=== PATIENT | male | born 1945 | race Caucasian/White ===

== ENCOUNTER → 2018-05-05 07:38 | Outpatient (CLI) | payer MEDICARE, OTHER, SELFPAY ==
[2018-05-05 09:09] LABS: Add Manual Diff / Slide Review NO; Basophils Percent Auto 1.1 % (0-2); Eosinophils Percent Auto 6.6 % (2-4); Hematocrit 45.8 % (41-53); Hemoglobin 15.4 g/dL (13.5-17.5); Mean Corpuscular HGB Conc 33.7 % (30-36); Mean Corpuscular Hemoglobin 32.9 PG (26-34); Mean Corpuscular Volume 97.6 fL (80-100); Monocytes Percent Auto 9.4 % (3-14); Neutrophils Absolute Auto 3500 /uL (3000-5900); Neutrophils Percent Auto 58.9 % (50-75); Platelet Count 157 X10^3/uL (150-400); Red Blood Cell Count 4.69 X10^6/uL (4.5-5.9); Red Cell Distribution Width 13.8 % (11.6-14.8); White Blood Cell Count 5.9 X10^3/uL (4.5-11.0)
[2018-05-05 09:45] LABS: Alanine Aminotransferase 23 IU/L (21-72); Albumin Globulin Ratio 1.6 (1.0-2.8); Alkaline Phosphatase 67 U/L (38-126); Aspartate Aminotransferase 23 IU/L (17-59); BUN Creatinine Ratio 25.6 (6-22); Bilirubin Total 0.4 mg/dL (0.2-1.3); Blood Urea Nitrogen 23 mg/dL (9-20); Calcium 9.2 mg/dL (8.4-10.2); Carbon Dioxide 32 mmol/L (22-32); Chloride 104 mmol/L (98-107); Cholesterol 135 mg/dL (140-199); Estimated Glomerular Filt Rate > 60.0 mL/min (>60); Globulin 2.5 g/dL (1.7-4.1); Glucose 89 mg/dL (80-110); HDL Cholesterol 50 mg/dL (40-60); HEMOLYSIS < 15 (0-50); LDL Cholesterol Calculated 68 mg/dL (<100); Potassium 4.1 mmol/L (3.4-5.1); Sodium 146 mmol/L (137-145); Total Protein 6.5 g/dL (6.3-8.2); Triglycerides 84 mg/dL (35-150)
[2018-05-05 10:51] LABS: TSH w/ Reflex to FT4 1.02 uIU/mL (0.47-4.68)
== END ==
PROVIDERS: Visit Provider Internal Medicine
DX: E03.9 Hypothyroidism, unspecified (principal); I10 Essential (primary) hypertension; I25.10 Atherosclerotic heart disease of native coronary artery without angina pectoris; E78.2 Mixed hyperlipidemia
CPT/HCPCS: 36415; 80053; 80061; 84443; 85025

== ENCOUNTER → 2018-09-15 08:46 | Outpatient (CLI) | payer MEDICARE, OTHER, SELFPAY ==
[2018-09-15 10:16] LABS: Alanine Aminotransferase 28 IU/L (21-72); Albumin 3.8 g/dL (3.5-5.0); Albumin Globulin Ratio 1.5 (1.0-2.8); Alkaline Phosphatase 71 U/L (38-126); Aspartate Aminotransferase 23 IU/L (17-59); Bilirubin Total 0.4 mg/dL (0.2-1.3); Blood Urea Nitrogen 18 mg/dL (9-20); Calcium 8.8 mg/dL (8.4-10.2); Carbon Dioxide 28 mmol/L (22-32); Chloride 106 mmol/L (98-107); Cholesterol 109 mg/dL (140-199); Estimated Glomerular Filt Rate > 60.0 mL/min (>60); Globulin 2.5 g/dL (1.7-4.1); Glucose 94 mg/dL (80-110); HDL Cholesterol 43 mg/dL (40-60); HEMOLYSIS < 15 (0-50); LDL Cholesterol Calculated 45 mg/dL (<100); Sodium 144 mmol/L (137-145); Total Protein 6.3 g/dL (6.3-8.2); Triglycerides 107 mg/dL (35-150)
== END ==
PROVIDERS: PCP Student in an Organized Health Care Education/Training Program; Visit Provider Internal Medicine Cardiovascular Disease
DX: E78.5 Hyperlipidemia, unspecified (principal)
CPT/HCPCS: 36415; 80053; 80061

== ENCOUNTER → 2018-10-06 08:16 | Outpatient (CLI) | payer MEDICARE, OTHER, SELFPAY ==
--- NOTE | 2018-10-06 09:00 | DI.NM.S_ITS ---
PATIENT NAME: DARBY ZHANG : 1945 EXAM DATE: 10/06/2018 9:03 ORD. : MACIEJ GEORGE M.D. CC: MODALITY: NM PATIENT TYPE: Out CONTRAST MEDIA: STATION ID: [id number] FLUORO TIME: PROCEDURE: NM ISABELLA PERF SPECT REST & STR Rest and exercise myocardial perfusion SPECT with gated imaging and ejection fraction RADIOPHARMACEUTICAL: 25.5 mCi Tc-99m sestamibi IV at rest and 27.2 mCi Tc- 99m sestamibi IV at peak exercise. A [id number]-fcregejg was performed. INDICATIONS: Atherosclerotic heart disease of [place] coronary artery TECHNIQUE: Radiopharmaceutical was injected at peak stress test, and also at rest. SPECT images were obtained. SPECT myocardial perfusion images were displayed in short axis, horizontal long axis, and vertical long axis views. Gated images were reviewed using Zipscene software. COMPARISON: None. CARDIAC STRESS: A standard Ruddy treadmill exercise tolerance test was performed by the patient under the supervision of an attending staff. The patient exercised for 7 minutes and 47 seconds; functional aerobic impairment (CHRISTINE) is -12 %. Hemodynamic data: There is normal blood pressure and heart rate response to exercise stress. Patient achieved 93% of maximum predicted heart rate at peak exercise. Symptoms: Patient denied chest pain during exercise. EKG: Negative for ischemia. no ectopy. FINDINGS: Raw data: There is good myocardial labeling by radiotracer. No significant motion artifacts. Lwro-jc-aioww ratio is 0.38 (normal is less than 0.38 for sestamibi tracer, and less than 0.50 for thallium tracer). Left ventricle function: Gated images demonstrate normal left ventricle wall thickening. No segmental wall motion abnormality. No transient ischemic dilation ; TID is Continued Report - Page 2 of 2 PATIENT NAME: DARBY ZHANG : 1945 EXAM DATE: 10/06/2018 9:03 ORD. : MACIEJ GEORGE M.D. CC: MODALITY: NM PATIENT TYPE: Out CONTRAST MEDIA: STATION ID: [id number] FLUORO TIME: 0.74 (normal less than 1.3). The left ventricle resting end-diastolic volume is 79 mL. Left ventricle stress ejection fraction is 70%; normal values are above 45%. Myocardial perfusion: There is a moderate-sized perfusion defect from the mid to basal inferior and inferoseptal wall both at supine stress and rest which improves with prone imaging with only a very a small area at the basal posterior segment which persists on prone imaging. This is consistent with artifact .There is a small apical septal defect on supine stress and rest imaging which resolved with prone imaging, also consistent with artifact. Otherwise normal distribution of activity in the left and right ventricular myocardium. No fixed or reversible perfusion defects. IMPRESSION: -Normal perfusion study. -Normal ejection fraction and wall motion. -Great exercise capacity. -Compared to the report of prior nuclear stress study on 03/15/2013, the described anterior wall ischemia is no longer present. Dictated by: Go Gamino on 10/07/2018 at 19:26 Approved by: Go Gamino on 10/07/2018 at 19:38
--- NOTE | 2018-10-06 09:26 | PM.TREADMILL ---
Cardiac Stress Test Report Referral & Results Date Patient Seen: 10/06/18 Requesting provider: Sapphire Swann Indication: Known coronary disease Rest ECG: Unremarkable Procedure Note: Today following both written and verbal informed consent the patient was exercised according to a standard Ruddy protocol patient went for a total of 7 min 47 sec achieving a maximum heart rate of 136 maximum systolic blood pressure of 168. This is approximately 10.1 METS. Exercise was terminated at this point because of targets for med and patient was unable to proceed any further. Patient was also given Cardiolite through a previously started Hep-Lock IV by the nuclear medicine specialist approximately 1 minute prior to the cessation of exercise. With exercise there were some nonspecific ST-T segment flattening in the far lateral leads V4 through V6 that rapidly resolved immediately upon cessation of exercise. Functional aerobic impairment rated-12% on the active scale No dysrhythmia Normal heart rate and blood pressure response Impression: Nonspecific ST changes unlikely to be ischemic given the rapidity with which they resolved Better than average exercise capacity Perfusion imaging will be reported separately Please note: Actual ECG tracings can be found in the PACS system.
== END ==
PROVIDERS: Family Provider Family Medicine; PCP Student in an Organized Health Care Education/Training Program; Visit Provider Internal Medicine Cardiovascular Disease
DX: I25.10 Atherosclerotic heart disease of native coronary artery without angina pectoris (principal)
CPT/HCPCS: 78452; 93016; 93017; 93018; A9502

== ENCOUNTER → 2018-10-07 10:51 | Outpatient (CLI) | payer MEDICARE, OTHER, SELFPAY ==
--- NOTE | 2018-10-07 | DI.ECHO.S_ITS ---
[facility]---------+ [facility] +---------+ : : [id number] : [place] : : : : [id number] : : : : Phone: [phone]+ Echocardiogram Report + + :Name: DARBY ZHANG Study Date: 10/07/2018 Height: 69 in : :[facility] Weight: 180 lb: : Gender: Male BSA: 2.0 m2 : :: 1945 Age: 73 yrs : :Reason For Study: MURMUR : : Performed By: Anita Rodriguez : :Referring: MACIEJ GEORGE : + + Interpretation Summary The left ventricle is normal in size, wall thickness, and systolic function without any focal wall motion abnormalities with the ejection fraction visually estimated to be 60-65%. Diastolic parameters suggest a relaxation abnormality of the left ventricle, consistent with probable normal filling pressures. There has been no significant change since the previous study. The right ventricle is at the upper limits of normal in size and right ventricular systolic function is at the lower limits of normal. The right ventricle appears slightly larger compared to the previous study. The right ventricular systolic pressure is estimated to be at least 23 mmHg based on an estimated right atrial pressure of 3 mm Hg. The left atrial size is normal and the right atrium is moderately dilated. The right atrium has mildly increased in size since the prior echo exam. There is mild tricuspid regurgitation that is slightly more prominent compared to the previous study. There is no other significant valvular heart disease. The ascending aorta is mildly enlarged but is unchanged compared to the previous study. The patient was in sinus bradycardia with heart rates between 50-55 bpm during the exam. Procedure: A two-dimensional transthoracic echocardiogram with color flow and Doppler was performed. The study quality was technically adequate. Comparison is made with the echocardiogram of 03/15/2013. The patient was in sinus bradycardia with heart rates between 50-55 bpm during the exam. Left Ventricle: The left ventricle is normal in size, wall thickness, and systolic function without any focal wall motion abnormalities. The ejection fraction is estimated to be 60-65%. Diastolic parameters suggest a relaxation abnormality of the left ventricle, consistent with probable normal filling pressures. There has been no significant change since the previous study. Right Ventricle: The right ventricle is at the upper limits of normal in size. Right ventricular systolic function is at the lower limits of normal. This is slightly larger compared to the previous study. Atria: The left atrial size is normal. The right atrium is moderately dilated. The right atrium has mildly increased in size since the prior echo exam. There is no Doppler evidence for an interatrial shunt. Mitral Valve: There is mild mitral annular calcification. The mitral valve is normal in structure and function. There is trace mitral regurgitation. This is unchanged compared to the previous study. Aortic Valve: The aortic valve is trileaflet. There is mild aortic valve sclerosis. The aortic valve opens well. There is no aortic valve stenosis. There is trace aortic regurgitation. This is unchanged compared to the previous study. Tricuspid Valve: The tricuspid valve is normal in structure and function. There is mild tricuspid regurgitation. This is slightly more prominent compared to the previous study. The right ventricular systolic pressure is estimated to be at least 23 mmHg based on an estimated right atrial pressure of 3 mm Hg. Pulmonic Valve: The pulmonic valve is normal in structure and function. There is trace pulmonic regurgitation. There is no other significant valvular heart disease. Great Vessels: The aortic root is normal size. The ascending aorta is mildly enlarged. This is unchanged compared to the previous study. The aortic arch is normal in size. The pulmonary artery is normal size. The IVC is of normal diameter and collapses greater than 50% with a sniff. This suggests a low right atrial pressure of 3 mm Hg. Pericardium/ Pleura There is no pericardial effusion. There is no pleural effusion. MMode/2D Measurements & Calculations LVIDd: 4.6 cm LVOT diam: 2.5 cm LVIDs: 2.8 cm Ao root diam: 3.6 cm FS: 39.6 % asc Aorta Diam: 3.5 cm IVSd: 0.92 cm Ao Arch Diam (distal): 2.6 cm LVPWd: 0.95 cm LV higuera. diameter/BSA (cm/m^2): 2.3 LV sys. diameter/BSA (cm/m^2): 1.4 LA A2 area: 20.3 cm2 RA long axis: 5.5 cm LA A4 area: 16.8 cm2 RA area: 23.6 cm2 LA length (vol): 5.8 cm RA vol: 86.1 ml LA vol: 49.7 ml RA : 43.6 ml/m2 LA vol index: 25.2 ml/m2 IVC diam: 1.8 cm RVD1 (basal): 4.2 cm TAPSE: 1.7 cm Doppler Measurements & Calculations Ao V2 max: 105.9 cm/sec LVOT Max Levar: 88.6 cm/sec Ao V2 mean: 65.4 cm/sec LV V1 max P.1 mmHg Ao max P.5 mmHg LV V1 VTI: 17.7 cm Ao mean P.0 mmHg CHRISTINE(I,D): 4.3 cm2 Ao V2 VTI: 19.6 cm CHRISTINE(V,D): 4.0 cm2 sev ratio: 0.90 CHRISTINE indexed to BSA (cm^2/m^2): 2.2 MV E max levar: 39.9 cm/sec TR max levar: 223.5 cm/sec MV A max levar: 55.3 cm/sec TR max P.1 mmHg MV E/A: 0.72 Med Peak E' Levar: 3.9 cm/sec E/E' med: 10.2 Lat Peak E' Levar: 6.5 cm/sec E/E' lat: 6.1 E/e' average: 8.2 MV P1/2t: 64.0 msec MV P1/2t max levar: 40.8 cm/sec SV(LVOT): 83.6 ml MVA(P1/2t): 3.4 cm2 Reading Physician:PM
== END ==
PROVIDERS: Family Provider Family Medicine; PCP Student in an Organized Health Care Education/Training Program; Visit Provider Internal Medicine Cardiovascular Disease
DX: I07.1 Rheumatic tricuspid insufficiency (principal); R01.1 Cardiac murmur, unspecified
CPT/HCPCS: 93306

== ENCOUNTER → 2019-02-02 10:54 | Outpatient (CLI) | payer MEDICARE, OTHER, SELFPAY ==
[2019-02-02 13:35] LABS: Free T3, Triiodothyronine Free 4.89 pg/mL (2.77-5.27); Free T4, Direct Thyroxine 1.04 ng/dL (0.78-2.19)
[2019-02-02 13:48] LABS: Thyroid Stimulating Hormone 0.31 uIU/mL (0.47-4.68)
[2019-02-02 14:06] LABS: Vitamin B12 258 pg/mL (239-931)
[2019-02-04 14:21] LABS: Testosterone Free 30.6 pg/mL (30.0-135.0); Testosterone Total 508 ng/dL (250-1100)
== END ==
PROVIDERS: PCP Student in an Organized Health Care Education/Training Program; Visit Provider Student in an Organized Health Care Education/Training Program
DX: R53.83 Other fatigue (principal); E03.9 Hypothyroidism, unspecified
CPT/HCPCS: 36415; 82607; 84402; 84403; 84439; 84443; 84481

== ENCOUNTER 2019-02-09 07:52 | Day surgery (SDC) | payer MEDICARE, OTHER, SELFPAY ==
[2019-02-09 08:12] VITALS: BP 116/79; PULSE 57; RESP 15; TEMP 36.3; O2SAT 99
[2019-02-09 08:21] VITALS: BMI 24.4
[2019-02-09] MEDS: PROPARACAINE 0.5% OPHTH SOL 2 DROPS EYE-OP (08:45)
[2019-02-09] MEDS: CATARACT EYE COMPOUND (10 DROPS/SYRINGE) 3 DROPS EYE-OP (08:50)
--- NOTE | 2019-02-09 09:47 | PM.PREOP ---
Pre-operative Note Interval Note History & Physical reviewed/Exam performed by Physician: No Changes to H&P: No
--- NOTE | 2019-02-09 09:47 | PM.OP.1 ---
Operative Date/Time/Diagnoses Pre-op diagnosis: Nuclear Cataract Left eye Post-op diagnosis: same Procedure & Clinicians Surgeon: Basilio Sinha Anesthesia Type: MAC +/- and Sedation Operative Notes Procedure in detail: Patient brought to the operating suite. Tetracaine drops placed in the left eye. Patient was prepped and draped in sterile manner. Wire lid speculum was placed in the eye. Betadine drops were placed on the eye. This was irrigated. Lidocaine jelly was placed on the eye. A paracentesis port was created with a side-port blade. 0.1 mL 1% preservative free lidocaine was injected into the anterior chamber. The anterior chamber was deepened with viscoelastic. 2.6 mm keratome was used to create a temporal clear corneal incision. Cystotome and Utrata forceps were used to create continuous tear capsulorrhexis. Balanced salt solution was used to hydro dissect the nucleus. The phacoemulsification handpiece was inserted and the nucleus was removed using the stop and chop technique. The irrigation aspiration handpiece was inserted and the remaining cortex was removed. Anterior chamber was deepened with viscoelastic. An Larkin ZCB00 intraocular lens with a power of 19.5 was injected into the capsular bag. Irrigation aspiration handpiece was inserted and the remaining viscoelastic was removed. Incision was hydrated with balanced salt solution and was leaking. Two 10-0 nylon sutures were used to secure the incision. It was tested again and found to be leak free with pressure with Weck-Nikki sponges. 0.1 mL Vigamox injected anterior chamber. 0.3 mL Kenalog 10 mg was injected subconjunctivally. Lid speculum was removed. The patient left the operating room in excellent condition. Complications: none Condition: stable Disposition: same day surgery
[2019-02-09] MEDS: MOXIFLOXACIN OPHTH DROPS 3 ML BOTTLE 2 DROPS INJ (10:11)
[2019-02-09] MEDS: PHENYLEPHRINE/LIDOCAINE VIAL (OR) 0.2 ML EYE-OP (10:11)
[2019-02-09] MEDS: CHONDROIDTIN/SOD HYALURONATE 1.05 ML SYRINGE INTRAOCULA (10:12)
[2019-02-09] MEDS: LIDOCAINE JELLY 2% 5 ML 1 APPLIC TOP (10:12)
[2019-02-09] MEDS: BALANCED SALT IRRIG SOLN NO.2 500 ML, EPINEPHrine 1 MG IRR (10:12)
[2019-02-09] MEDS: TRIAMCINOLONE 50 MG/5 ML VIAL INJ (10:12)
[2019-02-09] MEDS: TETRACAINE 0.5% OPHTH DROPS 4 ML 2 DROPS EYE-OP (10:12)
[2019-02-09 10:41] VITALS: BP 115/82; PULSE 53; RESP 15; TEMP 36.5; O2SAT 97
--- NOTE | 2019-02-09 11:06 | SUR.PHASEII ---
Discussed pt may take tylenol as needed and call Dr. Sinha if has pain in the surgical eye.
== END 2019-02-09 10:54 | disposition home or self-care (01) ==
PROVIDERS: PCP Student in an Organized Health Care Education/Training Program; Visit Provider Ophthalmology
PROC: (CPT 66984; principal; 2019-02-09 10:00)
DX: H25.12 Age-related nuclear cataract, left eye (principal)
CPT/HCPCS: 66984; J0171; J2250; J3010; J3301

== ENCOUNTER 2019-02-19 14:14 | Day surgery (SDC) | payer MEDICARE, OTHER, SELFPAY ==
[2019-02-19 14:31] VITALS: BMI 25.8
[2019-02-19 14:39] VITALS: BP 124/78; PULSE 61; RESP 15; TEMP 37.1; O2SAT 95
--- NOTE | 2019-02-19 15:22 | PM.PREOP ---
Pre-operative Note Interval Note History & Physical reviewed/Exam performed by Physician: No Changes to H&P: No
--- NOTE | 2019-02-19 15:22 | PM.OP.1 ---
Operative Date/Time/Diagnoses Pre-op diagnosis: Leaking cataract incision Procedure & Clinicians Procedure: Suture cataract incision Same procedure as scheduled: Yes Surgeon: Basilio Sinha Anesthesia Type: MAC +/- Operative Notes Procedure in detail: Patient brought to the operating suite. Tetracaine drops placed in the left eye. Patient was prepped and draped in sterile manner. Wire lid speculum was placed in the eye. Betadine drops were placed on the eye. This was irrigated. Two 10-0 nylon sutures were used to close the cataract incision. Incision was hydrated with balanced salt solution and found to be leak free with pressure with Weck-Nikki sponges. 0.1 mL Vigamox injected anterior chamber. Lid speculum was removed. The patient left the operating room in excellent condition.
[2019-02-19] MEDS: MOXIFLOXACIN OPHTH DROPS 3 ML BOTTLE 2 DROPS INJ (15:49)
[2019-02-19] MEDS: TETRACAINE 0.5% OPHTH DROPS 4 ML 2 DROPS EYE-OP (15:49)
[2019-02-19] MEDS: BALANCED SALT IRRIG SOLN NO.2 15 ML IRR (15:51)
[2019-02-19 15:57] VITALS: BP 113/80; PULSE 61; RESP 13; TEMP 36.6; O2SAT 97
[2019-02-19 16:24] VITALS: BP 131/80; PULSE 56; RESP 16; TEMP 36.3; O2SAT 97
== END 2019-02-19 16:25 | disposition home or self-care (01) ==
PROVIDERS: PCP Student in an Organized Health Care Education/Training Program; Visit Provider Ophthalmology
PROC: (CPT 66250; principal; 2019-02-19 15:00)
DX: H59.092 Other disorders of the left eye following cataract surgery (principal); I10 Essential (primary) hypertension; E78.5 Hyperlipidemia, unspecified; E03.9 Hypothyroidism, unspecified; Z98.42 Cataract extraction status, left eye; Z95.1 Presence of aortocoronary bypass graft
CPT/HCPCS: 66250; J2250; J3010

== ENCOUNTER 2019-06-03 15:01 | Emergency (ER) | payer MEDICARE, OTHER, SELFPAY ==
--- NOTE | 2019-06-03 15:08 | ED.GENADULT ---
HPI - General Adult General Chief complaint: Syncope Stated complaint: Near Syncope Time Seen by Provider: 06/03/19 15:03 Source: patient Mode of arrival: EMS Limitations: no limitations History of Present Illness HPI narrative: 73-year-old male brought in by EMS for concerns of a near syncopal event. Patient does have a significant cardiac history. Within the past 5 years has had a coronary artery bypass graft. He states that he was sitting in his hot tub because of back pain. He states the back pain is not new. States when he got out of the hot tub he was very lightheaded. No dizziness. He did not pass out. No chest pain. No shortness of breath. Some concern about ST depressions on the EKG provided by EMS. Related Data Home Medications Medication Instructions Recorded Confirmed latanoprost [Xalatan] 1 drp OPHTHALMIC (EYE) BEDTIME #0 04/29/13 06/03/19 aspirin 81 mg PO DAILY #0 04/29/17 06/03/19 chlorthalidone 12.5 mg PO Q OTHER DAY 06/03/19 06/03/19 dorzolamide-timolol 1 drp OPHTHALMIC (EYE) DIRECTED 06/03/19 06/03/19 lisinopril 20 mg PO DAILY 06/03/19 06/03/19 metoprolol succinate 12.5 mg PO DAILY 06/03/19 06/03/19 Previous Rx's Medication Instructions Recorded carbamazepine 200 mg 200 mg PO Q12H #180 cap 01/21/19 capsule,extended release [id number] atorvastatin 40 mg tablet 40 mg PO BEDTIME #90 tab 05/25/19 levothyroxine 125 mcg tablet 125 mcg PO DAILY #90 tab 05/31/19 Allergies Allergy/AdvReac Type Severity Reaction Status Date / Time No Known Drug Allergies Allergy Verified 05/12/19 11:31 Review of Systems Constitutional Constitutional: Denies fever(s), Denies headache(s) and Denies weakness ENT Ears, Nose, Mouth, and Throat: Denies vertigo, Reports dizziness, Denies headache(s) and Reports disequilibrium Cardiovascular Cardiovascular: Denies chest pain, Denies syncope and Denies dyspnea Respiratory Respiratory: Denies dyspnea Gastrointestinal Gastrointestinal: Denies abdominal pain, Reports nausea and Denies vomiting Genitourinary Genitourinary: Denies dysuria Musculoskeletal Musculoskeletal: Denies atrophy, Denies arthralgias and Denies tingling Integumentary/Breasts Skin/Breast: Denies lesions and Denies rash Neurologic Neurologic: Denies confusion, Denies vertigo, Reports dizziness, Denies syncope, Denies headache(s), Denies tingling, Reports disequilibrium and Denies weakness Psychiatric Psychiatric: Denies confusion Hematologic/Lymphatic Hematologic/Lymphatic: Denies easy bleeding and Denies easy bruising [facility] Medical History Aneurysm of right renal artery (Resolved 2008) CAD (coronary artery disease) (Chronic 2012) Excessive daytime sleepiness (Chronic) Fatigue (Chronic) Hyperlipidemia (Chronic) Hypertension (Chronic) Hypothyroidism (Chronic 2014) Lumbar spinal stenosis (Chronic) Obstructive sleep apnea (Chronic) PVD (peripheral vascular disease) (Chronic) Subacute thyroiditis (Chronic) Trigeminal neuralgia (Chronic 2010) Surgical History History of arthroplasty of right knee (Resolved 2014) History of nephrectomy (Resolved) Status post coronary artery bypass graft (Resolved 2012) Family History Son Multiple sclerosis Mother No problems noted. Social History household members: spouse Smoking Status: Never smoker Social History household members: spouse Smoking Status: Never smoker Exam Initial Vital Signs Initial Vital Signs: Vital Signs Temperature 97.6 F 06/03/19 15:09 Pulse Rate 56 L 06/03/19 15:09 Respiratory Rate 12 06/03/19 15:09 Blood Pressure 114/79 06/03/19 15:09 Pulse Oximetry 99 06/03/19 15:09 Const General: cooperative, comfortable and well developed Orientation: alert, awake and oriented x3 HENMT Head: normal to inspection and normocephalic Resp Effort & Inspection: normal respiratory effort Auscultation: clear to auscultation bilaterally Cardio Rate: regular rate Rhythm: regular rhythm Pulses: radial pulses present GI Inspection: non-distended Palpation: soft, No firm and No tender Skin Lesions: no lesions Rashes: no rashes Neuro General: alert, awake and oriented x3 Cognition: normal cognition Speech: speech normal Motor: muscle tone normal throughout Extrem General: normal to inspection and capillary refill normal Psych Appearance: grossly normal and well kempt Course Orders Ordered: ED Orders 06/03/19 14:45 Basic Metabolic Panel Stat Complete Blood Count AUTO DIFF Stat Ethanol (ETOH) Stat Partial Thromboplastin Time Stat Prothrombin Time INR Stat Troponin I Stat 06/03/19 15:09 EKG-12 Lead Stat Discontinued Medications Sodium Chloride (Normal Saline 0.9%) 1,000 mls @ 1,000 mls/hr IV BOLUS ONE Stop: 06/03/19 16:02 Last Admin: 06/03/19 15:37 Dose: 1,000 mls/hr Documented by: JUSTYNA Vital Signs Vital signs: Vital Signs - 8 hr 06/03/19 15:09 06/03/19 15:46 Temperature 97.6 F Pulse Rate 56 L 49 L Respiratory Rate 12 10 L Blood Pressure 114/79 Blood Pressure [Right Arm] 112/73 Pulse Oximetry 99 97 Medical Decision Making Lab Data Lab results reviewed: Yes I reviewed the patient's lab results. Result diagrams: 06/03/19 14:45 06/03/19 14:45 Labs: Lab Results 06/03/19 06/03/19 06/03/19 Range/Units 14:45 14:45 14:45 WBC 6.6 (4.5-11.0) X10^3/uL RBC 4.94 (4.5-5.9) X10^6/uL Hgb 16.2 (13.5-17.5) g/dL Hct 47.6 (41-53) % MCV 96.3 (80-100) fL MCH 32.8 (26-34) PG MCHC 34.0 (30-36) % RDW 13.8 (11.6-14.8) % Plt Count 185 (150-400) X10^3/uL Neut % (Auto) 49.0 L (50-75) % Lymph % (Auto) 35.3 (25-40) % [place] % (Auto) 9.0 (3-14) % Eos % (Auto) 5.7 H (2-4) % Baso % (Auto) 1.0 (0-2) % Neut # (Auto) 3200 (3773-6337) /uL Lymph # (Auto) 2300 (3413-9665) /uL [place] # (Auto) 600 (0-900) /uL Eos # (Auto) 400 (0-450) /uL Baso # (Auto) 100 (0-100) /uL PT 10.8 (10.1-12.7) SECONDS INR 0.9 (0.9-1.3) APTT 26 L (26.4-36.2) SECONDS Sodium 140 (137-145) mmol/L Potassium 3.6 (3.4-5.1) mmol/L Chloride 101 (98-107) mmol/L Carbon Dioxide 25 (22-32) mmol/L BUN 23 H (9-20) mg/dL Creatinine 0.90 (0.66-1.25) mg/dL Estimated GFR > 60.0 (>60) mL/min BUN/Creatinine Ratio 25.6 H (6-22) Glucose 107 (80-110) mg/dL Calcium 9.6 (8.4-10.2) mg/dL Troponin I < 0.012 (0.01-0.034) ng/mL Ethyl Alcohol < 10 ( - 10) mg/dL Point of Care Testing Glucose POC 115 Point of care testing: Point of Care Testing Glucose POC 115 ECG Data Attestation: I personally reviewed and interpreted this ECG as follows: Prior ECG tracings: not available for review Interpretation: Sinus bradycardia Ventricular rate of 54 Normal axis Normal QRS Normal QTC No ST T wave changes MDM Narrative Medical decision making narrative: Labs are reassuring, EKG is reassuring, patient was able to ambulate around the emergency department without problems. I have a strong suspicion that his symptoms were related to vasodilation secondary to being in the hot hot tub and then standing up and getting lightheaded. He states he is back to normal. Has no further symptoms. We will hold on further workup for now. Patient was given return precautions and follow-up instructions. He expressed understanding and agreement plan. Discharge Plan Departure Patient Disposition: Home Clinical Impression: Pre-syncope Instructions: DI for Dizziness-Nonvertigo Activity Restrictions/Additional Instructions: I do suspect that your symptoms are related to being in the hot tub. Continue all of your medications as directed. Contact your primary provider for follow-up. Return to the emergency department for any new or worsening symptoms Prescriptions: No Action latanoprost [Xalatan] 0.005 % drops 1 drp ophthalmic (eye) BEDTIME Qty: 0 RF: 0 aspirin 81 MG tablet,delayed release (DR/EC) 81 mg PO DAILY Qty: 0 RF: 0 carbamazepine 200 mg capsule, ER multiphase 12 hr 200 mg PO Q12H Qty: 180 RF: 1 atorvastatin 40 mg tablet 40 mg PO BEDTIME Qty: 90 RF: 3 levothyroxine [Synthroid] 125 mcg tablet 125 mcg PO DAILY Qty: 90 RF: 3 lisinopril 10 mg tablet 20 mg PO DAILY RF: 0 dorzolamide-timolol 22.3-6.8 mg/mL drops 1 drp ophthalmic (eye) DIRECTED RF: 0 metoprolol succinate 25 mg tablet extended release 24 hr 12.5 mg PO DAILY RF: 0 chlorthalidone 25 mg tablet 12.5 mg PO Q OTHER DAY RF: 0 Referrals: Lele Diaz MD [Primary Care Provider] -
[2019-06-03 15:09] VITALS: BP 114/79; PULSE 56; RESP 12; TEMP 36.4; O2SAT 99; BMI 25.8
[2019-06-03 15:15] LABS: Add Manual Diff / Slide Review NO; Basophils Absolute Auto 100 /uL (0-100); Eosinophils Absolute Auto 400 /uL (0-450); Eosinophils Percent Auto 5.7 % (2-4); Hematocrit 47.6 % (41-53); Hemoglobin 16.2 g/dL (13.5-17.5); Lymphocytes Absolute Auto 2300 /uL (1100-4500); Lymphocytes Percent Auto 35.3 % (25-40); Mean Corpuscular Hemoglobin 32.8 PG (26-34); Mean Corpuscular Volume 96.3 fL (80-100); Monocytes Absolute Auto 600 /uL (0-900); Neutrophils Absolute Auto 3200 /uL (1500-7000); Platelet Count 185 X10^3/uL (150-400); Red Blood Cell Count 4.94 X10^6/uL (4.5-5.9); Red Cell Distribution Width 13.8 % (11.6-14.8); White Blood Cell Count 6.6 X10^3/uL (4.5-11.0)
--- NOTE | 2019-06-03 15:16 | PC.NURSE ---
Patient was in hot tub 104+degree for his lower back pain. Patient felt nauseated, and light headed. When getting out felt near syncopal. Did not pass out. Denies chest pain or SOB. Reports some fatigue and nausea.
[2019-06-03 15:21] LABS: INR 0.9 (0.9-1.3); Prothrombin Time 10.8 SECONDS (10.1-12.7)
[2019-06-03 15:24] LABS: PTT Partial Thromboplastin Tim 26 SECONDS (26.4-36.2)
[2019-06-03 15:28] LABS: BUN Creatinine Ratio 25.6 (6-22); Blood Urea Nitrogen 23 mg/dL (9-20); Calcium 9.6 mg/dL (8.4-10.2); Carbon Dioxide 25 mmol/L (22-32); Chloride 101 mmol/L (98-107); Estimated Glomerular Filt Rate > 60.0 mL/min (>60); Ethanol (ETOH) < 10 mg/dL; Glucose 107 mg/dL (80-110); HEMOLYSIS < 15 (0-50); Potassium 3.6 mmol/L (3.4-5.1); Sodium 140 mmol/L (137-145)
[2019-06-03] MEDS: SODIUM CHLORIDE 0.9% 1,000 ML 1000 ML IV (15:37)
[2019-06-03 15:38] LABS: Troponin I < 0.012 ng/mL (0.01-0.034)
[2019-06-03 15:46] VITALS: BP 112/73; PULSE 49; RESP 10; O2SAT 97
[2019-06-03 16:51] VITALS: BP 112/69; PULSE 55; O2SAT 100
== END 2019-06-03 16:52 | disposition home or self-care (01) ==
PROVIDERS: Emergency Provider Emergency Medicine; PCP Student in an Organized Health Care Education/Training Program
DX: R55 Syncope and collapse (principal); R00.1 Bradycardia, unspecified
CPT/HCPCS: 36415; 80048; 80320; 84484; 85025; 85610; 85730; 93005; 93010; 99283; 99284

== ENCOUNTER → 2019-06-12 08:05 | Outpatient (CLI) | payer MEDICARE, OTHER, SELFPAY | PROVIDERS: PCP Student in an Organized Health Care Education/Training Program; Visit Provider Physician Assistant | DX: R30.0 Dysuria (principal) | CPT/HCPCS: 87086 ==

== ENCOUNTER → 2019-07-13 10:34 | Outpatient (CLI) | payer MEDICARE, OTHER, SELFPAY ==
[2019-07-13 12:41] LABS: Alanine Aminotransferase 18 IU/L (<50); Albumin 4.2 g/dL (3.5-5.0); Albumin Globulin Ratio 1.8 (1.0-2.8); Alkaline Phosphatase 74 U/L (38-126); Aspartate Aminotransferase 24 IU/L (17-59); Bilirubin Total 0.5 mg/dL (0.2-1.3); Bilirubin Unconjugated 0.3 mg/dL (0.0-1.1); Globulin 2.4 g/dL (1.7-4.1); HEMOLYSIS < 15 (0-50); Total Protein 6.6 g/dL (6.3-8.2)
[2019-07-19 12:45] LABS: Carbamazepine Tegretol Level 9.9 mg/L (4.0-12.0)
== END ==
PROVIDERS: PCP Student in an Organized Health Care Education/Training Program; Visit Provider Student in an Organized Health Care Education/Training Program
DX: Z79.899 Other long term (current) drug therapy (principal)
CPT/HCPCS: 36415; 80076; 80156

== ENCOUNTER → 2019-10-08 14:31 | Outpatient (CLI) | payer MEDICARE, OTHER, SELFPAY | PROVIDERS: PCP Student in an Organized Health Care Education/Training Program; Visit Provider Student in an Organized Health Care Education/Training Program | DX: Z13.820 Encounter for screening for osteoporosis (principal); M85.852 Other specified disorders of bone density and structure, left thigh | CPT/HCPCS: 77080 ==

== ENCOUNTER → 2019-10-20 12:01 | Outpatient (CLI) | payer MEDICARE, OTHER, SELFPAY ==
[2019-10-20 13:28] LABS: BUN Creatinine Ratio 27.5 (6-22); Blood Urea Nitrogen 33 mg/dL (9-20); Calcium 9.7 mg/dL (8.4-10.2); Carbon Dioxide 30 mmol/L (22-32); Chloride 102 mmol/L (98-107); Glucose 93 mg/dL (80-110); HEMOLYSIS < 15 (0-50); Magnesium 2.1 mg/dL (1.6-2.3); Potassium 5.1 mmol/L (3.4-5.1); Sodium 141 mmol/L (137-145)
[2019-10-20 16:39] LABS: Thyroid Stimulating Hormone < 0.02 uIU/mL (0.47-4.68)
== END ==
PROVIDERS: PCP Student in an Organized Health Care Education/Training Program; Referring Provider Internal Medicine Cardiovascular Disease; Visit Provider Internal Medicine Cardiovascular Disease
DX: I49.1 Atrial premature depolarization (principal); E78.5 Hyperlipidemia, unspecified
CPT/HCPCS: 36415; 80048; 83735; 84443

== ENCOUNTER → 2019-11-24 09:10 | Outpatient (CLI) | payer MEDICARE, OTHER, SELFPAY ==
--- NOTE | 2019-11-24 09:11 | DI.US.S_ITS ---
PROCEDURE: US THYROID INDICATIONS: HYPOTHYROIDISM TECHNIQUE: Real-time scanning was performed of the thyroid gland, with image documentation. COMPARISON: None. FINDINGS: Right: Thyroid lobe measures 5.8 x 2.2 x 2.0 cm, and is diffusely heterogeneous in echotexture. Left: Thyroid lobe measures 5.6 x 1.8 x 1.2 cm, and is diffusely heterogeneous in echotexture. Isthmus: 5.3 mm thick. IMPRESSION: Diffusely heterogeneous thyroid. No focal nodules. Dictated by: Yaya Tidwell [facility] Interpreted: Axel Dominique MD on 11/24/2019 at 9:57 Approved by: Axel Dominique M.D. on 11/24/2019 at 13:46
== END ==
PROVIDERS: PCP Student in an Organized Health Care Education/Training Program; Referring Provider Student in an Organized Health Care Education/Training Program; Visit Provider Student in an Organized Health Care Education/Training Program
DX: E03.9 Hypothyroidism, unspecified (principal)
CPT/HCPCS: 76536

== ENCOUNTER → 2019-11-25 13:07 | Outpatient (CLI) | payer MEDICARE, OTHER, SELFPAY ==
[2019-11-25 14:51] LABS: TSH w/ Reflex to FT4 < 0.02 uIU/mL (0.47-4.68)
[2019-11-26 14:11] LABS: Anti Thyroglobulin Antibody 3.2 IU/mL (0.0-0.9); Thyroid Peroxidase Antibodies 15 IU/mL (0-34)
== END ==
PROVIDERS: PCP Student in an Organized Health Care Education/Training Program; Referring Provider Student in an Organized Health Care Education/Training Program; Visit Provider Student in an Organized Health Care Education/Training Program
DX: E03.9 Hypothyroidism, unspecified (principal)
CPT/HCPCS: 36415; 84439; 84443; 86376; 86800

== ENCOUNTER → 2020-01-17 11:43 | Outpatient (CLI) | payer MEDICARE, OTHER, SELFPAY ==
[2020-01-17 13:05] LABS: Free T3, Triiodothyronine Free 3.33 pg/mL (2.77-5.27); Free T4, Direct Thyroxine 0.71 ng/dL (0.78-2.19)
[2020-01-17 13:19] LABS: Thyroid Stimulating Hormone 0.87 uIU/mL (0.47-4.68)
== END ==
PROVIDERS: PCP Student in an Organized Health Care Education/Training Program; Referring Provider Student in an Organized Health Care Education/Training Program; Visit Provider Student in an Organized Health Care Education/Training Program
DX: E03.9 Hypothyroidism, unspecified (principal)
CPT/HCPCS: 36415; 84439; 84443; 84481

== ENCOUNTER → 2020-04-05 12:09 | Outpatient (CLI) | payer MEDICARE, OTHER, SELFPAY ==
--- NOTE | 2020-04-05 12:11 | DI.MRI.S_ITS ---
PROCEDURE: MR LUMBAR SPINE WO CON INDICATIONS: Low back pain TECHNIQUE: Noncontrast sagittal T1 spin echo and T2 fast echo, sagittal STIR, axial T1 and T2 fast spin echo through the lumbar spine. In cases with scoliosis, additional coronal T2 fast spin echo may be performed. COMPARISON: [facility], MR, L-SPINE WITHOUT CONTRAST, 05/21/2010, 13:07. [facility], CT, ABDOMEN WITH CONTRAST, 08/07/2017, 9:38. FINDINGS: Image quality: Diagnostic, with note made of motion artifact. Alignment and Curvature: Mild levoconvex scoliotic curvature is noted. There is minimal retrolisthesis seen at L1-L2 and L2-3. Bone Marrow: Marrow is of normal overall signal. No acute vertebral body compression fractures. Spinal Cord: Conus medullaris terminates at the L1 level. Visualized cord demonstrates normal signal and size. Paraspinous Soft Tissues: No paravertebral masses. T12-L1: Mild loss of disc height is seen. Loss of disc signal is seen. Mild to moderate disc bulge is seen, which is eccentric to the left. There is a left foraminal disc protrusion, as on series 6, image 9 and on series 4, image 15. Mild facet joint hypertrophy is seen. There is moderate left-sided and mild to moderate right-sided neural foraminal narrowing seen. Mild central canal narrowing is seen. These imaging findings have progressed compared to the prior study. L1-L2: The disc height is well-preserved. Loss of disc signal is seen at this level. There is a focal annular fissure seen posteriorly. Moderate disc bulge is seen, with a mild central disc protrusion. There is moderate bilateral neural foraminal narrowing seen, right worse than left. Moderate central canal narrowing is seen. These imaging findings have progressed compared to the prior study. L2-L3: Moderate loss of disc height is seen. Loss of disc signal is seen. Moderate disc bulge is seen, which is eccentric to the right. Mild to moderate facet hypertrophy is seen. Associated hypertrophy of the ligamentum flavum can be seen. There is moderate right-sided and [id number] left-sided neural foraminal narrowing seen. Moderate to severe central canal narrowing is seen at this level. These degenerative changes are worse than in 2010. L3-L4: The disc height is well-preserved. Loss of disc signal is seen at this level. There is a Schmorl's node seen at the superior endplate of L4, without acute features. Moderate disc bulge is seen, which is eccentric to the right. There is at least moderate facet hypertrophy seen. Associated hypertrophy of the ligamentum flavum can be seen. There is at least moderate bilateral neural foraminal narrowing seen, right worse than left. Moderate to severe central canal narrowing is seen, as on series 6, image 23. These degenerative changes are clearly worse than in 2010. L4-L5: Moderate to severe loss of disc height and disc signal can be seen. Reactive marrow endplate changes are seen, which are hyperintense on T1-weighted and T2-weighted imaging and most consistent with fatty metaplasia (Modic type II changes). At least moderate disc bulge is seen, which is eccentric to the left. There is a central disc protrusion present. Moderate facet joint hypertrophy is seen. There is at least moderate right-sided and moderate to severe left-sided neural foraminal narrowing seen. There is a degree of compression seen upon the exiting nerve roots. Moderate to severe central canal narrowing is seen. These imaging findings have progressed compared to the prior study. L5-S1: Moderate to severe loss of disc height and disc signal can be seen. Reactive marrow endplate changes are seen, which are hyperintense on T1-weighted and T2-weighted imaging and most consistent with fatty metaplasia (Modic type II changes). At least moderate disc bulge is seen, which is eccentric to the left. Moderate facet joint hypertrophy is seen. There is moderate right-sided and at least moderate left-sided neural foraminal narrowing seen. There is a degree of compression seen upon the exiting left L5 nerve root. Mild to moderate central canal narrowing is seen at this level. Mild progression compared to 2010. IMPRESSION: Multiple levels of lumbar spine degenerative change are seen, which have progressed compared to 2010. Dictated by: Khanh Covington M.D. on 04/05/2020 at 16:10 Approved by: Khanh Covington M.D. on 04/05/2020 at 16:18
== END ==
PROVIDERS: PCP Student in an Organized Health Care Education/Training Program; Referring Provider Orthopaedic Surgery; Visit Provider Orthopaedic Surgery
DX: M54.5 Low back pain (principal); M47.816 Spondylosis without myelopathy or radiculopathy, lumbar region; M47.817 Spondylosis without myelopathy or radiculopathy, lumbosacral region
CPT/HCPCS: 72148

== ENCOUNTER → 2020-09-20 08:40 | Outpatient (CLI) | payer MEDICARE, OTHER, SELFPAY ==
[2020-09-20 09:52] LABS: Add Manual Diff / Slide Review NO; Basophils Absolute Auto 100 /uL (0-100); Basophils Percent Auto 0.9 % (0-2); Eosinophils Absolute Auto 300 /uL (0-450); Eosinophils Percent Auto 4.3 % (2-4); Hematocrit 43.7 % (41-53); Hemoglobin 14.7 g/dL (13.5-17.5); Lymphocytes Absolute Auto 1500 /uL (1100-4500); Lymphocytes Percent Auto 23.2 % (25-40); Mean Corpuscular HGB Conc 33.6 % (30-36); Mean Corpuscular Hemoglobin 33.3 PG (26-34); Monocytes Absolute Auto 500 /uL (0-900); Monocytes Percent Auto 8.3 % (3-14); Neutrophils Absolute Auto 4000 /uL (1500-7000); Neutrophils Percent Auto 63.3 % (50-75); Platelet Count 173 X10^3/uL (150-400); Red Blood Cell Count 4.41 X10^6/uL (4.5-5.9); Red Cell Distribution Width 13.4 % (11.6-14.8); White Blood Cell Count 6.4 X10^3/uL (4.5-11.0)
[2020-09-20 10:12] LABS: Alanine Aminotransferase 25 IU/L (<50); Albumin 4.1 g/dL (3.5-5.0); Albumin Globulin Ratio 1.6 (1.0-2.8); Alkaline Phosphatase 51 U/L (38-126); Aspartate Aminotransferase 30 IU/L (17-59); BUN Creatinine Ratio 31.3 (6-22); Bilirubin Total 0.4 mg/dL (0.2-1.3); Blood Urea Nitrogen 30 mg/dL (9-20); Carbon Dioxide 31 mmol/L (22-32); Chloride 104 mmol/L (98-107); Estimated Glomerular Filt Rate > 60.0 mL/min (>60); Globulin 2.5 g/dL (1.7-4.1); Glucose 96 mg/dL (80-110); HEMOLYSIS < 15 (0-50); Potassium 3.8 mmol/L (3.4-5.1); Sodium 139 mmol/L (137-145); Total Protein 6.6 g/dL (6.3-8.2)
[2020-09-20 10:18] LABS: Vitamin D 25 Hydroxy (D3) 35.9 ng/mL (30.0-100.0)
[2020-09-20 10:42] LABS: TSH w/ Reflex to FT4 1.38 uIU/mL (0.47-4.68)
== END ==
PROVIDERS: PCP Student in an Organized Health Care Education/Training Program; Referring Provider Student in an Organized Health Care Education/Training Program; Visit Provider Student in an Organized Health Care Education/Training Program
DX: E03.9 Hypothyroidism, unspecified (principal); I10 Essential (primary) hypertension; Z79.899 Other long term (current) drug therapy; G50.0 Trigeminal neuralgia
CPT/HCPCS: 36415; 80053; 82306; 84443; 85025

== ENCOUNTER → 2020-11-28 07:48 | Outpatient (CLI) | payer MEDICARE, OTHER, SELFPAY ==
[2020-11-28 09:42] LABS: Alanine Aminotransferase 29 IU/L (<50); Albumin 3.9 g/dL (3.5-5.0); Albumin Globulin Ratio 1.6 (1.0-2.8); Alkaline Phosphatase 56 U/L (38-126); Aspartate Aminotransferase 30 IU/L (17-59); BUN Creatinine Ratio 34.9 (6-22); Bilirubin Total 0.5 mg/dL (0.2-1.3); Blood Urea Nitrogen 29 mg/dL (9-20); Calcium 9.5 mg/dL (8.4-10.2); Carbon Dioxide 28 mmol/L (22-32); Chloride 104 mmol/L (98-107); Cholesterol 144 mg/dL (140-199); Estimated Glomerular Filt Rate > 60.0 mL/min (>60); Globulin 2.5 g/dL (1.7-4.1); Glucose 101 mg/dL (80-110); HDL Cholesterol 42 mg/dL (40-60); HEMOLYSIS < 15 (0-50); LDL Cholesterol Calculated 72 mg/dL (<100); Potassium 4.1 mmol/L (3.4-5.1); Sodium 139 mmol/L (137-145); Total Protein 6.4 g/dL (6.3-8.2); Triglycerides 150 mg/dL (35-150)
== END ==
PROVIDERS: PCP Student in an Organized Health Care Education/Training Program; Referring Provider Internal Medicine Cardiovascular Disease; Visit Provider Internal Medicine Cardiovascular Disease
DX: E78.5 Hyperlipidemia, unspecified (principal)
CPT/HCPCS: 36415; 80053; 80061

== ENCOUNTER → 2021-03-14 10:43 | Outpatient (CLI) | payer MEDICARE, OTHER, SELFPAY | PROVIDERS: PCP Student in an Organized Health Care Education/Training Program; Visit Provider Physician Assistant | DX: J02.9 Acute pharyngitis, unspecified (principal) | CPT/HCPCS: 87070 ==

== ENCOUNTER → 2021-11-27 11:19 | Outpatient (CLI) | payer MEDICARE, OTHER, SELFPAY ==
[2021-11-27 12:31] LABS: Add Manual Diff / Slide Review NO; Basophils Absolute Auto 100 /uL (0-100); Basophils Percent Auto 1.2 % (0-2); Eosinophils Absolute Auto 300 /uL (0-450); Hemoglobin 14.6 g/dL (13.5-17.5); Lymphocytes Absolute Auto 1500 /uL (1100-4500); Lymphocytes Percent Auto 28.4 % (25-40); Mean Corpuscular Hemoglobin 33.1 PG (26-34); Mean Corpuscular Volume 97.4 fL (80-100); Monocytes Absolute Auto 400 /uL (0-900); Monocytes Percent Auto 7.4 % (3-14); Neutrophils Absolute Auto 3100 /uL (1500-7000); Platelet Count 151 X10^3/uL (150-400); Red Blood Cell Count 4.42 X10^6/uL (4.5-5.9); Red Cell Distribution Width 13.7 % (11.6-14.8); White Blood Cell Count 5.3 X10^3/uL (4.5-11.0)
[2021-11-27 13:15] LABS: Alanine Aminotransferase 20 IU/L (<50); Albumin 3.9 g/dL (3.5-5.0); Albumin Globulin Ratio 1.5 (1.0-2.8); Alkaline Phosphatase 71 U/L (38-126); Aspartate Aminotransferase 26 IU/L (17-59); BUN Creatinine Ratio 21.9 (6-22); Bilirubin Total 0.5 mg/dL (0.2-1.3); Blood Urea Nitrogen 21 mg/dL (9-20); Calcium 9.3 mg/dL (8.4-10.2); Carbon Dioxide 27 mmol/L (22-32); Chloride 106 mmol/L (98-107); Estimated Glomerular Filt Rate > 60.0 mL/min (>60); Globulin 2.6 g/dL (1.7-4.1); Glucose 86 mg/dL (80-110); HEMOLYSIS < 15 (0-50); Potassium 4.5 mmol/L (3.4-5.1); Sodium 139 mmol/L (137-145); Total Protein 6.5 g/dL (6.3-8.2)
[2021-11-27 13:25] LABS: Vitamin D 25 Hydroxy (D3) 33.5 ng/mL (30.0-100.0)
[2021-11-27 14:48] LABS: TSH w/ Reflex to FT4 0.81 uIU/mL (0.47-4.68)
== END ==
PROVIDERS: PCP Student in an Organized Health Care Education/Training Program; Referring Provider Psychiatry & Neurology Neurology; Visit Provider Psychiatry & Neurology Neurology
DX: Z51.81 Encounter for therapeutic drug level monitoring (principal); E55.9 Vitamin D deficiency, unspecified; Z79.899 Other long term (current) drug therapy
CPT/HCPCS: 36415; 80053; 82306; 84443; 85025

== ENCOUNTER → 2022-02-15 07:57 | Outpatient (CLI) | payer MEDICARE, OTHER, SELFPAY ==
[2022-02-15 10:33] LABS: Alanine Aminotransferase 21 IU/L (<50); Albumin 3.9 g/dL (3.5-5.0); Albumin Globulin Ratio 1.5 (1.0-2.8); Alkaline Phosphatase 65 U/L (38-126); Aspartate Aminotransferase 26 IU/L (17-59); BUN Creatinine Ratio 23.5 (6-22); Bilirubin Total 0.5 mg/dL (0.2-1.3); Blood Urea Nitrogen 23 mg/dL (9-20); Calcium 9.1 mg/dL (8.4-10.2); Carbon Dioxide 29 mmol/L (22-32); Chloride 105 mmol/L (98-107); Cholesterol 140 mg/dL (140-199); Estimated Glomerular Filt Rate > 60 mL/min (>60); Globulin 2.6 g/dL (1.7-4.1); Glucose 100 mg/dL (80-110); HDL Cholesterol 42 mg/dL (40-60); HEMOLYSIS < 15 (0-50); LDL Cholesterol Calculated 75 mg/dL (<100); Potassium 3.8 mmol/L (3.4-5.1); Sodium 139 mmol/L (137-145); Total Protein 6.5 g/dL (6.3-8.2); Triglycerides 116 mg/dL (35-150)
== END ==
PROVIDERS: PCP Student in an Organized Health Care Education/Training Program; Referring Provider Internal Medicine Cardiovascular Disease; Visit Provider Internal Medicine Cardiovascular Disease
DX: E78.5 Hyperlipidemia, unspecified (principal)
CPT/HCPCS: 36415; 80053; 80061

== ENCOUNTER → 2022-04-23 16:38 | Outpatient (CLI) | payer MEDICARE, OTHER, SELFPAY ==
[2022-04-23 17:22] LABS: COVID19 -Nasal RAPID Negative (Negative)
[2022-04-23 17:58] LABS: Influenza A - CEPHEID Flu A NEGATIVE (NEGATIVE); Influenza B - CEPHEID Flu B NEGATIVE (NEGATIVE)
== END ==
PROVIDERS: Family Provider Student in an Organized Health Care Education/Training Program; PCP Student in an Organized Health Care Education/Training Program; Visit Provider Physician Assistant
DX: Z20.822 Contact with and (suspected) exposure to COVID-19 (principal); R50.9 Fever, unspecified
CPT/HCPCS: 87502; 87635

== ENCOUNTER 2022-04-24 14:21 | Emergency (ER) | payer MEDICARE, OTHER, SELFPAY ==
[2022-04-24 14:23] VITALS: BP 131/66; PULSE 71; RESP 16; TEMP 36.3; O2SAT 96; BMI 25.1
[2022-04-24 14:24] VITALS: PULSE 71; O2SAT 96
--- NOTE | 2022-04-24 14:29 | DI.RAD.S_ITS ---
PROCEDURE: XR CHEST 1V INDICATIONS: suspected sepsis TECHNIQUE: One view of the chest was acquired. COMPARISON: [facility], , CHEST 2 VIEW, 02/11/2013, 21:07. FINDINGS: Surgical changes and devices: Median sternotomy wires and surgical clips are seen. Lungs and pleura: Lungs are clear. No pleural effusions or pneumothorax. Mediastinum: Mediastinal contours appear normal. Heart size is normal. Bones and chest wall: No suspicious bony lesions. Overlying soft tissues appear unremarkable. IMPRESSION: No acute cardiopulmonary pathology. Dictated by: Axel Dominique M.D. on 04/24/2022 at 15:23 Approved by: Axel Dominique M.D. on 04/24/2022 at 15:23
[2022-04-24 14:43] LABS: Add Manual Diff / Slide Review NO; Basophils Absolute Auto 100 /uL (0-100); Basophils Percent Auto 0.5 % (0-2); Eosinophils Absolute Auto 0 /uL (0-450); Eosinophils Percent Auto 0.1 % (2-4); Hematocrit 43.1 % (41-53); Hemoglobin 14.8 g/dL (13.5-17.5); Lymphocytes Absolute Auto 800 /uL (1100-4500); Lymphocytes Percent Auto 6.9 % (25-40); Mean Corpuscular HGB Conc 34.3 % (30-36); Mean Corpuscular Hemoglobin 33.1 PG (26-34); Mean Corpuscular Volume 96.5 fL (80-100); Monocytes Absolute Auto 1300 /uL (0-900); Monocytes Percent Auto 10.5 % (3-14); Neutrophils Absolute Auto 9800 /uL (1500-7000); Platelet Count 153 X10^3/uL (150-400); Red Blood Cell Count 4.46 X10^6/uL (4.5-5.9); White Blood Cell Count 11.9 X10^3/uL (4.5-11.0)
[2022-04-24] MEDS: SODIUM CHLORIDE 0.9% 1,000 ML 1000 ML IV (14:46)
[2022-04-24 14:49] LABS: Lactate (Lactic Acid) 1.1 mmol/L (0.7-2.1)
[2022-04-24 14:51] LABS: Alanine Aminotransferase 18 IU/L (<50); Albumin 4.1 g/dL (3.5-5.0); Albumin Globulin Ratio 1.2 (1.0-2.8); Alkaline Phosphatase 66 U/L (38-126); Aspartate Aminotransferase 27 IU/L (17-59); BUN Creatinine Ratio 22.2 (6-22); Bilirubin Total 0.6 mg/dL (0.2-1.3); Blood Urea Nitrogen 22 mg/dL (9-20); Calcium 8.8 mg/dL (8.4-10.2); Carbon Dioxide 24 mmol/L (22-32); Chloride 102 mmol/L (98-107); Estimated Glomerular Filt Rate > 60 mL/min (>60); Globulin 3.3 g/dL (1.7-4.1); Glucose 127 mg/dL (80-110); HEMOLYSIS 39 (0-50); Lipase 30 U/L (23-300); Potassium 4.3 mmol/L (3.4-5.1); Sodium 135 mmol/L (137-145); Total Protein 7.4 g/dL (6.3-8.2)
[2022-04-24 15:03] LABS: COVID19 -Nasal RAPID POSITIVE (Negative)
[2022-04-24 15:07] LABS: Procalcitonin 0.19 ng/mL (<0.5)
--- NOTE | 2022-04-24 15:37 | ED_ITS ---
HPI - Fever General Chief Complaint: Fever Stated Complaint: Feverx2 days, weakness Time Seen by Provider: 04/24/22 14:34 Source: EMS Mode of arrival: EMS History of Present Illness HPI Narrative: Patient is a 76-year-old male history of hyperlipidemia hypertension hypothyroid presenting with severe fatigue weakness and rigors. He says symptoms started out 2 days ago. He was extremely confused today. Denies any sore throat cough or shortness of breath. He has no chest pain. His overall very weak. Related Data Home Medications Medication Instructions Recorded Confirmed latanoprost 0.005 % eye drops 1 drp ophthalmic (eye) BEDTIME ##0 04/29/13 03/05/22 (Xalatan) aspirin 81 mg tablet,delayed 81 mg PO DAILY ##0 04/29/17 03/05/22 release dorzolamide 22.3 mg-timolol 6.8 1 drp ophthalmic (eye) DIRECTED 06/03/19 03/05/22 mg/mL eye drops lisinopril 10 mg tablet 20 mg PO DAILY 06/03/19 03/05/22 metoprolol succinate 25 mg 12.5 mg PO DAILY 06/03/19 03/05/22 tablet,extended release 24 hr carbamazepine 100 mg 100 mg PO BID 11/23/19 03/05/22 capsule,extended release [id number] Previous Rx's Medication Instructions Recorded levothyroxine 112 mcg tablet 112 mcg PO DAILY #90 tabs 10/01/21 chlorthalidone 25 mg tablet 12.5 mg PO Q OTHER DAY #7 tabs 03/01/22 atorvastatin 40 mg tablet 80 mg PO BEDTIME #180 tabs 03/05/22 nirmatrelvir 300 mg (150 mg x See Rx Instructions PO .COMPLEX 04/24/22 2)-ritonavir 100 mg tablet (EUA) #30 tabs (Paxlovid 300 mg () Allergies Allergy/AdvReac Type Severity Reaction Status Date / Time No Known Drug Allergies Allergy Verified 04/24/22 14:26 Review of Systems Review of Systems Narrative: GENERAL see HPI HEENT: Denies throat pain RESPIRATORY: Denies dyspnea, cough, wheezing CARDIOVASCULAR: Denies chest pain, palpitations GASTROINTESTINAL: Denies nausea, vomiting MUSCULOSKELETAL: Denies extremity pain, injury SKIN: No rash, no laceration, no pruritus NEUROLOGIC: Denies weakness, dizziness, headache, numbness 8 point review of systems is negative except for those stated above and HPI Patient History Medical History Acquired hypothyroidism (08/21/16) 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 Social History household members: spouse Smoking Status: Never smoker Smoking Status: Never smoker Substance Use Type: does not use Exam Initial Vital Signs Initial Vital Signs: Vital Signs Temperature 97.3 F L 04/24/22 14:23 Pulse Rate 71 04/24/22 14:23 Respiratory Rate 16 04/24/22 14:23 Blood Pressure 131/66 04/24/22 14:23 Pulse Oximetry 96 04/24/22 14:23 Oxygen Delivery Method 04/24/22 14:23 GENERAL: Alert 76-year-old male appears to not feel well but no acute distress HEENT: Head atraumatic,EOMI, pupils reactive, face symmetric, moist mucous membranes CARDIOVASCULAR: Regular rate and rhythm without murmurs, rubs or gallops. RESPIRATORY: Breath sounds equal bilaterally, no wheezes rales or rhonchi. ABDOMEN: Soft, nontender. Normoactive bowel sounds all 4 quadrants. No guarding or rebound. EXTREMITIES: Normal range of motion, no clubbing or edema. Neurovascularly intact NEUROLOGICAL: Alert and oriented x4. SKIN: Warm, dry, no laceration, no petechiae, no rashes or lesions. Course Orders Ordered: Discontinued Medications Sodium Chloride (Normal Saline 0.9%) 1,000 mls @ 1,000 mls/hr IV BOLUS ONE Stop: 04/24/22 15:28 Last Infusion: 04/24/22 15:52 Dose: 0 mls/hr Documented By: Admin: 04/24/22 14:46 Dose: 1,000 mls/hr Documented By: WILLARD Vital Signs Vital signs: Vital Signs - 8 hr 04/24/22 14:23 Temperature 97.3 F L Pulse Rate 71 Respiratory Rate 16 Blood Pressure 131/66 Pulse Oximetry 96 Oxygen Delivery Method Room Air MDM - Fever Lab Data Result diagrams: 04/24/22 14:22 04/24/22 14:22 Labs: Lab Results 04/24/22 04/24/22 04/24/22 Range/Units 14:22 14:22 14:22 WBC 11.9 H (4.5-11.0) X10^3/uL RBC 4.46 L (4.5-5.9) X10^6/uL Hgb 14.8 (13.5-17.5) g/dL Hct 43.1 (41-53) % MCV 96.5 (80-100) fL MCH 33.1 (26-34) PG MCHC 34.3 (30-36) % RDW 14.0 (11.6-14.8) % Plt Count 153 (150-400) X10^3/uL Neut % (Auto) 82.0 H (50-75) % Lymph % (Auto) 6.9 L (25-40) % [place] % (Auto) 10.5 (3-14) % Eos % (Auto) 0.1 L (2-4) % Baso % (Auto) 0.5 (0-2) % Neut # (Auto) 9800 H (2898-0687) /uL Lymph # (Auto) 800 L (8953-9919) /uL [place] # (Auto) 1300 H (0-900) /uL Eos # (Auto) 0 (0-450) /uL Baso # (Auto) 100 (0-100) /uL Sodium 135 L (137-145) mmol/L Potassium 4.3 (3.4-5.1) mmol/L Chloride 102 (98-107) mmol/L Carbon Dioxide 24 (22-32) mmol/L BUN 22 H (9-20) mg/dL Creatinine 0.99 (0.66-1.25) mg/dL Estimated GFR > 60 (>60) mL/min BUN/Creatinine Ratio 22.2 H (6-22) Glucose 127 H (80-110) mg/dL Lactate (0.7-2.1) mmol/L Calcium 8.8 (8.4-10.2) mg/dL Total Bilirubin 0.6 (0.2-1.3) mg/dL AST 27 (17-59) IU/L ALT 18 (<50) IU/L Alkaline Phosphatase 66 (38-126) U/L Total Protein 7.4 (6.3-8.2) g/dL Albumin 4.1 (3.5-5.0) g/dL Globulin 3.3 (1.7-4.1) g/dL Albumin/Globulin Ratio 1.2 (1.0-2.8) Lipase 30 (23-300) U/L Procalcitonin 0.19 (<0.5) ng/mL SARS-CoV-2 (PCR) Positive H (Negative) 04/24/22 Range/Units 14:22 WBC (4.5-11.0) X10^3/uL RBC (4.5-5.9) X10^6/uL Hgb (13.5-17.5) g/dL Hct (41-53) % MCV (80-100) fL MCH (26-34) PG MCHC (30-36) % RDW (11.6-14.8) % Plt Count (150-400) X10^3/uL Neut % (Auto) (50-75) % Lymph % (Auto) (25-40) % [place] % (Auto) (3-14) % Eos % (Auto) (2-4) % Baso % (Auto) (0-2) % Neut # (Auto) (3890-4834) /uL Lymph # (Auto) (0979-9145) /uL [place] # (Auto) (0-900) /uL Eos # (Auto) (0-450) /uL Baso # (Auto) (0-100) /uL Sodium (137-145) mmol/L Potassium (3.4-5.1) mmol/L Chloride (98-107) mmol/L Carbon Dioxide (22-32) mmol/L BUN (9-20) mg/dL Creatinine (0.66-1.25) mg/dL Estimated GFR (>60) mL/min BUN/Creatinine Ratio (6-22) Glucose (80-110) mg/dL Lactate 1.1 (0.7-2.1) mmol/L Calcium (8.4-10.2) mg/dL Total Bilirubin (0.2-1.3) mg/dL AST (17-59) IU/L ALT (<50) IU/L Alkaline Phosphatase (38-126) U/L Total Protein (6.3-8.2) g/dL Albumin (3.5-5.0) g/dL Globulin (1.7-4.1) g/dL Albumin/Globulin Ratio (1.0-2.8) Lipase (23-300) U/L Procalcitonin (<0.5) ng/mL SARS-CoV-2 (PCR) (Negative) Imaging Data Chest x-ray: Radiologist's Impression: XRay Report Signed Patient: Raul Pond MR#: [id number] : 1945 Acct:[id number] Age/Sex: 76 / M Date of Service: 04/24/22 Loc: ED Accession Number: [id number] ?? Procedure: XR chest 1V Ordering Provider: Aarti Villalba D.O. PROCEDURE:? XR CHEST 1V ? INDICATIONS:? suspected sepsis ? TECHNIQUE:? One view of the chest was acquired.? ? COMPARISON:? [facility], , CHEST 2 VIEW, 02/11/2013, 21:07. ? FINDINGS:? ? Surgical changes and devices:? Median sternotomy wires and surgical clips are seen. ? Lungs and pleura:? Lungs are clear.? No pleural effusions or pneumothorax.? ? Mediastinum:? Mediastinal contours appear normal.? Heart size is normal.? ? Bones and chest wall:? No suspicious bony lesions.? Overlying soft tissues appear unremarkable.? ? IMPRESSION:? No acute cardiopulmonary pathology. ? ? Dictated by: Axel Dominique M.D. on 04/24/2022 at 15:23 ? ? ECG Data Interpretation: Normal sinus rhythm rate 69 SC interval 148 4 no acute QTC were [address] ST changes inversion noted in V2 MDM Narrative Medical decision making narrative: The patient is after fluids. He is positive for COVID. We talked about paxlovid, he has a couple of risk factors he also only has 1 kidney. Concern fo r for heating to stop carbamazepine for his trigeminal right neuralgia. Was decided that he will get a prescription they will talk to his neurologist and decide if he should take it or not. He is not hypoxic. He is overall feeling significantly better. This time does not meet any admission criteria Discharge Plan Departure Patient Disposition: Home Clinical Impression: COVID-19 Instructions: COVID-19 Activity Restrictions/Additional Instructions: *You have been diagnosed with COVID-19 *What to do: At this time I am sorry that you have COVID. Continue to rest. Expect to feel poorly for the next couple of days. You should start to improve. *Continue to take medications as directed Tylenol 1000 mg every 6 hours if needed for pain or fever Paxlovid- see directions take twice a day for 5 days. Hold atorvastatin while taking may resume after Paxlovid. *Follow up with your primary care provider in 2-3 days or call [phone] *Return to ER if you should have increased confusion, weakness, not tolerating fluids or any new, worsening or concerning symptoms Prescriptions: New Paxlovid (EUA) 300 mg (150 mg x 2)-100 mg tablet See Rx Instructions PO .COMPLEX Qty: 30 0RF Rx Instructions: take TWO 150 mg tablets of nirmatrelvir with ONE 100 mg tablet of ritonavir twice daily for 5 days No Action latanoprost [Xalatan] 0.005 % drops 1 drp ophthalmic (eye) BEDTIME Qty: 0 aspirin 81 MG tablet,delayed release (DR/EC) 81 mg PO DAILY Qty: 0 levothyroxine 112 mcg tablet 112 mcg PO DAILY Qty: 90 3RF Hold Instructions: Reduce to 5x/week until labs chlorthalidone 25 mg tablet 12.5 mg PO Q OTHER DAY Qty: 7 0RF Hold Instructions: Trial of cessation carbamazepine 100 mg capsule, ER multiphase 12 hr 100 mg PO BID Rx Instructions: take two capsules in the morning and two at night atorvastatin 40 mg tablet 80 mg PO BEDTIME Qty: 180 0RF lisinopril 10 mg tablet 20 mg PO DAILY dorzolamide-timolol 22.3-6.8 mg/mL drops 1 drp ophthalmic (eye) DIRECTED metoprolol succinate 25 mg tablet extended release 24 hr 12.5 mg PO DAILY Referrals: Lele Diaz MD [Primary Care Provider] - Visit Report Forms: Patient Portal/API
[2022-04-24 16:41] VITALS: BP 123/78; PULSE 75; RESP 16; O2SAT 98
== END 2022-04-24 16:42 | disposition home or self-care (01) ==
PROVIDERS: Emergency Provider Emergency Medicine; Family Provider Student in an Organized Health Care Education/Training Program; PCP Student in an Organized Health Care Education/Training Program
DX: U07.1 COVID-19 (principal); I10 Essential (primary) hypertension
CPT/HCPCS: 71045; 80053; 83605; 83690; 84145; 85025; 87040; 87635; 93005; 93010; 96360; 99284; C9803

== ENCOUNTER 2022-04-26 17:01 | Emergency (ER) | payer MEDICARE, OTHER, SELFPAY ==
[2022-04-26] VITALS (12 sets, daily range): BP systolic 159–174; BP diastolic 77–97; PULSE 46–89; RESP 18; TEMP 37.1–37.7; O2SAT 94–96; BMI 24.3
--- NOTE | 2022-04-26 17:10 | DI.RAD.S_ITS ---
PROCEDURE: XR HIP W PEL IF DONE LT 2V INDICATIONS: Left hip pain TECHNIQUE: Two views of the hip were acquired. COMPARISON: [facility], , HIP 2V LEFT, 02/04/2012, 14:20. FINDINGS: No fracture or dislocation. 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 No suspicious lytic or blastic osseous lesion. Mild to moderate lower lumbar spine degenerative changes partially visualized. IMPRESSION: No acute finding. Dictated by: Jarred Thacker M.D. on 04/26/2022 at 17:32 Approved by: Jarred Thacker M.D. on 04/26/2022 at 17:32
[2022-04-26 17:25] LABS: Add Manual Diff / Slide Review NO; Basophils Absolute Auto 0 /uL (0-100); Basophils Percent Auto 0.3 % (0-2); Eosinophils Absolute Auto 0 /uL (0-450); Eosinophils Percent Auto 0.5 % (2-4); Hematocrit 40.5 % (41-53); Hemoglobin 13.9 g/dL (13.5-17.5); Lymphocytes Absolute Auto 500 /uL (1100-4500); Lymphocytes Percent Auto 6.4 % (25-40); Mean Corpuscular HGB Conc 34.3 % (30-36); Mean Corpuscular Volume 96.1 fL (80-100); Monocytes Absolute Auto 1100 /uL (0-900); Monocytes Percent Auto 12.7 % (3-14); Neutrophils Absolute Auto 6800 /uL (1500-7000); Neutrophils Percent Auto 80.1 % (50-75); Platelet Count 139 X10^3/uL (150-400); Red Blood Cell Count 4.22 X10^6/uL (4.5-5.9); White Blood Cell Count 8.6 X10^3/uL (4.5-11.0)
[2022-04-26 17:40] LABS: Alanine Aminotransferase 30 IU/L (<50); Albumin 3.4 g/dL (3.5-5.0); Albumin Globulin Ratio 1.1 (1.0-2.8); Alkaline Phosphatase 65 U/L (38-126); Aspartate Aminotransferase 31 IU/L (17-59); BUN Creatinine Ratio 26.1 (6-22); Bilirubin Total 0.5 mg/dL (0.2-1.3); Blood Urea Nitrogen 24 mg/dL (9-20); Calcium 8.2 mg/dL (8.4-10.2); Carbon Dioxide 21 mmol/L (22-32); Chloride 102 mmol/L (98-107); Estimated Glomerular Filt Rate > 60 mL/min (>60); Globulin 3.2 g/dL (1.7-4.1); Glucose 148 mg/dL (80-110); HEMOLYSIS < 15 (0-50); Lipase 28 U/L (23-300); Potassium 3.7 mmol/L (3.4-5.1); Sodium 134 mmol/L (137-145); Total Protein 6.6 g/dL (6.3-8.2)
--- NOTE | 2022-04-26 18:44 | PC.NURSE ---
Pt stood and pivoted to commode independently, reports chills returning, temperature rechecked 98.4, warm blankets provided.
--- NOTE | 2022-04-26 20:04 | ED.NAVMDI ---
HPI - Nausea/Vomiting/Diarrhea General Chief complaint: Nausea/Vomiting/Diarrhea Stated complaint: +COVID Time Seen by Provider: 04/26/22 20:03 Source: EMS Mode of arrival: EMS History of Present Illness HPI Narrative: This 76-year-old gentleman with recent COVID infection, coronary disease, hypertension comes to the emergency department today because of severe tremor and fever. He says this is been a big problem since his COVID infection started. He endorses mild headache, denies vomiting but endorses significant nausea. No diarrhea. He does not have shortness of breath. No chest pain. He does endorse some left hip pain that is not associated with trauma. He has never had any procedures on the left hip as well. He notes that the left hip seems to bother him quite a bit over this past few days. He is not aware of any trauma. Related Data Home Medications Medication Instructions Recorded Confirmed latanoprost 0.005 % eye drops 1 drp ophthalmic (eye) BEDTIME ##0 04/29/13 03/05/22 (Xalatan) aspirin 81 mg tablet,delayed 81 mg PO DAILY ##0 04/29/17 03/05/22 release dorzolamide 22.3 mg-timolol 6.8 1 drp ophthalmic (eye) DIRECTED 06/03/19 03/05/22 mg/mL eye drops lisinopril 10 mg tablet 20 mg PO DAILY 06/03/19 03/05/22 metoprolol succinate 25 mg 12.5 mg PO DAILY 06/03/19 03/05/22 tablet,extended release 24 hr carbamazepine 100 mg 100 mg PO BID 11/23/19 03/05/22 capsule,extended release [id number] Previous Rx's Medication Instructions Recorded levothyroxine 112 mcg tablet 112 mcg PO DAILY #90 tabs 10/01/21 chlorthalidone 25 mg tablet 12.5 mg PO Q OTHER DAY #7 tabs 03/01/22 atorvastatin 40 mg tablet 80 mg PO BEDTIME #180 tabs 03/05/22 nirmatrelvir 300 mg (150 mg x See Rx Instructions PO .COMPLEX 04/24/22 2)-ritonavir 100 mg tablet (EUA) #30 tabs (Paxlovid 300 mg () hydrocodone 5 mg-acetaminophen 325 1 tab PO BID #7 tabs 08/19/22 mg tablet Allergies Allergy/AdvReac Type Severity Reaction Status Date / Time No Known Drug Allergies Allergy Verified 04/24/22 14:26 Review of Systems Review of Systems Narrative: Complete review of systems is negative other than as noted above. 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 Social History household members: spouse Smoking Status: Never smoker Smoking Status: Never smoker Substance Use Type: does not use Exam Narrative Exam Narrative: GENERAL: Alert, cooperative and in no distress. HEAD: Atraumatic. Normocephalic. EYES: Sclera are clear without icterus. Extraocular movements are full. ENT: No rhinorrhea. Oropharynx is moist. Mouth exam is benign. NECK: Supple. Full range of motion. CARDIOVASCULAR: Normal rate and rhythm without murmur gallop or rub. RESPIRATORY: Clear to auscultation. Breath sounds equal bilaterally. No wheezes, rales, or rhonchi. GASTROINTESTINAL: Abdomen soft, non-tender, nondistended. EXTREMITIES: No edema, full range of motion. No obvious trauma. Full range of motion left hip. No pain. No pain to palpation of the greater trochanter. The skin is not red or inflamed over the left hip. BACK: Normal inspection, no CVA tenderness. NEURO: Nonfocal examination, normal speech, normal gait. SKIN: No rash or erythema of visible areas PSYCH: Normally oriented. Normal range of affect. Appropriate behavior Initial Vital Signs Initial Vital Signs: Vital Signs Temperature 99.8 F H 04/26/22 17:02 Pulse Rate 86 04/26/22 17:02 Respiratory Rate 18 04/26/22 17:02 Blood Pressure 166/81 H 04/26/22 17:02 Pulse Oximetry 96 04/26/22 17:02 Oxygen Delivery Method 04/26/22 17:02 Course Orders Ordered: ED Orders 04/26/22 17:05 Complete Blood Count AUTO DIFF Stat Comprehensive Metabolic Panel Stat Lipase Stat 04/26/22 17:10 XR hip w pel if done LT 2V Stat Discontinued Medications Hydrocodone Bitart/Acetaminophen (Hydrocodone/Acet 5/325 Prepack) 1 bottle MISC SEEINSTR ONE Stop: 04/26/22 20:20 Vital Signs Vital signs: Vital Signs - 8 hr 04/26/22 17:02 04/26/22 17:17 04/26/22 18:15 Temperature 99.8 F H Pulse Rate 86 83 81 Respiratory Rate 18 18 Blood Pressure 166/81 H Pulse Oximetry 96 95 95 Oxygen Delivery Method Room Air Room Air 04/26/22 17:32 04/26/22 18:00 04/26/22 18:30 Temperature 98.8 F Pulse Rate 84 83 82 Respiratory Rate Blood Pressure Pulse Oximetry 95 94 95 Oxygen Delivery Method 04/26/22 18:42 04/26/22 18:42 04/26/22 19:00 Temperature Pulse Rate 88 Respiratory Rate Blood Pressure 173/84 H 167/77 H Pulse Oximetry 96 Oxygen Delivery Method 04/26/22 19:00 04/26/22 19:33 04/26/22 19:35 Temperature Pulse Rate 83 46 L Respiratory Rate Blood Pressure 174/94 H Pulse Oximetry 96 Oxygen Delivery Method 04/26/22 19:35 Temperature Pulse Rate 89 Respiratory Rate Blood Pressure Pulse Oximetry 94 Oxygen Delivery Method MDM - Nausea/Vomiting/Diarrhea Lab Data Result diagrams: 04/26/22 17:05 04/26/22 17:05 Labs: Lab Results 04/26/22 04/26/22 Range/Units 17:05 17:05 WBC 8.6 (4.5-11.0) X10^3/uL RBC 4.22 L (4.5-5.9) X10^6/uL Hgb 13.9 (13.5-17.5) g/dL Hct 40.5 L (41-53) % MCV 96.1 (80-100) fL MCH 33.0 (26-34) PG MCHC 34.3 (30-36) % RDW 14.0 (11.6-14.8) % Plt Count 139 L (150-400) X10^3/uL Neut % (Auto) 80.1 H (50-75) % Lymph % (Auto) 6.4 L (25-40) % [place] % (Auto) 12.7 (3-14) % Eos % (Auto) 0.5 L (2-4) % Baso % (Auto) 0.3 (0-2) % Neut # (Auto) 6800 (4646-3298) /uL Lymph # (Auto) 500 L (8936-1780) /uL [place] # (Auto) 1100 H (0-900) /uL Eos # (Auto) 0 (0-450) /uL Baso # (Auto) 0 (0-100) /uL Sodium 134 L (137-145) mmol/L Potassium 3.7 (3.4-5.1) mmol/L Chloride 102 (98-107) mmol/L Carbon Dioxide 21 L (22-32) mmol/L BUN 24 H (9-20) mg/dL Creatinine 0.92 (0.66-1.25) mg/dL Estimated GFR > 60 (>60) mL/min BUN/Creatinine Ratio 26.1 H (6-22) Glucose 148 H (80-110) mg/dL Calcium 8.2 L (8.4-10.2) mg/dL Total Bilirubin 0.5 (0.2-1.3) mg/dL AST 31 (17-59) IU/L ALT 30 (<50) IU/L Alkaline Phosphatase 65 (38-126) U/L Total Protein 6.6 (6.3-8.2) g/dL Albumin 3.4 L (3.5-5.0) g/dL Globulin 3.2 (1.7-4.1) g/dL Albumin/Globulin Ratio 1.1 (1.0-2.8) Lipase 28 (23-300) U/L Imaging Data Extremity x-ray #1: Radiologist's Impression: IMPRESSION:? No acute finding. ? ? Dictated by: Jarred Thacker M.D. on 04/26/2022 at 17:32 ? ? Approved by: Jarred Thacker M.D. on 04/26/2022 at 17:32 ? MDM Narrative Medical decision making narrative: This gentleman appears mildly ill. His hip seems normal to me. His vital signs are reasonable. His laboratory data is also reasonable and reflects what appears to be [id number] dehydration. The patient has no ongoing fluid losses so I think oral hydration is okay especially in the setting of no vomiting. He does say that hydrocodone is extremely effective at relieving his symptoms and I will provide this for him. I recommend close outpatient follow-up if not improved in the next few days. Discharge Plan Departure Patient Disposition: Home Clinical Impression: COVID-19, Acute pain of left hip, Tremor Activity Restrictions/Additional Instructions: I am sorry about your infection. I am glad that you are immunized as you probably would have been a much more ill without it. I recommend copious oral hydration with at least 3 L of water every day. Take 1 g of Tylenol every 6 hours. Take ibuprofen 200 mg every 8 hours. Use hydrocodone as needed for more severe pain sparingly. Follow up with your doctor in a few days if not significantly improved. Return to the emergency department for worsening symptoms. Prescriptions: New hydrocodone-acetaminophen 5-325 mg tablet 1 tab PO BID Qty: 7 0RF No Action latanoprost [Xalatan] 0.005 % drops 1 drp ophthalmic (eye) BEDTIME Qty: 0 aspirin 81 MG tablet,delayed release (DR/EC) 81 mg PO DAILY Qty: 0 levothyroxine 112 mcg tablet 112 mcg PO DAILY Qty: 90 3RF Hold Instructions: Reduce to 5x/week until labs chlorthalidone 25 mg tablet 12.5 mg PO Q OTHER DAY Qty: 7 0RF Hold Instructions: Trial of cessation carbamazepine 100 mg capsule, ER multiphase 12 hr 100 mg PO BID Rx Instructions: take two capsules in the morning and two at night atorvastatin 40 mg tablet 80 mg PO BEDTIME Qty: 180 0RF lisinopril 10 mg tablet 20 mg PO DAILY dorzolamide-timolol 22.3-6.8 mg/mL drops 1 drp ophthalmic (eye) DIRECTED metoprolol succinate 25 mg tablet extended release 24 hr 12.5 mg PO DAILY Paxlovid (EUA) 300 mg (150 mg x 2)-100 mg tablet See Rx Instructions PO .COMPLEX Qty: 30 0RF Rx Instructions: take TWO 150 mg tablets of nirmatrelvir with ONE 100 mg tablet of ritonavir twice daily for 5 days Referrals: Lele Diaz MD [Primary Care Provider] -
[2022-04-26] MEDS: HYDROCODONE/ACET 5/325 PREPACK 1 BOTTLE MISC (20:34)
--- NOTE | 2022-04-26 21:01 | PC.NURSE ---
Pt assisted from wheelchair to car, noted pt's increased weakness. Discharge education reiterated to and pt, encouraged fluids and food despite low appetite, understanding verbalized.
== END 2022-04-26 20:41 | disposition home or self-care (01) ==
PROVIDERS: Emergency Medicine; Emergency Provider Family Medicine Addiction Medicine; Family Provider Student in an Organized Health Care Education/Training Program; PCP Student in an Organized Health Care Education/Training Program
DX: U07.1 COVID-19 (principal); M25.552 Pain in left hip; R25.1 Tremor, unspecified
CPT/HCPCS: 36415; 73502; 80053; 83690; 85025; 99283; 99284

== ENCOUNTER → 2022-05-14 06:59 | Outpatient (CLI) | payer MEDICARE, OTHER, SELFPAY ==
[2022-05-14 08:03] LABS: Cholesterol 128 mg/dL (140-199); HDL Cholesterol 46 mg/dL (40-60); LDL Cholesterol Calculated 64 mg/dL (<100); Triglycerides 91 mg/dL (35-150)
== END ==
PROVIDERS: Family Provider Student in an Organized Health Care Education/Training Program; PCP Student in an Organized Health Care Education/Training Program; Referring Provider Internal Medicine Cardiovascular Disease; Visit Provider Internal Medicine Cardiovascular Disease
DX: E78.5 Hyperlipidemia, unspecified (principal)
CPT/HCPCS: 36415; 80061

== ENCOUNTER → 2022-06-06 10:44 | Outpatient (CLI) | payer MEDICARE, OTHER, SELFPAY ==
[2022-06-06 11:54] LABS: Add Manual Diff / Slide Review NO; Basophils Absolute Auto 100 /uL (0-100); Eosinophils Absolute Auto 200 /uL (0-450); Eosinophils Percent Auto 3.8 % (2-4); Hematocrit 39.4 % (41-53); Hemoglobin 13.3 g/dL (13.5-17.5); Lymphocytes Absolute Auto 1400 /uL (1100-4500); Lymphocytes Percent Auto 22.5 % (25-40); Mean Corpuscular HGB Conc 33.7 % (30-36); Mean Corpuscular Volume 97.9 fL (80-100); Monocytes Absolute Auto 500 /uL (0-900); Monocytes Percent Auto 8.4 % (3-14); Neutrophils Absolute Auto 4000 /uL (1500-7000); Neutrophils Percent Auto 64.3 % (50-75); Platelet Count 175 X10^3/uL (150-400); Red Blood Cell Count 4.03 X10^6/uL (4.5-5.9); White Blood Cell Count 6.3 X10^3/uL (4.5-11.0)
[2022-06-06 12:06] LABS: Alanine Aminotransferase 17 IU/L (<50); Albumin 3.8 g/dL (3.5-5.0); Albumin Globulin Ratio 1.4 (1.0-2.8); Alkaline Phosphatase 81 U/L (38-126); Aspartate Aminotransferase 25 IU/L (17-59); BUN Creatinine Ratio 21.5 (6-22); Bilirubin Total 0.5 mg/dL (0.2-1.3); Blood Urea Nitrogen 17 mg/dL (9-20); Calcium 8.8 mg/dL (8.4-10.2); Carbon Dioxide 28 mmol/L (22-32); Chloride 104 mmol/L (98-107); Estimated Glomerular Filt Rate > 60 mL/min (>60); Globulin 2.7 g/dL (1.7-4.1); Glucose 74 mg/dL (80-110); HEMOLYSIS < 15 (0-50); Potassium 3.9 mmol/L (3.4-5.1); Sodium 140 mmol/L (137-145); Total Protein 6.5 g/dL (6.3-8.2)
[2022-06-06 12:53] LABS: Vitamin B12 584 pg/mL (239-931)
[2022-06-06 12:55] LABS: TSH w/ Reflex to FT4 0.36 uIU/mL (0.47-4.68)
[2022-06-06 14:27] LABS: Free T4, Direct Thyroxine 1.19 ng/dL (0.78-2.19)
== END ==
PROVIDERS: Family Provider Student in an Organized Health Care Education/Training Program; PCP Student in an Organized Health Care Education/Training Program; Referring Provider Student in an Organized Health Care Education/Training Program; Visit Provider Student in an Organized Health Care Education/Training Program
DX: E78.2 Mixed hyperlipidemia (principal); I10 Essential (primary) hypertension; Z79.899 Other long term (current) drug therapy; E03.9 Hypothyroidism, unspecified
CPT/HCPCS: 36415; 80053; 82607; 84439; 84443; 85025

== ENCOUNTER → 2022-07-01 16:39 | Outpatient (CLI) | payer MEDICARE, OTHER, SELFPAY ==
[2022-07-01 19:05] LABS: Appearance Urine UA CLEAR; Bilirubin Urine UA NEGATIVE (NEGATIVE); Color Urine UA YELLOW; Glucose Urine UA NEGATIVE (Negative); Ketones Urine UA NEGATIVE (NEGATIVE); Leukocyte Esterase Urine UA NEGATIVE (NEGATIVE); Nitrite Urine UA NEGATIVE (Negative); Occult Blood Urine UA NEGATIVE (Negative); Protein Urine UA NEGATIVE (Negative); Specific Gravity Urine UA 1.015 (1.000-1.035); Urobilinogen Urine UA 0.2 E.U./dL (0.2)
[2022-07-01 19:54] LABS: Bacteria Urine None Seen; RBC Urine None Seen (0-5/HPF); WBC Urine None Seen (0-5/HPF)
[2022-07-01 19:55] LABS: Culture Indicated Urine Cult Not Indicated
== END ==
PROVIDERS: Family Provider Student in an Organized Health Care Education/Training Program; PCP Student in an Organized Health Care Education/Training Program; Referring Provider Student in an Organized Health Care Education/Training Program; Visit Provider Student in an Organized Health Care Education/Training Program
DX: R35.1 Nocturia (principal)
CPT/HCPCS: 81001

== ENCOUNTER → 2022-07-09 14:43 | Outpatient (CLI) | payer MEDICARE, OTHER, SELFPAY ==
--- NOTE | 2022-07-09 14:44 | DI.US.S_ITS ---
PROCEDURE: US RENAL COMPLETE INDICATIONS: Nocturia TECHNIQUE: Real-time scanning was performed of the kidneys and bladder, with image documentation. COMPARISON: [facility] Ultrasound, US, US RENAL ARTERIAL DOPPLER, 09/21/2018, 13:42. FINDINGS: Kidneys: Right kidney measures 13.6 cm long; Right renal cortical thickness is 2.4 cm;. Renal cortical echotexture is normal. No nephrolithiasis. Mild pelviectasis or presence of renal sinus cysts, no karlie hydronephrosis identified. No suspicious solid mass lesions. Left kidney is absent. Bladder: Pre-void bladder volume is 94 mL. Post-void residual is 0 mL. Pre-void images demonstrate no intraluminal masses or stones. On pre-void images, no ureteral jet is noted with color Doppler interrogation. (Of note, ureteral jets may not be detectable in up to 25% of cases due to insufficient differences in specific gravity between ureteral and bladder urine). Miscellaneous: No free pelvic fluid. IMPRESSION: 1. Postvoid residual urinary bladder volume of 0 mL. 2. Absent left kidney. Dictated by: Adilson Helms M.D. on 07/10/2022 at 16:47 Approved by: Adilson Helms M.D. on 07/10/2022 at 17:09
== END ==
PROVIDERS: Family Provider Student in an Organized Health Care Education/Training Program; PCP Student in an Organized Health Care Education/Training Program; Referring Provider Student in an Organized Health Care Education/Training Program; Visit Provider Student in an Organized Health Care Education/Training Program
DX: R35.1 Nocturia (principal); Z90.5 Acquired absence of kidney
CPT/HCPCS: 76770

== ENCOUNTER 2022-08-14 10:15 | Outpatient (RCR) | payer MEDICARE, OTHER, SELFPAY ==
--- NOTE | 2022-04-22 18:33 | PT.OIE ---
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 Coronary artery disease Dystrophic nail Environmental allergies Essential hypertension Mild carotid artery disease (04/15/14) Mixed hyperlipidemia (01/27/13) Obstructive sleep apnea PVD (peripheral vascular disease) Spondylolisthesis, lumbar region Trigeminal neuralgia Past Surgical History (Last Updated 01/22/22 @ 10:14 by Violeta Encinas MA) History of arthroplasty of right knee (2014) History of lumbar laminectomy for spinal cord decompression History of nephrectomy Status post coronary artery bypass graft (2012) Visit Care Team Role Provider Type Lele Diaz MD Attending Provider Physician Family Provider Primary Care Provider Referring Provider Specialty: Internal Medicine Address: [address] [place] [address], [address], [facility] Email: [email or web address] Physical Therapy Initial Evaluation PT-OP-A Visit Information Start: 04/22/22 18:04 Freq: Status: Active Protocol: Document 04/22/22 15:25 DCW (Rec: 04/22/22 18:13 DC [id number]) Out-Patient Physical Therapy Visit Information Visit Information Visit Type Initial Evaluation Visit Start Time 15:25 Visit Stop Time 16:00 Total Visit Minutes 35 Visit Number 1 Number of BLOWING WEASAND Visits 0 Evaluation Information Evaluation Date 04/22/22 PT-OP-B Current Condition Start: 04/22/22 18:04 Freq: Status: Active Protocol: Document 04/22/22 15:25 DCW (Rec: 04/22/22 18:13 DCW [id number]) Current Condition History of Current Condition Onset Date Four months Current Complaints stiffness and achiness four months s/p L4-5 laminectomy History of Current Condition Pt is a 76 year old male presenting to skilled therapy four months s/p L4-5 laminectomy complaining of continuing stiffness and soreness. Report his radicular symptoms have resolved post- op, however he continues to have achiness in his low back and into his hips, and decreased strength and activity tolerance in his legs . Notes this limits his daily activity levels, largely is just able to get out and walk the dog, not much other activity. Reports his surgeon said there was no surgical answer to his complaints. Achiness is fairly constant, but worse in the morning. Treatment Goals Patient/Caregiver Goals Really my goal is to be pain- free. That may be a lofty goal at this point, but why not shoot for it? Personal Factors Other Personal Factors That May Effect Trigeminal neuralgia, CABG x3, Therapy/Recovery partial knee replacement PT-OP-C Subjective Start: 04/22/22 18:04 Freq: Status: Active Protocol: Document 04/22/22 15:25 DCW (Rec: 04/22/22 18:13 DCW [id number]) OP-PT Subjective Patient Comments Patient Comments I think the lack of mobility has caused some weight gain and loss of muscle strength. Patient Reported Progress Same PT-OP-F Manual Assessment Start: 04/22/22 18:04 Freq: Status: Active Protocol: Document 04/22/22 15:25 DCW (Rec: 04/22/22 18:23 DCW [id number]) Manual Assessments Soft Tissue Assessment Soft Tissue Mobility Assessment Moderate tone with tenderness to palpation 2/4: Pain with wincing bilateral QL, bilateral piriformis, bilateral lumbar paraspinals Joint Mobility Assessment Joint Mobility Assessment limited lumbar mobility, bilateral capsular tightness in anterior hip PT-OP-K Range of Motion Start: 04/22/22 18:04 Freq: Status: Active Protocol: Document 04/22/22 15:25 DCW (Rec: 04/22/22 18:23 DCW [id number]) Lumbar Spine Range of Motion Lumbar Spine Active Degrees Testing Position Standing Flexion 40 Extension 10 Lateral Flexion Left 53 Lateral Flexion Right 58 Comments Lateral flexion measured in cm from fingertips to floor PT-OP-L Special Tests Start: 04/22/22 18:04 Freq: Status: Active Protocol: Document 04/22/22 15:25 DCW (Rec: 04/22/22 18:23 DCW [id number]) Special Tests Lumbar Spine Special Tests Lateral SI compression Test Results Negative Straight Leg Raise Test Results Negative Standing Flexion Test Results Negative A-P Shearing Test Results Negative Hip Special Tests Piriformis Test Results Anterior capsular tightness ERUM Test Results Negative PT-OP-M Strength Start: 04/22/22 18:04 Freq: Status: Active Protocol: Document 04/22/22 15:25 DCW (Rec: 04/22/22 18:23 DCW [id number]) Trunk Strength Trunk Manual Muscle Testing Core Stabilization Difficulty holding TrA contraction Hip Strength Hip Manual Muscle Testing Right Flexion (L2) 3+ Fair+ Abduction 4- Good- Adduction 4 Good External Rotation 4 Good Internal Rotation 4- Good- Left Flexion (L2) 4- Good- Abduction 4- Good- Adduction 4 Good External Rotation 4+ Good+ Internal Rotation 4- Good- Knee Strength Knee Manual Muscle Testing Right Flexion (S2) 4 Good Extension (L3) 4 Good Left Flexion (S2) 4- Good- Extension (L3) 4- Good- Ankle/Foot Strength Ankle and Foot Manual Muscle Testing Right Dorsiflexion (L4) 4- Good- Plantarflexion (S1) 3+ Fair+ Left Dorsiflexion (L4) 4- Good- Plantarflexion (S1) 3+ Fair+ PT-OP-T Assessment and Plan Start: 04/22/22 18:04 Freq: Status: Active Protocol: Document 04/22/22 15:25 DCW (Rec: 04/22/22 18:33 DCW [id number]) Physical Therapy Assessment Rehab Potential Rehabilitation Potential Good Evaluation Complexity Number of Personal Factors/Comorbidities 3 or More Number of Body Systems Impaired 3 Clinical Presentation at Evaluation Unstable Impairments Impairments Activity Tolerance,Functional Activities,Pain,ROM,Soft Tissue Mobility,Strength,Tone Goals Three Impairment Pt demonstrates B LE weakness, especially R hip flexion and B PF (3+/5) Longterm Goal (LTG) Pt to demonstrate LE MMT >4-/5 in all planes LTG Duration 06/22/22 Two Impairment Pt unable to tolerate more than a short walk with his dog Longterm Goal (LTG) Pt to report ability to ambulate >1 mile without increased fatigue or back pain in order to return to prior activity level LTG Duration 06/22/22 One Impairment Pt does not have an appropriate home exercise program Short Term Goal (STG) Pt to be independent and compliant with an appropriate HEP STG Duration 05/23/22 Assessment Summary Assessment Pt presents four months s/p L4 -5 laminectomy with lower extremity weakness, decreased activity tolerance, core weakness, lumbar stiffness and hypomobility, and increased tone in his QL, paraspinals, and piriformis. Pt limited with ambulation tolerance, only able to walk his dog short distances, and experiences fairly constant soreness along low back, especially upon first rising in the morning. Pt should benefit from skilled therapy focusing on strengthening and improving activity tolerance. Physical Therapy Plan Frequency and Duration Frequency of Treatment 2x/Week Duration of Treatment Two months Plan of Care Start Date 04/22/22 Plan of Care End Date 06/22/22 Therapeutic Interventions Therapeutic Interventions Aquatic Therapy,Home Exercise Program,Joint Mobilizations, Manual Therapy,Patient/ Caregiver Education,Self-Care/ Home Management,Soft Tissue Mobilization,Therapeutic Activities,Therapeutic Exercises Modalities Cold Pack/Ice Massage,Electric Stimulation,Hot Packs, Ultrasound Next Visit Focus/Plan Next Note Type Treatment Note Next Visit Plan LE strengthening, core strengthening, flexibility
--- NOTE | 2022-04-22 18:33 | PT.OPPOC ---
Physical, Occupational & Speech Therapy At [facility] Current Diagnoses Stiffness of other specified joint, not elsewhere classified (04/22/22) Muscle weakness (generalized) (04/22/22) Postlaminectomy syndrome, not elsewhere classified (04/22/22) Visit Care Team Role Provider Type Lele Diaz MD Attending Provider Physician Family Provider Primary Care Provider Referring Provider Specialty: Internal Medicine Address: [address] [place] [address], [address], [address] Email: [email or web address] Plan Of Care PT-OP-T Assessment and Plan Start: 04/22/22 18:04 Freq: Status: Active Protocol: Document 04/22/22 15:25 DCW (Rec: 04/22/22 18:33 DCW [id number]) Physical Therapy Assessment Rehab Potential Rehabilitation Potential Good Evaluation Complexity Number of Personal Factors/Comorbidities 3 or More Number of Body Systems Impaired 3 Clinical Presentation at Evaluation Unstable Impairments Impairments Activity Tolerance,Functional Activities,Pain,ROM,Soft Tissue Mobility,Strength,Tone Goals Three Impairment Pt demonstrates B LE weakness, especially R hip flexion and B PF (3+/5) Concrete Pavement Installer Goal (LTG) Pt to demonstrate LE MMT >4-/5 in all planes LTG Duration 06/22/22 Two Impairment Pt unable to tolerate more than a short walk with his dog Concrete Pavement Installer Goal (LTG) Pt to report ability to ambulate >1 mile without increased fatigue or back pain in order to return to prior activity level LTG Duration 06/22/22 One Impairment Pt does not have an appropriate home exercise program Short Term Goal (STG) Pt to be independent and compliant with an appropriate HEP STG Duration 05/23/22 Assessment Summary Assessment Pt presents four months s/p L4 -5 laminectomy with lower extremity weakness, decreased activity tolerance, core weakness, lumbar stiffness and hypomobility, and increased tone in his QL, paraspinals, and piriformis. Pt limited with ambulation tolerance, only able to walk his dog short distances, and experiences fairly constant soreness along low back, especially upon first rising in the morning. Pt should benefit from skilled therapy focusing on strengthening and improving activity tolerance. Physical Therapy Plan Frequency and Duration Frequency of Treatment 2x/Week Duration of Treatment Two months Plan of Care Start Date 04/22/22 Plan of Care End Date 06/22/22 Therapeutic Interventions Therapeutic Interventions Aquatic Therapy,Home Exercise Program,Joint Mobilizations, Manual Therapy,Patient/ Caregiver Education,Self-Care/ Home Management,Soft Tissue Mobilization,Therapeutic Activities,Therapeutic Exercises Modalities Cold Pack/Ice Massage,Electric Stimulation,Hot Packs, Ultrasound Next Visit Focus/Plan Next Note Type Treatment Note Next Visit Plan LE strengthening, core strengthening, flexibility Plan of Care Dates Plan of Care Start Date 04/22/22 Plan of Care End Date 06/22/22 Electronically Signed by: Walter Mccall, PT 04/22/22 0408 If you are in agreement with this Plan of Care, please return a signed and dated copy. I have reviewed this Plan of Care and certify that the skilled therapy services above are required to meet the patient?s needs. Physician Signature Date Printed Name and Credentials Clinical Instructor Signature Printed Name and Credentials
--- NOTE | 2022-04-22 18:34 | PT.OPPOC ---
Physical, Occupational & Speech Therapy At [facility] Current Diagnoses Stiffness of other specified joint, not elsewhere classified (04/22/22) Muscle weakness (generalized) (04/22/22) Postlaminectomy syndrome, not elsewhere classified (04/22/22) Visit Care Team Role Provider Type Lele Diaz MD Attending Provider Physician Family Provider Primary Care Provider Referring Provider Specialty: Internal Medicine Address: [address] [place] [address], [address], [address] Email: [email or web address] Plan Of Care PT-OP-T Assessment and Plan Start: 04/22/22 18:04 Freq: Status: Active Protocol: Document 04/22/22 15:25 DCW (Rec: 04/22/22 18:33 DCW [id number]) Physical Therapy Assessment Rehab Potential Rehabilitation Potential Good Evaluation Complexity Number of Personal Factors/Comorbidities 3 or More Number of Body Systems Impaired 3 Clinical Presentation at Evaluation Unstable Impairments Impairments Activity Tolerance,Functional Activities,Pain,ROM,Soft Tissue Mobility,Strength,Tone Goals Three Impairment Pt demonstrates B LE weakness, especially R hip flexion and B PF (3+/5) Public Safety Officer Goal (LTG) Pt to demonstrate LE MMT >4-/5 in all planes LTG Duration 06/22/22 Two Impairment Pt unable to tolerate more than a short walk with his dog Public Safety Officer Goal (LTG) Pt to report ability to ambulate >1 mile without increased fatigue or back pain in order to return to prior activity level LTG Duration 06/22/22 One Impairment Pt does not have an appropriate home exercise program Short Term Goal (STG) Pt to be independent and compliant with an appropriate HEP STG Duration 05/23/22 Assessment Summary Assessment Pt presents four months s/p L4 -5 laminectomy with lower extremity weakness, decreased activity tolerance, core weakness, lumbar stiffness and hypomobility, and increased tone in his QL, paraspinals, and piriformis. Pt limited with ambulation tolerance, only able to walk his dog short distances, and experiences fairly constant soreness along low back, especially upon first rising in the morning. Pt should benefit from skilled therapy focusing on strengthening and improving activity tolerance. Physical Therapy Plan Frequency and Duration Frequency of Treatment 2x/Week Duration of Treatment Two months Plan of Care Start Date 04/22/22 Plan of Care End Date 06/22/22 Therapeutic Interventions Therapeutic Interventions Aquatic Therapy,Home Exercise Program,Joint Mobilizations, Manual Therapy,Patient/ Caregiver Education,Self-Care/ Home Management,Soft Tissue Mobilization,Therapeutic Activities,Therapeutic Exercises Modalities Cold Pack/Ice Massage,Electric Stimulation,Hot Packs, Ultrasound Next Visit Focus/Plan Next Note Type Treatment Note Next Visit Plan LE strengthening, core strengthening, flexibility Plan of Care Dates Plan of Care Start Date 04/22/22 Plan of Care End Date 06/22/22 Electronically Signed by: Walter Mccall, PT 04/22/22 [id number] If you are in agreement with this Plan of Care, please return a signed and dated copy. I have reviewed this Plan of Care and certify that the skilled therapy services above are required to meet the patient?s needs. Physician Signature Date Printed Name and Credentials Clinical Instructor Signature Printed Name and Credentials
--- NOTE | 2022-05-14 10:31 | PT.OTN ---
Current Diagnoses Stiffness of other specified joint, not elsewhere classified (05/14/22) Muscle weakness (generalized) (05/14/22) Postlaminectomy syndrome, not elsewhere classified (05/14/22) Physical Therapy Treatment Note PT-OP-A Visit Information Start: 04/22/22 18:04 Freq: Status: Active Protocol: Document 05/14/22 09:45 DCW (Rec: 05/14/22 10:31 DCW [id number]) Out-Patient Physical Therapy Visit Information Visit Information Visit Type Treatment Note Visit Start Time 09:45 Visit Stop Time 10:30 Total Visit Minutes 45 Visit Number 2 Number of SPACE AND STORAGE CLERK Visits 0 Evaluation Information Evaluation Date 04/22/22 PT-OP-B Current Condition Start: 04/22/22 18:04 Freq: Status: Active Protocol: Document 04/22/22 15:25 DCW (Rec: 04/22/22 18:13 DCW [id number]) Current Condition History of Current Condition Onset Date Four months Current Complaints stiffness and achiness four months s/p L4-5 laminectomy History of Current Condition Pt is a 76 year old male presenting to skilled therapy four months s/p L4-5 laminectomy complaining of continuing stiffness and soreness. Report his radicular symptoms have resolved post- op, however he continues to have achiness in his low back and into his hips, and decreased strength and activity tolerance in his legs . Notes this limits his daily activity levels, largely is just able to get out and walk the dog, not much other activity. Reports his surgeon said there was no surgical answer to his complaints. Achiness is fairly constant, but worse in the morning. Treatment Goals Patient/Caregiver Goals Really my goal is to be pain- free. That may be a lofty goal at this point, but why not shoot for it? Personal Factors Other Personal Factors That May Effect Trigeminal neuralgia, CABG x3, Therapy/Recovery partial knee replacement PT-OP-C Subjective Start: 04/22/22 18:04 Freq: Status: Active Protocol: Document 05/14/22 09:45 DCW (Rec: 05/14/22 10:31 DCW [id number]) OP-PT Subjective Patient Comments Patient Comments Pt feeling better today after struggling with COVID since his initial evaluation PT-OP-F Manual Assessment Start: 04/22/22 18:04 Freq: Status: Active Protocol: Document 04/22/22 15:25 DCW (Rec: 04/22/22 18:23 DCW [id number]) Manual Assessments Soft Tissue Assessment Soft Tissue Mobility Assessment Moderate tone with tenderness to palpation 2/4: Pain with wincing bilateral QL, bilateral piriformis, bilateral lumbar paraspinals Joint Mobility Assessment Joint Mobility Assessment limited lumbar mobility, bilateral capsular tightness in anterior hip PT-OP-K Range of Motion Start: 04/22/22 18:04 Freq: Status: Active Protocol: Document 04/22/22 15:25 DCW (Rec: 04/22/22 18:23 DCW [id number]) Lumbar Spine Range of Motion Lumbar Spine Active Degrees Testing Position Standing Flexion 40 Extension 10 Lateral Flexion Left 53 Lateral Flexion Right 58 Comments Lateral flexion measured in cm from fingertips to floor PT-OP-L Special Tests Start: 04/22/22 18:04 Freq: Status: Active Protocol: Document 04/22/22 15:25 DCW (Rec: 04/22/22 18:23 DCW [id number]) Special Tests Lumbar Spine Special Tests Lateral SI compression Test Results Negative Straight Leg Raise Test Results Negative Standing Flexion Test Results Negative A-P Shearing Test Results Negative Hip Special Tests Piriformis Test Results Anterior capsular tightness ERUM Test Results Negative PT-OP-M Strength Start: 04/22/22 18:04 Freq: Status: Active Protocol: Document 04/22/22 15:25 DCW (Rec: 04/22/22 18:23 DCW [id number]) Trunk Strength Trunk Manual Muscle Testing Core Stabilization Difficulty holding TrA contraction Hip Strength Hip Manual Muscle Testing Right Flexion (L2) 3+ Fair+ Abduction 4- Good- Adduction 4 Good External Rotation 4 Good Internal Rotation 4- Good- Left Flexion (L2) 4- Good- Abduction 4- Good- Adduction 4 Good External Rotation 4+ Good+ Internal Rotation 4- Good- Knee Strength Knee Manual Muscle Testing Right Flexion (S2) 4 Good Extension (L3) 4 Good Left Flexion (S2) 4- Good- Extension (L3) 4- Good- Ankle/Foot Strength Ankle and Foot Manual Muscle Testing Right Dorsiflexion (L4) 4- Good- Plantarflexion (S1) 3+ Fair+ Left Dorsiflexion (L4) 4- Good- Plantarflexion (S1) 3+ Fair+ PT-OP-Q Treatments Start: 04/22/22 18:04 Freq: Status: Active Protocol: Document 05/14/22 09:45 DCW (Rec: 05/14/22 10:31 [facility] [id number]) Cardio Equipment Recumbent Elliptical (Biodex) Duration (Minutes) 5 Resistance 4 Seat Position 10 Therapeutic Exercises Sidelying Exercises Reverse Clamshell Sidelying Exercise Name Reverse Clamshell Side bilateral Reps/Minutes x15 Clamshell Sidelying Exercise Name Clamshell Side bilateral Reps/Minutes x15 Abduction Sidelying Exercise Name Hip Abduction Side bilateral Reps/Minutes x15 Sitting Exercises Business Intelligence Analyst Strengthening Sitting Exercise Name Putty squeeze Comments Full hand, individual figers, finger extension Standing Exercises Extension Standing Exercise Name Hip Extension Side bilateral Resistance Lv 2 Reps/Minutes x15 Other Exercises Resisted Ambulation Other Exercise Name Resisted side-stepping Resistance Lv 2 StS Other Exercise Name Sit to Stand Reps/Minutes x15 PT-OP-T Assessment and Plan Start: 04/22/22 18:04 Freq: Status: Active Protocol: Document 05/14/22 09:45 DCW (Rec: 05/14/22 10:31 [facility] [id number]) Physical Therapy Assessment Impairments Impairments Activity Tolerance,Functional Activities,Pain,ROM,Soft Tissue Mobility,Strength,Tone Goals Three Impairment Pt demonstrates B LE weakness, especially R hip flexion and B PF (3+/5) Vice President Marketing & Development Goal (LTG) Pt to demonstrate LE MMT >4-/5 in all planes LTG Duration 06/22/22 Two Impairment Pt unable to tolerate more than a short walk with his dog Mcfp Goal (LTG) Pt to report ability to ambulate >1 mile without increased fatigue or back pain in order to return to prior activity level LTG Duration 06/22/22 One Impairment Pt does not have an appropriate home exercise program Short Term Goal (STG) Pt to be independent and compliant with an appropriate HEP STG Duration 05/23/22 Assessment Summary Assessment Pt obviously fatigued quickly with exercise, but did not want any rest breaks, happy to have an HEP to work on at home. Will be starting aquatic program tomorrow. Physical Therapy Plan Frequency and Duration Frequency of Treatment 2x/Week Duration of Treatment Two months Plan of Care Start Date 04/22/22 Plan of Care End Date 06/22/22 Therapeutic Interventions Therapeutic Interventions Aquatic Therapy,Home Exercise Program,Joint Mobilizations, Manual Therapy,Patient/ Caregiver Education,Self-Care/ Home Management,Soft Tissue Mobilization,Therapeutic Activities,Therapeutic Exercises Modalities Cold Pack/Ice Massage,Electric Stimulation,Hot Packs, Ultrasound Next Visit Focus/Plan Next Note Type Treatment Note Next Visit Plan LE strengthening, core strengthening, flexibility
--- NOTE | 2022-05-15 14:42 | PT.OTN ---
Current Diagnoses Stiffness of other specified joint, not elsewhere classified (05/15/22) Muscle weakness (generalized) (05/15/22) Postlaminectomy syndrome, not elsewhere classified (05/15/22) Physical Therapy Treatment Note PT-OP-A Visit Information Start: 04/22/22 18:04 Freq: Status: Active Protocol: Document 05/15/22 14:20 LJ (Rec: 05/15/22 14:42 LJ [id number]) Out-Patient Physical Therapy Visit Information Visit Information Visit Type Aquatic Treatment Note Visit Start Time 11:45 Visit Stop Time 12:30 Total Visit Minutes 45 Visit Number 3 Number of SALESPERSON SEWING MACHINES Visits 1 Evaluation Information Evaluation Date 04/22/22 PT-OP-B Current Condition Start: 04/22/22 18:04 Freq: Status: Active Protocol: Document 04/22/22 15:25 DCW (Rec: 04/22/22 18:13 DCW [id number]) Current Condition History of Current Condition Onset Date Four months Current Complaints stiffness and achiness four months s/p L4-5 laminectomy History of Current Condition Pt is a 76 year old male presenting to skilled therapy four months s/p L4-5 laminectomy complaining of continuing stiffness and soreness. Report his radicular symptoms have resolved post- op, however he continues to have achiness in his low back and into his hips, and decreased strength and activity tolerance in his legs . Notes this limits his daily activity levels, largely is just able to get out and walk the dog, not much other activity. Reports his surgeon said there was no surgical answer to his complaints. Achiness is fairly constant, but worse in the morning. Treatment Goals Patient/Caregiver Goals Really my goal is to be pain- free. That may be a lofty goal at this point, but why not shoot for it? Personal Factors Other Personal Factors That May Effect Trigeminal neuralgia, CABG x3, Therapy/Recovery partial knee replacement PT-OP-C Subjective Start: 04/22/22 18:04 Freq: Status: Active Protocol: Document 05/15/22 14:20 LJ (Rec: 05/15/22 14:42 LJ [id number]) OP-PT Subjective Patient Comments Patient Comments Pt reports feeling he has lost strength and endurance since being down from surgery and illness. 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 PT-OP-F Manual Assessment Start: 04/22/22 18:04 Freq: Status: Active Protocol: Document 04/22/22 15:25 DCW (Rec: 04/22/22 18:23 DCW [id number]) Manual Assessments Soft Tissue Assessment Soft Tissue Mobility Assessment Moderate tone with tenderness to palpation 2/4: Pain with wincing bilateral QL, bilateral piriformis, bilateral lumbar paraspinals Joint Mobility Assessment Joint Mobility Assessment limited lumbar mobility, bilateral capsular tightness in anterior hip PT-OP-K Range of Motion Start: 04/22/22 18:04 Freq: Status: Active Protocol: Document 04/22/22 15:25 DCW (Rec: 04/22/22 18:23 DCW [id number]) Lumbar Spine Range of Motion Lumbar Spine Active Degrees Testing Position Standing Flexion 40 Extension 10 Lateral Flexion Left 53 Lateral Flexion Right 58 Comments Lateral flexion measured in cm from fingertips to floor PT-OP-L Special Tests Start: 04/22/22 18:04 Freq: Status: Active Protocol: Document 04/22/22 15:25 DCW (Rec: 04/22/22 18:23 DCW [id number]) Special Tests Lumbar Spine Special Tests Lateral SI compression Test Results Negative Straight Leg Raise Test Results Negative Standing Flexion Test Results Negative A-P Shearing Test Results Negative Hip Special Tests Piriformis Test Results Anterior capsular tightness ERUM Test Results Negative PT-OP-M Strength Start: 04/22/22 18:04 Freq: Status: Active Protocol: Document 04/22/22 15:25 DCW (Rec: 04/22/22 18:23 DCW [id number]) Trunk Strength Trunk Manual Muscle Testing Core Stabilization Difficulty holding TrA contraction Hip Strength Hip Manual Muscle Testing Right Flexion (L2) 3+ Fair+ Abduction 4- Good- Adduction 4 Good External Rotation 4 Good Internal Rotation 4- Good- Left Flexion (L2) 4- Good- Abduction 4- Good- Adduction 4 Good External Rotation 4+ Good+ Internal Rotation 4- Good- Knee Strength Knee Manual Muscle Testing Right Flexion (S2) 4 Good Extension (L3) 4 Good Left Flexion (S2) 4- Good- Extension (L3) 4- Good- Ankle/Foot Strength Ankle and Foot Manual Muscle Testing Right Dorsiflexion (L4) 4- Good- Plantarflexion (S1) 3+ Fair+ Left Dorsiflexion (L4) 4- Good- Plantarflexion (S1) 3+ Fair+ PT-OP-Q Treatments Start: 04/22/22 18:04 Freq: Status: Active Protocol: Document 05/14/22 09:45 DCW (Rec: 05/14/22 10:31 DCW [id number]) Cardio Equipment Recumbent Elliptical (Biodex) Duration (Minutes) 5 Resistance 4 Seat Position 10 Therapeutic Exercises Sidelying Exercises Reverse Clamshell Sidelying Exercise Name Reverse Clamshell Side bilateral Reps/Minutes x15 Clamshell Sidelying Exercise Name Clamshell Side bilateral Reps/Minutes x15 Abduction Sidelying Exercise Name Hip Abduction Side bilateral Reps/Minutes x15 Sitting Exercises Farmworker Poultry Strengthening Sitting Exercise Name Putty squeeze Comments Full hand, individual figers, finger extension Standing Exercises Extension Standing Exercise Name Hip Extension Side bilateral Resistance Lv 2 Reps/Minutes x15 Other Exercises Resisted Ambulation Other Exercise Name Resisted side-stepping Resistance Lv 2 StS Other Exercise Name Sit to Stand Reps/Minutes x15 PT-OP-S Aquatic Treatment Start: 05/15/22 09:32 Freq: Status: Active Protocol: Document 05/15/22 14:20 LJ (Rec: 05/15/22 14:42 LJ [id number]) Aquatics Treatment Pool Entry/Exit Pool Entry/Exit Method Stairs Assistance Independent Water Walking Marching Water Level Chest Level Level of Assistance Verbal Cues fwd/bk/side Water Level Chest Level Level of Assistance Verbal Cues Lower Extremity Exercises 4 way hip Details at wall Water Level Chest Level Reps/Duration 10 ea Comments verbal cues for posture Lower Extremity Stretches figure 4 Details seated at wall Reps/Duration 2x30 HS/calves Details at wall Body Position Standing Reps/Duration 2x30 Comments sm noodle HS hip flexors/quads Details at wall Body Position Standing Reps/Duration 2x30 Upper Extremity Exercises bicep curl/ext Body Position Standing Water Level Chest Level Reps/Duration 10 Comments palms up HABD/HADD Body Position Standing Water Level Chest Level Reps/Duration 10 fl/ex Body Position Standing Water Level Chest Level Reps/Duration 10 Spinal Exercises TrA activation Details seated at wall Reps/Duration 10 Comments w/marching Balance SLS Reps/Duration 2x30 Comments bilat-use of UEs for stabilization [place] Activities [place] Activities Bicycle,Cross Country,Running, Hip Abduction/Adduction Other Activities prone extension pendulum DLS Equipment Med belt, BBs Duration 15 Comments pt may require additional floatation if not using BBs PT-OP-T Assessment and Plan Start: 04/22/22 18:04 Freq: Status: Active Protocol: Document 05/15/22 14:20 SVEN (Rec: 05/15/22 14:42 SVEN [id number]) Physical Therapy Assessment Rehab Potential Rehabilitation Potential Good Evaluation Complexity Number of Personal Factors/Comorbidities 3 or More Number of Body Systems Impaired 3 Clinical Presentation at Evaluation Unstable Impairments Impairments Activity Tolerance,Functional Activities,Pain,ROM,Soft Tissue Mobility,Strength,Tone Goals Three Impairment Pt demonstrates B LE weakness, especially R hip flexion and B PF (3+/5) Hammer Heater Goal (LTG) Pt to demonstrate LE MMT >4-/5 in all planes LTG Duration 06/22/22 Two Impairment Pt unable to tolerate more than a short walk with his dog Retirement Goal (LTG) Pt to report ability to ambulate >1 mile without increased fatigue or back pain in order to return to prior activity level LTG Duration 06/22/22 One Impairment Pt does not have an appropriate home exercise program Short Term Goal (STG) Pt to be independent and compliant with an appropriate HEP STG Duration 05/23/22 Assessment Summary Assessment Pt tolerated low level intro to exercises. It took a few minutes for him to be able to maintain vertical orientation in deep water. He tends to float low if not using BBs so may need more floatation in deep. Exercises kept to gentle level so as to not cause quick fatigue. 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 Encouraged to get a wetsuit for both thermal protection and additional buoyancy. Physical Therapy Plan Frequency and Duration Frequency of Treatment 2x/Week Duration of Treatment Two months Plan of Care Start Date 04/22/22 Plan of Care End Date 06/22/22 Therapeutic Interventions Therapeutic Interventions Aquatic Therapy,Home Exercise Program,Joint Mobilizations, Manual Therapy,Patient/ Caregiver Education,Self-Care/ Home Management,Soft Tissue Mobilization,Therapeutic Activities,Therapeutic Exercises Modalities Cold Pack/Ice Massage,Electric Stimulation,Hot Packs, Ultrasound Next Visit Focus/Plan Next Note Type Treatment Note Next Visit Plan LE strengthening, core strengthening, flexibility Aquatic: progress strengthening and overall conditioning gradually. Assess response to first session and proceed as indicated.
--- NOTE | 2022-05-20 10:27 | PT.OTN ---
Current Diagnoses Stiffness of other specified joint, not elsewhere classified (05/20/22) Muscle weakness (generalized) (05/20/22) Postlaminectomy syndrome, not elsewhere classified (05/20/22) Physical Therapy Treatment Note PT-OP-A Visit Information Start: 04/22/22 18:04 Freq: Status: Active Protocol: Document 05/20/22 09:46 DCW (Rec: 05/20/22 10:26 DCW [id number]) Out-Patient Physical Therapy Visit Information Visit Information Visit Type Treatment Note Visit Start Time 09:46 Visit Stop Time 10:30 Total Visit Minutes 44 Visit Number 4 Number of FREIGHT BRAKE OPERATOR Visits 0 Evaluation Information Evaluation Date 04/22/22 PT-OP-B Current Condition Start: 04/22/22 18:04 Freq: Status: Active Protocol: Document 04/22/22 15:25 DCW (Rec: 04/22/22 18:13 DCW [id number]) Current Condition History of Current Condition Onset Date Four months Current Complaints stiffness and achiness four months s/p L4-5 laminectomy History of Current Condition Pt is a 76 year old male presenting to skilled therapy four months s/p L4-5 laminectomy complaining of continuing stiffness and soreness. Report his radicular symptoms have resolved post- op, however he continues to have achiness in his low back and into his hips, and decreased strength and activity tolerance in his legs . Notes this limits his daily activity levels, largely is just able to get out and walk the dog, not much other activity. Reports his surgeon said there was no surgical answer to his complaints. Achiness is fairly constant, but worse in the morning. Treatment Goals Patient/Caregiver Goals Really my goal is to be pain- free. That may be a lofty goal at this point, but why not shoot for it? Personal Factors Other Personal Factors That May Effect Trigeminal neuralgia, CABG x3, Therapy/Recovery partial knee replacement PT-OP-C Subjective Start: 04/22/22 18:04 Freq: Status: Active Protocol: Document 05/20/22 09:46 DCW (Rec: 05/20/22 10:26 DCW [id number]) OP-PT Subjective Patient Comments Patient Comments Pt felt his aquatic appointment went very well, was surprised how much he felt it afterward. PT-OP-F Manual Assessment Start: 04/22/22 18:04 Freq: Status: Active Protocol: Document 04/22/22 15:25 DCW (Rec: 04/22/22 18:23 DCW [id number]) Manual Assessments Soft Tissue Assessment Soft Tissue Mobility Assessment Moderate tone with tenderness to palpation 2/4: Pain with wincing bilateral QL, bilateral piriformis, bilateral lumbar paraspinals Joint Mobility Assessment Joint Mobility Assessment limited lumbar mobility, bilateral capsular tightness in anterior hip PT-OP-K Range of Motion Start: 04/22/22 18:04 Freq: Status: Active Protocol: Document 04/22/22 15:25 DCW (Rec: 04/22/22 18:23 DCW [id number]) Lumbar Spine Range of Motion Lumbar Spine Active Degrees Testing Position Standing Flexion 40 Extension 10 Lateral Flexion Left 53 Lateral Flexion Right 58 Comments Lateral flexion measured in cm from fingertips to floor PT-OP-L Special Tests Start: 04/22/22 18:04 Freq: Status: Active Protocol: Document 04/22/22 15:25 DCW (Rec: 04/22/22 18:23 DCW [id number]) Special Tests Lumbar Spine Special Tests Lateral SI compression Test Results Negative Straight Leg Raise Test Results Negative Standing Flexion Test Results Negative A-P Shearing Test Results Negative Hip Special Tests Piriformis Test Results Anterior capsular tightness ERUM Test Results Negative PT-OP-M Strength Start: 04/22/22 18:04 Freq: Status: Active Protocol: Document 04/22/22 15:25 DCW (Rec: 04/22/22 18:23 DCW [id number]) Trunk Strength Trunk Manual Muscle Testing Core Stabilization Difficulty holding TrA contraction Hip Strength Hip Manual Muscle Testing Right Flexion (L2) 3+ Fair+ Abduction 4- Good- Adduction 4 Good External Rotation 4 Good Internal Rotation 4- Good- Left Flexion (L2) 4- Good- Abduction 4- Good- Adduction 4 Good External Rotation 4+ Good+ Internal Rotation 4- Good- Knee Strength Knee Manual Muscle Testing Right Flexion (S2) 4 Good Extension (L3) 4 Good Left Flexion (S2) 4- Good- Extension (L3) 4- Good- Ankle/Foot Strength Ankle and Foot Manual Muscle Testing Right Dorsiflexion (L4) 4- Good- Plantarflexion (S1) 3+ Fair+ Left Dorsiflexion (L4) 4- Good- Plantarflexion (S1) 3+ Fair+ PT-OP-Q Treatments Start: 08/15/22 18:04 Freq: Status: Active Protocol: Document 05/20/22 09:46 DCW (Rec: 05/20/22 10:26 DCW [id number]) Cardio Equipment Recumbent Elliptical (Biodex) Duration (Minutes) 5 Resistance 5 Seat Position 9 Gym Equipment Shuttle Recovery Unilateral Squats Resistance 37# Shuttle Recovery Platform Stable Bilateral Squats Resistance 75# Shuttle Recovery Platform Stable Shuttle Balance Red Details WBOS, Staggered Therapeutic Ball LTR Exercise Details LTR Ball Size/Color Red - 55 cm Body Position Supine Therapeutic Exercises Supine Exercises SLR Supine Exercise Name SLR Side bilateral Reps/Minutes x10 Comments VCs for core contraction Sidelying Exercises Open Book Sidelying Exercise Name Open Book Side bilateral Standing Exercises Wall squats Standing Exercise Name Ball/wall squats Other Exercises Resisted Ambulation Other Exercise Name Resisted side-stepping Resistance Red PT-OP-S Aquatic Treatment Start: 05/15/22 09:32 Freq: Status: Active Protocol: Document 05/15/22 14:20 LJ (Rec: 05/15/22 14:42 LJ [id number]) Aquatics Treatment Pool Entry/Exit Pool Entry/Exit Method Stairs Assistance Independent Water Walking Marching Water Level Chest Level Level of Assistance Verbal Cues fwd/bk/side Water Level Chest Level Level of Assistance Verbal Cues Lower Extremity Exercises 4 way hip Details at wall Water Level Chest Level Reps/Duration 10 ea Comments verbal cues for posture Lower Extremity Stretches figure 4 Details seated at wall Reps/Duration 2x30 HS/calves Details at wall Body Position Standing Reps/Duration 2x30 Comments sm noodle HS hip flexors/quads Details at wall Body Position Standing Reps/Duration 2x30 Upper Extremity Exercises bicep curl/ext Body Position Standing Water Level Chest Level Reps/Duration 10 Comments palms up HABD/HADD Body Position Standing Water Level Chest Level Reps/Duration 10 fl/ex Body Position Standing Water Level Chest Level Reps/Duration 10 Spinal Exercises TrA activation Details seated at wall Reps/Duration 10 Comments w/marching Balance SLS Reps/Duration 2x30 Comments bilat-use of UEs for stabilization [place] Activities [place] Activities Bicycle,Cross Country,Running, Hip Abduction/Adduction Other Activities prone extension pendulum DLS Equipment Med belt, BBs Duration 15 Comments pt may require additional floatation if not using BBs PT-OP-T Assessment and Plan Start: 04/22/22 18:04 Freq: Status: Active Protocol: Document 05/20/22 09:46 DCW (Rec: 05/20/22 10:26 DCW [id number]) Physical Therapy Assessment Impairments Impairments Activity Tolerance,Functional Activities,Pain,ROM,Soft Tissue Mobility,Strength,Tone Goals Three Impairment Pt demonstrates B LE weakness, especially R hip flexion and B PF (3+/5) Prison Goal (LTG) Pt to demonstrate LE MMT >4-/5 in all planes LTG Duration 06/22/22 Two Impairment Pt unable to tolerate more than a short walk with his dog [employer] Ribbon Machine Operator Goal (LTG) Pt to report ability to ambulate >1 mile without increased fatigue or back pain in order to return to prior activity level LTG Duration 06/22/22 One Impairment Pt does not have an appropriate home exercise program Short Term Goal (STG) Pt to be independent and compliant with an appropriate HEP STG Duration 05/23/22 Assessment Summary Assessment Pt did well with new exercises , showing good progress wirh TrA contraction. Didn't require any rest breaks, is so far compliant with his HEP Physical Therapy Plan Frequency and Duration Frequency of Treatment 2x/Week Duration of Treatment Two months Plan of Care Start Date 04/22/22 Plan of Care End Date 06/22/22 Therapeutic Interventions Therapeutic Interventions Aquatic Therapy,Home Exercise Program,Joint Mobilizations, Manual Therapy,Patient/ Caregiver Education,Self-Care/ Home Management,Soft Tissue Mobilization,Therapeutic Activities,Therapeutic Exercises Modalities Cold Pack/Ice Massage,Electric Stimulation,Hot Packs, Ultrasound Next Visit Focus/Plan Next Note Type Treatment Note Next Visit Plan LE strengthening, core strengthening, flexibility Aquatic: progress strengthening and overall conditioning gradually. Assess response to first session and proceed as indicated.
--- NOTE | 2022-05-22 10:15 | PT.OTN ---
Current Diagnoses Stiffness of other specified joint, not elsewhere classified (05/22/22) Muscle weakness (generalized) (05/22/22) Postlaminectomy syndrome, not elsewhere classified (05/22/22) Physical Therapy Treatment Note PT-OP-A Visit Information Start: 04/22/22 18:04 Freq: Status: Active Protocol: Document 05/22/22 10:15 SAK (Rec: 05/23/22 09:18 SAK [id number]) Out-Patient Physical Therapy Visit Information Visit Information Visit Type Aquatic Treatment Note Visit Start Time 10:15 Visit Stop Time 11:00 Total Visit Minutes 45 Visit Number 5 Evaluation Information Evaluation Date 04/22/22 PT-OP-B Current Condition Start: 04/22/22 18:04 Freq: Status: Active Protocol: Document 04/22/22 15:25 DCW (Rec: 04/22/22 18:13 DCW [id number]) Current Condition History of Current Condition Onset Date Four months Current Complaints stiffness and achiness four months s/p L4-5 laminectomy History of Current Condition Pt is a 76 year old male presenting to skilled therapy four months s/p L4-5 laminectomy complaining of continuing stiffness and soreness. Report his radicular symptoms have resolved post- op, however he continues to have achiness in his low back and into his hips, and decreased strength and activity tolerance in his legs . Notes this limits his daily activity levels, largely is just able to get out and walk the dog, not much other activity. Reports his surgeon said there was no surgical answer to his complaints. Achiness is fairly constant, but worse in the morning. Treatment Goals Patient/Caregiver Goals Really my goal is to be pain- free. That may be a lofty goal at this point, but why not shoot for it? Personal Factors Other Personal Factors That May Effect Trigeminal neuralgia, CABG x3, Therapy/Recovery partial knee replacement PT-OP-C Subjective Start: 04/22/22 18:04 Freq: Status: Active Protocol: Document 05/22/22 10:15 SAK (Rec: 05/23/22 09:18 SAK [id number]) OP-PT Subjective Patient Comments Patient Comments No new c/o. Likes aquatic exercise. PT-OP-F Manual Assessment Start: 04/22/22 18:04 Freq: Status: Active Protocol: Document 04/22/22 15:25 DCW (Rec: 04/22/22 18:23 DCW [id number]) Manual Assessments Soft Tissue Assessment Soft Tissue Mobility Assessment Moderate tone with tenderness to palpation 2/4: Pain with wincing bilateral QL, bilateral piriformis, bilateral lumbar paraspinals Joint Mobility Assessment Joint Mobility Assessment limited lumbar mobility, bilateral capsular tightness in anterior hip PT-OP-K Range of Motion Start: 04/22/22 18:04 Freq: Status: Active Protocol: Document 04/22/22 15:25 DCW (Rec: 04/22/22 18:23 DCW [id number]) Lumbar Spine Range of Motion Lumbar Spine Active Degrees Testing Position Standing Flexion 40 Extension 10 Lateral Flexion Left 53 Lateral Flexion Right 58 Comments Lateral flexion measured in cm from fingertips to floor PT-OP-L Special Tests Start: 04/22/22 18:04 Freq: Status: Active Protocol: Document 04/22/22 15:25 DCW (Rec: 04/22/22 18:23 DCW [id number]) Special Tests Lumbar Spine Special Tests Lateral SI compression Test Results Negative Straight Leg Raise Test Results Negative Standing Flexion Test Results Negative A-P Shearing Test Results Negative Hip Special Tests Piriformis Test Results Anterior capsular tightness ERUM Test Results Negative PT-OP-M Strength Start: 04/22/22 18:04 Freq: Status: Active Protocol: Document 04/22/22 15:25 DCW (Rec: 04/22/22 18:23 DCW [id number]) Trunk Strength Trunk Manual Muscle Testing Core Stabilization Difficulty holding TrA contraction Hip Strength Hip Manual Muscle Testing Right Flexion (L2) 3+ Fair+ Abduction 4- Good- Adduction 4 Good External Rotation 4 Good Internal Rotation 4- Good- Left Flexion (L2) 4- Good- Abduction 4- Good- Adduction 4 Good External Rotation 4+ Good+ Internal Rotation 4- Good- Knee Strength Knee Manual Muscle Testing Right Flexion (S2) 4 Good Extension (L3) 4 Good Left Flexion (S2) 4- Good- Extension (L3) 4- Good- Ankle/Foot Strength Ankle and Foot Manual Muscle Testing Right Dorsiflexion (L4) 4- Good- Plantarflexion (S1) 3+ Fair+ Left Dorsiflexion (L4) 4- Good- Plantarflexion (S1) 3+ Fair+ PT-OP-Q Treatments Start: 04/22/22 18:04 Freq: Status: Active Protocol: Document 05/20/22 09:46 DCW (Rec: 05/20/22 10:26 DCW [id number]) Cardio Equipment Recumbent Elliptical (Biodex) Duration (Minutes) 5 Resistance 5 Seat Position 9 Gym Equipment Shuttle Recovery Unilateral Squats Resistance 37# Shuttle Recovery Platform Stable Bilateral Squats Resistance 75# Shuttle Recovery Platform Stable Shuttle Balance Red Details WBOS, Staggered Therapeutic Ball LTR Exercise Details LTR Ball Size/Color Red - 55 cm Body Position Supine Therapeutic Exercises Supine Exercises SLR Supine Exercise Name SLR Side bilateral Reps/Minutes x10 Comments VCs for core contraction Sidelying Exercises Open Book Sidelying Exercise Name Open Book Side bilateral Standing Exercises Wall squats Standing Exercise Name Ball/wall squats Other Exercises Resisted Ambulation Other Exercise Name Resisted side-stepping Resistance Red PT-OP-S Aquatic Treatment Start: 05/15/22 09:32 Freq: Status: Active Protocol: Document 05/22/22 10:15 SAK (Rec: 05/23/22 09:18 SAK [id number]) Aquatics Treatment Pool Entry/Exit Pool Entry/Exit Method Stairs Assistance Independent Water Walking Marching Water Level Chest Level Level of Assistance Verbal Cues Comments arms at sides for drag fwd/bk/side Comments arms at sides for drag Lower Extremity Exercises 4 way hip Details at wall Water Level Chest Level Reps/Duration 10 ea Comments verbal and tactilecues for posture Lower Extremity Stretches figure 4 Details seated at wall Reps/Duration 2x30 HS/calves Details at wall Body Position Standing Reps/Duration 2x30 Comments sm noodle HS hip flexors/quads Details at wall Body Position Standing Equipment Small Noodle Reps/Duration 2x30 Spinal Exercises TrA activation Details seated at wall Reps/Duration 10 Comments w/marching, hor ab/ad UE's ean and unil, shld flex/ext [place] Activities [place] Activities Bicycle,Bicycle Backwards, Cross Country,Running,Hip Abduction/Adduction Other Activities prone extension pendulum DLS Equipment Med belt, neoprene vest, BBs Duration 15 PT-OP-T Assessment and Plan Start: 04/22/22 18:04 Freq: Status: Active Protocol: Document 05/22/22 10:15 SAK (Rec: 05/23/22 09:18 SAK [id number]) Physical Therapy Assessment Impairments Impairments Activity Tolerance,Functional Activities,Pain,ROM,Soft Tissue Mobility,Strength,Tone Goals Three Impairment Pt demonstrates B LE weakness, especially R hip flexion and B PF (3+/5) [facility] Goal (LTG) Pt to demonstrate LE MMT >4-/5 in all planes LTG Duration 06/22/22 Two Impairment Pt unable to tolerate more than a short walk with his dog [facility] Goal (LTG) Pt to report ability to ambulate >1 mile without increased fatigue or back pain in order to return to prior activity level LTG Duration 06/22/22 One Impairment Pt does not have an appropriate home exercise program Short Term Goal (STG) Pt to be independent and compliant with an appropriate HEP STG Duration 05/23/22 Assessment Summary Assessment Good tolerance for progression of aquatic exercises with emphasis on neutral alignment and core stabilization. Physical Therapy Plan Frequency and Duration Frequency of Treatment 2x/Week Duration of Treatment Two months Plan of Care Start Date 04/22/22 Plan of Care End Date 06/22/22 Therapeutic Interventions Therapeutic Interventions Aquatic Therapy,Home Exercise Program,Joint Mobilizations, Manual Therapy,Patient/ Caregiver Education,Self-Care/ Home Management,Soft Tissue Mobilization,Therapeutic Activities,Therapeutic Exercises Modalities Cold Pack/Ice Massage,Electric Stimulation,Hot Packs, Ultrasound Next Visit Focus/Plan Next Note Type Treatment Note Next Visit Plan LE strengthening, core strengthening, flexibility Aquatic: progress strengthening and overall conditioning gradually. Assess response to first session and proceed as indicated.Add supine flutter.
--- NOTE | 2022-05-27 10:28 | PT.OTN ---
Current Diagnoses Stiffness of other specified joint, not elsewhere classified (05/27/22) Muscle weakness (generalized) (05/27/22) Postlaminectomy syndrome, not elsewhere classified (05/27/22) Physical Therapy Treatment Note PT-OP-A Visit Information Start: 04/22/22 18:04 Freq: Status: Active Protocol: Document 05/27/22 09:45 DCW (Rec: 05/27/22 10:28 DCW [id number]) Out-Patient Physical Therapy Visit Information Visit Information Visit Type Treatment Note Visit Start Time 09:45 Visit Stop Time 10:30 Total Visit Minutes 45 Visit Number 6 Number of PRODUCTION SORTER Visits 0 Evaluation Information Evaluation Date 04/22/22 PT-OP-B Current Condition Start: 04/22/22 18:04 Freq: Status: Active Protocol: Document 04/22/22 15:25 DCW (Rec: 04/22/22 18:13 DCW [id number]) Current Condition History of Current Condition Onset Date Four months Current Complaints stiffness and achiness four months s/p L4-5 laminectomy History of Current Condition Pt is a 76 year old male presenting to skilled therapy four months s/p L4-5 laminectomy complaining of continuing stiffness and soreness. Report his radicular symptoms have resolved post- op, however he continues to have achiness in his low back and into his hips, and decreased strength and activity tolerance in his legs . Notes this limits his daily activity levels, largely is just able to get out and walk the dog, not much other activity. Reports his surgeon said there was no surgical answer to his complaints. Achiness is fairly constant, but worse in the morning. Treatment Goals Patient/Caregiver Goals Really my goal is to be pain- free. That may be a lofty goal at this point, but why not shoot for it? Personal Factors Other Personal Factors That May Effect Trigeminal neuralgia, CABG x3, Therapy/Recovery partial knee replacement PT-OP-C Subjective Start: 04/22/22 18:04 Freq: Status: Active Protocol: Document 05/27/22 09:45 DCW (Rec: 05/27/22 10:28 DCW [id number]) OP-PT Subjective Patient Comments Patient Comments Pt reports his back was a little stiffer than usual this morning, it might have been the exercises I was doing yesterday. PT-OP-F Manual Assessment Start: 04/22/22 18:04 Freq: Status: Active Protocol: Document 04/22/22 15:25 DCW (Rec: 04/22/22 18:23 DCW [id number]) Manual Assessments Soft Tissue Assessment Soft Tissue Mobility Assessment Moderate tone with tenderness to palpation 2/4: Pain with wincing bilateral QL, bilateral piriformis, bilateral lumbar paraspinals Joint Mobility Assessment Joint Mobility Assessment limited lumbar mobility, bilateral capsular tightness in anterior hip PT-OP-K Range of Motion Start: 04/22/22 18:04 Freq: Status: Active Protocol: Document 04/22/22 15:25 DCW (Rec: 04/22/22 18:23 DCW [id number]) Lumbar Spine Range of Motion Lumbar Spine Active Degrees Testing Position Standing Flexion 40 Extension 10 Lateral Flexion Left 53 Lateral Flexion Right 58 Comments Lateral flexion measured in cm from fingertips to floor PT-OP-L Special Tests Start: 04/22/22 18:04 Freq: Status: Active Protocol: Document 04/22/22 15:25 DCW (Rec: 04/22/22 18:23 DCW [id number]) Special Tests Lumbar Spine Special Tests Lateral SI compression Test Results Negative Straight Leg Raise Test Results Negative Standing Flexion Test Results Negative A-P Shearing Test Results Negative Hip Special Tests Piriformis Test Results Anterior capsular tightness ERUM Test Results Negative PT-OP-M Strength Start: 04/22/22 18:04 Freq: Status: Active Protocol: Document 04/22/22 15:25 DCW (Rec: 04/22/22 18:23 DCW [id number]) Trunk Strength Trunk Manual Muscle Testing Core Stabilization Difficulty holding TrA contraction Hip Strength Hip Manual Muscle Testing Right Flexion (L2) 3+ Fair+ Abduction 4- Good- Adduction 4 Good External Rotation 4 Good Internal Rotation 4- Good- Left Flexion (L2) 4- Good- Abduction 4- Good- Adduction 4 Good External Rotation 4+ Good+ Internal Rotation 4- Good- Knee Strength Knee Manual Muscle Testing Right Flexion (S2) 4 Good Extension (L3) 4 Good Left Flexion (S2) 4- Good- Extension (L3) 4- Good- Ankle/Foot Strength Ankle and Foot Manual Muscle Testing Right Dorsiflexion (L4) 4- Good- Plantarflexion (S1) 3+ Fair+ Left Dorsiflexion (L4) 4- Good- Plantarflexion (S1) 3+ Fair+ PT-OP-Q Treatments Start: 04/22/22 18:04 Freq: Status: Active Protocol: Document 05/27/22 09:45 DCW (Rec: 05/27/22 10:28 DCW [id number]) Cardio Equipment Recumbent Elliptical (Biodex) Duration (Minutes) 5 Resistance 5 Seat Position 10 Gym Equipment Shuttle Recovery Unilateral Squats Resistance 37# Shuttle Recovery Platform Stable Bilateral Squats Resistance 75# Shuttle Recovery Platform Stable Shuttle Balance Red Details WBOS, Staggered Therapeutic Ball Resisted Trunk Rotation Exercise Details Resisted trunk rotation Ball Size/Color Green - 65 cm Lv 2 T-band Pelvic circles Exercise Details tilts and circles Ball Size/Color Green - 65 cm LTR Exercise Details LTR Ball Size/Color Red - 55 cm Body Position Supine Therapeutic Exercises Standing Exercises Pallof Press Standing Exercise Name Pallof Press Side bilateral Resistance Lv 3 PT-OP-S Aquatic Treatment Start: 05/15/22 09:32 Freq: Status: Active Protocol: Document 05/22/22 10:15 SAK (Rec: 05/23/22 09:18 SAK [id number]) Aquatics Treatment Pool Entry/Exit Pool Entry/Exit Method Stairs Assistance Independent Water Walking Marching Water Level Chest Level Level of Assistance Verbal Cues Comments arms at sides for drag fwd/bk/side Comments arms at sides for drag Lower Extremity Exercises 4 way hip Details at wall Water Level Chest Level Reps/Duration 10 ea Comments verbal and tactilecues for posture Lower Extremity Stretches figure 4 Details seated at wall Reps/Duration 2x30 HS/calves Details at wall Body Position Standing Reps/Duration 2x30 Comments sm noodle HS hip flexors/quads Details at wall Body Position Standing Equipment Small Noodle Reps/Duration 2x30 Spinal Exercises TrA activation Details seated at wall Reps/Duration 10 Comments w/marching, hor ab/ad UE's ean and unil, shld flex/ext [place] Activities [place] Activities Bicycle,Bicycle Backwards, Cross Country,Running,Hip Abduction/Adduction Other Activities prone extension pendulum DLS Equipment Med belt, neoprene vest, BBs Duration 15 PT-OP-T Assessment and Plan Start: 04/22/22 18:04 Freq: Status: Active Protocol: Document 05/27/22 09:45 DCW (Rec: 05/27/22 10:28 DCW [id number]) Physical Therapy Assessment Impairments Impairments Activity Tolerance,Functional Activities,Pain,ROM,Soft Tissue Mobility,Strength,Tone Goals Three Impairment Pt demonstrates B LE weakness, especially R hip flexion and B PF (3+/5) Senior Care Goal (LTG) Pt to demonstrate LE MMT >4-/5 in all planes LTG Duration 06/22/22 Two Impairment Pt unable to tolerate more than a short walk with his dog Senior Care Goal (LTG) Pt to report ability to ambulate >1 mile without increased fatigue or back pain in order to return to prior activity level LTG Duration 06/22/22 One Impairment Pt does not have an appropriate home exercise program Short Term Goal (STG) Pt to be independent and compliant with an appropriate HEP STG Duration 05/23/22 Assessment Summary Assessment Pt slightly more sore in his low back today, but still tolerated treatment very well. Demonstrated good understanding with new exercises and ongoing HEP. Physical Therapy Plan Frequency and Duration Frequency of Treatment 2x/Week Duration of Treatment Two months Plan of Care Start Date 04/22/22 Plan of Care End Date 06/22/22 Therapeutic Interventions Therapeutic Interventions Aquatic Therapy,Home Exercise Program,Joint Mobilizations, Manual Therapy,Patient/ Caregiver Education,Self-Care/ Home Management,Soft Tissue Mobilization,Therapeutic Activities,Therapeutic Exercises Modalities Cold Pack/Ice Massage,Electric Stimulation,Hot Packs, Ultrasound Next Visit Focus/Plan Next Note Type Treatment Note Next Visit Plan LE strengthening, core strengthening, flexibility Aquatic: progress strengthening and overall conditioning gradually. Assess response to first session and proceed as indicated.Add supine flutter.
--- NOTE | 2022-05-29 16:22 | PT.OTN ---
Current Diagnoses Stiffness of other specified joint, not elsewhere classified (05/29/22) Muscle weakness (generalized) (05/29/22) Postlaminectomy syndrome, not elsewhere classified (05/29/22) Physical Therapy Treatment Note PT-OP-A Visit Information Start: 04/22/22 18:04 Freq: Status: Active Protocol: Document 05/29/22 14:26 [facility] (Rec: 05/29/22 14:29 [facility] [id number]) Out-Patient Physical Therapy Visit Information Visit Information Visit Type Treatment Note Visit Start Time 11:00 Visit Stop Time 11:45 Total Visit Minutes 45 Visit Number 7 Number of IT PROJECT MANAGER Visits 0 Evaluation Information Evaluation Date 04/22/22 Precautions Precautions spinal, s/p surgery PT-OP-B Current Condition Start: 04/22/22 18:04 Freq: Status: Active Protocol: Document 04/22/22 15:25 DCW (Rec: 04/22/22 18:13 DCW [id number]) Current Condition History of Current Condition Onset Date Four months Current Complaints stiffness and achiness four months s/p L4-5 laminectomy History of Current Condition Pt is a 76 year old male presenting to skilled therapy four months s/p L4-5 laminectomy complaining of continuing stiffness and soreness. Report his radicular symptoms have resolved post- op, however he continues to have achiness in his low back and into his hips, and decreased strength and activity tolerance in his legs . Notes this limits his daily activity levels, largely is just able to get out and walk the dog, not much other activity. Reports his surgeon said there was no surgical answer to his complaints. Achiness is fairly constant, but worse in the morning. Treatment Goals Patient/Caregiver Goals Really my goal is to be pain- free. That may be a lofty goal at this point, but why not shoot for it? Personal Factors Other Personal Factors That May Effect Trigeminal neuralgia, CABG x3, Therapy/Recovery partial knee replacement PT-OP-C Subjective Start: 04/22/22 18:04 Freq: Status: Active Protocol: Document 05/29/22 14:26 [facility] (Rec: 05/29/22 14:29 [facility] [id number]) OP-PT Subjective Patient Comments Patient Comments Reports continues to feel tired and c/o aching in his back with standing and walking . States he knows his recovery complicated by Covid. PT-OP-F Manual Assessment Start: 04/22/22 18:04 Freq: Status: Active Protocol: Document 04/22/22 15:25 DCW (Rec: 04/22/22 18:23 DCW [id number]) Manual Assessments Soft Tissue Assessment Soft Tissue Mobility Assessment Moderate tone with tenderness to palpation 2/4: Pain with wincing bilateral QL, bilateral piriformis, bilateral lumbar paraspinals Joint Mobility Assessment Joint Mobility Assessment limited lumbar mobility, bilateral capsular tightness in anterior hip PT-OP-K Range of Motion Start: 04/22/22 18:04 Freq: Status: Active Protocol: Document 04/22/22 15:25 DCW (Rec: 04/22/22 18:23 DCW [id number]) Lumbar Spine Range of Motion Lumbar Spine Active Degrees Testing Position Standing Flexion 40 Extension 10 Lateral Flexion Left 53 Lateral Flexion Right 58 Comments Lateral flexion measured in cm from fingertips to floor PT-OP-L Special Tests Start: 04/22/22 18:04 Freq: Status: Active Protocol: Document 04/22/22 15:25 DCW (Rec: 04/22/22 18:23 DCW [id number]) Special Tests Lumbar Spine Special Tests Lateral SI compression Test Results Negative Straight Leg Raise Test Results Negative Standing Flexion Test Results Negative A-P Shearing Test Results Negative Hip Special Tests Piriformis Test Results Anterior capsular tightness ERUM Test Results Negative PT-OP-M Strength Start: 04/22/22 18:04 Freq: Status: Active Protocol: Document 04/22/22 15:25 DCW (Rec: 04/22/22 18:23 DCW [id number]) Trunk Strength Trunk Manual Muscle Testing Core Stabilization Difficulty holding TrA contraction Hip Strength Hip Manual Muscle Testing Right Flexion (L2) 3+ Fair+ Abduction 4- Good- Adduction 4 Good External Rotation 4 Good Internal Rotation 4- Good- Left Flexion (L2) 4- Good- Abduction 4- Good- Adduction 4 Good External Rotation 4+ Good+ Internal Rotation 4- Good- Knee Strength Knee Manual Muscle Testing Right Flexion (S2) 4 Good Extension (L3) 4 Good Left Flexion (S2) 4- Good- Extension (L3) 4- Good- Ankle/Foot Strength Ankle and Foot Manual Muscle Testing Right Dorsiflexion (L4) 4- Good- Plantarflexion (S1) 3+ Fair+ Left Dorsiflexion (L4) 4- Good- Plantarflexion (S1) 3+ Fair+ PT-OP-Q Treatments Start: 04/22/22 18:04 Freq: Status: Active Protocol: Document 05/27/22 09:45 DCW (Rec: 05/27/22 10:28 DCW [id number]) Cardio Equipment Recumbent Elliptical (Biodex) Duration (Minutes) 5 Resistance 5 Seat Position 10 Gym Equipment Shuttle Recovery Unilateral Squats Resistance 37# Shuttle Recovery Platform Stable Bilateral Squats Resistance 75# Shuttle Recovery Platform Stable Shuttle Balance Red Details WBOS, Staggered Therapeutic Ball Resisted Trunk Rotation Exercise Details Resisted trunk rotation Ball Size/Color Green - 65 cm Lv 2 T-band Pelvic circles Exercise Details tilts and circles Ball Size/Color Green - 65 cm LTR Exercise Details LTR Ball Size/Color Red - 55 cm Body Position Supine Therapeutic Exercises Standing Exercises Pallof Press Standing Exercise Name Pallof Press Side bilateral Resistance Lv 3 PT-OP-S Aquatic Treatment Start: 05/15/22 09:32 Freq: Status: Active Protocol: Document 05/29/22 14:26 SAK (Rec: 05/29/22 14:29 SAK [id number]) Aquatics Treatment Pool Entry/Exit Pool Entry/Exit Method Stairs Assistance Independent Water Walking Marching Water Level Chest Level Level of Assistance Verbal Cues Comments arms at sides for drag, hor ab /ad UE's fwd/bk/side Comments arms at sides for drag, hor ab /ad UE's Lower Extremity Exercises 4 way hip Details at wall Water Level Chest Level Reps/Duration 15x ea Comments verbal and tactilecues for posture, core engagement, inc speed as tolerated Lower Extremity Stretches SKTC Reps/Duration 2x30 figure 4 Details seated at wall Reps/Duration 2x30 Spinal Exercises TrA activation Details seated at wall Reps/Duration 10 Comments w/marching, hor ab/ad UE's ean and unil, shld flex/ext [place] Activities [place] Activities Bicycle,Bicycle Backwards, Cross Country,Running,Hip Abduction/Adduction Other Activities prone extension pendulum DLS Equipment Med belt, neoprene vest, BBs Duration 15 Swim Strokes Flutter Laps/Duration 15m x 2 Comments fatigued rapidly PT-OP-T Assessment and Plan Start: 04/22/22 18:04 Freq: Status: Active Protocol: Document 05/29/22 14:26 SAK (Rec: 05/29/22 14:29 [facility] [id number]) Physical Therapy Assessment Impairments Impairments Activity Tolerance,Functional Activities,Pain,ROM,Soft Tissue Mobility,Strength,Tone Goals Three Impairment Pt demonstrates B LE weakness, especially R hip flexion and B PF (3+/5) Assisted Goal (LTG) Pt to demonstrate LE MMT >4-/5 in all planes LTG Duration 06/22/22 Two Impairment Pt unable to tolerate more than a short walk with his dog Manager Field Sales Goal (LTG) Pt to report ability to ambulate >1 mile without increased fatigue or back pain in order to return to prior activity level LTG Duration 06/22/22 One Impairment Pt does not have an appropriate home exercise program Short Term Goal (STG) Pt to be independent and compliant with an appropriate HEP STG Duration 05/23/22 Assessment Summary Assessment Good tolerance for progression of aquatic exercises with emphasis on core stabilization , strengthening and flexibility. Patient fatigued rapidly with supine flutter, modfied backstroke 15m x 2. Physical Therapy Plan Frequency and Duration Frequency of Treatment 2x/Week Duration of Treatment Two months Plan of Care Start Date 04/22/22 Plan of Care End Date 06/22/22 Therapeutic Interventions Therapeutic Interventions Aquatic Therapy,Home Exercise Program,Joint Mobilizations, Manual Therapy,Patient/ Caregiver Education,Self-Care/ Home Management,Soft Tissue Mobilization,Therapeutic Activities,Therapeutic Exercises Modalities Cold Pack/Ice Massage,Electric Stimulation,Hot Packs, Ultrasound Next Visit Focus/Plan Next Note Type Treatment Note Next Visit Plan LE strengthening, core strengthening, flexibility Aquatic: progress strengthening, core stab, flexibility, swimming with emphasis on core engagement
--- NOTE | 2022-06-12 14:39 | PT.OTN ---
Current Diagnoses Stiffness of other specified joint, not elsewhere classified (06/12/22) Muscle weakness (generalized) (06/12/22) Postlaminectomy syndrome, not elsewhere classified (06/12/22) Physical Therapy Treatment Note PT-OP-A Visit Information Start: 04/22/22 18:04 Freq: Status: Active Protocol: Document 06/12/22 14:25 SVEN (Rec: 06/12/22 14:38 [id number]) Out-Patient Physical Therapy Visit Information Visit Information Visit Type Aquatic Treatment Note Visit Start Time 10:15 Visit Stop Time 11:00 Total Visit Minutes 45 Visit Number 8 Number of BREASTER Visits 1 Evaluation Information Evaluation Date 04/22/22 Precautions Precautions spinal, s/p surgery PT-OP-B Current Condition Start: 04/22/22 18:04 Freq: Status: Active Protocol: Document 04/22/22 15:25 DCW (Rec: 04/22/22 18:13 DCW [id number]) Current Condition History of Current Condition Onset Date Four months Current Complaints stiffness and achiness four months s/p L4-5 laminectomy History of Current Condition Pt is a 76 year old male presenting to skilled therapy four months s/p L4-5 laminectomy complaining of continuing stiffness and soreness. Report his radicular symptoms have resolved post- op, however he continues to have achiness in his low back and into his hips, and decreased strength and activity tolerance in his legs . Notes this limits his daily activity levels, largely is just able to get out and walk the dog, not much other activity. Reports his surgeon said there was no surgical answer to his complaints. Achiness is fairly constant, but worse in the morning. Treatment Goals Patient/Caregiver Goals Really my goal is to be pain- free. That may be a lofty goal at this point, but why not shoot for it? Personal Factors Other Personal Factors That May Effect Trigeminal neuralgia, CABG x3, Therapy/Recovery partial knee replacement PT-OP-C Subjective Start: 04/22/22 18:04 Freq: Status: Active Protocol: Document 06/12/22 14:25 SVEN (Rec: 06/12/22 14:38 LJ [id number]) OP-PT Subjective Patient Comments Patient Comments Continues to feel he has no stamina anymore and is frustrated with how long it is taking to have more energy and strength. PT-OP-F Manual Assessment Start: 04/22/22 18:04 Freq: Status: Active Protocol: Document 04/22/22 15:25 DCW (Rec: 04/22/22 18:23 DCW [id number]) Manual Assessments Soft Tissue Assessment Soft Tissue Mobility Assessment Moderate tone with tenderness to palpation 2/4: Pain with wincing bilateral QL, bilateral piriformis, bilateral lumbar paraspinals Joint Mobility Assessment Joint Mobility Assessment limited lumbar mobility, bilateral capsular tightness in anterior hip PT-OP-K Range of Motion Start: 04/22/22 18:04 Freq: Status: Active Protocol: Document 04/22/22 15:25 DCW (Rec: 04/22/22 18:23 DCW [id number]) Lumbar Spine Range of Motion Lumbar Spine Active Degrees Testing Position Standing Flexion 40 Extension 10 Lateral Flexion Left 53 Lateral Flexion Right 58 Comments Lateral flexion measured in cm from fingertips to floor PT-OP-L Special Tests Start: 04/22/22 18:04 Freq: Status: Active Protocol: Document 04/22/22 15:25 DCW (Rec: 04/22/22 18:23 DCW [id number]) Special Tests Lumbar Spine Special Tests Lateral SI compression Test Results Negative Straight Leg Raise Test Results Negative Standing Flexion Test Results Negative A-P Shearing Test Results Negative Hip Special Tests Piriformis Test Results Anterior capsular tightness ERUM Test Results Negative PT-OP-M Strength Start: 04/22/22 18:04 Freq: Status: Active Protocol: Document 04/22/22 15:25 DCW (Rec: 04/22/22 18:23 DCW [id number]) Trunk Strength Trunk Manual Muscle Testing Core Stabilization Difficulty holding TrA contraction Hip Strength Hip Manual Muscle Testing Right Flexion (L2) 3+ Fair+ Abduction 4- Good- Adduction 4 Good External Rotation 4 Good Internal Rotation 4- Good- Left Flexion (L2) 4- Good- Abduction 4- Good- Adduction 4 Good External Rotation 4+ Good+ Internal Rotation 4- Good- Knee Strength Knee Manual Muscle Testing Right Flexion (S2) 4 Good Extension (L3) 4 Good Left Flexion (S2) 4- Good- Extension (L3) 4- Good- Ankle/Foot Strength Ankle and Foot Manual Muscle Testing Right Dorsiflexion (L4) 4- Good- Plantarflexion (S1) 3+ Fair+ Left Dorsiflexion (L4) 4- Good- Plantarflexion (S1) 3+ Fair+ PT-OP-Q Treatments Start: 04/22/22 18:04 Freq: Status: Active Protocol: Document 05/27/22 09:45 DCW (Rec: 05/27/22 10:28 DCW [id number]) Cardio Equipment Recumbent Elliptical (Biodex) Duration (Minutes) 5 Resistance 5 Seat Position 10 Gym Equipment Shuttle Recovery Unilateral Squats Resistance 37# Shuttle Recovery Platform Stable Bilateral Squats Resistance 75# Shuttle Recovery Platform Stable Shuttle Balance Red Details WBOS, Staggered Therapeutic Ball Resisted Trunk Rotation Exercise Details Resisted trunk rotation Ball Size/Color Green - 65 cm Lv 2 T-band Pelvic circles Exercise Details tilts and circles Ball Size/Color Green - 65 cm LTR Exercise Details LTR Ball Size/Color Red - 55 cm Body Position Supine Therapeutic Exercises Standing Exercises Pallof Press Standing Exercise Name Pallof Press Side bilateral Resistance Lv 3 PT-OP-S Aquatic Treatment Start: 05/15/22 09:32 Freq: Status: Active Protocol: Document 06/12/22 14:25 LJ (Rec: 06/12/22 14:38 LJ [id number]) Aquatics Treatment Pool Entry/Exit Pool Entry/Exit Method Stairs Assistance Independent Water Walking circumduction Level of Assistance Verbal Cues Comments began using bar but too difficult to maintain good form fwd/bk/side Comments br held in front for abd. activation Lower Extremity Exercises 4 way hip Details at wall Water Level Chest Level Reps/Duration 15x ea Comments verbal and cues for posture, core engagement, inc speed as tolerated Lower Extremity Stretches SKTC Reps/Duration 2x30 figure 4 Details seated at wall Reps/Duration 2x30 HS/calves Details at wall Body Position Standing Reps/Duration 2x30 Comments sm noodle HS hip flexors/quads Details at wall Body Position Standing Equipment Small Noodle Reps/Duration 2x30 Spinal Exercises bar pull down Details seated at wall Equipment bar Reps/Duration 15x Comments flexion and kayaking TrA activation Details seated at wall Reps/Duration 10 Comments w/marching, hor ab/ad UE's ean and unil, shld flex/ext [place] Activities Other Activities pendulum, shoot thrus, T hang w/ab/add using m bbs, seated on bbs, planks, righting- supine to sitting w/bbs under knees Equipment Med belt, neoprene vest, BBs Duration 20 PT-OP-T Assessment and Plan Start: 04/22/22 18:04 Freq: Status: Active Protocol: Document 06/12/22 14:25 SVEN (Rec: 06/12/22 14:38 SVEN [id number]) Physical Therapy Assessment Rehab Potential Rehabilitation Potential Good Evaluation Complexity Number of Personal Factors/Comorbidities 3 or More Number of Body Systems Impaired 3 Clinical Presentation at Evaluation Unstable Impairments Impairments Activity Tolerance,Functional Activities,Pain,ROM,Soft Tissue Mobility,Strength,Tone Goals Three Impairment Pt demonstrates B LE weakness, especially R hip flexion and B PF (3+/5) Package Dyeing Machine Operator Goal (LTG) Pt to demonstrate LE MMT >4-/5 in all planes LTG Duration 06/22/22 Two Impairment Pt unable to tolerate more than a short walk with his dog Prison Goal (LTG) Pt to report ability to ambulate >1 mile without increased fatigue or back pain in order to return to prior activity level LTG Duration 06/22/22 One Impairment Pt does not have an appropriate home exercise program Short Term Goal (STG) Pt to be independent and compliant with an appropriate HEP STG Duration 05/23/22 Assessment Summary Assessment Good tolerance for progression of aquatic exercises in deep water with emphasis on core stabilization using bbs. He was able to perform some advanced balance and stability exercises in the deep with minimal LOB. Pt issued deep water HEP detailing exercises practiced this session
--- NOTE | 2022-06-14 14:37 | PT.OTN ---
Current Diagnoses Stiffness of other specified joint, not elsewhere classified (06/14/22) Muscle weakness (generalized) (06/14/22) Postlaminectomy syndrome, not elsewhere classified (06/14/22) Physical Therapy Treatment Note PT-OP-A Visit Information Start: 04/22/22 18:04 Freq: Status: Active Protocol: Document 06/14/22 13:51 SP (Rec: 06/14/22 14:37 SP [id number]) Out-Patient Physical Therapy Visit Information Visit Information Visit Type Treatment Note Visit Note Discussed with pt to make more appts, needs see PT before due to POC expiring. Sent message to schedulers. Visit Start Time 13:51 Visit Stop Time 14:37 Total Visit Minutes 46 Visit Number 9 Number of CAREER DISCOVERY TEACHER Visits 2 Evaluation Information Evaluation Date 04/22/22 Precautions Precautions spinal, s/p surgery PT-OP-B Current Condition Start: 04/22/22 18:04 Freq: Status: Active Protocol: Document 04/22/22 15:25 DCW (Rec: 04/22/22 18:13 DCW [id number]) Current Condition History of Current Condition Onset Date Four months Current Complaints stiffness and achiness four months s/p L4-5 laminectomy History of Current Condition Pt is a 76 year old male presenting to skilled therapy four months s/p L4-5 laminectomy complaining of continuing stiffness and soreness. Report his radicular symptoms have resolved post- op, however he continues to have achiness in his low back and into his hips, and decreased strength and activity tolerance in his legs . Notes this limits his daily activity levels, largely is just able to get out and walk the dog, not much other activity. Reports his surgeon said there was no surgical answer to his complaints. Achiness is fairly constant, but worse in the morning. Treatment Goals Patient/Caregiver Goals Really my goal is to be pain- free. That may be a lofty goal at this point, but why not shoot for it? Personal Factors Other Personal Factors That May Effect Trigeminal neuralgia, CABG x3, Therapy/Recovery partial knee replacement PT-OP-C Subjective Start: 04/22/22 18:04 Freq: Status: Active Protocol: Document 06/14/22 13:51 SP (Rec: 06/14/22 14:37 SP [id number]) OP-PT Subjective Patient Comments Patient Comments Pt almost cancelled today's appt due to did some yard work earlier today L>R LB hurting. States used CP on back and Tylenol helps relieve some but doesn't know anything else can do, welcome to suggestions . PT-OP-F Manual Assessment Start: 04/22/22 18:04 Freq: Status: Active Protocol: Document 04/22/22 15:25 DCW (Rec: 04/22/22 18:23 DCW [id number]) Manual Assessments Soft Tissue Assessment Soft Tissue Mobility Assessment Moderate tone with tenderness to palpation 2/4: Pain with wincing bilateral QL, bilateral piriformis, bilateral lumbar paraspinals Joint Mobility Assessment Joint Mobility Assessment limited lumbar mobility, bilateral capsular tightness in anterior hip PT-OP-K Range of Motion Start: 04/22/22 18:04 Freq: Status: Active Protocol: Document 04/22/22 15:25 DCW (Rec: 04/22/22 18:23 DCW [id number]) Lumbar Spine Range of Motion Lumbar Spine Active Degrees Testing Position Standing Flexion 40 Extension 10 Lateral Flexion Left 53 Lateral Flexion Right 58 Comments Lateral flexion measured in cm from fingertips to floor PT-OP-L Special Tests Start: 04/22/22 18:04 Freq: Status: Active Protocol: Document 04/22/22 15:25 DCW (Rec: 04/22/22 18:23 DCW [id number]) Special Tests Lumbar Spine Special Tests Lateral SI compression Test Results Negative Straight Leg Raise Test Results Negative Standing Flexion Test Results Negative A-P Shearing Test Results Negative Hip Special Tests Piriformis Test Results Anterior capsular tightness ERUM Test Results Negative PT-OP-M Strength Start: 04/22/22 18:04 Freq: Status: Active Protocol: Document 04/22/22 15:25 DCW (Rec: 04/22/22 18:23 DCW [id number]) Trunk Strength Trunk Manual Muscle Testing Core Stabilization Difficulty holding TrA contraction Hip Strength Hip Manual Muscle Testing Right Flexion (L2) 3+ Fair+ Abduction 4- Good- Adduction 4 Good External Rotation 4 Good Internal Rotation 4- Good- Left Flexion (L2) 4- Good- Abduction 4- Good- Adduction 4 Good External Rotation 4+ Good+ Internal Rotation 4- Good- Knee Strength Knee Manual Muscle Testing Right Flexion (S2) 4 Good Extension (L3) 4 Good Left Flexion (S2) 4- Good- Extension (L3) 4- Good- Ankle/Foot Strength Ankle and Foot Manual Muscle Testing Right Dorsiflexion (L4) 4- Good- Plantarflexion (S1) 3+ Fair+ Left Dorsiflexion (L4) 4- Good- Plantarflexion (S1) 3+ Fair+ PT-OP-Q Treatments Start: 04/22/22 18:04 Freq: Status: Active Protocol: Document 06/14/22 13:51 SP (Rec: 06/14/22 14:37 SP [id number]) Therapeutic Exercises Supine Exercises piriformis stretch Supine Exercise Name added to HEP Side bilateral Reps/Minutes 60 sec Comments L>R tightness fig 4 Supine Exercise Name added to HEP Side bilateral Reps/Minutes 30 B Comments R>L tightness SKTC Supine Exercise Name added to HEP Side bilateral Reps/Minutes 30 Comments L>R tightness SLR Supine Exercise Name SLR Side bilateral Reps/Minutes x10 Comments states performing at home Standing Exercises self STMs Standing Exercise Name added to HEP: glut med, piriformis Side left Equipment Used ball wall Reps/Minutes 30 sec Comments cued L leg back toward wall to allow gentle pressure rolling - gd massage sink stretch Standing Exercise Name added to HEP Side left Reps/Minutes 30 hold Comments good feedback Manual Therapy Treatment Soft Tissue Mobilization L>R LB, hips Body Location L>R: glut max/med, ES Mobilization Type Rolling,Sustained Pressure, Trigger Point Release Intensity/Depth Moderate Body Position Prone Comments manual and MWM hip IR/ ER PT-OP-S Aquatic Treatment Start: 05/15/22 09:32 Freq: Status: Active Protocol: Document 06/12/22 14:25 SVEN (Rec: 06/12/22 14:38 LJ [id number]) Aquatics Treatment Pool Entry/Exit Pool Entry/Exit Method Stairs Assistance Independent Water Walking circumduction Level of Assistance Verbal Cues Comments began using bar but too difficult to maintain good form fwd/bk/side Comments br held in front for abd. activation Lower Extremity Exercises 4 way hip Details at wall Water Level Chest Level Reps/Duration 15x ea Comments verbal and cues for posture, core engagement, inc speed as tolerated Lower Extremity Stretches SKTC Reps/Duration 2x30 figure 4 Details seated at wall Reps/Duration 2x30 HS/calves Details at wall Body Position Standing Reps/Duration 2x30 Comments sm noodle HS hip flexors/quads Details at wall Body Position Standing Equipment Small Noodle Reps/Duration 2x30 Spinal Exercises bar pull down Details seated at wall Equipment bar Reps/Duration 15x Comments flexion and kayaking TrA activation Details seated at wall Reps/Duration 10 Comments w/marching, hor ab/ad UE's ean and unil, shld flex/ext [place] Activities Other Activities pendulum, shoot thrus, T hang w/ab/add using m bbs, seated on bbs, planks, righting- supine to sitting w/bbs under knees Equipment Med belt, neoprene vest, BBs Duration 20 PT-OP-T Assessment and Plan Start: 04/22/22 18:04 Freq: Status: Active Protocol: Document 06/14/22 13:51 SP (Rec: 06/14/22 14:37 SP [id number]) Physical Therapy Assessment Goals Three Impairment Pt demonstrates B LE weakness, especially R hip flexion and B PF (3+/5) Food Science Technician Goal (LTG) Pt to demonstrate LE MMT >4-/5 in all planes LTG Duration 06/22/22 Two Impairment Pt unable to tolerate more than a short walk with his dog Food Science Technician Goal (LTG) Pt to report ability to ambulate >1 mile without increased fatigue or back pain in order to return to prior activity level LTG Duration 06/22/22 One Impairment Pt does not have an appropriate home exercise program Short Term Goal (STG) Pt to be independent and compliant with an appropriate HEP 06/14/22: HEP verbal review: TA SLR, open book, wall squats, clamshell, reverse clamshell. added stretching to HEP for flexibility: SKTC, piriformis and fig 4 stretches supine, sink stretch and self gentle STMs ball on wall over tight gluteal region with good feedback response. STG Duration 05/23/22 Progression 06/14/22 Assessment Summary Assessment Pt responds well to stretching and manual today, better understanding of need of flexibilty and self STMs learned today will incorporate into HEP. Physical Therapy Plan Frequency and Duration Frequency of Treatment 2x/Week Plan of Care Start Date 04/22/22 Plan of Care End Date 06/22/22 Therapeutic Interventions Therapeutic Interventions Aquatic Therapy,Home Exercise Program,Joint Mobilizations, Manual Therapy,Patient/ Caregiver Education,Self-Care/ Home Management,Soft Tissue Mobilization,Therapeutic Activities,Therapeutic Exercises Modalities Cold Pack/Ice Massage,Electric Stimulation,Hot Packs, Ultrasound Next Visit Focus/Plan Next Note Type Treatment Note Next Visit Plan Assess response to manual, stretching, self STMs added last tx. Add supine core to HEP for home. POC: LE strengthening, core strengthening, flexibility Aquatic: progress strengthening, core stab, flexibility, swimming with emphasis on core engagement
--- NOTE | 2022-06-17 13:56 | PT.OTN ---
Current Diagnoses Stiffness of other specified joint, not elsewhere classified (06/17/22) Muscle weakness (generalized) (06/17/22) Postlaminectomy syndrome, not elsewhere classified (06/17/22) Physical Therapy Treatment Note PT-OP-A Visit Information Start: 04/22/22 18:04 Freq: Status: Active Protocol: Document 06/17/22 13:35 SVEN (Rec: 06/17/22 13:56 [id number]) Out-Patient Physical Therapy Visit Information Visit Information Visit Type Aquatic Treatment Note Visit Start Time 11:00 Visit Stop Time 11:45 Total Visit Minutes 45 Visit Number 10 Number of COMPOSITION SIDING WORKER Visits 3 Evaluation Information Evaluation Date 04/22/22 Precautions Precautions spinal, s/p surgery PT-OP-B Current Condition Start: 04/22/22 18:04 Freq: Status: Active Protocol: Document 04/22/22 15:25 DCW (Rec: 04/22/22 18:13 DCW [id number]) Current Condition History of Current Condition Onset Date Four months Current Complaints stiffness and achiness four months s/p L4-5 laminectomy History of Current Condition Pt is a 76 year old male presenting to skilled therapy four months s/p L4-5 laminectomy complaining of continuing stiffness and soreness. Report his radicular symptoms have resolved post- op, however he continues to have achiness in his low back and into his hips, and decreased strength and activity tolerance in his legs . Notes this limits his daily activity levels, largely is just able to get out and walk the dog, not much other activity. Reports his surgeon said there was no surgical answer to his complaints. Achiness is fairly constant, but worse in the morning. Treatment Goals Patient/Caregiver Goals Really my goal is to be pain- free. That may be a lofty goal at this point, but why not shoot for it? Personal Factors Other Personal Factors That May Effect Trigeminal neuralgia, CABG x3, Therapy/Recovery partial knee replacement PT-OP-C Subjective Start: 04/22/22 18:04 Freq: Status: Active Protocol: Document 06/17/22 13:35 SVEN (Rec: 06/17/22 13:56 SVEN [id number]) OP-PT Subjective Patient Comments Patient Comments Pt states his back has been sore lately. He worked in the yard and it hurt afterwards. He feels he is improving with strength and stamina since beginning aquatic therapy. States he still feels stiff but the water helps to losen him up. PT-OP-F Manual Assessment Start: 04/22/22 18:04 Freq: Status: Active Protocol: Document 04/22/22 15:25 DCW (Rec: 04/22/22 18:23 DCW [id number]) Manual Assessments Soft Tissue Assessment Soft Tissue Mobility Assessment Moderate tone with tenderness to palpation 2/4: Pain with wincing bilateral QL, bilateral piriformis, bilateral lumbar paraspinals Joint Mobility Assessment Joint Mobility Assessment limited lumbar mobility, bilateral capsular tightness in anterior hip PT-OP-K Range of Motion Start: 04/22/22 18:04 Freq: Status: Active Protocol: Document 04/22/22 15:25 DCW (Rec: 04/22/22 18:23 DCW [id number]) Lumbar Spine Range of Motion Lumbar Spine Active Degrees Testing Position Standing Flexion 40 Extension 10 Lateral Flexion Left 53 Lateral Flexion Right 58 Comments Lateral flexion measured in cm from fingertips to floor PT-OP-L Special Tests Start: 04/22/22 18:04 Freq: Status: Active Protocol: Document 04/22/22 15:25 DCW (Rec: 04/22/22 18:23 DCW [id number]) Special Tests Lumbar Spine Special Tests Lateral SI compression Test Results Negative Straight Leg Raise Test Results Negative Standing Flexion Test Results Negative A-P Shearing Test Results Negative Hip Special Tests Piriformis Test Results Anterior capsular tightness ERUM Test Results Negative PT-OP-M Strength Start: 04/22/22 18:04 Freq: Status: Active Protocol: Document 04/22/22 15:25 DCW (Rec: 04/22/22 18:23 DCW [id number]) Trunk Strength Trunk Manual Muscle Testing Core Stabilization Difficulty holding TrA contraction Hip Strength Hip Manual Muscle Testing Right Flexion (L2) 3+ Fair+ Abduction 4- Good- Adduction 4 Good External Rotation 4 Good Internal Rotation 4- Good- Left Flexion (L2) 4- Good- Abduction 4- Good- Adduction 4 Good External Rotation 4+ Good+ Internal Rotation 4- Good- Knee Strength Knee Manual Muscle Testing Right Flexion (S2) 4 Good Extension (L3) 4 Good Left Flexion (S2) 4- Good- Extension (L3) 4- Good- Ankle/Foot Strength Ankle and Foot Manual Muscle Testing Right Dorsiflexion (L4) 4- Good- Plantarflexion (S1) 3+ Fair+ Left Dorsiflexion (L4) 4- Good- Plantarflexion (S1) 3+ Fair+ PT-OP-Q Treatments Start: 04/22/22 18:04 Freq: Status: Active Protocol: Document 06/14/22 13:51 SP (Rec: 06/14/22 14:37 SP [id number]) Therapeutic Exercises Supine Exercises piriformis stretch Supine Exercise Name added to HEP Side bilateral Reps/Minutes 60 sec Comments L>R tightness fig 4 Supine Exercise Name added to HEP Side bilateral Reps/Minutes 30 B Comments R>L tightness SKTC Supine Exercise Name added to HEP Side bilateral Reps/Minutes 30 Comments L>R tightness SLR Supine Exercise Name SLR Side bilateral Reps/Minutes x10 Comments states performing at home Standing Exercises self STMs Standing Exercise Name added to HEP: glut med, piriformis Side left Equipment Used ball wall Reps/Minutes 30 sec Comments cued L leg back toward wall to allow gentle pressure rolling - gd massage sink stretch Standing Exercise Name added to HEP Side left Reps/Minutes 30 hold Comments good feedback Manual Therapy Treatment Soft Tissue Mobilization L>R LB, hips Body Location L>R: glut max/med, ES Mobilization Type Rolling,Sustained Pressure, Trigger Point Release Intensity/Depth Moderate Body Position Prone Comments manual and MWM hip IR/ ER PT-OP-S Aquatic Treatment Start: 05/15/22 09:32 Freq: Status: Active Protocol: Document 06/17/22 13:35 LJ (Rec: 06/17/22 13:56 LJ [id number]) Aquatics Treatment Pool Entry/Exit Pool Entry/Exit Method Stairs Assistance Independent Water Walking Lunge Walk Water Level Waist Level Comments VC to keep back straight and knee behind toes circumduction Level of Assistance Verbal Cues Marching Water Level Chest Level Level of Assistance Verbal Cues Comments bar held in front for core activation fwd/bk/side Comments br held in front for abd. activation Lower Extremity Exercises lunges Details standing on boxes for increased WB Water Level Waist Level Equipment boxes Reps/Duration 2x8 B Comments cues for foot and knee position and maintaining straight back 4 way hip Details at wall Water Level Chest Level Reps/Duration 15x ea Comments verbal and cues for posture, core engagement, inc speed as tolerated Lower Extremity Stretches SKTC Details back against wall Reps/Duration 2x30 figure 4 Details seated at wall Reps/Duration 2x30 HS/calves Details at wall Body Position Standing Reps/Duration 2x30 Comments sm noodle HS hip flexors/quads Details at wall Body Position Standing Equipment Small Noodle Reps/Duration 2x30 Spinal Exercises wonderboard Reps/Duration 2 min Comments attempted kneeling but unable bar pull down Details seated at wall Equipment bar Reps/Duration 15x Comments flexion and kayaking motion TrA activation Details seated at wall Reps/Duration 10 Comments w/marching, hor ab/ad UE's ean and unil, shld flex/ext Balance SL squat Details on box Water Level Waist Level Reps/Duration 2x8 B Comments hh on wall Amber Activities Amber Activities Bicycle,Bicycle Backwards, Running,Hip Abduction/ Adduction Other Activities pendulum T hang Equipment Med belt, neoprene vest, BBs Duration 14 Comments difficulty performing bicycle backwards-lacked coordination PT-OP-T Assessment and Plan Start: 04/22/22 18:04 Freq: Status: Active Protocol: Document 06/17/22 13:35 SVEN (Rec: 06/17/22 13:56 [id number]) Physical Therapy Assessment Rehab Potential Rehabilitation Potential Good Evaluation Complexity Number of Personal Factors/Comorbidities 3 or More Number of Body Systems Impaired 3 Impairments Impairments Activity Tolerance,Functional Activities,Pain,ROM,Soft Tissue Mobility,Strength,Tone Goals Three Impairment Pt demonstrates B LE weakness, especially R hip flexion and B PF (3+/5) Driver License Reviewing Officer Goal (LTG) Pt to demonstrate LE MMT >4-/5 in all planes LTG Duration 06/22/22 Two Impairment Pt unable to tolerate more than a short walk with his dog Fdc Goal (LTG) Pt to report ability to ambulate >1 mile without increased fatigue or back pain in order to return to prior activity level LTG Duration 06/22/22 One Impairment Pt does not have an appropriate home exercise program Short Term Goal (STG) Pt to be independent and compliant with an appropriate HEP 06/14/22: HEP verbal review: TA SLR, open book, wall squats, clamshell, reverse clamshell. added stretching to HEP for flexibility: SKTC, piriformis and fig 4 stretches supine, sink stretch and self gentle STMs ball on wall over tight gluteal region with good feedback response. STG Duration 05/23/22 Progression 06/14/22 Assessment Summary Assessment Pt began having discomfort in deep water with attempting to bike backwards so stopped activity. Went to shallow to stretch low back. Kept exercises to a lower level this session compared to last due to back discomfort. He was given HEP sheets to use on his own when visiting the pool . Physical Therapy Plan Frequency and Duration Frequency of Treatment 2x/Week Plan of Care Start Date 04/22/22 Plan of Care End Date 06/22/22 Therapeutic Interventions Therapeutic Interventions Aquatic Therapy,Home Exercise Program,Joint Mobilizations, Manual Therapy,Patient/ Caregiver Education,Self-Care/ Home Management,Soft Tissue Mobilization,Therapeutic Activities,Therapeutic Exercises Modalities Cold Pack/Ice Massage,Electric Stimulation,Hot Packs, Ultrasound Next Visit Focus/Plan Next Note Type Treatment Note Next Visit Plan POC: LE strengthening, core strengthening, flexibility Aquatic: progress strengthening, core stab, flexibility, swimming with emphasis on core engagement. Assess response to lower level of exercise and adjust as necessary.
--- NOTE | 2022-06-19 13:48 | PT.OTN ---
Current Diagnoses Stiffness of other specified joint, not elsewhere classified (06/19/22) Muscle weakness (generalized) (06/19/22) Postlaminectomy syndrome, not elsewhere classified (06/19/22) Physical Therapy Treatment Note PT-OP-A Visit Information Start: 04/22/22 18:04 Freq: Status: Active Protocol: Document 06/19/22 13:02 SP (Rec: 06/19/22 13:51 SP [id number]) Out-Patient Physical Therapy Visit Information Visit Information Visit Type Treatment Note Visit Note PN/update POC due next visit 06/26, POC expires 06/22. Visit Start Time 13:02 Visit Stop Time 13:48 Total Visit Minutes 46 Visit Number 11 Number of TUBE DEPATCHER Visits 4 Evaluation Information Evaluation Date 04/22/22 Precautions Precautions spinal, s/p surgery PT-OP-B Current Condition Start: 04/22/22 18:04 Freq: Status: Active Protocol: Document 04/22/22 15:25 DCW (Rec: 04/22/22 18:13 DCW [id number]) Current Condition History of Current Condition Onset Date Four months Current Complaints stiffness and achiness four months s/p L4-5 laminectomy History of Current Condition Pt is a 76 year old male presenting to skilled therapy four months s/p L4-5 laminectomy complaining of continuing stiffness and soreness. Report his radicular symptoms have resolved post- op, however he continues to have achiness in his low back and into his hips, and decreased strength and activity tolerance in his legs . Notes this limits his daily activity levels, largely is just able to get out and walk the dog, not much other activity. Reports his surgeon said there was no surgical answer to his complaints. Achiness is fairly constant, but worse in the morning. Treatment Goals Patient/Caregiver Goals Really my goal is to be pain- free. That may be a lofty goal at this point, but why not shoot for it? Personal Factors Other Personal Factors That May Effect Trigeminal neuralgia, CABG x3, Therapy/Recovery partial knee replacement PT-OP-C Subjective Start: 04/22/22 18:04 Freq: Status: Active Protocol: Document 06/19/22 13:02 SP (Rec: 06/19/22 13:51 SP [id number]) OP-PT Subjective Patient Comments Patient Comments Pt stated is able to walk his dog about 1.5 miles and play with his dog about 1 hr. He performs stretches some times before gets out of bed to help decrease stiffness but otherwise sits EOB and stays adjust being up. Was ableto climb his ladder and replace small section of his roof since 06/14 and did well, low pitch roof. PT-OP-F Manual Assessment Start: 04/22/22 18:04 Freq: Status: Active Protocol: Document 04/22/22 15:25 DCW (Rec: 04/22/22 18:23 DCW [id number]) Manual Assessments Soft Tissue Assessment Soft Tissue Mobility Assessment Moderate tone with tenderness to palpation 2/4: Pain with wincing bilateral QL, bilateral piriformis, bilateral lumbar paraspinals Joint Mobility Assessment Joint Mobility Assessment limited lumbar mobility, bilateral capsular tightness in anterior hip PT-OP-K Range of Motion Start: 04/22/22 18:04 Freq: Status: Active Protocol: Document 04/22/22 15:25 DCW (Rec: 04/22/22 18:23 DCW [id number]) Lumbar Spine Range of Motion Lumbar Spine Active Degrees Testing Position Standing Flexion 40 Extension 10 Lateral Flexion Left 53 Lateral Flexion Right 58 Comments Lateral flexion measured in cm from fingertips to floor PT-OP-L Special Tests Start: 04/22/22 18:04 Freq: Status: Active Protocol: Document 04/22/22 15:25 DCW (Rec: 04/22/22 18:23 DCW [id number]) Special Tests Lumbar Spine Special Tests Lateral SI compression Test Results Negative Straight Leg Raise Test Results Negative Standing Flexion Test Results Negative A-P Shearing Test Results Negative Hip Special Tests Piriformis Test Results Anterior capsular tightness ERUM Test Results Negative PT-OP-M Strength Start: 04/22/22 18:04 Freq: Status: Active Protocol: Document 04/22/22 15:25 DCW (Rec: 04/22/22 18:23 DCW [id number]) Trunk Strength Trunk Manual Muscle Testing Core Stabilization Difficulty holding TrA contraction Hip Strength Hip Manual Muscle Testing Right Flexion (L2) 3+ Fair+ Abduction 4- Good- Adduction 4 Good External Rotation 4 Good Internal Rotation 4- Good- Left Flexion (L2) 4- Good- Abduction 4- Good- Adduction 4 Good External Rotation 4+ Good+ Internal Rotation 4- Good- Knee Strength Knee Manual Muscle Testing Right Flexion (S2) 4 Good Extension (L3) 4 Good Left Flexion (S2) 4- Good- Extension (L3) 4- Good- Ankle/Foot Strength Ankle and Foot Manual Muscle Testing Right Dorsiflexion (L4) 4- Good- Plantarflexion (S1) 3+ Fair+ Left Dorsiflexion (L4) 4- Good- Plantarflexion (S1) 3+ Fair+ PT-OP-Q Treatments Start: 04/22/22 18:04 Freq: Status: Active Protocol: Document 06/19/22 13:02 SP (Rec: 06/19/22 13:51 SP [id number]) Therapeutic Exercises Supine Exercises core march into table top Supine Exercise Name sequencial march (both elevated)- added to HEP Side bilateral Reps/Minutes 2 reps, alternate x2 sets Comments cued TA and stable pelvis ontable Standing Exercises self STMs Standing Exercise Name added leg STMs with rolling pin: quad, ITB, adductor, calf , HS Side right Equipment Used ball wall Reps/Minutes 2 min Comments good feedback response. Pallof Press Standing Exercise Name Pallof Press- HEP reviewed Side bilateral Resistance Lv 3 Reps/Minutes x10 Comments cued PPT/ TA and press out for core fac not LB recruitment Wall squats Standing Exercise Name sit to stands: added to HEP Reps/Minutes 2x5 reps Comments cued knee behind and with toes . Other Exercises bird dog Other Exercise Name added to HEP: LE ext and or UE extension Equipment Used on fists due to wrist hurts into extension Reps/Minutes 5 reps x2 Comments 1. LE extend then little lift 2. UE lift cat camel Other Exercise Name added to HEP Side bilateral Resistance AROM Equipment Used on fists due to wrist hurts into extension Reps/Minutes x10 reps Comments good feedback ROM stretch Resisted Ambulation Other Exercise Name Resisted side-stepping- added to HEP Resistance Lv 2 TB Reps/Minutes 20 ft x2 laps Comments cued posture, core PT-OP-S Aquatic Treatment Start: 05/15/22 09:32 Freq: Status: Active Protocol: Document 06/17/22 13:35 LJ (Rec: 06/17/22 13:56 LJ [id number]) Aquatics Treatment Pool Entry/Exit Pool Entry/Exit Method Stairs Assistance Independent Water Walking Lunge Walk Water Level Waist Level Comments VC to keep back straight and knee behind toes circumduction Level of Assistance Verbal Cues Marching Water Level Chest Level Level of Assistance Verbal Cues Comments bar held in front for core activation fwd/bk/side Comments br held in front for abd. activation Lower Extremity Exercises lunges Details standing on boxes for increased WB Water Level Waist Level Equipment boxes Reps/Duration 2x8 B Comments cues for foot and knee position and maintaining straight back 4 way hip Details at wall Water Level Chest Level Reps/Duration 15x ea Comments verbal and cues for posture, core engagement, inc speed as tolerated Lower Extremity Stretches SKTC Details back against wall Reps/Duration 2x30 figure 4 Details seated at wall Reps/Duration 2x30 HS/calves Details at wall Body Position Standing Reps/Duration 2x30 Comments sm noodle HS hip flexors/quads Details at wall Body Position Standing Equipment Small Noodle Reps/Duration 2x30 Spinal Exercises wonderboard Reps/Duration 2 min Comments attempted kneeling but unable bar pull down Details seated at wall Equipment bar Reps/Duration 15x Comments flexion and kayaking motion TrA activation Details seated at wall Reps/Duration 10 Comments w/marching, hor ab/ad UE's ean and unil, shld flex/ext Balance SL squat Details on box Water Level Waist Level Reps/Duration 2x8 B Comments hh on wall [place] Activities [place] Activities Bicycle,Bicycle Backwards, Running,Hip Abduction/ Adduction Other Activities pendulum T hang Equipment Med belt, neoprene vest, BBs Duration 14 Comments difficulty performing bicycle backwards-lacked coordination PT-OP-T Assessment and Plan Start: 04/22/22 18:04 Freq: Status: Active Protocol: Document 06/19/22 13:02 SP (Rec: 06/19/22 13:51 SP [id number]) Physical Therapy Assessment Goals Three Impairment Pt demonstrates B LE weakness, especially R hip flexion and B PF (3+/5) Wood Carving Machine Operator Goal (LTG) Pt to demonstrate LE MMT >4-/5 in all planes LTG Duration 06/22/22 Two Impairment Pt unable to tolerate more than a short walk with his dog Care Home Goal (LTG) Pt to report ability to ambulate >1 mile without increased fatigue or back pain in order to return to prior activity level LTG Duration 06/22/22 One Impairment Pt does not have an appropriate home exercise program Short Term Goal (STG) Pt to be independent and compliant with an appropriate HEP 06/14/22: HEP verbal review: TA SLR, open book, wall squats, clamshell, reverse clamshell. added stretching to HEP for flexibility: SKTC, piriformis and fig 4 stretches supine, sink stretch and self gentle STMs ball on wall over tight gluteal region with good feedback response. STG Duration 05/23/22 Progression 06/14/22 Assessment Summary Assessment Tx focused on core facilitation and functional mobility, continue ed for self STMs and stretching for flexibility decrease tension on back/knees. Tolerated added STS, modified bird dog felt good core recruitment, painfree. Pt required occasional cues for PPT/TA facilitaiton to allow decrease LB recruitment. Next tx: assess mechanics lifting and allowable weight at this time to allow safety household projects. He reported had no pain completing small area reroofing, laid on side vs kneeling quadruped on roof. Physical Therapy Plan Frequency and Duration Frequency of Treatment 2x/Week Plan of Care Start Date 04/22/22 Plan of Care End Date 06/22/22 Therapeutic Interventions Therapeutic Interventions Aquatic Therapy,Home Exercise Program,Joint Mobilizations, Manual Therapy,Patient/ Caregiver Education,Self-Care/ Home Management,Soft Tissue Mobilization,Therapeutic Activities,Therapeutic Exercises Modalities Cold Pack/Ice Massage,Electric Stimulation,Hot Packs, Ultrasound Next Visit Focus/Plan Next Note Type Progress Note Next Visit Plan PN due next tx. FUture tx: Recheck modified bird dog, cat camel, core november. Add lifitng mechanics for house project safety. POC: LE strengthening, core strengthening, flexibility Aquatic: progress strengthening, core stab, flexibility, swimming with emphasis on core engagement. Assess response to lower level of exercise and adjust as necessary.
--- NOTE | 2022-06-26 17:20 | PT.OTN ---
Current Diagnoses Stiffness of other specified joint, not elsewhere classified (06/26/22) Muscle weakness (generalized) (06/26/22) Postlaminectomy syndrome, not elsewhere classified (06/26/22) Physical Therapy Treatment Note PT-OP-A Visit Information Start: 04/22/22 18:04 Freq: Status: Active Protocol: Document 06/26/22 15:13 AW (Rec: 06/26/22 16:05 AW [id number]) Out-Patient Physical Therapy Visit Information Visit Information Visit Type Progress Note Visit Start Time 15:15 Visit Stop Time 16:00 Visit Number 12 Number of DEPUTY CHIEF COUNSEL Visits 0 Evaluation Information Evaluation Date 04/22/22 Precautions Precautions spinal, s/p surgery PT-OP-B Current Condition Start: 04/22/22 18:04 Freq: Status: Active Protocol: Document 04/22/22 15:25 DCW (Rec: 04/22/22 18:13 DCW [id number]) Current Condition History of Current Condition Onset Date Four months Current Complaints stiffness and achiness four months s/p L4-5 laminectomy History of Current Condition Pt is a 76 year old male presenting to skilled therapy four months s/p L4-5 laminectomy complaining of continuing stiffness and soreness. Report his radicular symptoms have resolved post- op, however he continues to have achiness in his low back and into his hips, and decreased strength and activity tolerance in his legs . Notes this limits his daily activity levels, largely is just able to get out and walk the dog, not much other activity. Reports his surgeon said there was no surgical answer to his complaints. Achiness is fairly constant, but worse in the morning. Treatment Goals Patient/Caregiver Goals Really my goal is to be pain- free. That may be a lofty goal at this point, but why not shoot for it? Personal Factors Other Personal Factors That May Effect Trigeminal neuralgia, CABG x3, Therapy/Recovery partial knee replacement PT-OP-C Subjective Start: 04/22/22 18:04 Freq: Status: Active Protocol: Document 06/26/22 15:13 AW (Rec: 06/26/22 16:05 AW [id number]) OP-PT Subjective Patient Comments Patient Comments R knee has been bothering me. I wonder if I should have gone for the total knee instead of partial. PT-OP-F Manual Assessment Start: 04/22/22 18:04 Freq: Status: Active Protocol: Document 04/22/22 15:25 DCW (Rec: 04/22/22 18:23 DCW [id number]) Manual Assessments Soft Tissue Assessment Soft Tissue Mobility Assessment Moderate tone with tenderness to palpation 2/4: Pain with wincing bilateral QL, bilateral piriformis, bilateral lumbar paraspinals Joint Mobility Assessment Joint Mobility Assessment limited lumbar mobility, bilateral capsular tightness in anterior hip PT-OP-K Range of Motion Start: 04/22/22 18:04 Freq: Status: Active Protocol: Document 04/22/22 15:25 DCW (Rec: 04/22/22 18:23 DCW [id number]) Lumbar Spine Range of Motion Lumbar Spine Active Degrees Testing Position Standing Flexion 40 Extension 10 Lateral Flexion Left 53 Lateral Flexion Right 58 Comments Lateral flexion measured in cm from fingertips to floor PT-OP-L Special Tests Start: 04/22/22 18:04 Freq: Status: Active Protocol: Document 04/22/22 15:25 DCW (Rec: 04/22/22 18:23 DCW [id number]) Special Tests Lumbar Spine Special Tests Lateral SI compression Test Results Negative Straight Leg Raise Test Results Negative Standing Flexion Test Results Negative A-P Shearing Test Results Negative Hip Special Tests Piriformis Test Results Anterior capsular tightness ERUM Test Results Negative PT-OP-M Strength Start: 04/22/22 18:04 Freq: Status: Active Protocol: Document 06/26/22 15:13 AW (Rec: 06/26/22 17:20 AW [id number]) Hip Strength Hip Manual Muscle Testing Right Flexion (L2) 4 Good Extension (S1) 3+ Fair+ Abduction 4 Good Left Flexion (L2) 4 Good Extension (S1) 3+ Fair+ Abduction 4 Good Knee Strength Knee Manual Muscle Testing Right Flexion (S2) 4+ Good+ Extension (L3) 4+ Good+ Left Flexion (S2) 4+ Good+ Extension (L3) 4+ Good+ Ankle/Foot Strength Ankle and Foot Manual Muscle Testing Right Dorsiflexion (L4) 4+ Good+ Plantarflexion (S1) 4 Good Left Dorsiflexion (L4) 4+ Good+ Plantarflexion (S1) 4 Good PT-OP-Q Treatments Start: 04/22/22 18:04 Freq: Status: Active Protocol: Document 06/26/22 15:13 AW (Rec: 06/26/22 16:05 AW [id number]) Cardio Equipment Recumbent Elliptical (Biodex) Duration (Minutes) 5 Resistance 5 Seat Position 10 Therapeutic Exercises Supine Exercises core march into table top Supine Exercise Name sequencial march (both elevated) Side bilateral Reps/Minutes 2 reps, alternate x2 sets Comments cued TA and stable pelvis on table Standing Exercises resisted row Standing Exercise Name resisted row Resistance TB2 Reps/Minutes x15 Comments focus on postural control sink stretch Side left Reps/Minutes 30 hold Comments good feedback Pallof Press Standing Exercise Name Pallof Press- HEP reviewed Side bilateral Resistance Lv 3 Reps/Minutes x10 Comments cued PPT/ TA and press out for core fac not LB recruitment Wall squats Standing Exercise Name sit to stand - no UE support Reps/Minutes x10 Comments cued glute drive, weight shift Other Exercises cat camel Other Exercise Name added to HEP Side bilateral Resistance AROM Equipment Used on fists due to wrist hurts into extension Reps/Minutes x10 reps Comments good feedback ROM stretch PT-OP-S Aquatic Treatment Start: 05/15/22 09:32 Freq: Status: Active Protocol: Document 06/17/22 13:35 SVEN (Rec: 06/17/22 13:56 LJ [id number]) Aquatics Treatment Pool Entry/Exit Pool Entry/Exit Method Stairs Assistance Independent Water Walking Lunge Walk Water Level Waist Level Comments VC to keep back straight and knee behind toes circumduction Level of Assistance Verbal Cues Marching Water Level Chest Level Level of Assistance Verbal Cues Comments bar held in front for core activation fwd/bk/side Comments br held in front for abd. activation Lower Extremity Exercises lunges Details standing on boxes for increased WB Water Level Waist Level Equipment boxes Reps/Duration 2x8 B Comments cues for foot and knee position and maintaining straight back 4 way hip Details at wall Water Level Chest Level Reps/Duration 15x ea Comments verbal and cues for posture, core engagement, inc speed as tolerated Lower Extremity Stretches SKTC Details back against wall Reps/Duration 2x30 figure 4 Details seated at wall Reps/Duration 2x30 HS/calves Details at wall Body Position Standing Reps/Duration 2x30 Comments sm noodle HS hip flexors/quads Details at wall Body Position Standing Equipment Small Noodle Reps/Duration 2x30 Spinal Exercises wonderboard Reps/Duration 2 min Comments attempted kneeling but unable bar pull down Details seated at wall Equipment bar Reps/Duration 15x Comments flexion and kayaking motion TrA activation Details seated at wall Reps/Duration 10 Comments w/marching, hor ab/ad UE's ean and unil, shld flex/ext Balance SL squat Details on box Water Level Waist Level Reps/Duration 2x8 B Comments hh on wall [place] Activities [place] Activities Bicycle,Bicycle Backwards, Running,Hip Abduction/ Adduction Other Activities pendulum T hang Equipment Med belt, neoprene vest, BBs Duration 14 Comments difficulty performing bicycle backwards-lacked coordination PT-OP-T Assessment and Plan Start: 04/22/22 18:04 Freq: Status: Active Protocol: Document 06/26/22 15:13 AW (Rec: 06/26/22 16:05 AW [id number]) Physical Therapy Assessment Goals Three Impairment Pt demonstrates B LE weakness, especially R hip flexion and B PF (3+/5) Diesel Dragline Operator Goal (LTG) Pt to demonstrate LE MMT >4-/5 in all planes 06/26/22 - Good progress toward goals except hip extension (4-/5) as documented above. Continue toward goal. LTG Duration 08/21/22 Two Impairment Pt unable to tolerate more than a short walk with his dog Diesel Dragline Operator Goal (LTG) Pt to report ability to ambulate >1 mile without increased fatigue or back pain in order to return to prior activity level. 06/26/22 - Now walking about a mile or a bit longer with the dog. He denies increase in fatigue or back pain. Progress goal to 1.5 miles. LTG Duration 08/21/22 One Impairment Pt does not have an appropriate home exercise program Short Term Goal (STG) Pt to be independent and compliant with an appropriate HEP 06/14/22: HEP verbal review: TA SLR, open book, wall squats, clamshell, reverse clamshell. added stretching to HEP for flexibility: SKTC, piriformis and fig 4 stretches supine, sink stretch and self gentle STMs ball on wall over tight gluteal region with good feedback response. STG Duration 08/21/22 Progress Towards Goals Progress Towards Goals Progressing Toward Goals Progress Comments Pt has progressed standing/ walking tolerance and strength in general. Hip extension lags behind due to back pain. Pt should benefit from continued land-based and aquatic therapy to continue goal progression. Assessment Summary Assessment Continued focus on core stabilization today and pt tolerated all well. He has good form with sit to stand but fatigues after 10 reps. Physical Therapy Plan Frequency and Duration Frequency of Treatment 2x/Week Duration of treatment (weeks) 8 Plan of Care Start Date 06/26/22 Plan of Care End Date 08/21/22 Therapeutic Interventions Therapeutic Interventions Aquatic Therapy,Home Exercise Program,Joint Mobilizations, Manual Therapy,Patient/ Caregiver Education,Self-Care/ Home Management,Soft Tissue Mobilization,Therapeutic Activities,Therapeutic Exercises Modalities Cold Pack/Ice Massage,Electric Stimulation,Hot Packs, Ultrasound Next Visit Focus/Plan Next Note Type Treatment Note Next Visit Plan FUture tx: Recheck modified bird dog, cat camel, core november. Add [employer] for house project safety. POC: LE strengthening, core strengthening, flexibility Aquatic: progress strengthening, core stab, flexibility, swimming with emphasis on core engagement. Assess response to lower level of exercise and adjust as necessary.
--- NOTE | 2022-06-26 17:20 | PT.OPPOC ---
Physical, Occupational & Speech Therapy At [facility] Current Diagnoses Stiffness of other specified joint, not elsewhere classified (06/26/22) Muscle weakness (generalized) (06/26/22) Postlaminectomy syndrome, not elsewhere classified (06/26/22) Visit Care Team Role Provider Type Lele Diaz MD Attending Provider Physician Family Provider Primary Care Provider Referring Provider Specialty: Internal Medicine Address: [address] [place] [address], [address], [place], [address] Email: [email or web address] Plan Of Care PT-OP-T Assessment and Plan Start: 04/22/22 18:04 Freq: Status: Active Protocol: Document 06/26/22 15:13 AW (Rec: 06/26/22 16:05 AW [id number]) Physical Therapy Assessment Goals Three Impairment Pt demonstrates B LE weakness, especially R hip flexion and B PF (3+/5) Correction Goal (LTG) Pt to demonstrate LE MMT >4-/5 in all planes 06/26/22 - Good progress toward goals except hip extension (4-/5) as documented above. Continue toward goal. LTG Duration 08/21/22 Two Impairment Pt unable to tolerate more than a short walk with his dog Correction Goal (LTG) Pt to report ability to ambulate >1 mile without increased fatigue or back pain in order to return to prior activity level. 06/26/22 - Now walking about a mile or a bit longer with the dog. He denies increase in fatigue or back pain. Progress goal to 1.5 miles. LTG Duration 08/21/22 One Impairment Pt does not have an appropriate home exercise program Short Term Goal (STG) Pt to be independent and compliant with an appropriate HEP 06/14/22: HEP verbal review: TA SLR, open book, wall squats, clamshell, reverse clamshell. added stretching to HEP for flexibility: SKTC, piriformis and fig 4 stretches supine, sink stretch and self gentle STMs ball on wall over tight gluteal region with good feedback response. STG Duration 08/21/22 Progress Towards Goals Progress Towards Goals Progressing Toward Goals Progress Comments Pt has progressed standing/ walking tolerance and strength in general. Hip extension lags behind due to back pain. Pt should benefit from continued land-based and aquatic therapy to continue goal progression. Assessment Summary Assessment Continued focus on core stabilization today and pt tolerated all well. He has good form with sit to stand but fatigues after 10 reps. Physical Therapy Plan Frequency and Duration Frequency of Treatment 2x/Week Duration of treatment (weeks) 8 Plan of Care Start Date 06/26/22 Plan of Care End Date 08/21/22 Therapeutic Interventions Therapeutic Interventions Aquatic Therapy,Home Exercise Program,Joint Mobilizations, Manual Therapy,Patient/ Caregiver Education,Self-Care/ Home Management,Soft Tissue Mobilization,Therapeutic Activities,Therapeutic Exercises Modalities Cold Pack/Ice Massage,Electric Stimulation,Hot Packs, Ultrasound Next Visit Focus/Plan Next Note Type Treatment Note Next Visit Plan FUture tx: Recheck modified bird dog, cat camel, core november. Add [employer] mechanics for house project safety. POC: LE strengthening, core strengthening, flexibility Aquatic: progress strengthening, core stab, flexibility, swimming with emphasis on core engagement. Assess response to lower level of exercise and adjust as necessary. Plan of Care Dates Plan of Care Start Date 06/26/22 Plan of Care End Date 08/21/22 Electronically Signed by: Patience Navarrete PT 06/26/22 5620 If you are in agreement with this Plan of Care, please return a signed and dated copy. I have reviewed this Plan of Care and certify that the skilled therapy services above are required to meet the patient?s needs. Physician Signature Date Printed Name and Credentials Clinical Instructor Signature Printed Name and Credentials
--- NOTE | 2022-06-28 12:49 | PT.OTN ---
Current Diagnoses Stiffness of other specified joint, not elsewhere classified (06/28/22) Muscle weakness (generalized) (06/28/22) Postlaminectomy syndrome, not elsewhere classified (06/28/22) Physical Therapy Treatment Note PT-OP-A Visit Information Start: 04/22/22 18:04 Freq: Status: Active Protocol: Document 06/28/22 12:03 DCW (Rec: 06/28/22 12:49 DCW [id number]) Out-Patient Physical Therapy Visit Information Visit Information Visit Type Treatment Note Visit Start Time 12:03 Visit Stop Time 12:45 Total Visit Minutes 42 Visit Number 13 Number of WELDING INSPECTOR Visits 0 Evaluation Information Evaluation Date 04/22/22 Precautions Precautions spinal, s/p surgery PT-OP-B Current Condition Start: 04/22/22 18:04 Freq: Status: Active Protocol: Document 04/22/22 15:25 DCW (Rec: 04/22/22 18:13 DCW [id number]) Current Condition History of Current Condition Onset Date Four months Current Complaints stiffness and achiness four months s/p L4-5 laminectomy History of Current Condition Pt is a 76 year old male presenting to skilled therapy four months s/p L4-5 laminectomy complaining of continuing stiffness and soreness. Report his radicular symptoms have resolved post- op, however he continues to have achiness in his low back and into his hips, and decreased strength and activity tolerance in his legs . Notes this limits his daily activity levels, largely is just able to get out and walk the dog, not much other activity. Reports his surgeon said there was no surgical answer to his complaints. Achiness is fairly constant, but worse in the morning. Treatment Goals Patient/Caregiver Goals Really my goal is to be pain- free. That may be a lofty goal at this point, but why not shoot for it? Personal Factors Other Personal Factors That May Effect Trigeminal neuralgia, CABG x3, Therapy/Recovery partial knee replacement PT-OP-C Subjective Start: 04/22/22 18:04 Freq: Status: Active Protocol: Document 06/28/22 12:03 DCW (Rec: 06/28/22 12:49 DCW [id number]) OP-PT Subjective Patient Comments Patient Comments Pt reports he feels like he is doing better overall, has noticed good progress. PT-OP-F Manual Assessment Start: 04/22/22 18:04 Freq: Status: Active Protocol: Document 04/22/22 15:25 DCW (Rec: 04/22/22 18:23 DCW [id number]) Manual Assessments Soft Tissue Assessment Soft Tissue Mobility Assessment Moderate tone with tenderness to palpation 2/4: Pain with wincing bilateral QL, bilateral piriformis, bilateral lumbar paraspinals Joint Mobility Assessment Joint Mobility Assessment limited lumbar mobility, bilateral capsular tightness in anterior hip PT-OP-K Range of Motion Start: 04/22/22 18:04 Freq: Status: Active Protocol: Document 04/22/22 15:25 DCW (Rec: 04/22/22 18:23 DCW [id number]) Lumbar Spine Range of Motion Lumbar Spine Active Degrees Testing Position Standing Flexion 40 Extension 10 Lateral Flexion Left 53 Lateral Flexion Right 58 Comments Lateral flexion measured in cm from fingertips to floor PT-OP-L Special Tests Start: 04/22/22 18:04 Freq: Status: Active Protocol: Document 04/22/22 15:25 DCW (Rec: 04/22/22 18:23 DCW [id number]) Special Tests Lumbar Spine Special Tests Lateral SI compression Test Results Negative Straight Leg Raise Test Results Negative Standing Flexion Test Results Negative A-P Shearing Test Results Negative Hip Special Tests Piriformis Test Results Anterior capsular tightness ERUM Test Results Negative PT-OP-M Strength Start: 04/22/22 18:04 Freq: Status: Active Protocol: Document 06/26/22 15:13 AW (Rec: 06/26/22 17:20 AW [id number]) Hip Strength Hip Manual Muscle Testing Right Flexion (L2) 4 Good Extension (S1) 3+ Fair+ Abduction 4 Good Left Flexion (L2) 4 Good Extension (S1) 3+ Fair+ Abduction 4 Good Knee Strength Knee Manual Muscle Testing Right Flexion (S2) 4+ Good+ Extension (L3) 4+ Good+ Left Flexion (S2) 4+ Good+ Extension (L3) 4+ Good+ Ankle/Foot Strength Ankle and Foot Manual Muscle Testing Right Dorsiflexion (L4) 4+ Good+ Plantarflexion (S1) 4 Good Left Dorsiflexion (L4) 4+ Good+ Plantarflexion (S1) 4 Good PT-OP-Q Treatments Start: 04/22/22 18:04 Freq: Status: Active Protocol: Document 06/28/22 12:03 DCW (Rec: 06/28/22 12:49 DCW [id number]) Cardio Equipment Recumbent Elliptical (Biodex) Duration (Minutes) 6 Resistance 5 Seat Position 10 Therapeutic Exercises Supine Exercises Psoas stretch Supine Exercise Name Leg hang off table Side bilateral Comments HEP Standing Exercises Skaters Standing Exercise Name Resisted hip extension/ abduction Resistance Red resisted row Standing Exercise Name resisted row Resistance Lv 3 Reps/Minutes x15 Comments focus on postural control sink stretch Side left Reps/Minutes 30 hold Comments good feedback Pallof Press Standing Exercise Name Pallof Press Side bilateral Resistance Lv 3 Reps/Minutes x10 Comments cued PPT/ TA and press out for core fac not LB recruitment Other Exercises Resisted Ambulation Other Exercise Name Resisted side-stepping Resistance Red Reps/Minutes 20 ft x2 laps Comments cued posture, core Manual Therapy Treatment Manual Traction Hip Details Lateral distraction /c strap Body Position Hooklying Comments Capsule stretch PT-OP-S Aquatic Treatment Start: 05/15/22 09:32 Freq: Status: Active Protocol: Document 06/17/22 13:35 SVEN (Rec: 06/17/22 13:56 [id number]) Aquatics Treatment Pool Entry/Exit Pool Entry/Exit Method Stairs Assistance Independent Water Walking Lunge Walk Water Level Waist Level Comments VC to keep back straight and knee behind toes circumduction Level of Assistance Verbal Cues Marching Water Level Chest Level Level of Assistance Verbal Cues Comments bar held in front for core activation fwd/bk/side Comments br held in front for abd. activation Lower Extremity Exercises lunges Details standing on boxes for increased WB Water Level Waist Level Equipment boxes Reps/Duration 2x8 B Comments cues for foot and knee position and maintaining straight back 4 way hip Details at wall Water Level Chest Level Reps/Duration 15x ea Comments verbal and cues for posture, core engagement, inc speed as tolerated Lower Extremity Stretches SKTC Details back against wall Reps/Duration 2x30 figure 4 Details seated at wall Reps/Duration 2x30 HS/calves Details at wall Body Position Standing Reps/Duration 2x30 Comments sm noodle HS hip flexors/quads Details at wall Body Position Standing Equipment Small Noodle Reps/Duration 2x30 Spinal Exercises wonderboard Reps/Duration 2 min Comments attempted kneeling but unable bar pull down Details seated at wall Equipment bar Reps/Duration 15x Comments flexion and kayaking motion TrA activation Details seated at wall Reps/Duration 10 Comments w/marching, hor ab/ad UE's ean and unil, shld flex/ext Balance SL squat Details on box Water Level Waist Level Reps/Duration 2x8 B Comments hh on wall [place] Activities [place] Activities Bicycle,Bicycle Backwards, Running,Hip Abduction/ Adduction Other Activities pendulum T hang Equipment Med belt, neoprene vest, BBs Duration 14 Comments difficulty performing bicycle backwards-lacked coordination PT-OP-T Assessment and Plan Start: 04/22/22 18:04 Freq: Status: Active Protocol: Document 06/28/22 12:03 DCW (Rec: 06/28/22 12:49 DCW [id number]) Physical Therapy Assessment Goals Three Impairment Pt demonstrates B LE weakness, especially R hip flexion and B PF (3+/5) Research Analyst Goal (LTG) Pt to demonstrate LE MMT >4-/5 in all planes 06/26/22 - Good progress toward goals except hip extension (4-/5) as documented above. Continue toward goal. LTG Duration 08/21/22 Two Impairment Pt unable to tolerate more than a short walk with his dog Research Analyst Goal (LTG) Pt to report ability to ambulate >1 mile without increased fatigue or back pain in order to return to prior activity level. 06/26/22 - Now walking about a mile or a bit longer with the dog. He denies increase in fatigue or back pain. Progress goal to 1.5 miles. LTG Duration 08/21/22 One Impairment Pt does not have an appropriate home exercise program Short Term Goal (STG) Pt to be independent and compliant with an appropriate HEP 06/14/22: HEP verbal review: TA SLR, open book, wall squats, clamshell, reverse clamshell. added stretching to HEP for flexibility: SKTC, piriformis and fig 4 stretches supine, sink stretch and self gentle STMs ball on wall over tight gluteal region with good feedback response. STG Duration 08/21/22 Progress Towards Goals Progress Towards Goals Progressing Toward Goals Progress Comments Pt has progressed standing/ walking tolerance and strength in general. Hip extension lags behind due to back pain. Pt should benefit from continued land-based and aquatic therapy to continue goal progression. Assessment Summary Assessment Pt feeling pretty good overall with HEP and aquatic therapy. Did appear to benefit from psoas stretching, improved hip mobility and helped decrease joint capsule stiffness Physical Therapy Plan Frequency and Duration Frequency of Treatment 2x/Week Duration of treatment (weeks) 8 Plan of Care Start Date 06/26/22 Plan of Care End Date 08/21/22 Therapeutic Interventions Therapeutic Interventions Aquatic Therapy,Home Exercise Program,Joint Mobilizations, Manual Therapy,Patient/ Caregiver Education,Self-Care/ Home Management,Soft Tissue Mobilization,Therapeutic Activities,Therapeutic Exercises Modalities Cold Pack/Ice Massage,Electric Stimulation,Hot Packs, Ultrasound Next Visit Focus/Plan Next Note Type Treatment Note Next Visit Plan Future tx: Recheck modified bird dog, cat camel, core november. Add lifting mechanics for house project safety. POC: LE strengthening, core strengthening, flexibility Aquatic: progress strengthening, core stab, flexibility, swimming with emphasis on core engagement. Assess response to lower level of exercise and adjust as necessary.
--- NOTE | 2022-07-03 14:38 | PT.OTN ---
Current Diagnoses Stiffness of other specified joint, not elsewhere classified (07/03/22) Muscle weakness (generalized) (07/03/22) Postlaminectomy syndrome, not elsewhere classified (07/03/22) Physical Therapy Treatment Note PT-OP-A Visit Information Start: 04/22/22 18:04 Freq: Status: Active Protocol: Document 07/03/22 14:11 SVEN (Rec: 07/03/22 14:38 SVEN [id number]) Out-Patient Physical Therapy Visit Information Visit Information Visit Type Aquatic Treatment Note Visit Start Time 10:15 Visit Stop Time 11:00 Total Visit Minutes 45 Visit Number 14 Number of MECHANICAL TECHNICAL SERVICE SPECIALIST Visits 1 Evaluation Information Evaluation Date 04/22/22 Precautions Precautions spinal, s/p surgery PT-OP-B Current Condition Start: 04/22/22 18:04 Freq: Status: Active Protocol: Document 04/22/22 15:25 DCW (Rec: 04/22/22 18:13 DCW [id number]) Current Condition History of Current Condition Onset Date Four months Current Complaints stiffness and achiness four months s/p L4-5 laminectomy History of Current Condition Pt is a 76 year old male presenting to skilled therapy four months s/p L4-5 laminectomy complaining of continuing stiffness and soreness. Report his radicular symptoms have resolved post- op, however he continues to have achiness in his low back and into his hips, and decreased strength and activity tolerance in his legs . Notes this limits his daily activity levels, largely is just able to get out and walk the dog, not much other activity. Reports his surgeon said there was no surgical answer to his complaints. Achiness is fairly constant, but worse in the morning. Treatment Goals Patient/Caregiver Goals Really my goal is to be pain- free. That may be a lofty goal at this point, but why not shoot for it? Personal Factors Other Personal Factors That May Effect Trigeminal neuralgia, CABG x3, Therapy/Recovery partial knee replacement PT-OP-C Subjective Start: 04/22/22 18:04 Freq: Status: Active Protocol: Document 07/03/22 14:11 SVEN (Rec: 07/03/22 14:38 SVEN [id number]) OP-PT Subjective Patient Comments Patient Comments Pt states he is able to walk more and doesn't have pain while walking but needs to rest and/or nap after a walk. PT-OP-F Manual Assessment Start: 04/22/22 18:04 Freq: Status: Active Protocol: Document 04/22/22 15:25 DCW (Rec: 04/22/22 18:23 DCW [id number]) Manual Assessments Soft Tissue Assessment Soft Tissue Mobility Assessment Moderate tone with tenderness to palpation 2/4: Pain with wincing bilateral QL, bilateral piriformis, bilateral lumbar paraspinals Joint Mobility Assessment Joint Mobility Assessment limited lumbar mobility, bilateral capsular tightness in anterior hip PT-OP-K Range of Motion Start: 04/22/22 18:04 Freq: Status: Active Protocol: Document 04/22/22 15:25 DCW (Rec: 04/22/22 18:23 DCW [id number]) Lumbar Spine Range of Motion Lumbar Spine Active Degrees Testing Position Standing Flexion 40 Extension 10 Lateral Flexion Left 53 Lateral Flexion Right 58 Comments Lateral flexion measured in cm from fingertips to floor PT-OP-L Special Tests Start: 04/22/22 18:04 Freq: Status: Active Protocol: Document 04/22/22 15:25 DCW (Rec: 04/22/22 18:23 DCW [id number]) Special Tests Lumbar Spine Special Tests Lateral SI compression Test Results Negative Straight Leg Raise Test Results Negative Standing Flexion Test Results Negative A-P Shearing Test Results Negative Hip Special Tests Piriformis Test Results Anterior capsular tightness ERUM Test Results Negative PT-OP-M Strength Start: 04/22/22 18:04 Freq: Status: Active Protocol: Document 06/26/22 15:13 AW (Rec: 06/26/22 17:20 AW [id number]) Hip Strength Hip Manual Muscle Testing Right Flexion (L2) 4 Good Extension (S1) 3+ Fair+ Abduction 4 Good Left Flexion (L2) 4 Good Extension (S1) 3+ Fair+ Abduction 4 Good Knee Strength Knee Manual Muscle Testing Right Flexion (S2) 4+ Good+ Extension (L3) 4+ Good+ Left Flexion (S2) 4+ Good+ Extension (L3) 4+ Good+ Ankle/Foot Strength Ankle and Foot Manual Muscle Testing Right Dorsiflexion (L4) 4+ Good+ Plantarflexion (S1) 4 Good Left Dorsiflexion (L4) 4+ Good+ Plantarflexion (S1) 4 Good PT-OP-Q Treatments Start: 04/22/22 18:04 Freq: Status: Active Protocol: Document 06/28/22 12:03 DCW (Rec: 06/28/22 12:49 DCW [id number]) Cardio Equipment Recumbent Elliptical (Biodex) Duration (Minutes) 6 Resistance 5 Seat Position 10 Therapeutic Exercises Supine Exercises Psoas stretch Supine Exercise Name Leg hang off table Side bilateral Comments HEP Standing Exercises Skaters Standing Exercise Name Resisted hip extension/ abduction Resistance Red resisted row Standing Exercise Name resisted row Resistance Lv 3 Reps/Minutes x15 Comments focus on postural control sink stretch Side left Reps/Minutes 30 hold Comments good feedback Pallof Press Standing Exercise Name Pallof Press Side bilateral Resistance Lv 3 Reps/Minutes x10 Comments cued PPT/ TA and press out for core fac not LB recruitment Other Exercises Resisted Ambulation Other Exercise Name Resisted side-stepping Resistance Red Reps/Minutes 20 ft x2 laps Comments cued posture, core Manual Therapy Treatment Manual Traction Hip Details Lateral distraction /c strap Body Position Hooklying Comments Capsule stretch PT-OP-S Aquatic Treatment Start: 05/15/22 09:32 Freq: Status: Active Protocol: Document 07/03/22 14:11 SVEN (Rec: 07/03/22 14:38 LJ [id number]) Aquatics Treatment Pool Entry/Exit Pool Entry/Exit Method Stairs Assistance Independent Water Walking [place] March Water Level Chest Level Comments VC to keep LEs straight and ankles dorsiflexed Tandem Gait Comments VC for smaller steps Lunge Walk Water Level Waist Level Comments VC to keep back straight and knee behind toes circumduction Level of Assistance Verbal Cues Marching Water Level Chest Level Level of Assistance Verbal Cues Comments reaching contralateral side Lower Extremity Exercises lunges Details standing on boxes for increased WB Water Level Waist Level Equipment boxes Reps/Duration 2x8 B Comments cues for foot and knee position and maintaining straight back 4 way hip Details at wall Water Level Chest Level Reps/Duration 15x ea Comments verbal and cues for posture, core engagement, inc speed as tolerated Lower Extremity Stretches SKTC Details foot on step Body Position Standing Reps/Duration 2x45 figure 4 Details seated at wall Reps/Duration 2x30 HS/calves Details at wall Body Position Standing Reps/Duration 2x30 Comments heels on floor, toes on wall hip flexors/quads Details at wall Body Position Standing Reps/Duration 2x30 Comments reciprical inhibition Upper Extremity Stretches chest stretch Details standing in corner; walking forwardw/smile faces Water Level Chest Level Equipment smiley faces Reps/Duration 45 sec chest stretch in corner Spinal Exercises wonderboard Reps/Duration 4 min bar pull down Details seated at wall Equipment bar Reps/Duration 15x Comments flexion and kayaking motion; VC for posture Balance floor clocks Body Position Standing Water Level Waist Level Reps/Duration 6xB SL squat Details on box Water Level Waist Level Reps/Duration 2x15 B Comments hh on wall [place] Activities [place] Activities Bicycle,Bicycle Backwards, Running,Hip Abduction/ Adduction Other Activities pendulum Equipment Med belt, neoprene vest, BBs Comments some difficulty with coordination; unable to keep knees extended during ski even with multiple cues Swim Strokes Flutter Laps/Duration 15m Comments fatigued rapidly Manual Techniques Aquatic Massage with low back stretch ~4 min PT-OP-T Assessment and Plan Start: 04/22/22 18:04 Freq: Status: Active Protocol: Document 07/03/22 14:11 SVEN (Rec: 07/03/22 14:38 SVEN [id number]) Physical Therapy Assessment Rehab Potential Rehabilitation Potential Good Evaluation Complexity Number of Personal Factors/Comorbidities 3 or More Number of Body Systems Impaired 3 Impairments Impairments Activity Tolerance,Functional Activities,Pain,ROM,Soft Tissue Mobility,Strength,Tone Goals Three Impairment Pt demonstrates B LE weakness, especially R hip flexion and B PF (3+/5) Termite Control Service Representative Goal (LTG) Pt to demonstrate LE MMT >4-/5 in all planes 06/26/22 - Good progress toward goals except hip extension (4-/5) as documented above. Continue toward goal. LTG Duration 08/21/22 Two Impairment Pt unable to tolerate more than a short walk with his dog Fdc Goal (LTG) Pt to report ability to ambulate >1 mile without increased fatigue or back pain in order to return to prior activity level. 06/26/22 - Now walking about a mile or a bit longer with the dog. He denies increase in fatigue or back pain. Progress goal to 1.5 miles. LTG Duration 08/21/22 One Impairment Pt does not have an appropriate home exercise program Short Term Goal (STG) Pt to be independent and compliant with an appropriate HEP 06/14/22: HEP verbal review: TA SLR, open book, wall squats, clamshell, reverse clamshell. added stretching to HEP for flexibility: SKTC, piriformis and fig 4 stretches supine, sink stretch and self gentle STMs ball on wall over tight gluteal region with good feedback response. STG Duration 08/21/22 Progress Towards Goals Progress Towards Goals Progressing Toward Goals Assessment Summary Assessment Pt still experiencing multiple LOB with walking activities particularly tandem and circumduction walking. HS are very tight and Pt tends to maintain knee flexion during all walking activities. He would like to incorporate swimming into a HEP so will begin to work on basic stroke development. Pt improving with activity tolerance and diminishing pain. Physical Therapy Plan Frequency and Duration Frequency of Treatment 2x/Week Duration of treatment (weeks) 8 Plan of Care Start Date 06/26/22 Plan of Care End Date 08/21/22 Therapeutic Interventions Therapeutic Interventions Aquatic Therapy,Home Exercise Program,Joint Mobilizations, Manual Therapy,Patient/ Caregiver Education,Self-Care/ Home Management,Soft Tissue Mobilization,Therapeutic Activities,Therapeutic Exercises Modalities Cold Pack/Ice Massage,Electric Stimulation,Hot Packs, Ultrasound Next Visit Focus/Plan Next Note Type Treatment Note Next Visit Plan Begin modified swim stroke and supine kicking to address pts desire to begin swimming laps for HEP.
--- NOTE | 2022-07-08 15:23 | PT.OTN ---
Current Diagnoses Stiffness of other specified joint, not elsewhere classified (07/08/22) Muscle weakness (generalized) (07/08/22) Postlaminectomy syndrome, not elsewhere classified (07/08/22) Physical Therapy Treatment Note PT-OP-A Visit Information Start: 04/22/22 18:04 Freq: Status: Active Protocol: Document 07/08/22 15:05 SVEN (Rec: 07/08/22 15:23 LJ [id number]) Out-Patient Physical Therapy Visit Information Visit Information Visit Type Aquatic Treatment Note Visit Start Time 10:15 Visit Stop Time 11:00 Total Visit Minutes 45 Visit Number 15 Number of SPEECH AND HEARING DIRECTOR Visits 2 Evaluation Information Evaluation Date 04/22/22 Precautions Precautions spinal, s/p surgery PT-OP-B Current Condition Start: 04/22/22 18:04 Freq: Status: Active Protocol: Document 04/22/22 15:25 DCW (Rec: 04/22/22 18:13 DCW [id number]) Current Condition History of Current Condition Onset Date Four months Current Complaints stiffness and achiness four months s/p L4-5 laminectomy History of Current Condition Pt is a 76 year old male presenting to skilled therapy four months s/p L4-5 laminectomy complaining of continuing stiffness and soreness. Report his radicular symptoms have resolved post- op, however he continues to have achiness in his low back and into his hips, and decreased strength and activity tolerance in his legs . Notes this limits his daily activity levels, largely is just able to get out and walk the dog, not much other activity. Reports his surgeon said there was no surgical answer to his complaints. Achiness is fairly constant, but worse in the morning. Treatment Goals Patient/Caregiver Goals Really my goal is to be pain- free. That may be a lofty goal at this point, but why not shoot for it? Personal Factors Other Personal Factors That May Effect Trigeminal neuralgia, CABG x3, Therapy/Recovery partial knee replacement PT-OP-C Subjective Start: 04/22/22 18:04 Freq: Status: Active Protocol: Document 07/08/22 15:05 SVEN (Rec: 07/08/22 15:23 LJ [id number]) OP-PT Subjective Patient Comments Patient Comments Pt reports decrease in pain and improved activity tolerance. Would like to work on balance acitvities in the pool. PT-OP-F Manual Assessment Start: 04/22/22 18:04 Freq: Status: Active Protocol: Document 04/22/22 15:25 DCW (Rec: 04/22/22 18:23 DCW [id number]) Manual Assessments Soft Tissue Assessment Soft Tissue Mobility Assessment Moderate tone with tenderness to palpation 2/4: Pain with wincing bilateral QL, bilateral piriformis, bilateral lumbar paraspinals Joint Mobility Assessment Joint Mobility Assessment limited lumbar mobility, bilateral capsular tightness in anterior hip PT-OP-K Range of Motion Start: 04/22/22 18:04 Freq: Status: Active Protocol: Document 04/22/22 15:25 DCW (Rec: 04/22/22 18:23 DCW [id number]) Lumbar Spine Range of Motion Lumbar Spine Active Degrees Testing Position Standing Flexion 40 Extension 10 Lateral Flexion Left 53 Lateral Flexion Right 58 Comments Lateral flexion measured in cm from fingertips to floor PT-OP-L Special Tests Start: 04/22/22 18:04 Freq: Status: Active Protocol: Document 04/22/22 15:25 DCW (Rec: 04/22/22 18:23 DCW [id number]) Special Tests Lumbar Spine Special Tests Lateral SI compression Test Results Negative Straight Leg Raise Test Results Negative Standing Flexion Test Results Negative A-P Shearing Test Results Negative Hip Special Tests Piriformis Test Results Anterior capsular tightness ERUM Test Results Negative PT-OP-M Strength Start: 04/22/22 18:04 Freq: Status: Active Protocol: Document 06/26/22 15:13 AW (Rec: 06/26/22 17:20 AW [id number]) Hip Strength Hip Manual Muscle Testing Right Flexion (L2) 4 Good Extension (S1) 3+ Fair+ Abduction 4 Good Left Flexion (L2) 4 Good Extension (S1) 3+ Fair+ Abduction 4 Good Knee Strength Knee Manual Muscle Testing Right Flexion (S2) 4+ Good+ Extension (L3) 4+ Good+ Left Flexion (S2) 4+ Good+ Extension (L3) 4+ Good+ Ankle/Foot Strength Ankle and Foot Manual Muscle Testing Right Dorsiflexion (L4) 4+ Good+ Plantarflexion (S1) 4 Good Left Dorsiflexion (L4) 4+ Good+ Plantarflexion (S1) 4 Good PT-OP-Q Treatments Start: 04/22/22 18:04 Freq: Status: Active Protocol: Document 06/28/22 12:03 DCW (Rec: 06/28/22 12:49 DCW [id number]) Cardio Equipment Recumbent Elliptical (Biodex) Duration (Minutes) 6 Resistance 5 Seat Position 10 Therapeutic Exercises Supine Exercises Psoas stretch Supine Exercise Name Leg hang off table Side bilateral Comments HEP Standing Exercises Skaters Standing Exercise Name Resisted hip extension/ abduction Resistance Red resisted row Standing Exercise Name resisted row Resistance Lv 3 Reps/Minutes x15 Comments focus on postural control sink stretch Side left Reps/Minutes 30 hold Comments good feedback Pallof Press Standing Exercise Name Pallof Press Side bilateral Resistance Lv 3 Reps/Minutes x10 Comments cued PPT/ TA and press out for core fac not LB recruitment Other Exercises Resisted Ambulation Other Exercise Name Resisted side-stepping Resistance Red Reps/Minutes 20 ft x2 laps Comments cued posture, core Manual Therapy Treatment Manual Traction Hip Details Lateral distraction /c strap Body Position Hooklying Comments Capsule stretch PT-OP-S Aquatic Treatment Start: 05/15/22 09:32 Freq: Status: Active Protocol: Document 07/08/22 15:05 SVEN (Rec: 07/08/22 15:23 [id number]) Aquatics Treatment Pool Entry/Exit Pool Entry/Exit Method Stairs Assistance Independent Water Walking Monster Walk Water Level Chest Level Walking Equipment Ankle Floats [place] March Water Level Chest Level Comments VC to keep LEs straight and ankles dorsiflexed Lunge Walk Water Level Waist Level Walking Equipment Ankle Floats Comments VC to keep back straight and knee behind toes circumduction Walking Equipment Ankle Floats Level of Assistance Verbal Cues Comments with difficulty; reduced ROM Marching Water Level Chest Level Walking Equipment Ankle Floats Level of Assistance Verbal Cues Comments reaching contralateral side fwd/bk/side Water Level Chest Level Walking Equipment Ankle Floats Lower Extremity Stretches HS/calves Details at wall Body Position Standing Reps/Duration 2x30 Comments heels on floor, toes on wall hip flexors/quads Details at wall Body Position Standing Reps/Duration 2x30 Comments reciprical inhibition Spinal Exercises wonderboard Reps/Duration 6 min Comments static,dynamic,hands out, pelvic tilts Balance floor clocks Body Position Standing Water Level Waist Level Reps/Duration 6xB SLS Reps/Duration 2x30 [place] Activities [place] Activities Bicycle,Bicycle Backwards Other Activities pendulum-full and half side planks B forward planks Equipment Med belt, neoprene vest, BBs Comments improved coordinatiuon ankle floats used for bicycling only PT-OP-T Assessment and Plan Start: 04/22/22 18:04 Freq: Status: Active Protocol: Document 07/08/22 15:05 SVEN (Rec: 07/08/22 15:23 SVNE [id number]) Physical Therapy Assessment Rehab Potential Rehabilitation Potential Good Evaluation Complexity Number of Personal Factors/Comorbidities 3 or More Number of Body Systems Impaired 3 Impairments Impairments Activity Tolerance,Functional Activities,Pain,ROM,Soft Tissue Mobility,Strength,Tone Goals Three Impairment Pt demonstrates B LE weakness, especially R hip flexion and B PF (3+/5) Correction Goal (LTG) Pt to demonstrate LE MMT >4-/5 in all planes 06/26/22 - Good progress toward goals except hip extension (4-/5) as documented above. Continue toward goal. LTG Duration 08/21/22 Two Impairment Pt unable to tolerate more than a short walk with his dog Correction Goal (LTG) Pt to report ability to ambulate >1 mile without increased fatigue or back pain in order to return to prior activity level. 06/26/22 - Now walking about a mile or a bit longer with the dog. He denies increase in fatigue or back pain. Progress goal to 1.5 miles. LTG Duration 08/21/22 One Impairment Pt does not have an appropriate home exercise program Short Term Goal (STG) Pt to be independent and compliant with an appropriate HEP 06/14/22: HEP verbal review: TA SLR, open book, wall squats, clamshell, reverse clamshell. added stretching to HEP for flexibility: SKTC, piriformis and fig 4 stretches supine, sink stretch and self gentle STMs ball on wall over tight gluteal region with good feedback response. STG Duration 08/21/22 Progress Towards Goals Progress Towards Goals Progressing Toward Goals Assessment Summary Assessment Pt knee and hip extension improving with VC. He is able to extend knee when stepping up onto box prior to lifting other knee showing improved body mechanics, strength, and balance. Initially pt experienced difficulty balancing with ankle floats in deep water but after several minutes he gained control and performed exercises well responding to VC for vertical positioining appropriately without assistance. He got into a supine position x2 with ankle floats and was able to right himself with 2 attempts each time. Stated he would rather continue to work on balance and core strengthening than swimming at this point which therapist is in agreement. Physical Therapy Plan Frequency and Duration Frequency of Treatment 2x/Week Duration of treatment (weeks) 8 Plan of Care Start Date 06/26/22 Plan of Care End Date 08/21/22 Therapeutic Interventions Therapeutic Interventions Aquatic Therapy,Home Exercise Program,Joint Mobilizations, Manual Therapy,Patient/ Caregiver Education,Self-Care/ Home Management,Soft Tissue Mobilization,Therapeutic Activities,Therapeutic Exercises Modalities Cold Pack/Ice Massage,Electric Stimulation,Hot Packs, Ultrasound Next Visit Focus/Plan Next Note Type Treatment Note Next Visit Plan Progress balance and core strengthening for improved function. Add resistance equipment as appropriate for meeting goals above.
--- NOTE | 2022-07-10 10:30 | PT.OTN ---
Current Diagnoses Stiffness of other specified joint, not elsewhere classified (07/10/22) Muscle weakness (generalized) (07/10/22) Postlaminectomy syndrome, not elsewhere classified (07/10/22) Physical Therapy Treatment Note PT-OP-A Visit Information Start: 04/22/22 18:04 Freq: Status: Active Protocol: Document 07/10/22 09:48 SP (Rec: 07/10/22 10:52 SP [id number]) Out-Patient Physical Therapy Visit Information Visit Information Visit Type Treatment Note Visit Note KAZ [place] provided instructional review of HEP with pt in standing while under direct supervision and guidence as needed from OXYHYDROGEN WELDER Chanelle. Visit Start Time 09:48 Visit Stop Time 10:30 Total Visit Minutes 42 Visit Number 16 Number of OXYHYDROGEN WELDER Visits 3 Precautions Precautions spinal, s/p surgery 12/2021 PT-OP-B Current Condition Start: 04/22/22 18:04 Freq: Status: Active Protocol: Document 04/22/22 15:25 DCW (Rec: 04/22/22 18:13 DCW [id number]) Current Condition History of Current Condition Onset Date Four months Current Complaints stiffness and achiness four months s/p L4-5 laminectomy History of Current Condition Pt is a 76 year old male presenting to skilled therapy four months s/p L4-5 laminectomy complaining of continuing stiffness and soreness. Report his radicular symptoms have resolved post- op, however he continues to have achiness in his low back and into his hips, and decreased strength and activity tolerance in his legs . Notes this limits his daily activity levels, largely is just able to get out and walk the dog, not much other activity. Reports his surgeon said there was no surgical answer to his complaints. Achiness is fairly constant, but worse in the morning. Treatment Goals Patient/Caregiver Goals Really my goal is to be pain- free. That may be a lofty goal at this point, but why not shoot for it? Personal Factors Other Personal Factors That May Effect Trigeminal neuralgia, CABG x3, Therapy/Recovery partial knee replacement PT-OP-C Subjective Start: 04/22/22 18:04 Freq: Status: Active Protocol: Document 07/10/22 09:48 SP (Rec: 07/10/22 10:52 SP [id number]) OP-PT Subjective Patient Comments Patient Comments Pt stated the lawrence stretch has been helpful and incorporating at home. Pt stated not having pain. PT-OP-F Manual Assessment Start: 04/22/22 18:04 Freq: Status: Active Protocol: Document 04/22/22 15:25 DCW (Rec: 04/22/22 18:23 DCW [id number]) Manual Assessments Soft Tissue Assessment Soft Tissue Mobility Assessment Moderate tone with tenderness to palpation 2/4: Pain with wincing bilateral QL, bilateral piriformis, bilateral lumbar paraspinals Joint Mobility Assessment Joint Mobility Assessment limited lumbar mobility, bilateral capsular tightness in anterior hip PT-OP-K Range of Motion Start: 04/22/22 18:04 Freq: Status: Active Protocol: Document 04/22/22 15:25 DCW (Rec: 04/22/22 18:23 DCW [id number]) Lumbar Spine Range of Motion Lumbar Spine Active Degrees Testing Position Standing Flexion 40 Extension 10 Lateral Flexion Left 53 Lateral Flexion Right 58 Comments Lateral flexion measured in cm from fingertips to floor PT-OP-L Special Tests Start: 04/22/22 18:04 Freq: Status: Active Protocol: Document 04/22/22 15:25 DCW (Rec: 04/22/22 18:23 DCW [id number]) Special Tests Lumbar Spine Special Tests Lateral SI compression Test Results Negative Straight Leg Raise Test Results Negative Standing Flexion Test Results Negative A-P Shearing Test Results Negative Hip Special Tests Piriformis Test Results Anterior capsular tightness ERUM Test Results Negative PT-OP-M Strength Start: 04/22/22 18:04 Freq: Status: Active Protocol: Document 06/26/22 15:13 AW (Rec: 06/26/22 17:20 AW [id number]) Hip Strength Hip Manual Muscle Testing Right Flexion (L2) 4 Good Extension (S1) 3+ Fair+ Abduction 4 Good Left Flexion (L2) 4 Good Extension (S1) 3+ Fair+ Abduction 4 Good Knee Strength Knee Manual Muscle Testing Right Flexion (S2) 4+ Good+ Extension (L3) 4+ Good+ Left Flexion (S2) 4+ Good+ Extension (L3) 4+ Good+ Ankle/Foot Strength Ankle and Foot Manual Muscle Testing Right Dorsiflexion (L4) 4+ Good+ Plantarflexion (S1) 4 Good Left Dorsiflexion (L4) 4+ Good+ Plantarflexion (S1) 4 Good PT-OP-Q Treatments Start: 04/22/22 18:04 Freq: Status: Active Protocol: Document 07/10/22 09:48 SP (Rec: 07/10/22 10:52 SP [id number]) Cardio Equipment Recumbent Elliptical (Biodex) Duration (Minutes) 6 Resistance 5 Seat Position 10 Other LEs only, RPMs, total steps Therapeutic Exercises Supine Exercises Psoas stretch Supine Exercise Name Leg hang off table- reviewed HEP Side bilateral Comments HEP core march into table top Supine Exercise Name alternating table taps/march Side bilateral Reps/Minutes x5 reps Comments cued TA and stable pelvis on table- good effort painfree piriformis stretch Supine Exercise Name DC Side bilateral Reps/Minutes 60 sec Comments getting discomfort anterior R> L hip, no piriformis stretch fig 4 Supine Exercise Name reviewed HEP Side bilateral Equipment Used cued allow ankle rest on opposite thigh straight LE Reps/Minutes 30 Comments L not as much range as R tightness SKTC Supine Exercise Name reviewed HEP Side bilateral Reps/Minutes 30 Comments R>L tightness Standing Exercises resisted row Standing Exercise Name resisted row Resistance Lv 3 Reps/Minutes x15 Comments focus on postural control self STMs Standing Exercise Name Discussion review Side right Equipment Used rolling pin quad for decrease knee tightnes and ROM Reps/Minutes 2 min Comments good feedback response. Pallof Press Standing Exercise Name Pallof Press Side bilateral Resistance Lv 3 Reps/Minutes x10 Comments cued PPT/ TA and press out for core fac not LB recruitment Other Exercises Resisted Ambulation Other Exercise Name Resisted side-stepping- reviewed HEP Resistance Red (provided TB #3 loop at ankles for home) Reps/Minutes 20 ft x2 laps Comments cued posture, core StS Other Exercise Name Sit to Stand- reviewed HEP Equipment Used mesh chair Reps/Minutes x10 Comments arms across chest, cued hip hinge less stress over anterior knees- better Manual Therapy Treatment Manual Traction Hip Details R Lateral distraction /c strap Body Position Hooklying Comments Capsule stretch PT-OP-S Aquatic Treatment Start: 05/15/22 09:32 Freq: Status: Active Protocol: Document 07/08/22 15:05 LJ (Rec: 07/08/22 15:23 LJ [id number]) Aquatics Treatment Pool Entry/Exit Pool Entry/Exit Method Stairs Assistance Independent Water Walking Monster Walk Water Level Chest Level Walking Equipment Ankle Floats [place] November Water Level Chest Level Comments VC to keep LEs straight and ankles dorsiflexed Lunge Walk Water Level Waist Level Walking Equipment Ankle Floats Comments VC to keep back straight and knee behind toes circumduction Walking Equipment Ankle Floats Level of Assistance Verbal Cues Comments with difficulty; reduced ROM Marching Water Level Chest Level Walking Equipment Ankle Floats Level of Assistance Verbal Cues Comments reaching contralateral side fwd/bk/side Water Level Chest Level Walking Equipment Ankle Floats Lower Extremity Stretches HS/calves Details at wall Body Position Standing Reps/Duration 2x30 Comments heels on floor, toes on wall hip flexors/quads Details at wall Body Position Standing Reps/Duration 2x30 Comments reciprical inhibition Spinal Exercises wonderboard Reps/Duration 6 min Comments static,dynamic,hands out, pelvic tilts Balance floor clocks Body Position Standing Water Level Waist Level Reps/Duration 6xB SLS Reps/Duration 2x30 [place] Activities [place] Activities Bicycle,Bicycle Backwards Other Activities pendulum-full and half side planks B forward planks Equipment Med belt, neoprene vest, BBs Comments improved coordinatiuon ankle floats used for bicycling only PT-OP-T Assessment and Plan Start: 04/22/22 18:04 Freq: Status: Active Protocol: Document 07/10/22 09:48 SP (Rec: 07/10/22 10:52 SP [id number]) Physical Therapy Assessment Goals Three Impairment Pt demonstrates B LE weakness, especially R hip flexion and B PF (3+/5) Marketing Data Specialist Goal (LTG) Pt to demonstrate LE MMT >4-/5 in all planes 06/26/22 - Good progress toward goals except hip extension (4-/5) as documented above. Continue toward goal. LTG Duration 08/21/22 Two Impairment Pt unable to tolerate more than a short walk with his dog Marketing Data Specialist Goal (LTG) Pt to report ability to ambulate >1 mile without increased fatigue or back pain in order to return to prior activity level. 06/26/22 - Now walking about a mile or a bit longer with the dog. He denies increase in fatigue or back pain. Progress goal to 1.5 miles. 07/10/22: GOAl MET: Pt reports able to walk about 1.5- 2miles on level surfaces without support, no pain as long as takes Tylenol to relieve discomfort. Takes before walk and mid day ifneeded. LTG Duration 08/21/22 GOAL MET 07/10/22 One Impairment Pt does not have an appropriate home exercise program Short Term Goal (STG) Pt to be independent and compliant with an appropriate HEP 06/14/22: HEP verbal review: TA SLR, open book, wall squats, clamshell, reverse clamshell. added stretching to HEP for flexibility: SKTC, piriformis and fig 4 stretches supine, sink stretch and self gentle STMs ball on wall over tight gluteal region with good feedback response. 07/10/22: progressing: paloff press, band walk, added core receiprocals march taps, reviewed rows. STG Duration 08/21/22 progressin07/10/22 Progress Towards Goals Progress Towards Goals Progressing Toward Goals Progress Comments MET LTG #2. Assessment Summary Assessment Pt states R knee and back gets tight first thing in the morning and continues to take Tylenol during day as needed and before bedtime for comfort sleeping to assist with LBP relief. Progressed core receiprocal march with good core fac and no LBP. Improved stance time with band walks increase resistance, occasional cues for trailing foot clearance awareness, no contact rail needed at this point. Physical Therapy Plan Frequency and Duration Frequency of Treatment 2x/Week Duration of treatment (weeks) 8 Plan of Care Start Date 06/26/22 Plan of Care End Date 08/21/22 Therapeutic Interventions Therapeutic Interventions Aquatic Therapy,Home Exercise Program,Joint Mobilizations, Manual Therapy,Patient/ Caregiver Education,Self-Care/ Home Management,Soft Tissue Mobilization,Therapeutic Activities,Therapeutic Exercises Modalities Cold Pack/Ice Massage,Electric Stimulation,Hot Packs, Ultrasound Next Visit Focus/Plan Next Note Type Treatment Note Next Visit Plan Assess manual psoas, prox quad. Next tx: assess spinal alignment with sleeping for support/ comfort sleeping longer without pain wake him. Continue hip extension. POC: Progress balance and core strengthening for improved function. Add resistance equipment as appropriate for meeting goals above.
--- NOTE | 2022-07-15 15:01 | PT.OTN ---
Current Diagnoses Stiffness of other specified joint, not elsewhere classified (07/15/22) Muscle weakness (generalized) (07/15/22) Postlaminectomy syndrome, not elsewhere classified (07/15/22) Physical Therapy Treatment Note PT-OP-A Visit Information Start: 04/22/22 18:04 Freq: Status: Active Protocol: Document 07/15/22 14:37 SVEN (Rec: 07/15/22 15:01 LJ [id number]) Out-Patient Physical Therapy Visit Information Visit Information Visit Type Aquatic Treatment Note Visit Start Time 10:15 Visit Stop Time 11:00 Total Visit Minutes 45 Visit Number 17 Number of CASE FOLDER Visits 4 Precautions Precautions spinal, s/p surgery 12/2021 PT-OP-B Current Condition Start: 04/22/22 18:04 Freq: Status: Active Protocol: Document 04/22/22 15:25 DCW (Rec: 04/22/22 18:13 DCW [id number]) Current Condition History of Current Condition Onset Date Four months Current Complaints stiffness and achiness four months s/p L4-5 laminectomy History of Current Condition Pt is a 76 year old male presenting to skilled therapy four months s/p L4-5 laminectomy complaining of continuing stiffness and soreness. Report his radicular symptoms have resolved post- op, however he continues to have achiness in his low back and into his hips, and decreased strength and activity tolerance in his legs . Notes this limits his daily activity levels, largely is just able to get out and walk the dog, not much other activity. Reports his surgeon said there was no surgical answer to his complaints. Achiness is fairly constant, but worse in the morning. Treatment Goals Patient/Caregiver Goals Really my goal is to be pain- free. That may be a lofty goal at this point, but why not shoot for it? Personal Factors Other Personal Factors That May Effect Trigeminal neuralgia, CABG x3, Therapy/Recovery partial knee replacement PT-OP-C Subjective Start: 04/22/22 18:04 Freq: Status: Active Protocol: Document 07/15/22 14:37 SVEN (Rec: 07/15/22 15:01 LJ [id number]) OP-PT Subjective Patient Comments Patient Comments Pt states he was doing squats at home yesterday and strained his right knee. He feels he may need to have a revision of the partial knee replacement which occured 7 years ago. Sttes he is still able to bear weight painlessly but end flexion and extension at endrange painful. He has only been to the pool for exercise once since being given exercises several weeks ago. PT-OP-F Manual Assessment Start: 04/22/22 18:04 Freq: Status: Active Protocol: Document 04/22/22 15:25 DCW (Rec: 04/22/22 18:23 DCW [id number]) Manual Assessments Soft Tissue Assessment Soft Tissue Mobility Assessment Moderate tone with tenderness to palpation 2/4: Pain with wincing bilateral QL, bilateral piriformis, bilateral lumbar paraspinals Joint Mobility Assessment Joint Mobility Assessment limited lumbar mobility, bilateral capsular tightness in anterior hip PT-OP-K Range of Motion Start: 04/22/22 18:04 Freq: Status: Active Protocol: Document 04/22/22 15:25 DCW (Rec: 04/22/22 18:23 DCW [id number]) Lumbar Spine Range of Motion Lumbar Spine Active Degrees Testing Position Standing Flexion 40 Extension 10 Lateral Flexion Left 53 Lateral Flexion Right 58 Comments Lateral flexion measured in cm from fingertips to floor PT-OP-L Special Tests Start: 04/22/22 18:04 Freq: Status: Active Protocol: Document 04/22/22 15:25 DCW (Rec: 04/22/22 18:23 DCW [id number]) Special Tests Lumbar Spine Special Tests Lateral SI compression Test Results Negative Straight Leg Raise Test Results Negative Standing Flexion Test Results Negative A-P Shearing Test Results Negative Hip Special Tests Piriformis Test Results Anterior capsular tightness ERUM Test Results Negative PT-OP-M Strength Start: 04/22/22 18:04 Freq: Status: Active Protocol: Document 06/26/22 15:13 AW (Rec: 06/26/22 17:20 AW [id number]) Hip Strength Hip Manual Muscle Testing Right Flexion (L2) 4 Good Extension (S1) 3+ Fair+ Abduction 4 Good Left Flexion (L2) 4 Good Extension (S1) 3+ Fair+ Abduction 4 Good Knee Strength Knee Manual Muscle Testing Right Flexion (S2) 4+ Good+ Extension (L3) 4+ Good+ Left Flexion (S2) 4+ Good+ Extension (L3) 4+ Good+ Ankle/Foot Strength Ankle and Foot Manual Muscle Testing Right Dorsiflexion (L4) 4+ Good+ Plantarflexion (S1) 4 Good Left Dorsiflexion (L4) 4+ Good+ Plantarflexion (S1) 4 Good PT-OP-Q Treatments Start: 04/22/22 18:04 Freq: Status: Active Protocol: Document 07/10/22 09:48 SP (Rec: 07/10/22 10:52 SP [id number]) Cardio Equipment Recumbent Elliptical (Biodex) Duration (Minutes) 6 Resistance 5 Seat Position 10 Other LEs only, RPMs, total steps Therapeutic Exercises Supine Exercises Psoas stretch Supine Exercise Name Leg hang off table- reviewed HEP Side bilateral Comments HEP core march into table top Supine Exercise Name alternating table taps/march Side bilateral Reps/Minutes x5 reps Comments cued TA and stable pelvis on table- good effort painfree piriformis stretch Supine Exercise Name DC Side bilateral Reps/Minutes 60 sec Comments getting discomfort anterior R> L hip, no piriformis stretch fig 4 Supine Exercise Name reviewed HEP Side bilateral Equipment Used cued allow ankle rest on opposite thigh straight LE Reps/Minutes 30 Comments L not as much range as R tightness SKTC Supine Exercise Name reviewed HEP Side bilateral Reps/Minutes 30 Comments R>L tightness Standing Exercises resisted row Standing Exercise Name resisted row Resistance Lv 3 Reps/Minutes x15 Comments focus on postural control self STMs Standing Exercise Name Discussion review Side right Equipment Used rolling pin quad for decrease knee tightnes and ROM Reps/Minutes 2 min Comments good feedback response. Pallof Press Standing Exercise Name Pallof Press Side bilateral Resistance Lv 3 Reps/Minutes x10 Comments cued PPT/ TA and press out for core fac not LB recruitment Other Exercises Resisted Ambulation Other Exercise Name Resisted side-stepping- reviewed HEP Resistance Red (provided TB #3 loop at ankles for home) Reps/Minutes 20 ft x2 laps Comments cued posture, core StS Other Exercise Name Sit to Stand- reviewed HEP Equipment Used mesh chair Reps/Minutes x10 Comments arms across chest, cued hip hinge less stress over anterior knees- better Manual Therapy Treatment Manual Traction Hip Details R Lateral distraction /c strap Body Position Hooklying Comments Capsule stretch PT-OP-S Aquatic Treatment Start: 05/15/22 09:32 Freq: Status: Active Protocol: Document 07/15/22 14:37 LJ (Rec: 07/15/22 15:01 LJ [id number]) Aquatics Treatment Pool Entry/Exit Pool Entry/Exit Method Stairs Assistance Independent Water Walking Monster Walk Water Level Chest Level Walking Equipment Ankle Floats [place] March Water Level Chest Level Comments VC to keep LEs straight and ankles dorsiflexed Tandem Gait Comments VC for smaller steps Marching Water Level Chest Level Walking Equipment Ankle Floats Level of Assistance Verbal Cues Comments reaching contralateral side fwd/bk/side Water Level Chest Level Walking Equipment Ankle Floats Lower Extremity Stretches HS/calves Details at wall Body Position Standing Reps/Duration 2x30 Comments heels on floor, toes on wall hip flexors/quads Details at wall Body Position Standing Reps/Duration 2x30 Comments no quad stretch on right Spinal Exercises paloff press Body Position Standing Water Level Waist Level Equipment stretch cords-heavy Reps/Duration 10 Comments 3 sec hold stretch cords Body Position Standing Water Level Waist Level Reps/Duration 10 B Comments resisted rotation; 3 sec hold at endrange wonderboard Reps/Duration 4 min Comments static,dynamic,hands out, pelvic tilts, lateral tilits Balance SL squat Water Level Waist Level Reps/Duration 2x15 B Comments hh on wall [place] Activities [place] Activities Bicycle,Bicycle Backwards, Cross Country,Hip Abduction/ Adduction,Sit Kicks Other Activities pendulum T hang with 5 sec B ABD/ADD planks-side forward supine crunches Rock and roll Equipment Med belt, neoprene vest, BBs Duration 15 Comments difficulty keeping knees extended with ski PT-OP-T Assessment and Plan Start: 04/22/22 18:04 Freq: Status: Active Protocol: Document 07/15/22 14:37 SVEN (Rec: 07/15/22 15:01 SVEN [id number]) Physical Therapy Assessment Rehab Potential Rehabilitation Potential Good Evaluation Complexity Number of Personal Factors/Comorbidities 3 or More Number of Body Systems Impaired 3 Impairments Impairments Activity Tolerance,Functional Activities,Pain,ROM,Soft Tissue Mobility,Strength,Tone Goals Three Impairment Pt demonstrates B LE weakness, especially R hip flexion and B PF (3+/5) Mcc Goal (LTG) Pt to demonstrate LE MMT >4-/5 in all planes 06/26/22 - Good progress toward goals except hip extension (4-/5) as documented above. Continue toward goal. LTG Duration 08/21/22 Two Impairment Pt unable to tolerate more than a short walk with his dog Mcc Goal (LTG) Pt to report ability to ambulate >1 mile without increased fatigue or back pain in order to return to prior activity level. 06/26/22 - Now walking about a mile or a bit longer with the dog. He denies increase in fatigue or back pain. Progress goal to 1.5 miles. 07/10/22: GOAl MET: Pt reports able to walk about 1.5- 2miles on level surfaces without support, no pain as long as takes Tylenol to relieve discomfort. Takes before walk and mid day ifneeded. LTG Duration 08/21/22 GOAL MET 07/10/22 One Impairment Pt does not have an appropriate home exercise program Short Term Goal (STG) Pt to be independent and compliant with an appropriate HEP 06/14/22: HEP verbal review: TA SLR, open book, wall squats, clamshell, reverse clamshell. added stretching to HEP for flexibility: SKTC, piriformis and fig 4 stretches supine, sink stretch and self gentle STMs ball on wall over tight gluteal region with good feedback response. 07/10/22: progressing: paloff press, band walk, added core receiprocals march taps, reviewed rows. STG Duration 08/21/22 progressin07/10/22 Progress Towards Goals Progress Towards Goals Progressing Toward Goals Progress Comments MET LTG #2. Assessment Summary Assessment Pt continues to experience slight knee flexion with all exercises. Unable to achieve complete knee extension. Deep water stabilization exercises are still challenging but he maintaining vertical position is improving. Pt is reporting he is recovered from fatigue brought on by covid so progressing with cardio exercises in deep water is appropriate. He will benefit from continued aquatic therapy to improve balance, strength, flexibility, and cardiorespiratory fitness. Physical Therapy Plan Frequency and Duration Frequency of Treatment 2x/Week Duration of treatment (weeks) 8 Plan of Care Start Date 06/26/22 Plan of Care End Date 08/21/22 Therapeutic Interventions Therapeutic Interventions Aquatic Therapy,Home Exercise Program,Joint Mobilizations, Manual Therapy,Patient/ Caregiver Education,Self-Care/ Home Management,Soft Tissue Mobilization,Therapeutic Activities,Therapeutic Exercises Modalities Cold Pack/Ice Massage,Electric Stimulation,Hot Packs, Ultrasound Next Visit Focus/Plan Next Note Type Treatment Note Next Visit Plan POC: Progress balance and core strengthening for improved function. Add resistance equipment as appropriate for meeting goals above. Progress hip strength with extension activities.
--- NOTE | 2022-07-17 10:36 | PT.OTN ---
Current Diagnoses Stiffness of other specified joint, not elsewhere classified (07/17/22) Muscle weakness (generalized) (07/17/22) Postlaminectomy syndrome, not elsewhere classified (07/17/22) Physical Therapy Treatment Note PT-OP-A Visit Information Start: 04/22/22 18:04 Freq: Status: Active Protocol: Document 07/17/22 09:50 DCW (Rec: 07/17/22 10:36 DCW [id number]) Out-Patient Physical Therapy Visit Information Visit Information Visit Type Treatment Note Visit Start Time 09:50 Visit Stop Time 10:30 Total Visit Minutes 40 Visit Number 18 Number of ENVIRONMENTAL REMEDIATION SPECIALIST Visits 0 Evaluation Information Evaluation Date 04/22/22 Precautions Precautions spinal, s/p surgery 12/2021 PT-OP-B Current Condition Start: 04/22/22 18:04 Freq: Status: Active Protocol: Document 04/22/22 15:25 DCW (Rec: 04/22/22 18:13 DCW [id number]) Current Condition History of Current Condition Onset Date Four months Current Complaints stiffness and achiness four months s/p L4-5 laminectomy History of Current Condition Pt is a 76 year old male presenting to skilled therapy four months s/p L4-5 laminectomy complaining of continuing stiffness and soreness. Report his radicular symptoms have resolved post- op, however he continues to have achiness in his low back and into his hips, and decreased strength and activity tolerance in his legs . Notes this limits his daily activity levels, largely is just able to get out and walk the dog, not much other activity. Reports his surgeon said there was no surgical answer to his complaints. Achiness is fairly constant, but worse in the morning. Treatment Goals Patient/Caregiver Goals Really my goal is to be pain- free. That may be a lofty goal at this point, but why not shoot for it? Personal Factors Other Personal Factors That May Effect Trigeminal neuralgia, CABG x3, Therapy/Recovery partial knee replacement PT-OP-C Subjective Start: 04/22/22 18:04 Freq: Status: Active Protocol: Document 07/17/22 09:50 DCW (Rec: 07/17/22 10:36 DCW [id number]) OP-PT Subjective Patient Comments Patient Comments Pt still a little sore in his knee after performing squats over the weekend, but otherwise feels he is doing better. PT-OP-F Manual Assessment Start: 04/22/22 18:04 Freq: Status: Active Protocol: Document 04/22/22 15:25 DCW (Rec: 04/22/22 18:23 DCW [id number]) Manual Assessments Soft Tissue Assessment Soft Tissue Mobility Assessment Moderate tone with tenderness to palpation 2/4: Pain with wincing bilateral QL, bilateral piriformis, bilateral lumbar paraspinals Joint Mobility Assessment Joint Mobility Assessment limited lumbar mobility, bilateral capsular tightness in anterior hip PT-OP-K Range of Motion Start: 04/22/22 18:04 Freq: Status: Active Protocol: Document 04/22/22 15:25 DCW (Rec: 04/22/22 18:23 DCW [id number]) Lumbar Spine Range of Motion Lumbar Spine Active Degrees Testing Position Standing Flexion 40 Extension 10 Lateral Flexion Left 53 Lateral Flexion Right 58 Comments Lateral flexion measured in cm from fingertips to floor PT-OP-L Special Tests Start: 04/22/22 18:04 Freq: Status: Active Protocol: Document 04/22/22 15:25 DCW (Rec: 04/22/22 18:23 DCW [id number]) Special Tests Lumbar Spine Special Tests Lateral SI compression Test Results Negative Straight Leg Raise Test Results Negative Standing Flexion Test Results Negative A-P Shearing Test Results Negative Hip Special Tests Piriformis Test Results Anterior capsular tightness ERUM Test Results Negative PT-OP-M Strength Start: 04/22/22 18:04 Freq: Status: Active Protocol: Document 06/26/22 15:13 AW (Rec: 06/26/22 17:20 AW [id number]) Hip Strength Hip Manual Muscle Testing Right Flexion (L2) 4 Good Extension (S1) 3+ Fair+ Abduction 4 Good Left Flexion (L2) 4 Good Extension (S1) 3+ Fair+ Abduction 4 Good Knee Strength Knee Manual Muscle Testing Right Flexion (S2) 4+ Good+ Extension (L3) 4+ Good+ Left Flexion (S2) 4+ Good+ Extension (L3) 4+ Good+ Ankle/Foot Strength Ankle and Foot Manual Muscle Testing Right Dorsiflexion (L4) 4+ Good+ Plantarflexion (S1) 4 Good Left Dorsiflexion (L4) 4+ Good+ Plantarflexion (S1) 4 Good PT-OP-Q Treatments Start: 04/22/22 18:04 Freq: Status: Active Protocol: Document 11/09/22 09:50 DCW (Rec: 07/17/22 10:36 DCW [id number]) Cardio Equipment Recumbent Elliptical (Biodex) Duration (Minutes) 6 Resistance 5 Seat Position 10 Other LEs only, RPMs, total steps Gym Equipment Therapeutic Ball Resisted hip flexion Exercise Details Resisted hip/knee flexion Ball Size/Color Red - 55 cm Lv 3 T-band Body Position Supine Comments Stopped d/t knee discomfort Bridging Exercise Details Bridging with feet on ball Ball Size/Color Red - 55 cm Body Position Supine LTR Exercise Details LTR Ball Size/Color Red - 55 cm Body Position Supine Therapeutic Exercises Standing Exercises Squats Standing Exercise Name Squats/knee bends at rail Comments Review form for HEP Pallof Press Standing Exercise Name Pallof Press Side bilateral Resistance Lv 3 Reps/Minutes x10 Comments cued PPT/ TA and press out for core fac not LB recruitment Manual Therapy Treatment Soft Tissue Mobilization L>R LB, hips Body Location L>R: glut max/med, ES, psoas Mobilization Type Rolling,Sustained Pressure, Trigger Point Release Intensity/Depth Moderate Body Position Sidelying PT-OP-S Aquatic Treatment Start: 05/15/22 09:32 Freq: Status: Active Protocol: Document 07/15/22 14:37 LJ (Rec: 07/15/22 15:01 LJ [id number]) Aquatics Treatment Pool Entry/Exit Pool Entry/Exit Method Stairs Assistance Independent Water Walking Monster Walk Water Level Chest Level Walking Equipment Ankle Floats [place] March Water Level Chest Level Comments VC to keep LEs straight and ankles dorsiflexed Tandem Gait Comments VC for smaller steps Marching Water Level Chest Level Walking Equipment Ankle Floats Level of Assistance Verbal Cues Comments reaching contralateral side fwd/bk/side Water Level Chest Level Walking Equipment Ankle Floats Lower Extremity Stretches HS/calves Details at wall Body Position Standing Reps/Duration 2x30 Comments heels on floor, toes on wall hip flexors/quads Details at wall Body Position Standing Reps/Duration 2x30 Comments no quad stretch on right Spinal Exercises paloff press Body Position Standing Water Level Waist Level Equipment stretch cords-heavy Reps/Duration 10 Comments 3 sec hold stretch cords Body Position Standing Water Level Waist Level Reps/Duration 10 B Comments resisted rotation; 3 sec hold at endrange wonderboard Reps/Duration 4 min Comments static,dynamic,hands out, pelvic tilts, lateral tilits Balance SL squat Water Level Waist Level Reps/Duration 2x15 B Comments hh on wall Jay Em Activities Jay Em Activities Bicycle,Bicycle Backwards, Cross Country,Hip Abduction/ Adduction,Sit Kicks Other Activities pendulum T hang with 5 sec B ABD/ADD planks-side forward supine crunches Rock and roll Equipment Med belt, neoprene vest, BBs Duration 15 Comments difficulty keeping knees extended with ski PT-OP-T Assessment and Plan Start: 04/22/22 18:04 Freq: Status: Active Protocol: Document 07/17/22 09:50 DCW (Rec: 07/17/22 10:36 DCW [id number]) Physical Therapy Assessment Impairments Impairments Activity Tolerance,Functional Activities,Pain,ROM,Soft Tissue Mobility,Strength,Tone Goals Three Impairment Pt demonstrates B LE weakness, especially R hip flexion and B PF (3+/5) Trailer Assembler Goal (LTG) Pt to demonstrate LE MMT >4-/5 in all planes 06/26/22 - Good progress toward goals except hip extension (4-/5) as documented above. Continue toward goal. LTG Duration 08/21/22 Two Impairment Pt unable to tolerate more than a short walk with his dog [facility] Goal (LTG) Pt to report ability to ambulate >1 mile without increased fatigue or back pain in order to return to prior activity level. 06/26/22 - Now walking about a mile or a bit longer with the dog. He denies increase in fatigue or back pain. Progress goal to 1.5 miles. 07/10/22: GOAl MET: Pt reports able to walk about 1.5- 2miles on level surfaces without support, no pain as long as takes Tylenol to relieve discomfort. Takes before walk and mid day ifneeded. LTG Duration 08/21/22 GOAL MET 07/10/22 One Impairment Pt does not have an appropriate home exercise program Short Term Goal (STG) Pt to be independent and compliant with an appropriate HEP 06/14/22: HEP verbal review: TA SLR, open book, wall squats, clamshell, reverse clamshell. added stretching to HEP for flexibility: SKTC, piriformis and fig 4 stretches supine, sink stretch and self gentle STMs ball on wall over tight gluteal region with good feedback response. 07/10/22: progressing: paloff press, band walk, added core receiprocals march taps, reviewed rows. STG Duration 08/21/22 progressin07/10/22 Assessment Summary Assessment Pt showing good progress overall, much improved mobility and strength, biggest limiting factor at the moment is R knee pain, looking to schedule visit with ortho who did his partial knee. Pt still general achiness in low back, doing very well with aquatic therapy. Physical Therapy Plan Frequency and Duration Frequency of Treatment 2x/Week Duration of treatment (weeks) 8 Plan of Care Start Date 06/26/22 Plan of Care End Date 08/21/22 Therapeutic Interventions Therapeutic Interventions Aquatic Therapy,Home Exercise Program,Joint Mobilizations, Manual Therapy,Patient/ Caregiver Education,Self-Care/ Home Management,Soft Tissue Mobilization,Therapeutic Activities,Therapeutic Exercises Modalities Cold Pack/Ice Massage,Electric Stimulation,Hot Packs, Ultrasound Next Visit Focus/Plan Next Note Type Treatment Note Next Visit Plan POC: Progress balance and core strengthening for improved function. Add resistance equipment as appropriate for meeting goals above. Progress hip strength with extension activities.
--- NOTE | 2022-07-22 14:22 | PT.OTN ---
Current Diagnoses Stiffness of other specified joint, not elsewhere classified (07/22/22) Muscle weakness (generalized) (07/22/22) Postlaminectomy syndrome, not elsewhere classified (07/22/22) Physical Therapy Treatment Note PT-OP-A Visit Information Start: 04/22/22 18:04 Freq: Status: Active Protocol: Document 07/22/22 14:15 [facility] (Rec: 07/22/22 14: SAK [id number]) Out-Patient Physical Therapy Visit Information Visit Information Visit Type Treatment Note Visit Start Time 11:00 Visit Stop Time 11:45 Total Visit Minutes 45 Visit Number 19 Number of SENIOR IT ENGINEER Visits 0 Evaluation Information Evaluation Date 04/22/22 Precautions Precautions spinal, s/p surgery 12/2021 PT-OP-B Current Condition Start: 04/22/22 18:04 Freq: Status: Active Protocol: Document 04/22/22 15:25 DCW (Rec: 04/22/22 18:13 DCW [id number]) Current Condition History of Current Condition Onset Date Four months Current Complaints stiffness and achiness four months s/p L4-5 laminectomy History of Current Condition Pt is a 76 year old male presenting to skilled therapy four months s/p L4-5 laminectomy complaining of continuing stiffness and soreness. Report his radicular symptoms have resolved post- op, however he continues to have achiness in his low back and into his hips, and decreased strength and activity tolerance in his legs . Notes this limits his daily activity levels, largely is just able to get out and walk the dog, not much other activity. Reports his surgeon said there was no surgical answer to his complaints. Achiness is fairly constant, but worse in the morning. Treatment Goals Patient/Caregiver Goals Really my goal is to be pain- free. That may be a lofty goal at this point, but why not shoot for it? Personal Factors Other Personal Factors That May Effect Trigeminal neuralgia, CABG x3, Therapy/Recovery partial knee replacement PT-OP-C Subjective Start: 04/22/22 18:04 Freq: Status: Active Protocol: Document 07/22/22 14:15 [facility] (Rec: 07/22/22 14:22 SAK [id number]) OP-PT Subjective Patient Comments Patient Comments Knee still sore, but back doing so much better than previously. Going to see doctor regarding his knee. His Mother in law in [place] last night and he will be going out there, may need to cancel some appointments. PT-OP-F Manual Assessment Start: 04/22/22 18:04 Freq: Status: Active Protocol: Document 04/22/22 15:25 DCW (Rec: 04/22/22 18:23 DCW [id number]) Manual Assessments Soft Tissue Assessment Soft Tissue Mobility Assessment Moderate tone with tenderness to palpation 2/4: Pain with wincing bilateral QL, bilateral piriformis, bilateral lumbar paraspinals Joint Mobility Assessment Joint Mobility Assessment limited lumbar mobility, bilateral capsular tightness in anterior hip PT-OP-K Range of Motion Start: 04/22/22 18:04 Freq: Status: Active Protocol: Document 04/22/22 15:25 DCW (Rec: 04/22/22 18:23 DCW [id number]) Lumbar Spine Range of Motion Lumbar Spine Active Degrees Testing Position Standing Flexion 40 Extension 10 Lateral Flexion Left 53 Lateral Flexion Right 58 Comments Lateral flexion measured in cm from fingertips to floor PT-OP-L Special Tests Start: 04/22/22 18:04 Freq: Status: Active Protocol: Document 04/22/22 15:25 DCW (Rec: 04/22/22 18:23 DCW [id number]) Special Tests Lumbar Spine Special Tests Lateral SI compression Test Results Negative Straight Leg Raise Test Results Negative Standing Flexion Test Results Negative A-P Shearing Test Results Negative Hip Special Tests Piriformis Test Results Anterior capsular tightness ERUM Test Results Negative PT-OP-M Strength Start: 04/22/22 18:04 Freq: Status: Active Protocol: Document 06/26/22 15:13 AW (Rec: 06/26/22 17:20 AW [id number]) Hip Strength Hip Manual Muscle Testing Right Flexion (L2) 4 Good Extension (S1) 3+ Fair+ Abduction 4 Good Left Flexion (L2) 4 Good Extension (S1) 3+ Fair+ Abduction 4 Good Knee Strength Knee Manual Muscle Testing Right Flexion (S2) 4+ Good+ Extension (L3) 4+ Good+ Left Flexion (S2) 4+ Good+ Extension (L3) 4+ Good+ Ankle/Foot Strength Ankle and Foot Manual Muscle Testing Right Dorsiflexion (L4) 4+ Good+ Plantarflexion (S1) 4 Good Left Dorsiflexion (L4) 4+ Good+ Plantarflexion (S1) 4 Good PT-OP-Q Treatments Start: 04/22/22 18:04 Freq: Status: Active Protocol: Document 07/17/22 09:50 DCW (Rec: 07/17/22 10:36 DCW [id number]) Cardio Equipment Recumbent Elliptical (Biodex) Duration (Minutes) 6 Resistance 5 Seat Position 10 Other LEs only, RPMs, total steps Gym Equipment Therapeutic Ball Resisted hip flexion Exercise Details Resisted hip/knee flexion Ball Size/Color Red - 55 cm Lv 3 T-band Body Position Supine Comments Stopped d/t knee discomfort Bridging Exercise Details Bridging with feet on ball Ball Size/Color Red - 55 cm Body Position Supine LTR Exercise Details LTR Ball Size/Color Red - 55 cm Body Position Supine Therapeutic Exercises Standing Exercises Squats Standing Exercise Name Squats/knee bends at rail Comments Review form for HEP Pallof Press Standing Exercise Name Pallof Press Side bilateral Resistance Lv 3 Reps/Minutes x10 Comments cued PPT/ TA and press out for core fac not LB recruitment Manual Therapy Treatment Soft Tissue Mobilization L>R LB, hips Body Location L>R: glut max/med, ES, psoas Mobilization Type Rolling,Sustained Pressure, Trigger Point Release Intensity/Depth Moderate Body Position Sidelying PT-OP-S Aquatic Treatment Start: 05/15/22 09:32 Freq: Status: Active Protocol: Document 07/22/22 14:15 [facility] (Rec: 07/22/22 14:22 [facility] [id number]) Aquatics Treatment Pool Entry/Exit Pool Entry/Exit Method Stairs Assistance Independent Water Walking Monster Walk Water Level Chest Level Walking Equipment Ankle Floats [place] March Water Level Chest Level Comments VC to keep LEs straight and ankles dorsiflexed Marching Water Level Chest Level Walking Equipment Ankle Floats Level of Assistance Verbal Cues Comments reaching contralateral side fwd/bk/side Water Level Chest Level Walking Equipment Ankle Floats Lower Extremity Stretches IT band Equipment Ankle Floats Reps/Duration 2x30 HS/calves Details at wall Body Position Standing Equipment Ankle Floats Reps/Duration 2x30 hip flexors/quads Details at wall Body Position Standing Equipment Ankle Floats Reps/Duration 2x30 Comments no quad stretch on right Spinal Exercises paloff press Body Position Standing Water Level Waist Level Equipment stretch cords-heavy Reps/Duration 10 Comments 3 sec hold stretch cords Body Position Standing Water Level Waist Level Reps/Duration 10 B Comments resisted rotation; 3 sec hold at endrange Friendship Activities Friendship Activities Bicycle,Bicycle Backwards, Cross Country,Hip Abduction/ Adduction,Sit Kicks Other Activities pendulum T hang with 5 sec B ABD/ADD planks-side forward supine crunches bicycle holding barbells at hips Equipment Med belt, neoprene vest, medBBs Duration 15 Comments cues for knee ext with xcountry PT-OP-T Assessment and Plan Start: 04/22/22 18:04 Freq: Status: Active Protocol: Document 07/22/22 14:15 [facility] (Rec: 07/22/22 14:22 [facility] [id number]) Physical Therapy Assessment Impairments Impairments Activity Tolerance,Functional Activities,Pain,ROM,Soft Tissue Mobility,Strength,Tone Goals Three Impairment Pt demonstrates B LE weakness, especially R hip flexion and B PF (3+/5) Long-Term Goal (LTG) Pt to demonstrate LE MMT >4-/5 in all planes 06/26/22 - Good progress toward goals except hip extension (4-/5) as documented above. Continue toward goal. LTG Duration 08/21/22 Two Impairment Pt unable to tolerate more than a short walk with his dog Clinical Research Administrator Goal (LTG) Pt to report ability to ambulate >1 mile without increased fatigue or back pain in order to return to prior activity level. 06/26/22 - Now walking about a mile or a bit longer with the dog. He denies increase in fatigue or back pain. Progress goal to 1.5 miles. 07/10/22: GOAl MET: Pt reports able to walk about 1.5- 2miles on level surfaces without support, no pain as long as takes Tylenol to relieve discomfort. Takes before walk and mid day ifneeded. LTG Duration 08/21/22 GOAL MET 07/10/22 One Impairment Pt does not have an appropriate home exercise program Short Term Goal (STG) Pt to be independent and compliant with an appropriate HEP 06/14/22: HEP verbal review: TA SLR, open book, wall squats, clamshell, reverse clamshell. added stretching to HEP for flexibility: SKTC, piriformis and fig 4 stretches supine, sink stretch and self gentle STMs ball on wall over tight gluteal region with good feedback response. 07/10/22: progressing: paloff press, band walk, added core receiprocals november taps, reviewed rows. STG Duration 08/21/22 progressin07/10/22 Progress Towards Goals Progress Towards Goals Progressing Toward Goals Assessment Summary Assessment Patient progressing well with core exercises, decreased back pain. May need to cancel some PT appointments due to of [id number]. Will be seeing ortho for knee pain. Physical Therapy Plan Frequency and Duration Frequency of Treatment 2x/Week Duration of treatment (weeks) 8 Plan of Care Start Date 06/26/22 Plan of Care End Date 08/21/22 Therapeutic Interventions Therapeutic Interventions Aquatic Therapy,Home Exercise Program,Joint Mobilizations, Manual Therapy,Patient/ Caregiver Education,Self-Care/ Home Management,Soft Tissue Mobilization,Therapeutic Activities,Therapeutic Exercises Modalities Cold Pack/Ice Massage,Electric Stimulation,Hot Packs, Ultrasound Next Visit Focus/Plan Next Note Type Progress Note Next Visit Plan POC: Progress balance and core strengthening for improved function. Add resistance equipment as appropriate for meeting goals above. Progress hip strength with extension activities.
--- NOTE | 2022-07-24 11:18 | PT.OTN ---
Addendum entered and electronically signed by Chanelle Owens PTA 07/24/22 15:30: 10th visit next tx, due for PN. Original Note: Current Diagnoses Stiffness of other specified joint, not elsewhere classified (07/24/22) Muscle weakness (generalized) (07/24/22) Postlaminectomy syndrome, not elsewhere classified (07/24/22) Physical Therapy Treatment Note PT-OP-A Visit Information Start: 04/22/22 18:04 Freq: Status: Active Protocol: Document 07/24/22 10:30 TS (Rec: 07/24/22 11:54 TS [id number]) Out-Patient Physical Therapy Visit Information Visit Information Visit Type Treatment Note Visit Note SPTA Ovi lead treatment, supervised by MARCO ANTONIO Roca. Pt pool only. Visit Start Time 10:35 Visit Stop Time 11:18 Total Visit Minutes 43 Visit Number 20 Number of AUTOMOTIVE MECHANIC Visits 1 PT-OP-B Current Condition Start: 04/22/22 18:04 Freq: Status: Active Protocol: Document 04/22/22 15:25 DCW (Rec: 04/22/22 18:13 DCW [id number]) Current Condition History of Current Condition Onset Date Four months Current Complaints stiffness and achiness four months s/p L4-5 laminectomy History of Current Condition Pt is a 76 year old male presenting to skilled therapy four months s/p L4-5 laminectomy complaining of continuing stiffness and soreness. Report his radicular symptoms have resolved post- op, however he continues to have achiness in his low back and into his hips, and decreased strength and activity tolerance in his legs . Notes this limits his daily activity levels, largely is just able to get out and walk the dog, not much other activity. Reports his surgeon said there was no surgical answer to his complaints. Achiness is fairly constant, but worse in the morning. Treatment Goals Patient/Caregiver Goals Really my goal is to be pain- free. That may be a lofty goal at this point, but why not shoot for it? Personal Factors Other Personal Factors That May Effect Trigeminal neuralgia, CABG x3, Therapy/Recovery partial knee replacement PT-OP-C Subjective Start: 04/22/22 18:04 Freq: Status: Active Protocol: Document 07/24/22 10:30 TS (Rec: 07/24/22 11:54 TS [id number]) OP-PT Subjective Patient Comments Patient Comments Discussed possible extension of appointments with pt. Would like to continue aquatics at this time when appointments are available. Reports pain in R knee. Will speak to doctor about knee pain. PT-OP-F Manual Assessment Start: 04/22/22 18:04 Freq: Status: Active Protocol: Document 04/22/22 15:25 DCW (Rec: 04/22/22 18:23 DCW [id number]) Manual Assessments Soft Tissue Assessment Soft Tissue Mobility Assessment Moderate tone with tenderness to palpation 2/4: Pain with wincing bilateral QL, bilateral piriformis, bilateral lumbar paraspinals Joint Mobility Assessment Joint Mobility Assessment limited lumbar mobility, bilateral capsular tightness in anterior hip PT-OP-K Range of Motion Start: 04/22/22 18:04 Freq: Status: Active Protocol: Document 04/22/22 15:25 DCW (Rec: 04/22/22 18:23 DCW [id number]) Lumbar Spine Range of Motion Lumbar Spine Active Degrees Testing Position Standing Flexion 40 Extension 10 Lateral Flexion Left 53 Lateral Flexion Right 58 Comments Lateral flexion measured in cm from fingertips to floor PT-OP-L Special Tests Start: 04/22/22 18:04 Freq: Status: Active Protocol: Document 04/22/22 15:25 DCW (Rec: 04/22/22 18:23 DCW [id number]) Special Tests Lumbar Spine Special Tests Lateral SI compression Test Results Negative Straight Leg Raise Test Results Negative Standing Flexion Test Results Negative A-P Shearing Test Results Negative Hip Special Tests Piriformis Test Results Anterior capsular tightness ERUM Test Results Negative PT-OP-M Strength Start: 04/22/22 18:04 Freq: Status: Active Protocol: Document 06/26/22 15:13 AW (Rec: 06/26/22 17:20 AW [id number]) Hip Strength Hip Manual Muscle Testing Right Flexion (L2) 4 Good Extension (S1) 3+ Fair+ Abduction 4 Good Left Flexion (L2) 4 Good Extension (S1) 3+ Fair+ Abduction 4 Good Knee Strength Knee Manual Muscle Testing Right Flexion (S2) 4+ Good+ Extension (L3) 4+ Good+ Left Flexion (S2) 4+ Good+ Extension (L3) 4+ Good+ Ankle/Foot Strength Ankle and Foot Manual Muscle Testing Right Dorsiflexion (L4) 4+ Good+ Plantarflexion (S1) 4 Good Left Dorsiflexion (L4) 4+ Good+ Plantarflexion (S1) 4 Good PT-OP-Q Treatments Start: 04/22/22 18:04 Freq: Status: Active Protocol: Document 07/24/22 10:30 TS (Rec: 07/24/22 11:54 TS [id number]) Cardio Equipment Recumbent Elliptical (Biodex) Duration (Minutes) 6 Resistance 5 Seat Position 10 Other LEs only, RPMs, total steps Gym Equipment Therapeutic Ball Bridging Exercise Details Bridging with feet on ball, Added to HEP Ball Size/Color Red - 55 cm Body Position Supine Reps/Duration 1x10 5 sec hold Comments Good form, minimal cues for placement of feet on ball. Resisted Trunk Rotation Exercise Details verbally Reviewed for HEP Pelvic circles Exercise Details verbally Reviewed for HEP LTR Exercise Details LTR Added to HEP Ball Size/Color Red - 55 cm Body Position Supine Reps/Duration 1x10 Comments Goodcarryover of form from previous session. Therapeutic Exercises Supine Exercises core march into table top Supine Exercise Name alternating table taps/march, Reviewed for HEP Side bilateral Reps/Minutes x10 reps Comments cued TA, flat back and stable pelvis on table Standing Exercises resisted row Standing Exercise Name resisted row Resistance Lv 3 Reps/Minutes 2x15 Comments focus on postural control, scapular squeeze, head up self STMs Standing Exercise Name added to HEP as needed for self STM- Side right Equipment Used Tennis ball for hip flexor and QL Reps/Minutes 2 min Comments good feedback response. Pallof Press Standing Exercise Name Pallof Press Side bilateral Resistance Lv 3 Reps/Minutes 2x10 Comments cued PPT/ TA and press out for core fac not LB recruitment Manual Therapy Treatment Soft Tissue Mobilization Psoas Body Location L psoas Mobilization Type Oscillations,Strumming, Sustained Pressure Intensity/Depth Moderate Body Position Supine Comments Pt reported relief of tightness, demonstrated better ability to flex hip for piriformis. Self-Care/Home Management Treatment Education Other Education Educated on self-STM with ball for at home of hip flexor and QL. PT-OP-S Aquatic Treatment Start: 05/15/22 09:32 Freq: Status: Active Protocol: Document 07/22/22 14:15 SAK (Rec: 07/22/22 14:22 SAK [id number]) Aquatics Treatment Pool Entry/Exit Pool Entry/Exit Method Stairs Assistance Independent Water Walking Monster Walk Water Level Chest Level Walking Equipment Ankle Floats [place] November Water Level Chest Level Comments VC to keep LEs straight and ankles dorsiflexed March Water Level Chest Level Walking Equipment Ankle Floats Level of Assistance Verbal Cues Comments reaching contralateral side fwd/bk/side Water Level Chest Level Walking Equipment Ankle Floats Lower Extremity Stretches IT band Equipment Ankle Floats Reps/Duration 2x30 HS/calves Details at wall Body Position Standing Equipment Ankle Floats Reps/Duration 2x30 hip flexors/quads Details at wall Body Position Standing Equipment Ankle Floats Reps/Duration 2x30 Comments no quad stretch on right Spinal Exercises paloff press Body Position Standing Water Level Waist Level Equipment stretch cords-heavy Reps/Duration 10 Comments 3 sec hold stretch cords Body Position Standing Water Level Waist Level Reps/Duration 10 B Comments resisted rotation; 3 sec hold at endrange [place] Activities [place] Activities Bicycle,Bicycle Backwards, Cross Country,Hip Abduction/ Adduction,Sit Kicks Other Activities pendulum T hang with 5 sec B ABD/ADD planks-side forward supine crunches bicycle holding barbells at hips Equipment Med belt, neoprene vest, medBBs Duration 15 Comments cues for knee ext with xcountry PT-OP-T Assessment and Plan Start: 04/22/22 18:04 Freq: Status: Active Protocol: Document 07/24/22 10:30 TS (Rec: 07/24/22 11:54 TS [id number]) Physical Therapy Assessment Goals Three Impairment Pt demonstrates B LE weakness, especially R hip flexion and B PF (3+/5) Fdc Goal (LTG) Pt to demonstrate LE MMT >4-/5 in all planes 06/26/22 - Good progress toward goals except hip extension (4-/5) as documented above. Continue toward goal. LTG Duration 08/21/22 Two Impairment Pt unable to tolerate more than a short walk with his dog Fdc Goal (LTG) Pt to report ability to ambulate >1 mile without increased fatigue or back pain in order to return to prior activity level. 06/26/22 - Now walking about a mile or a bit longer with the dog. He denies increase in fatigue or back pain. Progress goal to 1.5 miles. 07/10/22: GOAl MET: Pt reports able to walk about 1.5- 2miles on level surfaces without support, no pain as long as takes Tylenol to relieve discomfort. Takes before walk and mid day ifneeded. LTG Duration 08/21/22 GOAL MET 07/10/22 One Impairment Pt does not have an appropriate home exercise program Short Term Goal (STG) Pt to be independent and compliant with an appropriate HEP 06/14/22: HEP verbal review: TA SLR, open book, wall squats, clamshell, reverse clamshell. added stretching to HEP for flexibility: SKTC, piriformis and fig 4 stretches supine, sink stretch and self gentle STMs ball on wall over tight gluteal region with good feedback response. 07/10/22: progressing: paloff press, band walk, added core receiprocals march taps, reviewed rows. 07/24/22: Progression I with land HEP: pt demonstrated ability to perform HEP with minimal postural cueing, demonstrates good carryover sequencing. STG Duration 08/21/22 Progressed land HEP 07/24/22 Progress Towards Goals Progress Comments Aquatic goal update Assessment Summary Assessment PT requires minimal cueing for core activation to relieve stress in low back during standing rows ex. Pt requested to have only aquatic appointments at this time, treatment focused on land independence with HEP Pt demonstrated the ability to be independent with handouts provided. See pt messages for further details on appointments requested. Physical Therapy Plan Frequency and Duration Frequency of Treatment 2x/Week Duration of treatment (weeks) 8 Plan of Care Start Date 06/26/22 Plan of Care End Date 08/21/22 Therapeutic Interventions Therapeutic Interventions Aquatic Therapy,Home Exercise Program,Joint Mobilizations, Manual Therapy,Patient/ Caregiver Education,Self-Care/ Home Management,Soft Tissue Mobilization,Therapeutic Activities,Therapeutic Exercises Modalities Cold Pack/Ice Massage,Electric Stimulation,Hot Packs, Ultrasound Next Visit Focus/Plan Next Note Type Progress Note Next Visit Plan Pt at this time is requesting to have appointments with aquatics. Progress independence in pool exercise. Progress balance and core strengthening for improved function. Add resistance equipment as appropriate for meeting goals above. Progress hip strength with extension activities.
--- NOTE | 2022-08-07 15:18 | PT.OTN ---
Current Diagnoses Stiffness of other specified joint, not elsewhere classified (08/07/22) Muscle weakness (generalized) (08/07/22) Postlaminectomy syndrome, not elsewhere classified (08/07/22) Physical Therapy Treatment Note PT-OP-A Visit Information Start: 04/22/22 18:04 Freq: Status: Active Protocol: Document 08/07/22 15:02 LJ (Rec: 08/07/22 15:18 LJ [id number]) Out-Patient Physical Therapy Visit Information Visit Information Visit Type Aquatic Treatment Note Visit Start Time 12:30 Visit Stop Time 01:15 Total Visit Minutes 45 Visit Number 21 Number of ETL SOFTWARE ENGINEER Visits 2 PT-OP-B Current Condition Start: 04/22/22 18:04 Freq: Status: Active Protocol: Document 04/22/22 15:25 DCW (Rec: 04/22/22 18:13 DCW [id number]) Current Condition History of Current Condition Onset Date Four months Current Complaints stiffness and achiness four months s/p L4-5 laminectomy History of Current Condition Pt is a 76 year old male presenting to skilled therapy four months s/p L4-5 laminectomy complaining of continuing stiffness and soreness. Report his radicular symptoms have resolved post- op, however he continues to have achiness in his low back and into his hips, and decreased strength and activity tolerance in his legs . Notes this limits his daily activity levels, largely is just able to get out and walk the dog, not much other activity. Reports his surgeon said there was no surgical answer to his complaints. Achiness is fairly constant, but worse in the morning. Treatment Goals Patient/Caregiver Goals Really my goal is to be pain- free. That may be a lofty goal at this point, but why not shoot for it? Personal Factors Other Personal Factors That May Effect Trigeminal neuralgia, CABG x3, Therapy/Recovery partial knee replacement PT-OP-C Subjective Start: 04/22/22 18:04 Freq: Status: Active Protocol: Document 08/07/22 15:02 LJ (Rec: 08/07/22 15:18 LJ [id number]) OP-PT Subjective Patient Comments Patient Comments Reports right knee pain. Is going to speak to his doctor about knee replacement. Otherwise, states he is doing well. PT-OP-F Manual Assessment Start: 04/22/22 18:04 Freq: Status: Active Protocol: Document 04/22/22 15:25 DCW (Rec: 04/22/22 18:23 DCW [id number]) Manual Assessments Soft Tissue Assessment Soft Tissue Mobility Assessment Moderate tone with tenderness to palpation 2/4: Pain with wincing bilateral QL, bilateral piriformis, bilateral lumbar paraspinals Joint Mobility Assessment Joint Mobility Assessment limited lumbar mobility, bilateral capsular tightness in anterior hip PT-OP-K Range of Motion Start: 04/22/22 18:04 Freq: Status: Active Protocol: Document 04/22/22 15:25 DCW (Rec: 04/22/22 18:23 DCW [id number]) Lumbar Spine Range of Motion Lumbar Spine Active Degrees Testing Position Standing Flexion 40 Extension 10 Lateral Flexion Left 53 Lateral Flexion Right 58 Comments Lateral flexion measured in cm from fingertips to floor PT-OP-L Special Tests Start: 04/22/22 18:04 Freq: Status: Active Protocol: Document 04/22/22 15:25 DCW (Rec: 04/22/22 18:23 DCW [id number]) Special Tests Lumbar Spine Special Tests Lateral SI compression Test Results Negative Straight Leg Raise Test Results Negative Standing Flexion Test Results Negative A-P Shearing Test Results Negative Hip Special Tests Piriformis Test Results Anterior capsular tightness ERUM Test Results Negative PT-OP-M Strength Start: 04/22/22 18:04 Freq: Status: Active Protocol: Document 06/26/22 15:13 AW (Rec: 06/26/22 17:20 AW [id number]) Hip Strength Hip Manual Muscle Testing Right Flexion (L2) 4 Good Extension (S1) 3+ Fair+ Abduction 4 Good Left Flexion (L2) 4 Good Extension (S1) 3+ Fair+ Abduction 4 Good Knee Strength Knee Manual Muscle Testing Right Flexion (S2) 4+ Good+ Extension (L3) 4+ Good+ Left Flexion (S2) 4+ Good+ Extension (L3) 4+ Good+ Ankle/Foot Strength Ankle and Foot Manual Muscle Testing Right Dorsiflexion (L4) 4+ Good+ Plantarflexion (S1) 4 Good Left Dorsiflexion (L4) 4+ Good+ Plantarflexion (S1) 4 Good PT-OP-Q Treatments Start: 04/22/22 18:04 Freq: Status: Active Protocol: Document 07/24/22 10:30 TS (Rec: 07/24/22 11:54 TS [id number]) Cardio Equipment Recumbent Elliptical (Biodex) Duration (Minutes) 6 Resistance 5 Seat Position 10 Other LEs only, RPMs, total steps Gym Equipment Therapeutic Ball Bridging Exercise Details Bridging with feet on ball, Added to HEP Ball Size/Color Red - 55 cm Body Position Supine Reps/Duration 1x10 5 sec hold Comments Good form, minimal cues for placement of feet on ball. Resisted Trunk Rotation Exercise Details verbally Reviewed for HEP Pelvic circles Exercise Details verbally Reviewed for HEP LTR Exercise Details LTR Added to HEP Ball Size/Color Red - 55 cm Body Position Supine Reps/Duration 1x10 Comments Goodcarryover of form from previous session. Therapeutic Exercises Supine Exercises core march into table top Supine Exercise Name alternating table taps/march, Reviewed for HEP Side bilateral Reps/Minutes x10 reps Comments cued TA, flat back and stable pelvis on table Standing Exercises resisted row Standing Exercise Name resisted row Resistance Lv 3 Reps/Minutes 2x15 Comments focus on postural control, scapular squeeze, head up self STMs Standing Exercise Name added to HEP as needed for self STM- Side right Equipment Used Tennis ball for hip flexor and QL Reps/Minutes 2 min Comments good feedback response. Pallof Press Standing Exercise Name Pallof Press Side bilateral Resistance Lv 3 Reps/Minutes 2x10 Comments cued PPT/ TA and press out for core fac not LB recruitment Manual Therapy Treatment Soft Tissue Mobilization Psoas Body Location L psoas Mobilization Type Oscillations,Strumming, Sustained Pressure Intensity/Depth Moderate Body Position Supine Comments Pt reported relief of tightness, demonstrated better ability to flex hip for piriformis. Self-Care/Home Management Treatment Education Other Education Educated on self-STM with ball for at home of hip flexor and QL. PT-OP-S Aquatic Treatment Start: 05/15/22 09:32 Freq: Status: Active Protocol: Document 08/07/22 15:02 SVEN (Rec: 08/07/22 15:18 [id number]) Aquatics Treatment Pool Entry/Exit Pool Entry/Exit Method Stairs Assistance Independent Water Walking Monster Walk Water Level Chest Level Walking Equipment Ankle Floats November Water Level Chest Level Comments VC to keep LEs straight and ankles dorsiflexed Tandem Gait Water Level Chest Level Walking Equipment Ankle Floats Comments VC for smaller steps Lunge Walk Water Level Waist Level Walking Equipment Ankle Floats Comments VC to keep back straight and knee behind toes circumduction Water Level Waist Level Walking Equipment Ankle Floats Level of Assistance Verbal Cues Comments with difficulty; reduced ROM Marching Water Level Chest Level Walking Equipment Ankle Floats Level of Assistance Verbal Cues Comments reaching contralateral side fwd/bk/side Water Level Chest Level Walking Equipment Ankle Floats Lower Extremity Stretches figure 4 Details seated at wall Reps/Duration 2x30 HS/calves Details at wall Body Position Standing Equipment Ankle Floats Reps/Duration 2x30 hip flexors/quads Details at wall Body Position Standing Equipment Ankle Floats Reps/Duration 2x30 Comments no quad stretch on right Upper Extremity Exercises rows Body Position Standing Water Level Chest Level Equipment cords Reps/Duration 10 fl/ex Body Position Standing Water Level Chest Level Equipment cords Reps/Duration 10 Upper Extremity Stretches chest stretch Details standing in corner; walking forwardw/smile faces Water Level Chest Level Equipment smiley faces Reps/Duration 45 sec chest stretch in corner Spinal Exercises stretch cords Body Position Standing Water Level Waist Level Reps/Duration 10 B Comments resisted rotation; 3 sec hold at endrange Balance SL squat Water Level Waist Level Reps/Duration 2x15 B Comments hh on wall SLS Reps/Duration 2x30 Comments L>R [place] Activities [place] Activities Bicycle,Bicycle Backwards, Cross Country,Hip Abduction/ Adduction,Sit Kicks Other Activities pendulum deep kicks planks-side forward supine crunches bicycle holding barbells at hips Equipment Med belt, neoprene vest, medBBs Duration 15 Comments cues for knee ext with xcountry Swim Strokes Flutter Laps/Duration 15m PT-OP-T Assessment and Plan Start: 04/22/22 18:04 Freq: Status: Active Protocol: Document 08/07/22 15:02 SVEN (Rec: 08/07/22 15:18 [id number]) Physical Therapy Assessment Rehab Potential Rehabilitation Potential Good Evaluation Complexity Number of Personal Factors/Comorbidities 3 or More Number of Body Systems Impaired 3 Impairments Impairments Activity Tolerance,Functional Activities,Pain,ROM,Soft Tissue Mobility,Strength,Tone Goals Three Impairment Pt demonstrates B LE weakness, especially R hip flexion and B PF (3+/5) Culture Media Laboratory Assistant Goal (LTG) Pt to demonstrate LE MMT >4-/5 in all planes 06/26/22 - Good progress toward goals except hip extension (4-/5) as documented above. Continue toward goal. LTG Duration 08/21/22 Two Impairment Pt unable to tolerate more than a short walk with his dog Senior Living Goal (LTG) Pt to report ability to ambulate >1 mile without increased fatigue or back pain in order to return to prior activity level. 06/26/22 - Now walking about a mile or a bit longer with the dog. He denies increase in fatigue or back pain. Progress goal to 1.5 miles. 07/10/22: GOAl MET: Pt reports able to walk about 1.5- 2miles on level surfaces without support, no pain as long as takes Tylenol to relieve discomfort. Takes before walk and mid day ifneeded. LTG Duration 08/21/22 GOAL MET 07/10/22 One Impairment Pt does not have an appropriate home exercise program Short Term Goal (STG) Pt to be independent and compliant with an appropriate HEP 06/14/22: HEP verbal review: TA SLR, open book, wall squats, clamshell, reverse clamshell. added stretching to HEP for flexibility: SKTC, piriformis and fig 4 stretches supine, sink stretch and self gentle STMs ball on wall over tight gluteal region with good feedback response. 07/10/22: progressing: paloff press, band walk, added core receiprocals march taps, reviewed rows. 07/24/22: Progression I with land HEP: pt demonstrated ability to perform HEP with minimal postural cueing, demonstrates good carryover sequencing. STG Duration 08/21/22 Progressed land HEP 07/24/22 Progress Towards Goals Progress Comments Aquatic goal update Assessment Summary Assessment Pt is improving with activity tolerance. Still having to be reminded to maintain vertical position in exercises particularly in deep water. Has tendancy for hip flexion with walking, standing, and deep water exercises. Requires cues for coordination with some exercises. Has exercise handouts for aquatic therapy but has not gone to the pool to exercise. Physical Therapy Plan Frequency and Duration Frequency of Treatment 2x/Week Duration of treatment (weeks) 8 Plan of Care Start Date 06/26/22 Plan of Care End Date 08/21/22 Therapeutic Interventions Therapeutic Interventions Aquatic Therapy,Home Exercise Program,Joint Mobilizations, Manual Therapy,Patient/ Caregiver Education,Self-Care/ Home Management,Soft Tissue Mobilization,Therapeutic Activities,Therapeutic Exercises Modalities Cold Pack/Ice Massage,Electric Stimulation,Hot Packs, Ultrasound Next Visit Focus/Plan Next Note Type Progress Note Next Visit Plan Pt at this time is requesting to have appointments with aquatics. Progress independence in pool exercise. Progress balance and core strengthening for improved function. Add resistance equipment as appropriate for meeting goals above. Progress hip strength with extension activities.
--- NOTE | 2022-08-14 15:08 | PT.OTN ---
Current Diagnoses Stiffness of other specified joint, not elsewhere classified (08/14/22) Muscle weakness (generalized) (08/14/22) Postlaminectomy syndrome, not elsewhere classified (08/14/22) Physical Therapy Treatment Note PT-OP-A Visit Information Start: 04/22/22 18:04 Freq: Status: Active Protocol: Document 08/14/22 14:49 LJ (Rec: 08/14/22 15:08 LJ [id number]) Out-Patient Physical Therapy Visit Information Visit Information Visit Type Aquatic Treatment Note Visit Start Time 10:15 Visit Stop Time 11:00 Total Visit Minutes 45 Visit Number 22 Number of FAST FOOD RESTAURANT MANAGER Visits 3 PT-OP-B Current Condition Start: 04/22/22 18:04 Freq: Status: Active Protocol: Document 04/22/22 15:25 DCW (Rec: 04/22/22 18:13 DCW [id number]) Current Condition History of Current Condition Onset Date Four months Current Complaints stiffness and achiness four months s/p L4-5 laminectomy History of Current Condition Pt is a 76 year old male presenting to skilled therapy four months s/p L4-5 laminectomy complaining of continuing stiffness and soreness. Report his radicular symptoms have resolved post- op, however he continues to have achiness in his low back and into his hips, and decreased strength and activity tolerance in his legs . Notes this limits his daily activity levels, largely is just able to get out and walk the dog, not much other activity. Reports his surgeon said there was no surgical answer to his complaints. Achiness is fairly constant, but worse in the morning. Treatment Goals Patient/Caregiver Goals Really my goal is to be pain- free. That may be a lofty goal at this point, but why not shoot for it? Personal Factors Other Personal Factors That May Effect Trigeminal neuralgia, CABG x3, Therapy/Recovery partial knee replacement PT-OP-C Subjective Start: 04/22/22 18:04 Freq: Status: Active Protocol: Document 08/14/22 14:49 LJ (Rec: 08/14/22 15:08 LJ [id number]) OP-PT Subjective Patient Comments Patient Comments Pt reports no pain today. PT-OP-F Manual Assessment Start: 04/22/22 18:04 Freq: Status: Active Protocol: Document 04/22/22 15:25 DCW (Rec: 04/22/22 18:23 DCW [id number]) Manual Assessments Soft Tissue Assessment Soft Tissue Mobility Assessment Moderate tone with tenderness to palpation 2/4: Pain with wincing bilateral QL, bilateral piriformis, bilateral lumbar paraspinals Joint Mobility Assessment Joint Mobility Assessment limited lumbar mobility, bilateral capsular tightness in anterior hip PT-OP-K Range of Motion Start: 04/22/22 18:04 Freq: Status: Active Protocol: Document 04/22/22 15:25 DCW (Rec: 04/22/22 18:23 DCW [id number]) Lumbar Spine Range of Motion Lumbar Spine Active Degrees Testing Position Standing Flexion 40 Extension 10 Lateral Flexion Left 53 Lateral Flexion Right 58 Comments Lateral flexion measured in cm from fingertips to floor PT-OP-L Special Tests Start: 04/22/22 18:04 Freq: Status: Active Protocol: Document 04/22/22 15:25 DCW (Rec: 04/22/22 18:23 DCW [id number]) Special Tests Lumbar Spine Special Tests Lateral SI compression Test Results Negative Straight Leg Raise Test Results Negative Standing Flexion Test Results Negative A-P Shearing Test Results Negative Hip Special Tests Piriformis Test Results Anterior capsular tightness ERUM Test Results Negative PT-OP-M Strength Start: 04/22/22 18:04 Freq: Status: Active Protocol: Document 06/26/22 15:13 AW (Rec: 06/26/22 17:20 AW [id number]) Hip Strength Hip Manual Muscle Testing Right Flexion (L2) 4 Good Extension (S1) 3+ Fair+ Abduction 4 Good Left Flexion (L2) 4 Good Extension (S1) 3+ Fair+ Abduction 4 Good Knee Strength Knee Manual Muscle Testing Right Flexion (S2) 4+ Good+ Extension (L3) 4+ Good+ Left Flexion (S2) 4+ Good+ Extension (L3) 4+ Good+ Ankle/Foot Strength Ankle and Foot Manual Muscle Testing Right Dorsiflexion (L4) 4+ Good+ Plantarflexion (S1) 4 Good Left Dorsiflexion (L4) 4+ Good+ Plantarflexion (S1) 4 Good PT-OP-Q Treatments Start: 04/22/22 18:04 Freq: Status: Active Protocol: Document 07/24/22 10:30 TS (Rec: 07/24/22 11:54 TS [id number]) Cardio Equipment Recumbent Elliptical (Biodex) Duration (Minutes) 6 Resistance 5 Seat Position 10 Other LEs only, RPMs, total steps Gym Equipment Therapeutic Ball Bridging Exercise Details Bridging with feet on ball, Added to HEP Ball Size/Color Red - 55 cm Body Position Supine Reps/Duration 1x10 5 sec hold Comments Good form, minimal cues for placement of feet on ball. Resisted Trunk Rotation Exercise Details verbally Reviewed for HEP Pelvic circles Exercise Details verbally Reviewed for HEP LTR Exercise Details LTR Added to HEP Ball Size/Color Red - 55 cm Body Position Supine Reps/Duration 1x10 Comments Goodcarryover of form from previous session. Therapeutic Exercises Supine Exercises core march into table top Supine Exercise Name alternating table taps/march, Reviewed for HEP Side bilateral Reps/Minutes x10 reps Comments cued TA, flat back and stable pelvis on table Standing Exercises resisted row Standing Exercise Name resisted row Resistance Lv 3 Reps/Minutes 2x15 Comments focus on postural control, scapular squeeze, head up self STMs Standing Exercise Name added to HEP as needed for self STM- Side right Equipment Used Tennis ball for hip flexor and QL Reps/Minutes 2 min Comments good feedback response. Pallof Press Standing Exercise Name Pallof Press Side bilateral Resistance Lv 3 Reps/Minutes 2x10 Comments cued PPT/ TA and press out for core fac not LB recruitment Manual Therapy Treatment Soft Tissue Mobilization Psoas Body Location L psoas Mobilization Type Oscillations,Strumming, Sustained Pressure Intensity/Depth Moderate Body Position Supine Comments Pt reported relief of tightness, demonstrated better ability to flex hip for piriformis. Self-Care/Home Management Treatment Education Other Education Educated on self-STM with ball for at home of hip flexor and QL. PT-OP-S Aquatic Treatment Start: 05/15/22 09:32 Freq: Status: Active Protocol: Document 08/14/22 14:49 SVEN (Rec: 08/14/22 15:08 [id number]) Aquatics Treatment Pool Entry/Exit Pool Entry/Exit Method Stairs Assistance Independent Water Walking Garner March Water Level Chest Level Comments VC to keep LEs straight Lunge Walk Water Level Waist Level Comments VC to keep back straight and knee behind toes Marching Water Level Chest Level Level of Assistance Verbal Cues Comments reaching contralateral side fwd/bk/side Water Level Chest Level Lower Extremity Exercises lunges Details standing on boxes for increased WB Water Level Waist Level Reps/Duration 2x8 B Comments cues for foot and knee position and maintaining straight back 4 way hip Details at wall Water Level Chest Level Reps/Duration 15x ea Comments verbal and cues for posture, core engagement, inc speed as tolerated Lower Extremity Stretches figure 4 Details seated at wall Reps/Duration 2x30 HS/calves Details at wall Body Position Standing Reps/Duration 2x30 Spinal Exercises wonderboard Reps/Duration 5 min Comments static,dynamic,hands out, pelvic tilts, lateral tilits TrA activation Details seated at wall Reps/Duration 10 Balance floor clocks Body Position Standing Water Level Waist Level Reps/Duration 6xB SL squat Water Level Waist Level Reps/Duration 2x15 B Comments hh on wall SLS Reps/Duration 4 min Comments VC to stand upright; posture [place] Activities [place] Activities Bicycle,Bicycle Backwards, Cross Country,Hip Abduction/ Adduction,Sit Kicks Other Activities pendulum deep kicks supine crunches bicycle holding barbells at hips supine righting -BBs under knees Equipment Med belt, neoprene vest, medBBs Duration 22 Comments cues for knee ext with xcountry PT-OP-T Assessment and Plan Start: 04/22/22 18:04 Freq: Status: Active Protocol: Document 08/14/22 14:49 SVEN (Rec: 08/14/22 15:08 SVEN [id number]) Physical Therapy Assessment Rehab Potential Rehabilitation Potential Good Evaluation Complexity Number of Personal Factors/Comorbidities 3 or More Number of Body Systems Impaired 3 Impairments Impairments Activity Tolerance,Functional Activities,Pain,ROM,Soft Tissue Mobility,Strength,Tone Goals Three Impairment Pt demonstrates B LE weakness, especially R hip flexion and B PF (3+/5) Fci Goal (LTG) Pt to demonstrate LE MMT >4-/5 in all planes 06/26/22 - Good progress toward goals except hip extension (4-/5) as documented above. Continue toward goal. LTG Duration 08/21/22 Two Impairment Pt unable to tolerate more than a short walk with his dog Fci Goal (LTG) Pt to report ability to ambulate >1 mile without increased fatigue or back pain in order to return to prior activity level. 06/26/22 - Now walking about a mile or a bit longer with the dog. He denies increase in fatigue or back pain. Progress goal to 1.5 miles. 07/10/22: GOAl MET: Pt reports able to walk about 1.5- 2miles on level surfaces without support, no pain as long as takes Tylenol to relieve discomfort. Takes before walk and mid day ifneeded. LTG Duration 08/21/22 GOAL MET 07/10/22 One Impairment Pt does not have an appropriate home exercise program Short Term Goal (STG) Pt to be independent and compliant with an appropriate HEP 06/14/22: HEP verbal review: TA SLR, open book, wall squats, clamshell, reverse clamshell. added stretching to HEP for flexibility: SKTC, piriformis and fig 4 stretches supine, sink stretch and self gentle STMs ball on wall over tight gluteal region with good feedback response. 07/10/22: progressing: paloff press, band walk, added core receiprocals march taps, reviewed rows. 07/24/22: Progression I with land HEP: pt demonstrated ability to perform HEP with minimal postural cueing, demonstrates good carryover sequencing. STG Duration 08/21/22 Progressed land HEP 07/24/22 Progress Towards Goals Progress Comments Aquatic goal update Assessment Summary Assessment Pt able to perform all exercises covered this session . Has a tendancy to crouch with SLS. In deep water he needs cues for upright posture and can achieve it but tendancy to flex both hips and knees. Coordinated bicycling backwards after using wall as tactile cueing. He has been given aquatic HEP and has gone over them x2. Pt filled out progress paperwork prior to getting into the water therefore he was invited to stay a few minutes later to continue to exercise and stretch. He stayed roughly 3 minutes then exited pool. States he has not yet gotten to the pool to exercise on his own. Pt is appropriate for discharge to perform all the HEP exercises he has been given independently. Physical Therapy Plan Frequency and Duration Frequency of Treatment 2x/Week Duration of treatment (weeks) 8 Plan of Care Start Date 06/26/22 Plan of Care End Date 08/21/22 Therapeutic Interventions Therapeutic Interventions Aquatic Therapy,Home Exercise Program,Joint Mobilizations, Manual Therapy,Patient/ Caregiver Education,Self-Care/ Home Management,Soft Tissue Mobilization,Therapeutic Activities,Therapeutic Exercises Modalities Cold Pack/Ice Massage,Electric Stimulation,Hot Packs, Ultrasound Next Visit Focus/Plan Next Note Type Progress Note Next Visit Plan Pt has aquatic HEP and has demonstrated safe execution of all exercises. He is appropriate for independent aquatic exercise and has been given information about aquatic group exercise classes at the pool.
--- NOTE | 2022-08-29 14:27 | PT.OPDS ---
Current Diagnoses Stiffness of other specified joint, not elsewhere classified (08/14/22) Muscle weakness (generalized) (08/14/22) Postlaminectomy syndrome, not elsewhere classified (08/14/22) Visit Care Team Role Provider Type Lele Diaz MD Attending Provider Physician Family Provider Primary Care Provider Referring Provider Specialty: Internal Medicine Address: [address] [place] [address], [facility] Email: [email or web address] Visit Number Visit Number [id number] Discharge Summary PT-OP-B Current Condition Start: 04/22/22 18:04 Freq: Status: Active Protocol: Document 04/22/22 15:25 DCW (Rec: 04/22/22 18:13 DCW [id number]) Current Condition History of Current Condition Onset Date Four months Current Complaints stiffness and achiness four months s/p L4-5 laminectomy History of Current Condition Pt is a 76 year old male presenting to skilled therapy four months s/p L4-5 laminectomy complaining of continuing stiffness and soreness. Report his radicular symptoms have resolved post- op, however he continues to have achiness in his low back and into his hips, and decreased strength and activity tolerance in his legs . Notes this limits his daily activity levels, largely is just able to get out and walk the dog, not much other activity. Reports his surgeon said there was no surgical answer to his complaints. Achiness is fairly constant, but worse in the morning. Treatment Goals Patient/Caregiver Goals Really my goal is to be pain- free. That may be a lofty goal at this point, but why not shoot for it? Personal Factors Other Personal Factors That May Effect Trigeminal neuralgia, CABG x3, Therapy/Recovery partial knee replacement PT-OP-C Subjective Start: 04/22/22 18:04 Freq: Status: Active Protocol: Document 08/14/22 14:49 LJ (Rec: 08/14/22 15:08 LJ [id number]) OP-PT Subjective Patient Comments Patient Comments Pt reports no pain today. PT-OP-F Manual Assessment Start: 04/22/22 18:04 Freq: Status: Active Protocol: Document 04/22/22 15:25 DCW (Rec: 04/22/22 18:23 DCW [id number]) Manual Assessments Soft Tissue Assessment Soft Tissue Mobility Assessment Moderate tone with tenderness to palpation 2/4: Pain with wincing bilateral QL, bilateral piriformis, bilateral lumbar paraspinals Joint Mobility Assessment Joint Mobility Assessment limited lumbar mobility, bilateral capsular tightness in anterior hip PT-OP-K Range of Motion Start: 04/22/22 18:04 Freq: Status: Active Protocol: Document 04/22/22 15:25 DCW (Rec: 04/22/22 18:23 DCW [id number]) Lumbar Spine Range of Motion Lumbar Spine Active Degrees Testing Position Standing Flexion 40 Extension 10 Lateral Flexion Left 53 Lateral Flexion Right 58 Comments Lateral flexion measured in cm from fingertips to floor PT-OP-L Special Tests Start: 04/22/22 18:04 Freq: Status: Active Protocol: Document 04/22/22 15:25 DCW (Rec: 04/22/22 18:23 DCW [id number]) Special Tests Lumbar Spine Special Tests Lateral SI compression Test Results Negative Straight Leg Raise Test Results Negative Standing Flexion Test Results Negative A-P Shearing Test Results Negative Hip Special Tests Piriformis Test Results Anterior capsular tightness ERUM Test Results Negative PT-OP-M Strength Start: 04/22/22 18:04 Freq: Status: Active Protocol: Document 06/26/22 15:13 AW (Rec: 06/26/22 17:20 AW [id number]) Hip Strength Hip Manual Muscle Testing Right Flexion (L2) 4 Good Extension (S1) 3+ Fair+ Abduction 4 Good Left Flexion (L2) 4 Good Extension (S1) 3+ Fair+ Abduction 4 Good Knee Strength Knee Manual Muscle Testing Right Flexion (S2) 4+ Good+ Extension (L3) 4+ Good+ Left Flexion (S2) 4+ Good+ Extension (L3) 4+ Good+ Ankle/Foot Strength Ankle and Foot Manual Muscle Testing Right Dorsiflexion (L4) 4+ Good+ Plantarflexion (S1) 4 Good Left Dorsiflexion (L4) 4+ Good+ Plantarflexion (S1) 4 Good PT-OP-T Assessment and Plan Start: 04/22/22 18:04 Freq: Status: Active Protocol: Document 08/29/22 14:26 SAK (Rec: 08/29/22 14:27 SAK [id number]) Physical Therapy Assessment Assessment Summary Assessment Pt able to perform all exercises covered last session (08/14/22) Has a tendancy to crouch with SLS. In deep water he needs cues for upright posture and can achieve it but tendancy to flex both hips and knees. Coordinated bicycling backwards after using wall as tactile cueing. He has been given aquatic HEP and has gone over them x2. Pt filled out progress paperwork prior to getting into the water therefore he was invited to stay a few minutes later to continue to exercise and stretch. He stayed roughly 3 minutes then exited pool. States he has not yet gotten to the pool to exercise on his own. Pt is appropriate for discharge to perform all the HEP exercises he has been given independently. Physical Therapy Plan Discharge Physical Therapy Discharge Reasons Goals Met
== END 2022-09-03 09:11 | disposition home or self-care (01) ==
LOC: PHYS 10:15
PROVIDERS: Family Provider Student in an Organized Health Care Education/Training Program; PCP Student in an Organized Health Care Education/Training Program; Referring Provider Student in an Organized Health Care Education/Training Program; Visit Provider Student in an Organized Health Care Education/Training Program
DX: M96.1 Postlaminectomy syndrome, not elsewhere classified (principal); M25.69 Stiffness of other specified joint, not elsewhere classified; M62.81 Muscle weakness (generalized)
CPT/HCPCS: 97110; 97112; 97113; 97140; 97162; 97530

== ENCOUNTER 2022-08-21 22:48 | Emergency (ER) | payer MEDICARE, OTHER, SELFPAY ==
--- NOTE | 2022-08-21 22:58 | DI.RAD.S_ITS ---
PROCEDURE: XR CHEST 1V INDICATIONS: chest pain TECHNIQUE: One view of the chest was acquired. COMPARISON: [facility], CR, XR CHEST 1V, 04/24/2022, 14:44. FINDINGS: Surgical changes and devices: Postsurgical changes redemonstrated in the mediastinum. Lungs and pleura: There is hyperinflation of the lungs with flattening of the hemidiaphragms compatible with COPD. No acute consolidation. No pleural effusions or pneumothorax. Mediastinum: Mediastinal contours appear normal. Heart size is normal. Bones and chest wall: No suspicious bony lesions. Overlying soft tissues appear unremarkable. IMPRESSION: 1. Findings compatible with COPD. 2. No acute cardiopulmonary disease. Dictated by: Abdulkadir Garcia M.D. on 08/22/2022 at 1:27 Approved by: Abdulkadir Garcia M.D. on 08/22/2022 at 1:28
[2022-08-21 23:00] VITALS: BP 164/91; PULSE 63; RESP 16; TEMP 36.7; O2SAT 98; BMI 24.0
[2022-08-21 23:24] LABS: Add Manual Diff / Slide Review NO; Basophils Absolute Auto 100 /uL (0-100); Basophils Percent Auto 2.3 % (0-2); Eosinophils Absolute Auto 300 /uL (0-450); Eosinophils Percent Auto 4.2 % (2-4); Hematocrit 42.3 % (41-53); Hemoglobin 14.2 g/dL (13.5-17.5); Lymphocytes Absolute Auto 1700 /uL (1100-4500); Lymphocytes Percent Auto 26.4 % (25-40); Mean Corpuscular HGB Conc 33.5 % (30-36); Mean Corpuscular Hemoglobin 32.2 PG (26-34); Monocytes Absolute Auto 500 /uL (0-900); Monocytes Percent Auto 7.6 % (3-14); Neutrophils Absolute Auto 3800 /uL (1500-7000); Neutrophils Percent Auto 59.5 % (50-75); Platelet Count 184 X10^3/uL (150-400); Red Blood Cell Count 4.41 X10^6/uL (4.5-5.9); Red Cell Distribution Width 13.6 % (11.6-14.8); White Blood Cell Count 6.4 X10^3/uL (4.5-11.0)
--- NOTE | 2022-08-21 23:25 | PC.NURSE ---
pt used his own bp cuff about 5min after ours, he's resulted 191/105.
[2022-08-21 23:30] LABS: Prothrombin Time 11.5 SECONDS (10.1-12.7)
[2022-08-21 23:33] LABS: PTT Partial Thromboplastin Tim 34 SECONDS (26-36)
[2022-08-21 23:38] LABS: Alanine Aminotransferase 25 IU/L (<50); Albumin Globulin Ratio 1.4 (1.0-2.8); Alkaline Phosphatase 93 U/L (38-126); Aspartate Aminotransferase 28 IU/L (17-59); BUN Creatinine Ratio 25.3 (6-22); Bilirubin Total 0.3 mg/dL (0.2-1.3); Blood Urea Nitrogen 21 mg/dL (9-20); Calcium 8.8 mg/dL (8.4-10.2); Carbon Dioxide 25 mmol/L (22-32); Chloride 107 mmol/L (98-107); Creatine Kinase 53 U/L (55-170); Estimated Glomerular Filt Rate > 60 mL/min (>60); Globulin 2.9 g/dL (1.7-4.1); Glucose 125 mg/dL (80-110); HEMOLYSIS < 15 (0-50); Lipase 59 U/L (23-300); Magnesium 1.8 mg/dL (1.6-2.3); Potassium 3.5 mmol/L (3.4-5.1); Sodium 141 mmol/L (137-145); Total Protein 6.9 g/dL (6.3-8.2)
[2022-08-21 23:47] LABS: Troponin I < 0.012 ng/mL (0.01-0.034)
[2022-08-22] VITALS (8 sets, daily range): BP systolic 183–205; BP diastolic 91–108; PULSE 53–62; O2SAT 97–99
[2022-08-22 01:27] LABS: COVID19 -Nasal RAPID Negative (Negative)
--- NOTE | 2022-08-22 02:37 | ED.GENADULT ---
HPI - General Adult General Chief complaint: Hypertension Stated complaint: HIGH BP X3 DAYS Time Seen by Provider: 08/22/22 02:06 Source: patient Mode of arrival: Ambulatory History of Present Illness HPI narrative: Patient is a 77-year-old male history of hypertension trigeminal neuralgia CABG presenting today with elevated blood pressure. He has been taking blood pressure for the last 3 days cause he is had a mild headache. It has been as high as 189 but easily in the wounds 70s and 60s over 90. However today he called his test director who recommended he come here to the ED for further evaluation. His blood pressure in the ED over the last couple of hours has gone as high as 203/91. He denies any chest pain or palpitations. He is no numbness tingling or weakness. He was concern for the elevated blood pressure and the headache is really what was concerning. However he does not want anything for pain. He says it is only mild. He is no nausea or vomiting or other symptoms. Related Data Home Medications Medication Instructions Recorded Confirmed latanoprost 0.005 % eye drops 1 drp ophthalmic (eye) BEDTIME ##0 04/29/13 07/01/22 (Xalatan) aspirin 81 mg tablet,delayed 81 mg PO DAILY ##0 04/29/17 07/01/22 release dorzolamide 22.3 mg-timolol 6.8 1 drp ophthalmic (eye) DIRECTED 06/03/19 07/01/22 mg/mL eye drops lisinopril 10 mg tablet 20 mg PO DAILY 06/03/19 07/01/22 metoprolol succinate 25 mg 12.5 mg PO DAILY 06/03/19 07/01/22 tablet,extended release 24 hr carbamazepine 100 mg 100 mg PO DAILY 07/01/22 07/01/22 capsule,extended release [id number] Previous Rx's Medication Instructions Recorded levothyroxine 112 mcg tablet 112 mcg PO DAILY #90 tabs 10/01/21 chlorthalidone 25 mg tablet 12.5 mg PO Q OTHER DAY #7 tabs 03/01/22 atorvastatin 40 mg tablet 80 mg PO BEDTIME #180 tabs 03/05/22 Allergies Allergy/AdvReac Type Severity Reaction Status Date / Time No Known Drug Allergies Allergy Verified 07/01/22 15:58 Review of Systems Review of Systems Narrative: GENERAL: Denies chills, fatigue, malaise, fever, sweats, travel HEENT: Denies sinus pain, ear pain, sore throat, difficulty swallowing, neck pain RESPIRATORY: Denies dyspnea, cough, wheezing, hemoptysis, sputum. CARDIOVASCULAR: Denies chest pain, palpitations, orthopnea, edema GASTROINTESTINAL: Denies nausea, vomiting, abdominal pain, diarrhea, constipation, melena. : Denies dysuria, frequency, incontinence, hematuria, urinary retention, flank pain. MUSCULOSKELETAL: Denies weakness, joint pain, or bony pain SKIN: No rash, no erythema, no pruritus NEUROLOGIC: See HPI PSYCHIATRIC: No concerning psychosocial issues. 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 Social History household members: spouse Smoking Status: Never smoker Smoking Status: Never smoker Substance Use Type: does not use Exam Initial Vital Signs Initial Vital Signs: Vital Signs Temperature 98.0 F 08/21/22 23:00 Pulse Rate 63 08/21/22 23:00 Respiratory Rate 16 08/21/22 23:00 Blood Pressure 164/91 H 08/21/22 23:00 Pulse Oximetry 98 08/21/22 23:00 Oxygen Delivery Method 08/21/22 23:00 GENERAL: Alert pleasant 77-year-old male and in no acute distress. HEENT: Head atraumatic,EOMI, pupils reactive, face symmetric, moist mucous membranes CARDIOVASCULAR: Regular rate and rhythm without murmurs, rubs or gallops. RESPIRATORY: Breath sounds equal bilaterally, no wheezes rales or rhonchi. ABDOMEN: Soft, nontender. Normoactive bowel sounds all 4 quadrants. No guarding or rebound. EXTREMITIES: Normal range of motion, no clubbing or edema. Neurovascularly intact NEUROLOGICAL: Alert and oriented x4.Normal gait and speech. Cranial nerves II through XII grossly intact. Teletype Operator strength equal bilaterally good lower extremity strength SKIN: Warm, dry, no laceration, no petechiae, no rashes or lesions. Course Orders Ordered: Discontinued Medications Aspirin (Aspirin 81 Mg Chew Tab) 324 mg PO NOW ONE Stop: 08/21/22 22:59 Last Admin: 08/22/22 02:59 Dose: Not Given Documented By: LYNDSEY Vital Signs Vital signs: Vital Signs - 8 hr 08/21/22 23:00 08/22/22 01:43 08/22/22 01:44 Temperature 98.0 F Pulse Rate 63 Respiratory Rate 16 Blood Pressure 164/91 H 203/91 H Pulse Oximetry 98 97 Oxygen Delivery Method Room Air 08/22/22 01:44 08/22/22 02:00 Temperature Pulse Rate 55 L 53 L Respiratory Rate Blood Pressure Pulse Oximetry 98 98 Oxygen Delivery Method Medical Decision Making Lab Data Result diagrams: 08/21/22 23:10 08/21/22 23:10 Labs: Lab Results 08/21/22 08/21/22 08/21/22 Range/Units 23:10 23:10 23:10 WBC 6.4 (4.5-11.0) X10^3/uL RBC 4.41 L (4.5-5.9) X10^6/uL Hgb 14.2 (13.5-17.5) g/dL Hct 42.3 (41-53) % MCV 96.0 (80-100) fL MCH 32.2 (26-34) PG MCHC 33.5 (30-36) % RDW 13.6 (11.6-14.8) % Plt Count 184 (150-400) X10^3/uL Neut % (Auto) 59.5 (50-75) % Lymph % (Auto) 26.4 (25-40) % Perry % (Auto) 7.6 (3-14) % Eos % (Auto) 4.2 H (2-4) % Baso % (Auto) 2.3 H (0-2) % Neut # (Auto) 3800 (2230-2637) /uL Lymph # (Auto) 1700 (5927-7348) /uL Perry # (Auto) 500 (0-900) /uL Eos # (Auto) 300 (0-450) /uL Baso # (Auto) 100 (0-100) /uL PT 11.5 (10.1-12.7) SECONDS INR 1.0 (0.9-1.3) APTT 34 (26-36) SECONDS Sodium 141 (137-145) mmol/L Potassium 3.5 (3.4-5.1) mmol/L Chloride 107 (98-107) mmol/L Carbon Dioxide 25 (22-32) mmol/L BUN 21 H (9-20) mg/dL Creatinine 0.83 (0.66-1.25) mg/dL Estimated GFR > 60 (>60) mL/min BUN/Creatinine Ratio 25.3 H (6-22) Glucose 125 H (80-110) mg/dL Calcium 8.8 (8.4-10.2) mg/dL Magnesium 1.8 (1.6-2.3) mg/dL Total Bilirubin 0.3 (0.2-1.3) mg/dL AST 28 (17-59) IU/L ALT 25 (<50) IU/L Alkaline Phosphatase 93 (38-126) U/L Total Creatine Kinase 53 L (55-170) U/L CK-MB (CK-2) TNP CK-MB (CK-2) Rel Index TNP Troponin I < 0.012 (0.01-0.034) ng/mL Total Protein 6.9 (6.3-8.2) g/dL Albumin 4.0 (3.5-5.0) g/dL Globulin 2.9 (1.7-4.1) g/dL Albumin/Globulin Ratio 1.4 (1.0-2.8) Lipase 59 (23-300) U/L SARS-CoV-2 (PCR) (Negative) 08/21/22 Range/Units 23:45 WBC (4.5-11.0) X10^3/uL RBC (4.5-5.9) X10^6/uL Hgb (13.5-17.5) g/dL Hct (41-53) % MCV (80-100) fL MCH (26-34) PG MCHC (30-36) % RDW (11.6-14.8) % Plt Count (150-400) X10^3/uL Neut % (Auto) (50-75) % Lymph % (Auto) (25-40) % Perry % (Auto) (3-14) % Eos % (Auto) (2-4) % Baso % (Auto) (0-2) % Neut # (Auto) (1012-8288) /uL Lymph # (Auto) (9834-4297) /uL Perry # (Auto) (0-900) /uL Eos # (Auto) (0-450) /uL Baso # (Auto) (0-100) /uL PT (10.1-12.7) SECONDS INR (0.9-1.3) APTT (26-36) SECONDS Sodium (137-145) mmol/L Potassium (3.4-5.1) mmol/L Chloride (98-107) mmol/L Carbon Dioxide (22-32) mmol/L BUN (9-20) mg/dL Creatinine (0.66-1.25) mg/dL Estimated GFR (>60) mL/min BUN/Creatinine Ratio (6-22) Glucose (80-110) mg/dL Calcium (8.4-10.2) mg/dL Magnesium (1.6-2.3) mg/dL Total Bilirubin (0.2-1.3) mg/dL AST (17-59) IU/L ALT (<50) IU/L Alkaline Phosphatase (38-126) U/L Total Creatine Kinase (55-170) U/L CK-MB (CK-2) CK-MB (CK-2) Rel Index Troponin I (0.01-0.034) ng/mL Total Protein (6.3-8.2) g/dL Albumin (3.5-5.0) g/dL Globulin (1.7-4.1) g/dL Albumin/Globulin Ratio (1.0-2.8) Lipase (23-300) U/L SARS-CoV-2 (PCR) Negative (Negative) Imaging Data Chest x-ray: Radiologist's Impression: Signed Patient: Raul Pond MR#: [id number] : 1945 Acct:[id number] Age/Sex: 77 / M Date of Service: 08/21/22 Loc: ED Accession Number: [id number] ?? Procedure: XR chest 1V Ordering Provider: Aarti Villalba D.O. PROCEDURE:? XR CHEST 1V ? INDICATIONS:? chest pain ? TECHNIQUE:? One view of the chest was acquired.? ? COMPARISON:? [facility], , XR CHEST 1V, 04/24/2022, 14:44. ? FINDINGS:? ? Surgical changes and devices:? Postsurgical changes redemonstrated in the mediastinum.? ? Lungs and pleura:? There is hyperinflation of the lungs with flattening of the hemidiaphragms compatible with COPD.? No acute consolidation.? No pleural effusions or pneumothorax.? ? Mediastinum:? Mediastinal contours appear normal.? Heart size is normal.? ? Bones and chest wall:? No suspicious bony lesions.? Overlying soft tissues appear unremarkable.? ? IMPRESSION:? ? 1. Findings compatible with COPD. ? 2. No acute cardiopulmonary disease.? ? ? Dictated by: Abdulkadir Garcia M.D. on 08/22/2022 at 1:27 ? ? ECG Data Interpretation: Normal sinus rhythm rate 58 AR interval 176 QRS 94 QTC 402 some artifact noted no significant ST changes. MDM Narrative Medical decision making narrative: Patient blood pressure is quite variable here in the ED. It does go quite high in the 200s. I personally checked each arm was 185/92 in the left arm and 183/95. Dr. Tipton on-call cardiology called earlier and I spoke with him. He recommended adding amlodipine or other medication. At this time patient is low dose lisinopril 10 mg twice a day and metoprolol 12.5 mg once daily. At this time I think reasonable to increase his lisinopril. Hesitant to increase his metoprolol secondary to some mild low heart. He currently takes 10 mg twice daily. At this time reasonable to increase to 20 mg twice a day. No evidence of end-organ damage at this time. He has no focal deficits. At this time follow-up with Cardiology. Discharge Plan Departure Patient Disposition: Home Clinical Impression: Essential hypertension Instructions: DI for High Blood Pressure Activity Restrictions/Additional Instructions: *You have been diagnosed with high blood pressure *What to do: At this time please check your blood pressure 1 to 2 times daily. Approximately same time every day morning and night. Please record and discuss your readings with your test director or primary care provider for further adjustments. *Continue to take medications as directed Lisinopril 20 mg twice a day *Follow up with your primary care provider in 2-3 days or call [phone] *Return to ER if you should have increasing headache chest pain shortness of breath or any new, worsening or concerning symptoms Prescriptions: No Action latanoprost [Xalatan] 0.005 % drops 1 drp ophthalmic (eye) BEDTIME Qty: 0 aspirin 81 MG tablet,delayed release (DR/EC) 81 mg PO DAILY Qty: 0 levothyroxine 112 mcg tablet 112 mcg PO DAILY Qty: 90 3RF Hold Instructions: Reduce to 5x/week until labs chlorthalidone 25 mg tablet 12.5 mg PO Q OTHER DAY Qty: 7 0RF Hold Instructions: Trial of cessation carbamazepine 100 mg capsule, ER multiphase 12 hr 100 mg PO DAILY Rx Instructions: take two capsules in the morning atorvastatin 40 mg tablet 80 mg PO BEDTIME Qty: 180 0RF lisinopril 10 mg tablet 20 mg PO DAILY dorzolamide-timolol 22.3-6.8 mg/mL drops 1 drp ophthalmic (eye) DIRECTED metoprolol succinate 25 mg tablet extended release 24 hr 12.5 mg PO DAILY Referrals: Lele Diaz MD [Primary Care Provider] - Sapphire Swann MD [Physician] - Visit Report Forms: Patient Portal/API
== END 2022-08-22 03:00 | disposition home or self-care (01) ==
PROVIDERS: Emergency Provider Emergency Medicine; Family Provider Student in an Organized Health Care Education/Training Program; PCP Student in an Organized Health Care Education/Training Program
DX: I10 Essential (primary) hypertension (principal); R07.9 Chest pain, unspecified; R51.9 Headache, unspecified; Z20.822 Contact with and (suspected) exposure to COVID-19; Z79.899 Other long term (current) drug therapy
CPT/HCPCS: 36415; 71045; 80053; 82550; 83690; 83735; 84484; 85025; 85610; 85730; 87635; 93005; 93010; 99283; 99284; C9803

== ENCOUNTER → 2022-08-29 10:15 | Outpatient (CLI) | payer MEDICARE, OTHER, SELFPAY ==
[2022-08-29 11:52] LABS: BUN Creatinine Ratio 26.9 (6-22); Blood Urea Nitrogen 25 mg/dL (9-20); Calcium 9.3 mg/dL (8.4-10.2); Carbon Dioxide 31 mmol/L (22-32); Chloride 98 mmol/L (98-107); Estimated Glomerular Filt Rate > 60 mL/min (>60); Glucose 86 mg/dL (80-110); HEMOLYSIS < 15 (0-50); Potassium 3.8 mmol/L (3.4-5.1); Sodium 139 mmol/L (137-145)
[2022-09-09 12:27] LABS: Renin Activity 1.341 ng/mL/hr (0.167-5.380)
== END ==
PROVIDERS: Family Provider Student in an Organized Health Care Education/Training Program; PCP Student in an Organized Health Care Education/Training Program; Referring Provider Internal Medicine Cardiovascular Disease; Visit Provider Internal Medicine Cardiovascular Disease
DX: I10 Essential (primary) hypertension (principal)
CPT/HCPCS: 36415; 80048; 82088; 84244

== ENCOUNTER → 2022-12-17 13:46 | Outpatient (CLI) | payer MEDICARE, OTHER, SELFPAY ==
[2022-12-17 14:07] LABS: Hematocrit 41.9 % (41-53); Hemoglobin 14.2 g/dL (13.5-17.5); Mean Corpuscular HGB Conc 33.9 % (30-36); Mean Corpuscular Volume 97.3 fL (80-100); Platelet Count 198 X10^3/uL (150-400); Red Blood Cell Count 4.31 X10^6/uL (4.5-5.9); Red Cell Distribution Width 14.4 % (11.6-14.8)
[2022-12-17 14:52] LABS: TSH w/ Reflex to FT4 0.73 uIU/mL (0.47-4.68)
== END ==
PROVIDERS: Family Provider Student in an Organized Health Care Education/Training Program; PCP Student in an Organized Health Care Education/Training Program; Referring Provider Student in an Organized Health Care Education/Training Program; Visit Provider Student in an Organized Health Care Education/Training Program
DX: D64.9 Anemia, unspecified (principal); E03.9 Hypothyroidism, unspecified
CPT/HCPCS: 36415; 84443; 85027

== ENCOUNTER → 2023-03-20 17:11 | Outpatient (CLI) | payer MEDICARE, OTHER, SELFPAY ==
[2023-03-20 18:34] LABS: Alanine Aminotransferase 25 IU/L (<50); Albumin 3.9 g/dL (3.5-5.0); Albumin Globulin Ratio 1.3 (1.0-2.8); Alkaline Phosphatase 97 U/L (38-126); Aspartate Aminotransferase 26 IU/L (17-59); Bilirubin Total 0.4 mg/dL (0.2-1.3); Blood Urea Nitrogen 33 mg/dL (9-20); Calcium 8.8 mg/dL (8.4-10.2); Carbon Dioxide 28 mmol/L (22-32); Chloride 104 mmol/L (98-107); Estimated Glomerular Filt Rate > 60 mL/min (>60); Globulin 2.9 g/dL (1.7-4.1); Glucose 121 mg/dL (80-110); HEMOLYSIS < 15 (0-50); Potassium 3.8 mmol/L (3.4-5.1); Sodium 138 mmol/L (137-145); Total Protein 6.8 g/dL (6.3-8.2)
[2023-03-20 18:50] LABS: Vitamin D 25 Hydroxy (D3) 44.7 ng/mL (30.0-100.0)
[2023-03-20 19:03] LABS: TSH w/ Reflex to FT4 0.25 uIU/mL (0.47-4.68)
[2023-03-20 19:32] LABS: Free T4, Direct Thyroxine 1.06 ng/dL (0.78-2.19)
== END ==
PROVIDERS: Family Provider Student in an Organized Health Care Education/Training Program; PCP Pediatrics; Referring Provider Psychiatry & Neurology Neurology; Visit Provider Psychiatry & Neurology Neurology
DX: E11.9 Type 2 diabetes mellitus without complications (principal); E72.9 Disorder of amino-acid metabolism, unspecified; G50.0 Trigeminal neuralgia
CPT/HCPCS: 36415; 80053; 82306; 84439; 84443

== ENCOUNTER → 2023-05-15 07:03 | Outpatient (CLI) | payer MEDICARE, OTHER, SELFPAY ==
[2023-05-15 08:13] LABS: Add Manual Diff / Slide Review NO; Basophils Absolute Auto 100 /uL (0-100); Basophils Percent Auto 1.3 % (0-2); Eosinophils Absolute Auto 400 /uL (0-450); Eosinophils Percent Auto 5.9 % (2-4); Hematocrit 40.8 % (41-53); Hemoglobin 13.6 g/dL (13.5-17.5); Lymphocytes Absolute Auto 1800 /uL (1100-4500); Lymphocytes Percent Auto 30.6 % (25-40); Mean Corpuscular HGB Conc 33.4 % (30-36); Mean Corpuscular Hemoglobin 32.9 PG (26-34); Mean Corpuscular Volume 98.6 fL (80-100); Monocytes Absolute Auto 600 /uL (0-900); Monocytes Percent Auto 9.3 % (3-14); Neutrophils Absolute Auto 3200 /uL (1500-7000); Neutrophils Percent Auto 52.9 % (50-75); Platelet Count 171 X10^3/uL (150-400); Red Blood Cell Count 4.14 X10^6/uL (4.5-5.9)
[2023-05-15 08:31] LABS: Alanine Aminotransferase 22 IU/L (<50); Albumin 3.9 g/dL (3.5-5.0); Albumin Globulin Ratio 1.4 (1.0-2.8); Alkaline Phosphatase 65 U/L (38-126); Aspartate Aminotransferase 27 IU/L (17-59); BUN Creatinine Ratio 32.3 (6-22); Bilirubin Total 0.5 mg/dL (0.2-1.3); Blood Urea Nitrogen 32 mg/dL (9-20); Calcium 8.9 mg/dL (8.4-10.2); Carbon Dioxide 30 mmol/L (22-32); Chloride 104 mmol/L (98-107); Cholesterol 131 mg/dL (140-199); Estimated Glomerular Filt Rate > 60 mL/min (>60); Globulin 2.7 g/dL (1.7-4.1); Glucose 100 mg/dL (80-110); HDL Cholesterol 38 mg/dL (40-60); HEMOLYSIS 18 (0-50); LDL Cholesterol Calculated 61 mg/dL (<100); Potassium 3.8 mmol/L (3.4-5.1); Sodium 139 mmol/L (137-145); Total Protein 6.6 g/dL (6.3-8.2); Triglycerides 159 mg/dL (35-150)
== END ==
PROVIDERS: Family Provider Student in an Organized Health Care Education/Training Program; Referring Provider Internal Medicine Cardiovascular Disease; Visit Provider Internal Medicine Cardiovascular Disease
DX: I10 Essential (primary) hypertension (principal); R53.83 Other fatigue
CPT/HCPCS: 36415; 80053; 80061; 85025

== ENCOUNTER → 2023-05-22 16:09 | Outpatient (CLI) | payer MEDICARE, OTHER, SELFPAY ==
--- NOTE | 2023-05-22 16:10 | DI.ECHO.S_ITS ---
[place] [facility]---------+ [facility] +---------+ : : [address] : : : : [id number] : : : : Phone: [phone]+ Echocardiogram Report + + :Name: DARBY ZHANG Study Date: 05/22/2023 Height: 70 in : :[facility] ReadingLocation: Weight: 165 lb : : Gender: Male BSA: 1.9 m2 : :: 1945 Age: 77 yrs BP: 106/75 mmHg: :Reason For Study: Presence of Aortocoronary Bypass Graft : :Ordering Physician: ARIEL, : :MACIEJ Performed By: Traci Nelson : :Referring: MACIEJ GEORGE : + + Interpretation Summary The left ventricle is grossly normal size. The left ventricular ejection fraction is normal. The ejection fraction is estimated to be 55-60%. No significant change in LVEF from the previous study. The right ventricle is mildly dilated. The right ventricular systolic function is normal. There is mild tricuspid regurgitation. The right ventricular systolic pressure is estimated to be at least 24 mmHg based on an estimated right atrial pressure of 3 mm Hg. The ascending aorta is mildly enlarged. Maximum diameter about 3.7 cm. Previously 3.5 cm. Procedure: A two-dimensional transthoracic echocardiogram with color flow and Doppler was performed. The study quality was technically adequate. Comparison is made with the echocardiogram of 03/15/2013. The patient was in sinus bradycardia with heart rates between 55-58 bpm during the exam. Left Ventricle: The left ventricle is grossly normal size. Proximal septal thickening is noted. There is no echo evidence for significant left ventricular outflow tract obstruction. There is no thrombus. The ejection fraction is estimated to be 55-60%. The left ventricular ejection fraction is normal. Septal motion is consistent with post-operative state. Diastolic parameters suggest a relaxation abnormality of the left ventricle, consistent with probable normal filling pressures. Right Ventricle: The right ventricle is mildly dilated. The right ventricular systolic function is normal. Atria: The left atrial size is normal. The left atrium has mildly decreased in size since the prior echo exam. Right atrial size is normal. There is no Doppler evidence for an interatrial shunt. Mitral Valve: The mitral valve leaflets are slightly calcified. There is no mitral valve stenosis. There is trace mitral regurgitation. Aortic Valve: The aortic valve is trileaflet. The aortic valve opens well. There is mild aortic valve sclerosis. There is no aortic valve stenosis. There is trace aortic regurgitation. Tricuspid Valve: The tricuspid valve is normal. There is no tricuspid stenosis. There is mild tricuspid regurgitation. The right ventricular systolic pressure is estimated to be at least 24 mmHg based on an estimated right atrial pressure of 3 mm Hg. Pulmonic Valve: The pulmonic valve leaflets are thin and pliable; valve motion is normal. There is no pulmonic valvular stenosis. There is trace pulmonic regurgitation. Great Vessels: The aortic root is normal size. The ascending aorta is mildly enlarged. The pulmonary artery is normal size. The IVC is of normal diameter and collapses greater than 50% with a sniff. This suggests a low right atrial pressure of 3 mm Hg. Pericardium/ Pleura There is no pericardial effusion. There is no pleural effusion. MMode/2D Measurements & Calculations LVIDd: 4.2 cm LVOT diam: 2.0 cm LVIDs: 2.9 cm Ao root diam: 3.1 cm FS: 31.0 % asc Aorta Diam: 3.5 cm IVSd: 1.1 cm LVPWd: 0.80 cm LV higuera. diameter/BSA (cm/m^2): 2.2 LV sys. diameter/BSA (cm/m^2): 1.5 LA A2 area: 19.4 cm2 RA long axis: 5.0 cm LA A4 area: 14.8 cm2 RA area: 18.1 cm2 LA length (vol): 5.5 cm RA vol: 55.6 ml LA vol: 44.7 ml RA : 28.9 ml/m2 LA vol index: 23.2 ml/m2 RVD1 (basal): 4.3 cm LVLs ap4: 6.1 cm LVLd ap2: 7.6 cm TAPSE_phl: 1.9 cm LVLs ap2: 6.4 cm Doppler Measurements & Calculations Ao V2 max: 119.0 cm/sec LVOT Max Levar: 107.3 cm/sec Ao V2 mean: 75.8 cm/sec LV V1 max P.6 mmHg Ao max P.0 mmHg LV V1 VTI: 20.7 cm Ao mean P.0 mmHg CHRISTINE(I,D): 2.5 cm2 Ao V2 VTI: 26.5 cm CHRISTINE(V,D): 2.8 cm2 sev ratio: 0.78 CHRISTINE indexed to BSA (cm^2/m^2): 1.3 MV E max levar: 39.1 cm/sec TR max levar: 229.3 cm/sec MV A max levar: 64.8 cm/sec TR max P.1 mmHg MV E/A: 0.60 PA V2 max: 148.0 cm/sec Med Peak E' Levar: 6.3 cm/sec PA V2 mean: 91.7 cm/sec E/E' med: 6.2 PA mean P.0 mmHg Lat Peak E' Levar: 8.2 cm/sec PA pr(Accel): 20.9 mmHg E/E' lat: 4.8 E/e' average: 5.5 MV dec time: 0.32 sec SV(LVOT): 65.1 ml AV VR_phl: 0.90 CHRISTINE(VTI)/BSA_phl: 1.3 Reading Physician:05:23 PM
== END ==
PROVIDERS: Family Provider Student in an Organized Health Care Education/Training Program; Referring Provider Internal Medicine Cardiovascular Disease; Visit Provider Internal Medicine Cardiovascular Disease
DX: I08.2 Rheumatic disorders of both aortic and tricuspid valves (principal); I77.89 Other specified disorders of arteries and arterioles; R53.83 Other fatigue; Z95.1 Presence of aortocoronary bypass graft
CPT/HCPCS: 93306

== ENCOUNTER 2023-05-26 18:42 | Emergency (ER) | payer MEDICARE, OTHER, SELFPAY ==
[2023-05-26] VITALS (37 sets, daily range): BP systolic 100–137; BP diastolic 52–91; PULSE 68–92; RESP 12–24; O2SAT 92–100
--- NOTE | 2023-05-26 18:44 | ED.GENADULT ---
HPI - General Adult General Chief complaint: Allergic Reaction Stated complaint: allergic reaction/yellow jacket Time Seen by Provider: 05/26/23 18:44 History of Present Illness HPI narrative: 77-year-old gentleman prior CABG, hypertension, hyperlipidemia presents with severe anaphylaxis after being stung by a yellow jacket. Was stung about 3 weeks ago did not have any symptoms at that time. He describes being stung about 530 this evening, noting the bite. Went downstairs and was starting to eat dinner then felt his tamara face flushing than global weakness went back upstairs to lay down because he was feeling unwell. [place] that he needed to have a bowel movement got up to the bathroom had a near syncopal episode and 911 was called. When medics arrived they describe initial pressures 76. He has been given a series of IM epinephrine 0.3 followed by 0.5 x 2, IV Benadryl and an additional 10 mcg epi push. Initially required 10 L of oxygen. He is not complaining of tongue or posterior pharyngeal swelling, he is not having any wheezing. Blood pressure has responded partially and is beginning to drift down again on arrival in the emergency department. He is awake alert able to speak in full sentences without any respiratory distress wheeze or stridor. He has significant hive-like erythema over the groin that is almost an entire contiguous high and multiple hives over torso back and extremities. He is not complaining of chest pain or chest tightness. Related Data Home Medications Medication Instructions Recorded Confirmed latanoprost 0.005 % eye drops 1 drp ophthalmic (eye) BEDTIME ##0 04/29/13 05/20/23 (Xalatan) aspirin 81 mg tablet,delayed 81 mg PO DAILY ##0 04/29/17 05/20/23 release metoprolol succinate 25 mg 12.5 mg PO DAILY 06/03/19 05/20/23 tablet,extended release 24 hr carbamazepine 100 mg 100 mg PO DAILY 07/01/22 05/20/23 capsule,extended release [id number] amlodipine 5 mg tablet 5 mg PO DAILY 01/28/23 05/20/23 atorvastatin 80 mg tablet 80 mg PO DAILY 01/28/23 05/20/23 brimonidine 0.2 % eye drops 1 drp EYE-RIGHT BID 01/28/23 05/20/23 cholecalciferol (vitamin D3) PO 01/28/23 05/20/23 dorzolamide 22.3 mg-timolol 6.8 1 drp EYE-RIGHT BID 01/28/23 05/20/23 mg/mL eye drops lisinopril 20 mg tablet 20 mg PO BID 01/28/23 05/20/23 mecobalamin (vitamin B12) PO 01/28/23 05/20/23 Previous Rx's Medication Instructions Recorded levothyroxine 112 mcg tablet 112 mcg PO DAILY #90 tabs 10/15/22 chlorthalidone 25 mg tablet 12.5 mg PO DAILY #45 tabs 05/13/23 Allergies Allergy/AdvReac Type Severity Reaction Status Date / Time No Known Drug Allergies Allergy Verified 05/20/23 12:53 Review of Systems Review of Systems Narrative: Pertinent positive and negative findings as per HPI Patient History Medical History Acquired hypothyroidism (08/21/16) 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 Social History household members: spouse Smoking Status: Never smoker Exam Initial Vital Signs Initial Vital Signs: Vital Signs Pulse Rate 92 H 05/26/23 18:45 Respiratory Rate 24 05/26/23 18:45 Blood Pressure 102/64 05/26/23 18:45 Pulse Oximetry 92 05/26/23 18:45 Oxygen Delivery Method Nasal Cannula 05/26/23 18:45 Oxygen Flow Rate 6 05/26/23 18:45 General: Pale, acutely ill-appearing but alert and able to respond with full verbal responses to questioning. Significant tremor (presumably secondary to the large doses of epi already given) HEENT: Moist mucous membranes, normal sclera with reactive pupils, no tongue fullness posterior pharyngeal fullness Neck: No JVD, supple Respiratory: Lungs are clear to auscultation, no wheezing no rales no rhonchi. Full and symmetrical air movement Cardiac: Relative tachycardia but Regular rate and rhythm no murmurs no bruits Abdomen: Soft, nontender, good bowel tones, no flank pain Skin: Pale, dry significant urticarial response almost contiguous around the groin and perineum with similar contiguous urticaria in axilla and then scattered hives over the torso extending to upper lower extremities and abdomen. Neurologic: Grossly neurologically intact with no obvious asymmetries or abnormalities. Cognitively appropriate and able to carry on a conversation Extremities: No trauma, cool peripheries with maintained capillary refill and palpable dorsalis pedis pulses bilaterally Psych: Cooperative, appropriate insight and affect Course Orders Ordered: ED Orders 05/26/23 18:56 XR chest 1V Stat EKG-12 Lead Stat 05/26/23 19:02 Complete Blood Count AUTO DIFF Stat Comprehensive Metabolic Panel Stat NT-proBNP (BNP-Adult 18+) Stat Troponin I Stat 05/26/23 20:50 EKG-12 Lead Stat 05/26/23 21:04 Troponin & CK Cardiac Panel Stat Epinephrine HCl 4 mg/ Dextrose 250 mls @ 3.75 mls/hr IV TITRATE FLOR; Protocol Last Titration: 05/26/23 19:17 Dose: 2 mcg/min, 7.5 mls/hr Documented By: Admin: 05/26/23 18:59 Dose: 1 mcg/min, 3.75 mls/hr Documented By: JEREMIE Discontinued Medications Famotidine (Famotidine 20 Mg/2 Ml Vial) 20 mg IV NOW ONE Stop: 05/26/23 19:08 Last Admin: 05/26/23 19:15 Dose: 20 mg Documented By: JEREMIE Methylprednisolone (Methylprednisolone 125 Mg/2 Ml Vial) 125 mg IV NOW ONE Stop: 05/26/23 18:46 Last Admin: 05/26/23 18:48 Dose: 125 mg Documented By: JEREMIE Ondansetron HCl (Ondansetron 4 Mg/2 Ml Inj) 4 mg IV NOW ONE Stop: 05/26/23 19:54 Last Admin: 05/26/23 19:58 Dose: 4 mg Documented By: Vital Signs Vital signs: Vital Signs - 8 hr 05/26/23 18:45 05/26/23 19:06 05/26/23 19:14 Pulse Rate 92 H 82 Respiratory Rate 24 18 Blood Pressure 102/64 102/74 Pulse Oximetry 92 98 Oxygen Delivery Method Nasal Cannula Nasal Cannula Oxygen Flow Rate 6 2.5 05/26/23 19:22 05/26/23 19:15 05/26/23 19:20 Pulse Rate 75 Respiratory Rate 19 21 Blood Pressure 100/70 Pulse Oximetry 99 98 Oxygen Delivery Method Oxygen Flow Rate 05/26/23 19:25 05/26/23 19:26 05/26/23 19:26 Pulse Rate 75 81 Respiratory Rate 19 20 Blood Pressure 125/82 Pulse Oximetry 99 99 Oxygen Delivery Method Oxygen Flow Rate 05/26/23 19:30 05/26/23 19:31 05/26/23 19:31 Pulse Rate 70 68 Respiratory Rate 20 16 Blood Pressure 113/75 Pulse Oximetry 99 99 Oxygen Delivery Method Oxygen Flow Rate 05/26/23 19:35 05/26/23 19:36 05/26/23 19:36 Pulse Rate 69 72 Respiratory Rate 20 19 Blood Pressure 123/91 H Pulse Oximetry 99 99 Oxygen Delivery Method Oxygen Flow Rate 05/26/23 19:40 05/26/23 19:40 05/26/23 19:45 Pulse Rate 76 Respiratory Rate 14 Blood Pressure 137/55 L 132/61 Pulse Oximetry 98 Oxygen Delivery Method Nasal Cannula Oxygen Flow Rate 2.5 05/26/23 19:45 05/26/23 19:50 05/26/23 19:51 Pulse Rate 74 75 Respiratory Rate 17 19 Blood Pressure 112/56 L Pulse Oximetry 99 97 Oxygen Delivery Method Oxygen Flow Rate 05/26/23 19:51 05/26/23 19:55 05/26/23 19:55 Pulse Rate 75 74 Respiratory Rate 18 17 Blood Pressure 116/56 L Pulse Oximetry 98 96 Oxygen Delivery Method Oxygen Flow Rate 05/26/23 20:00 05/26/23 20:00 05/26/23 20:05 Pulse Rate 73 Respiratory Rate 14 Blood Pressure 107/52 L 130/60 Pulse Oximetry 98 Oxygen Delivery Method Oxygen Flow Rate 05/26/23 20:05 05/26/23 20:10 05/26/23 20:10 Pulse Rate 81 78 Respiratory Rate 15 12 Blood Pressure 123/60 Pulse Oximetry 96 97 Oxygen Delivery Method Nasal Cannula Oxygen Flow Rate 2.5 05/26/23 20:15 05/26/23 20:15 05/26/23 20:20 Pulse Rate 77 Respiratory Rate 15 Blood Pressure 115/54 L 102/52 L Pulse Oximetry 98 Oxygen Delivery Method Oxygen Flow Rate 05/26/23 20:20 05/26/23 20:25 05/26/23 20:25 Pulse Rate 76 78 Respiratory Rate 17 17 Blood Pressure 109/54 L Pulse Oximetry 97 97 Oxygen Delivery Method Oxygen Flow Rate 05/26/23 20:30 05/26/23 20:30 05/26/23 20:35 Pulse Rate 77 Respiratory Rate 15 Blood Pressure 109/54 L 111/56 L Pulse Oximetry 98 Oxygen Delivery Method Oxygen Flow Rate 05/26/23 20:35 05/26/23 20:40 05/26/23 20:40 Pulse Rate 76 82 Respiratory Rate 16 14 Blood Pressure 113/62 Pulse Oximetry 97 98 Oxygen Delivery Method Oxygen Flow Rate 05/26/23 20:45 05/26/23 20:45 05/26/23 20:50 Pulse Rate 78 Respiratory Rate 16 Blood Pressure 118/56 L 108/56 L Pulse Oximetry 97 Oxygen Delivery Method Oxygen Flow Rate 05/26/23 20:50 05/26/23 20:55 05/26/23 20:55 Pulse Rate 80 80 Respiratory Rate 16 14 Blood Pressure 108/57 L Pulse Oximetry 98 98 Oxygen Delivery Method Oxygen Flow Rate 05/26/23 21:00 05/26/23 21:00 05/26/23 21:05 Pulse Rate 82 79 Respiratory Rate 18 Blood Pressure 112/57 L Pulse Oximetry 99 100 Oxygen Delivery Method Oxygen Flow Rate Medical Decision Making Lab Data 05/26/23 19:02 05/26/23 19:02 Labs: Lab Results 05/26/23 05/26/23 Range/Units 19:02 19:02 WBC 6.2 (4.5-11.0) X10^3/uL RBC 4.29 L (4.5-5.9) X10^6/uL Hgb 13.9 (13.5-17.5) g/dL Hct 41.8 (41-53) % MCV 97.4 (80-100) fL MCH 32.5 (26-34) PG MCHC 33.3 (30-36) % RDW 13.4 (11.6-14.8) % Plt Count 187 (150-400) X10^3/uL Neut % (Auto) 34.2 L (50-75) % Lymph % (Auto) 56.0 H (25-40) % [place] % (Auto) 5.8 (3-14) % Eos % (Auto) 3.6 (2-4) % Baso % (Auto) 0.4 (0-2) % Neut # (Auto) 2100 (3443-9509) /uL Lymph # (Auto) 3500 (2536-0420) /uL [place] # (Auto) 400 (0-900) /uL Eos # (Auto) 200 (0-450) /uL Baso # (Auto) 0 (0-100) /uL Sodium 140 (137-145) mmol/L Potassium 3.8 (3.4-5.1) mmol/L Chloride 107 (98-107) mmol/L Carbon Dioxide 23 (22-32) mmol/L BUN 37 H (9-20) mg/dL Creatinine 1.22 (0.66-1.25) mg/dL Estimated GFR > 60 (>60) mL/min BUN/Creatinine Ratio 30.3 H (6-22) Glucose 111 H (80-110) mg/dL Calcium 9.2 (8.4-10.2) mg/dL Total Bilirubin 0.4 (0.2-1.3) mg/dL AST 26 (17-59) IU/L ALT 22 (<50) IU/L Alkaline Phosphatase 78 (38-126) U/L Troponin I < 0.012 (0.01-0.034) ng/mL NT-Pro-B Natriuret Pep 178 (<450) pg/mL Total Protein 6.6 (6.3-8.2) g/dL Albumin 3.9 (3.5-5.0) g/dL Globulin 2.7 (1.7-4.1) g/dL Albumin/Globulin Ratio 1.4 (1.0-2.8) MDM Narrative Medical decision making narrative: CC: Severe anaphylaxis Complicating co-morbidities: Known coronary artery disease post bypass Data collected from: patient, medics, Medical records reviewed: Cardiology notes from [facility] Differential considered: Anaphylaxis, acute coronary syndrome, doubt aortic abnormality such as dissection or aneurysm rupture Exam documented above, pertinent findings include: Severe urticarial rash, cool peripheries tremor from the epinephrine, alert appropriate. No upper airway compromise and no wheezing Lab Test results independently reviewed as above. Pertinent findings: Independently reviewed EKG sinus rhythm at a rate of 69, poor baseline secondary tremor. Nonspecific ST T-wave changes but no acute ischemia Imaging studies independently reviewed: Consultations:710pm Discussed with [facility] tele- maid housekeeper. Agreed with current management and did have additional suggestions 8pm Discussed maid housekeeper Dr Coni Urbano, will accept admit Treatments: Patient has already received multiple doses of epi and IV Benadryl prior to arrival. IV Solu-Medrol, epi drip is initiated. Complete a 1 L fluid bolus. Re-evaluations: Recognizing the severity of his reaction and baseline setting of underlying cardiac disease and knowing an epi drip is going to be continuing, did contact [facility] currently they do not have ICU beds Will complete initial evaluation and resuscitation and continue looking for ICU beds 705pm epi drip has been initiated. Patient's urticaria continues to expand, due to his tremor we are only able to do manual blood pressures with systolic pressures in the 100 range. He remains alert with maintained airway. 720 pt and son are updated on findings concerns and plan for hospital admission as well as likely transfer. 930 patient is re-evaluated. Complaining of increasing lower abdominal cramping which may well be secondary component of his anaphylaxis. He has been passing some stool along with diarrhea. Given hemodynamic stability relative over the last hour will try having him sit on a commode. We will also do a brief bladder scan to make sure that he is not having an acute urinary retention. Medics are available for transport, bedside report is given. Patient remains on 2 mcg of epi, still has some mild hives dramatically improved from previously. Oxygenation continues to improve currently is on 2 L with no signs of impending respiratory distress. Blood pressure has consistently been in the 120 systolic with maps above 70 levels. He is safe for transport questions are answered. He notes that the yellow jacket sting on the palm of his left hand is causing quite a bit of pain. He is given half a mg of Dilaudid to help with that as well as the abdominal cramping. Discussion: 77-year-old gentleman with severe anaphylactic reaction with hypotension, abdominal cramping and significant hives but no respiratory involvement secondary to a yellow jacket sting to the palm of his left hand. He currently is requiring an epinephrine drip. Because of this along with his history cardiac disease and cardiac bypass he will be transferred to intensive care unit at [facility] for closer monitoring and available cardiac intervention if required. ALS transport is used. He is safe for transport at this time Critical Care Time Critical Care Time Critical Care Time: Yes Total Critical Care Time: 41 Attestation: Critical care time is separate from other billable procedures. There is a high probability of a significant, sudden or life-threatening deterioration that requires my full and direct attention, intervention and personal management. This critical care time includes consultation with family and other consulting doctors, review of records, and interpretation of data from labs, EKGs and imaging as well as managements of acute anaphylaxis with hemodynamic collapse. Discharge Plan Departure Patient Disposition: [facility] Clinical Impression: Acute hypotension Anaphylaxis Qualifiers: Encounter type: initial encounter Qualified Code(s): T78.2XXA - Anaphylactic shock, unspecified, initial encounter Prescriptions: No Action latanoprost [Xalatan] 0.005 % drops 1 drp ophthalmic (eye) BEDTIME Qty: 0 aspirin 81 MG tablet,delayed release (DR/EC) 81 mg PO DAILY Qty: 0 levothyroxine 112 mcg tablet 112 mcg PO DAILY Qty: 90 2RF Hold Instructions: Reduce to 5x/week until labs chlorthalidone 25 mg tablet 12.5 mg PO DAILY Qty: 45 3RF Hold Instructions: Trial of cessation carbamazepine 100 mg capsule, ER multiphase 12 hr 100 mg PO DAILY Rx Instructions: take two capsules in the morning dorzolamide-timolol 22.3-6.8 mg/mL drops 1 drp EYE-RIGHT BID lisinopril 20 mg tablet 20 mg PO BID brimonidine 0.2 % drops 1 drp EYE-RIGHT BID Patient Comments: INSTILL 1 DROP INTO THE RIGHT EYE TWICE DAILY atorvastatin 80 mg tablet 80 mg PO DAILY amlodipine 5 mg tablet 5 mg PO DAILY cholecalciferol (vitamin D3) PO mecobalamin (vitamin B12) PO metoprolol succinate 25 mg tablet extended release 24 hr 12.5 mg PO DAILY Referrals: Miscellaneous,Doctor, MD [Primary Care Provider] -
[2023-05-26] MEDS: methylPREDNISolone 125 MG/2 ML VIAL IV (18:48)
--- NOTE | 2023-05-26 18:56 | DI.RAD.S_ITS ---
PROCEDURE: XR CHEST 1V INDICATIONS: hypoxia TECHNIQUE: One view of the chest was acquired. COMPARISON: [facility], , XR CHEST 1V, 08/21/2022, 23:41. [facility], CR, XR CHEST 1V, 04/24/2022, 14:44. FINDINGS: Surgical changes and devices: Sternotomy wires and mediastinal clips are present. Lungs and pleura: Lungs are clear. No pleural effusions or pneumothorax. Mediastinum: Mediastinal contours appear normal. Heart size is normal. Bones and chest wall: No suspicious bony lesions. Overlying soft tissues appear unremarkable. IMPRESSION: No acute cardiopulmonary abnormality. Approved by: Adilson Woo M.D. on 05/26/2023 at 20:14
[2023-05-26] MEDS: EPINEPHrine 4 MG in DEXTROSE 5% IN WATER 246 ML 3.75 MG IV (18:59)
[2023-05-26 19:10] LABS: Add Manual Diff / Slide Review NO; Basophils Absolute Auto 0 /uL (0-100); Basophils Percent Auto 0.4 % (0-2); Eosinophils Absolute Auto 200 /uL (0-450); Eosinophils Percent Auto 3.6 % (2-4); Hematocrit 41.8 % (41-53); Hemoglobin 13.9 g/dL (13.5-17.5); Lymphocytes Absolute Auto 3500 /uL (1100-4500); Mean Corpuscular HGB Conc 33.3 % (30-36); Mean Corpuscular Hemoglobin 32.5 PG (26-34); Mean Corpuscular Volume 97.4 fL (80-100); Monocytes Absolute Auto 400 /uL (0-900); Monocytes Percent Auto 5.8 % (3-14); Neutrophils Absolute Auto 2100 /uL (1500-7000); Neutrophils Percent Auto 34.2 % (50-75); Platelet Count 187 X10^3/uL (150-400); Red Blood Cell Count 4.29 X10^6/uL (4.5-5.9); Red Cell Distribution Width 13.4 % (11.6-14.8); White Blood Cell Count 6.2 X10^3/uL (4.5-11.0)
[2023-05-26] MEDS: FAMOTIDINE 20 MG/2 ML VIAL IV (19:15)
[2023-05-26 19:24] LABS: Alanine Aminotransferase 22 IU/L (<50); Albumin 3.9 g/dL (3.5-5.0); Albumin Globulin Ratio 1.4 (1.0-2.8); Alkaline Phosphatase 78 U/L (38-126); Aspartate Aminotransferase 26 IU/L (17-59); BUN Creatinine Ratio 30.3 (6-22); Bilirubin Total 0.4 mg/dL (0.2-1.3); Blood Urea Nitrogen 37 mg/dL (9-20); Calcium 9.2 mg/dL (8.4-10.2); Carbon Dioxide 23 mmol/L (22-32); Chloride 107 mmol/L (98-107); Estimated Glomerular Filt Rate > 60 mL/min (>60); Globulin 2.7 g/dL (1.7-4.1); Glucose 111 mg/dL (80-110); HEMOLYSIS < 15 (0-50); Potassium 3.8 mmol/L (3.4-5.1); Sodium 140 mmol/L (137-145); Total Protein 6.6 g/dL (6.3-8.2)
[2023-05-26 19:35] LABS: NT-proBNP (BNP-Adult 18+) 178 pg/mL (<450); Troponin I < 0.012 ng/mL (0.01-0.034)
--- NOTE | 2023-05-26 19:43 | PC.NURSE ---
Improvement of hives noted after titration to 2mcg/min of epi drip. Continues to deny oral swelling or discomfort. Able to speak in full sentences without difficulty. Managing own secretions.
[2023-05-26] MEDS: ONDANSETRON 4 MG/2 ML INJ IV (19:58)
[2023-05-26 21:30] LABS: Creatine Kinase 36 U/L (55-170)
[2023-05-26 21:42] LABS: Troponin I < 0.012 ng/mL (0.01-0.034)
[2023-05-26] MEDS: HYDROMORPHONE 0.5 MG INJ IV (21:47)
== END 2023-05-26 21:50 | disposition short-term general hospital (02) ==
PROVIDERS: Emergency Provider Emergency Medicine; Family Provider Student in an Organized Health Care Education/Training Program
DX: T63.441A Toxic effect of venom of bees, accidental (unintentional), initial encounter (principal); I95.9 Hypotension, unspecified; Z79.899 Other long term (current) drug therapy
CPT/HCPCS: 51798; 71045; 80053; 82550; 83880; 84484; 85025; 93005; 96365; 96366; 96375; 99284; 99285; J0171; J1170; J2405; J2930

== ENCOUNTER → 2023-06-05 15:47 | Outpatient (CLI) | payer MEDICARE, OTHER, SELFPAY ==
[2023-06-05 17:07] LABS: TSH w/ Reflex to FT4 1.13 uIU/mL (0.47-4.68)
== END ==
PROVIDERS: Family Provider Student in an Organized Health Care Education/Training Program; PCP Student in an Organized Health Care Education/Training Program; Referring Provider Physician Assistant; Visit Provider Physician Assistant
DX: I95.9 Hypotension, unspecified (principal); R53.83 Other fatigue
CPT/HCPCS: 36415; 84443

== ENCOUNTER → 2023-07-11 10:28 | Outpatient (CLI) | payer MEDICARE, OTHER, SELFPAY | PROVIDERS: Family Provider Student in an Organized Health Care Education/Training Program; PCP Student in an Organized Health Care Education/Training Program; Referring Provider Allergy & Immunology; Visit Provider Allergy & Immunology | DX: T78.2XXA Anaphylactic shock, unspecified, initial encounter (principal) | CPT/HCPCS: 36415; 83520; 86003 ==

== ENCOUNTER 2023-07-12 17:35 | Emergency (ER) | payer MEDICARE, OTHER, SELFPAY ==
[2023-07-12] VITALS (7 sets, daily range): BP systolic 100–131; BP diastolic 71–83; PULSE 62–74; RESP 18; TEMP 36.6–36.9; O2SAT 96–99; BMI 23.6
--- NOTE | 2023-07-12 18:09 | PC.NURSE ---
Dr. Cuadra at bedside for initial eval
--- NOTE | 2023-07-12 18:18 | ED.GENADULT ---
HPI - General Adult General Chief complaint: Environmental Exposure Stated complaint: Bee Sting Time Seen by Provider: 07/12/23 17:44 Source: patient and EMS Mode of arrival: EMS History of Present Illness HPI narrative: Patient is a 77-year-old male. Earlier this year he had a first-time episode of a anaphylactic reaction to a insect sting. He received multiple doses of epinephrine. Since that time he has followed up with an corporate trust officer. He is never had a reaction to an insect sting prior to that. He does have a EpiPen at home. This evening he was stung on the fingers of his left hand. He rather quickly gave himself a shot of epinephrine. EMS was called. He received Benadryl by EMS. Patient states he thinks he was given another dose of epinephrine by EMS. Upon my evaluation patient was not having any fevers, chest pain, shortness of breath, nausea vomiting, skin rashes, swelling of the mouth or lips. He is feeling somewhat shaky. It has been approximately 1 hour since the administration of the EpiPen Related Data Home Medications Medication Instructions Recorded Confirmed latanoprost 0.005 % eye drops 1 drp ophthalmic (eye) BEDTIME ##0 04/29/13 06/05/23 (Xalatan) aspirin 81 mg tablet,delayed 81 mg PO DAILY ##0 04/29/17 06/05/23 release metoprolol succinate 25 mg 12.5 mg PO DAILY 06/03/19 06/05/23 tablet,extended release 24 hr carbamazepine 100 mg 100 mg PO DAILY 07/01/22 06/05/23 capsule,extended release [id number] amlodipine 5 mg tablet 5 mg PO DAILY 01/28/23 06/05/23 atorvastatin 80 mg tablet 80 mg PO DAILY 01/28/23 06/05/23 brimonidine 0.2 % eye drops 1 drp EYE-RIGHT BID 01/28/23 06/05/23 cholecalciferol (vitamin D3) PO 01/28/23 06/05/23 dorzolamide 22.3 mg-timolol 6.8 1 drp EYE-RIGHT BID 01/28/23 06/05/23 mg/mL eye drops lisinopril 20 mg tablet 20 mg PO BID 01/28/23 06/05/23 mecobalamin (vitamin B12) PO 01/28/23 06/05/23 epinephrine 0.3 mg/0.3 mL IM 06/05/23 06/05/23 injection, auto-injector Previous Rx's Medication Instructions Recorded chlorthalidone 25 mg tablet 12.5 mg (1/2 x 25 mg) PO DAILY #45 05/13/23 tabs epinephrine 0.3 mg/0.3 mL 0.3 mg (0.3 mL) IM ONCE #2 ea 06/05/23 injection, auto-injector (EpiPen 2-Yair) levothyroxine 112 mcg tablet 112 mcg PO DAILY #90 tabs 07/09/23 epinephrine 0.3 mg/0.3 mL 0.3 mg (0.3 mL) IM Q5-15M PRN 07/12/23 injection, auto-injector (EpiPen anaphylaxis #2 ea 2-Yair) Allergies Allergy/AdvReac Type Severity Reaction Status Date / Time venom-wasp Allergy Severe Anaphylaxis Verified 06/05/23 21:07 Review of Systems Constitutional Constitutional: Reports system reviewed and no additional complaints, except as documented ENT Ears, Nose, Mouth, and Throat: Reports system reviewed and no additional complaints, except as documented Cardiovascular Cardiovascular: Reports system reviewed and no additional complaints, except as documented Respiratory Respiratory: Reports system reviewed and no additional complaints, except as documented Integumentary/Breasts Skin/Breast: Reports system reviewed and no additional complaints, except as documented Neurologic Neurologic: Reports system reviewed and no additional complaints, except as documented Hematologic/Lymphatic On Anticoagulants: No Allergic/Immunologic Allergic/Immunologic: Reports system reviewed and no additional complaints, except as documented Patient History Medical History Hypothyroidism COVID-19 Cervical spine arthritis Spondylolisthesis, lumbar region Environmental allergies Dystrophic nail Obstructive sleep apnea Trigeminal neuralgia PVD (peripheral vascular disease) 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 Social History household members: spouse Smoking Status: Never smoker Smoking Status: Never smoker Substance Use Type: does not use Exam Initial Vital Signs Initial Vital Signs: Vital Signs Temperature 98.4 F 07/12/23 17:38 Pulse Rate 74 07/12/23 17:38 Respiratory Rate 18 07/12/23 17:38 Blood Pressure 125/83 07/12/23 17:38 Pulse Oximetry 99 07/12/23 17:38 Oxygen Delivery Method Room Air 07/12/23 17:38 Const General: cooperative, comfortable and No ill appearing HENMT Head: normal to inspection and normocephalic Mouth: oral mucosae normal and moist mucous membranes Resp Effort & Inspection: normal respiratory effort Auscultation: clear to auscultation bilaterally Cardio Rate: regular rate GI Inspection: normal to inspection Skin Other: Swelling of the left ring finger where he was stung by the insect. Neuro General: patient alert, patient awake and patient oriented x3 Extrem General: capillary refill normal Course Vital Signs Vital signs: Vital Signs - 8 hr 07/12/23 17:38 07/12/23 18:28 07/12/23 18:30 Temperature 98.4 F Pulse Rate 74 66 66 Respiratory Rate 18 18 Blood Pressure 125/83 118/77 Pulse Oximetry 99 99 98 Oxygen Delivery Method Room Air Room Air 07/12/23 18:31 07/12/23 18:31 07/12/23 19:04 Temperature Pulse Rate 65 74 Respiratory Rate Blood Pressure 131/71 Pulse Oximetry 98 98 Oxygen Delivery Method 07/12/23 19:05 07/12/23 19:05 07/12/23 20:30 Temperature 97.9 F Pulse Rate 71 62 Respiratory Rate 18 Blood Pressure 100/74 131/75 Pulse Oximetry 96 96 Oxygen Delivery Method Room Air Room Air Medical Decision Making MDM Narrative Medical decision making narrative: At the time of my evaluation there was no indication of any anaphylactic reaction. Per the patient's report I do not think that he had an anaphylactic reaction during this event. Patient was observed here in the emergency department for several hours without any apparent return of an allergic reaction. I did refill his EpiPen. Discharge patient home with return precautions. He expressed understanding and agreement. Discharge Plan Departure Patient Disposition: Home Clinical Impression: Insect bites and stings Instructions: Insect Bites and Stings Activity Restrictions/Additional Instructions: A refill for a prescription of an EpiPen was sent to [facility] Return to the emergency department for new or worsening symptoms. Prescriptions: New epinephrine [EpiPen 2-Yair] 0.3 mg/0.3 mL auto-injector 0.3 mg IM Q5-15M PRN (Reason: anaphylaxis) Qty: 2 0RF Rx Instructions: do not exceed 3 doses per episode No Action latanoprost [Xalatan] 0.005 % drops 1 drp ophthalmic (eye) BEDTIME Qty: 0 aspirin 81 MG tablet,delayed release (DR/EC) 81 mg PO DAILY Qty: 0 chlorthalidone 25 mg tablet 12.5 mg PO DAILY Qty: 45 3RF Hold Instructions: Trial of cessation levothyroxine 112 mcg tablet 112 mcg PO DAILY Qty: 90 0RF Hold Instructions: Reduce to 5x/week until labs carbamazepine 100 mg capsule, ER multiphase 12 hr 100 mg PO DAILY Rx Instructions: take two capsules in the morning epinephrine 0.3 mg/0.3 mL auto-injector IM epinephrine [EpiPen 2-Yair] 0.3 mg/0.3 mL auto-injector 0.3 mg IM ONCE Qty: 2 1RF Rx Instructions: as a single dose; may repeat once dorzolamide-timolol 22.3-6.8 mg/mL drops 1 drp EYE-RIGHT BID lisinopril 20 mg tablet 20 mg PO BID brimonidine 0.2 % drops 1 drp EYE-RIGHT BID Patient Comments: INSTILL 1 DROP INTO THE RIGHT EYE TWICE DAILY atorvastatin 80 mg tablet 80 mg PO DAILY amlodipine 5 mg tablet 5 mg PO DAILY cholecalciferol (vitamin D3) PO mecobalamin (vitamin B12) PO metoprolol succinate 25 mg tablet extended release 24 hr 12.5 mg PO DAILY Referrals: Lele Diaz MD [Primary Care Provider] - Stand Alone Forms: Patient Portal/API
--- NOTE | 2023-07-12 19:05 | PC.NURSE ---
ambulatory to and from [facility] in no acute distress, back on monitoring equipment
== END 2023-07-12 20:27 | disposition home or self-care (01) ==
PROVIDERS: Emergency Provider Emergency Medicine; Family Provider Student in an Organized Health Care Education/Training Program; PCP Student in an Organized Health Care Education/Training Program
DX: S60.465A Insect bite (nonvenomous) of left ring finger, initial encounter (principal); T63.481A Toxic effect of venom of other arthropod, accidental (unintentional), initial encounter; X58.XXXA Exposure to other specified factors, initial encounter
CPT/HCPCS: 99281; 99283

== ENCOUNTER → 2023-08-07 15:02 | Outpatient (CLI) | payer MEDICARE, OTHER, SELFPAY | LOC: LAB 15:05 | PROVIDERS: Family Provider Student in an Organized Health Care Education/Training Program; PCP Family Medicine; Referring Provider Allergy & Immunology; Visit Provider Allergy & Immunology | DX: D47.09 Other mast cell neoplasms of uncertain behavior (principal) | CPT/HCPCS: 81273 ==

== ENCOUNTER → 2023-10-28 07:11 | Outpatient (CLI) | payer MEDICARE, OTHER, SELFPAY ==
[2023-10-28 08:08] LABS: Add Manual Diff / Slide Review NO; Basophils Absolute Auto 100 /uL (0-100); Basophils Percent Auto 1.3 % (0-2); Eosinophils Absolute Auto 300 /uL (0-450); Hematocrit 40.5 % (41-53); Hemoglobin 13.7 g/dL (13.5-17.5); Lymphocytes Absolute Auto 1700 /uL (1100-4500); Lymphocytes Percent Auto 28.2 % (25-40); Mean Corpuscular HGB Conc 33.9 % (30-36); Mean Corpuscular Hemoglobin 32.9 PG (26-34); Mean Corpuscular Volume 97.1 fL (80-100); Monocytes Absolute Auto 500 /uL (0-900); Monocytes Percent Auto 8.2 % (3-14); Neutrophils Absolute Auto 3500 /uL (1500-7000); Neutrophils Percent Auto 57.3 % (50-75); Platelet Count 174 X10^3/uL (150-400); Red Blood Cell Count 4.17 X10^6/uL (4.5-5.9); Red Cell Distribution Width 13.9 % (11.6-14.8); White Blood Cell Count 6.1 X10^3/uL (4.5-11.0)
[2023-10-28 08:29] LABS: Alanine Aminotransferase 20 IU/L (<50); Albumin 3.6 g/dL (3.5-5.0); Albumin Globulin Ratio 1.3 (1.0-2.8); Alkaline Phosphatase 66 U/L (38-126); Aspartate Aminotransferase 25 IU/L (17-59); BUN Creatinine Ratio 27.4 (6-22); Bilirubin Total 0.5 mg/dL (0.2-1.3); Blood Urea Nitrogen 34 mg/dL (9-20); Calcium 9.4 mg/dL (8.4-10.2); Carbon Dioxide 28 mmol/L (22-32); Chloride 106 mmol/L (98-107); Cholesterol 130 mg/dL (140-199); Estimated Glomerular Filt Rate 59 mL/min (>60); Globulin 2.7 g/dL (1.7-4.1); Glucose 100 mg/dL (80-110); HDL Cholesterol 41 mg/dL (40-60); HEMOLYSIS < 15 (0-50); LDL Cholesterol Calculated 58 mg/dL (<100); Potassium 3.6 mmol/L (3.4-5.1); Sodium 141 mmol/L (137-145); Total Protein 6.3 g/dL (6.3-8.2); Triglycerides 157 mg/dL (35-150)
== END ==
PROVIDERS: Family Provider Student in an Organized Health Care Education/Training Program; PCP Family Medicine; Referring Provider Internal Medicine Cardiovascular Disease; Visit Provider Internal Medicine Cardiovascular Disease
DX: R53.83 Other fatigue (principal); I10 Essential (primary) hypertension
CPT/HCPCS: 36415; 80053; 80061; 85025

== ENCOUNTER → 2024-01-27 10:18 | Outpatient (CLI) | payer MEDICARE, OTHER, SELFPAY ==
[2024-01-27 13:10] LABS: TSH w/ Reflex to FT4 0.62 uIU/mL (0.47-4.68)
[2024-01-27 13:13] LABS: Prostate Specific Antigen Scrn 3.01 ng/mL (0.1-4.0)
[2024-01-27 13:52] LABS: Hemoglobin A1C% w Est Avg Glu 5.7 % (4.0-6.0)
== END ==
LOC: LAB 10:18
PROVIDERS: Family Provider Student in an Organized Health Care Education/Training Program; PCP Family Medicine; Referring Provider Family Medicine; Visit Provider Family Medicine
DX: R53.83 Other fatigue (principal); Z12.5 Encounter for screening for malignant neoplasm of prostate; G47.33 Obstructive sleep apnea (adult) (pediatric); E03.9 Hypothyroidism, unspecified; R35.1 Nocturia
CPT/HCPCS: 36415; 83036; 84443; G0103

== ENCOUNTER 2024-04-09 18:07 | Emergency (ER) | payer MEDICARE, OTHER, SELFPAY ==
[2024-04-09 18:10] VITALS: BP 137/77; PULSE 93; RESP 20; TEMP 37.4; O2SAT 96; BMI 24.3
[2024-04-09 19:17] LABS: COVID19 -Nasal RAPID POSITIVE (Negative)
[2024-04-09 19:17] LABS: Alanine Aminotransferase 19 IU/L (<50); Albumin 3.8 g/dL (3.5-5.0); Albumin Globulin Ratio 1.3 (1.0-2.8); Alkaline Phosphatase 78 U/L (38-126); Aspartate Aminotransferase 25 IU/L (17-59); BUN Creatinine Ratio 22.3 (6-22); Bilirubin Total 0.3 mg/dL (0.2-1.3); Blood Urea Nitrogen 25 mg/dL (9-20); Calcium 8.9 mg/dL (8.4-10.2); Carbon Dioxide 26 mmol/L (22-32); Chloride 107 mmol/L (98-107); Estimated Glomerular Filt Rate > 60 mL/min (>60); Glucose 101 mg/dL (80-110); HEMOLYSIS < 15 (0-50); Potassium 3.8 mmol/L (3.4-5.1); Sodium 139 mmol/L (137-145); Total Protein 6.8 g/dL (6.3-8.2)
--- NOTE | 2024-04-09 19:17 | ED.URI ---
HPI - URI/Sore Throat <Negar Donaldson PA-C - Last Filed: 04/09/24 19:23> General Chief Complaint: Upper Respiratory Symptoms Stated Complaint: Covid+ Time Seen by Provider: 04/09/24 18:20 History of Present Illness HPI Narrative: 78-year-old male with history of trigeminal neuralgia, who is vaccinated for COVID and has had COVID twice previously with severe illness and hospitalization the 1st time presents with concern for COVID infection with a home test being positive twice, and wanting Paxlovid. Patient states that he had symptoms began yesterday afternoon with mild headache and sore throat and then last night he felt chilled and uncomfortable. Today he has had worsened sore throat and a generally is not feeling well. He has not had much of a cough yet, has had low-grade fevers only. He states he just started taking tamsulosin recently in the last few weeks and is able to urinate fine without this. Denies any other complaints or concerns. He does also state that his neurologist allows him to titrate his carbamazepine based on his symptoms with his trigeminal neuralgia. Related Data Home Medications Medication Instructions Recorded Confirmed latanoprost 0.005 % eye drops 1 drp ophthalmic (eye) BEDTIME ##0 04/29/13 03/17/24 (Xalatan) aspirin 81 mg tablet,delayed 81 mg PO DAILY ##0 04/29/17 03/17/24 release metoprolol succinate 25 mg 12.5 mg PO DAILY 06/03/19 03/17/24 tablet,extended release 24 hr carbamazepine 100 mg 100 mg PO DAILY 07/01/22 03/17/24 capsule,extended release [id number] amlodipine 5 mg tablet 5 mg PO DAILY 01/28/23 03/17/24 atorvastatin 80 mg tablet 80 mg PO DAILY 01/28/23 03/17/24 brimonidine 0.2 % eye drops 1 drp EYE-RIGHT BID 01/28/23 03/17/24 cholecalciferol (vitamin D3) PO 01/28/23 03/17/24 dorzolamide 22.3 mg-timolol 6.8 1 drp EYE-RIGHT BID 01/28/23 03/17/24 mg/mL eye drops mecobalamin (vitamin B12) PO 01/28/23 03/17/24 lisinopril 20 mg tablet 30 mg PO BID 07/16/23 03/17/24 cetirizine 10 mg tablet 10 mg PO DAILY 01/23/24 03/17/24 montelukast 10 mg tablet 10 mg PO DAILY 01/23/24 03/17/24 Previous Rx's Medication Instructions Recorded chlorthalidone 25 mg tablet 12.5 mg (1/2 x 25 mg) PO DAILY #45 05/13/23 tabs epinephrine 0.3 mg/0.3 mL 0.3 mg (0.3 mL) IM ONCE #2 ea 06/05/23 injection, auto-injector (EpiPen 2-Yair) levothyroxine 112 mcg tablet 112 mcg PO DAILY #90 tabs 10/06/23 tamsulosin 0.4 mg capsule 0.4 mg PO BEDTIME #90 caps 03/17/24 nirmatrelvir 150 mg-ritonavir 100 See Rx Instructions PO .COMPLEX 04/09/24 mg tablets in a dose pack #20 ea Allergies Allergy/AdvReac Type Severity Reaction Status Date / Time venom-wasp Allergy Severe Anaphylaxis Verified 03/17/24 15:14 Review of Systems <Negar Donaldson PA-C - Last Filed: 04/09/24 19:23> Review of Systems Narrative: See HPI Patient History <Negar Donaldson PA-C - Last Filed: 04/09/24 19:23> Medical History BPH w urinary obs/LUTS Impacted cerumen, right ear COVID-19 Cervical spine arthritis Spondylolisthesis, lumbar region Environmental allergies Dystrophic nail Obstructive sleep apnea Trigeminal neuralgia PVD (peripheral vascular disease) 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 Social History household members: spouse Smoking Status: Never smoker Smoking Status: Never smoker Substance Use Type: does not use Exam <Negar Donaldson PA-C - Last Filed: 04/09/24 19:23> Narrative Exam Narrative: GENERAL: [78] year old patient appears stated age. Well-developed patient, in mild distress slightly tired appearing. HEAD: Atraumatic. Normocephalic. EYES: Pupils equal round and reactive. Extraocular motions intact. No scleral icterus. No injection or drainage. ENT: Nose without bleeding, purulent drainage. Throat without erythema, tonsillar hypertrophy or exudate. Airway patent. bilateral ear canals and TMs normal appearance pearly allen with cone of light visible. NECK: Trachea midline. Non tender CARDIOVASCULAR: Regular rate and rhythm without murmurs, gallops, or rubs. RESPIRATORY: Clear to auscultation. Breath sounds equal bilaterally. No wheezes, rales, or rhonchi. EXTREMITIES: No edema or joint tenderness. NEURO: AOx3. SKIN: No rash or erythema of visible areas Initial Vital Signs Initial Vital Signs: Vital Signs Temperature 99.3 F 04/09/24 18:10 Pulse Rate 93 H 04/09/24 18:10 Respiratory Rate 20 04/09/24 18:10 Blood Pressure 137/77 04/09/24 18:10 Pulse Oximetry 96 04/09/24 18:10 Oxygen Delivery Method Room Air 04/09/24 18:10 <Suzy Nunez MD - Last Filed: 04/09/24 22:34> Initial Vital Signs Initial Vital Signs: Vital Signs Temperature 99.3 F 04/09/24 18:10 Pulse Rate 93 H 04/09/24 18:10 Respiratory Rate 20 04/09/24 18:10 Blood Pressure 137/77 04/09/24 18:10 Pulse Oximetry 96 04/09/24 18:10 Oxygen Delivery Method Room Air 04/09/24 18:10 Course <Negar Donaldson PA-C - Last Filed: 04/09/24 19:23> Orders Ordered: ED Orders 04/09/24 18:45 COVID19 -Nasal RAPID Stat 04/09/24 18:55 CMP [Comprehensive Metabolic Panel] Stat Vital Signs Vital signs: Vital Signs - 8 hr 04/09/24 18:10 04/09/24 19:23 Temperature 99.3 F Pulse Rate 93 H 89 Respiratory Rate 20 18 Blood Pressure 137/77 135/76 Pulse Oximetry 96 98 Oxygen Delivery Method Room Air Room Air <Suzy Nunez MD - Last Filed: 04/09/24 22:34> Orders Ordered: ED Orders 04/09/24 18:45 COVID19 -Nasal RAPID Stat 04/09/24 18:55 CMP [Comprehensive Metabolic Panel] Stat Vital Signs Vital signs: Vital Signs - 8 hr 04/09/24 18:10 04/09/24 19:23 Temperature 99.3 F Pulse Rate 93 H 89 Respiratory Rate 20 18 Blood Pressure 137/77 135/76 Pulse Oximetry 96 98 Oxygen Delivery Method Room Air Room Air MDM - URI/Sore Throat <Negar Donaldson PA-C - Last Filed: 04/09/24 19:23> Differential Diagnosis Differential diagnosis: Likely upper respiratory infection and other ( COVID-19, encounter for prescription) Medical Records Attestation: I reviewed the patient's medical records. Lab Data Attestation: I reviewed the patient's lab results. 04/09/24 18:55 Labs: Lab Results 04/09/24 04/09/24 Range/Units 18:45 18:55 Sodium 139 (137-145) mmol/L Potassium 3.8 (3.4-5.1) mmol/L Chloride 107 (98-107) mmol/L Carbon Dioxide 26 (22-32) mmol/L BUN 25 H (9-20) mg/dL Creatinine 1.12 (0.66-1.25) mg/dL Estimated GFR > 60 (>60) mL/min BUN/Creatinine Ratio 22.3 H (6-22) Glucose 101 (80-110) mg/dL Calcium 8.9 (8.4-10.2) mg/dL Total Bilirubin 0.3 (0.2-1.3) mg/dL AST 25 (17-59) IU/L ALT 19 (<50) IU/L Alkaline Phosphatase 78 (38-126) U/L Total Protein 6.8 (6.3-8.2) g/dL Albumin 3.8 (3.5-5.0) g/dL Globulin 3.0 (1.7-4.1) g/dL Albumin/Globulin Ratio 1.3 (1.0-2.8) SARS-CoV-2 (PCR) Positive H (Negative) MDM Narrative Medical decision making narrative: this is a 78-year-old male who has previously been vaccinated for COVID and had COVID with hospitalization and severe illness a few years prior presenting with concern for COVID infection since yesterday with positive test this morning and wanting Paxlovid. Based on interaction check her in up-to-date his tamsulosin is not safe to take with Paxlovid nor is his carbamazepine. We discussed this at length together with patient's as well. He has taken Paxlovid in the last year and a half when he had COVID recently along with his carbamazepine. He was not taking tamsulosin at that time. He is open to stopping the tamsulosin. He also states he can titrate his carbamazepine based on his symptoms and is open to taking the lowest dose of carbamazepine ( for his trigeminal neuralgia) while he is on Paxlovid but he does feel pretty strongly that he wants to take Paxlovid. He says it was very helpful for him last time. We discussed risks and benefits and advised him that he absolutely must reach out to his neurologist and discuss this with them and make sure they are comfortable with this as well. Also will prescribe the lower dose of Paxlovid for him. Rechecking his labs as they have not been checked since October of 2023. Also checking a COVID test to confirm he is positive today in the ER. Prescription sent in. patient's symptoms are so far fairly mild and there is no indication for additional labs or imaging today. Return precautions provided, follow-up plan discussed, all questions answered. <Suzy Nunez MD - Last Filed: 04/09/24 22:34> Lab Data Labs: Lab Results 04/09/24 04/09/24 Range/Units 18:45 18:55 Sodium 139 (137-145) mmol/L Potassium 3.8 (3.4-5.1) mmol/L Chloride 107 (98-107) mmol/L Carbon Dioxide 26 (22-32) mmol/L BUN 25 H (9-20) mg/dL Creatinine 1.12 (0.66-1.25) mg/dL Estimated GFR > 60 (>60) mL/min BUN/Creatinine Ratio 22.3 H (6-22) Glucose 101 (80-110) mg/dL Calcium 8.9 (8.4-10.2) mg/dL Total Bilirubin 0.3 (0.2-1.3) mg/dL AST 25 (17-59) IU/L ALT 19 (<50) IU/L Alkaline Phosphatase 78 (38-126) U/L Total Protein 6.8 (6.3-8.2) g/dL Albumin 3.8 (3.5-5.0) g/dL Globulin 3.0 (1.7-4.1) g/dL Albumin/Globulin Ratio 1.3 (1.0-2.8) SARS-CoV-2 (PCR) Positive H (Negative) Discharge Plan Departure Patient Disposition: Home Clinical Impression: COVID-19 Activity Restrictions/Additional Instructions: *You have been diagnosed with [ COVID-19] *What to do: *Please continue to take your regular medications as directed. [ 1] New medication prescriptions sent to your pharmacy: [ ] [ ] New medication written as a paper prescription [ ] No new medications given *Please follow up with your primary care provider in 2-3 days, call for an appointment. Let them know you were seen in the Emergency Department and that we ask that you be seen in follow up. We will electronically transmit a record of today's note if your PCP is in our system. as we discussed today some of her medications are not appropriate to take with Paxlovid including tamsulosin and carbamazepine. You are going to stop the tamsulosin, this is reasonable as he just started this in the last few weeks and your able to be okay without it. Your carbamazepine you are going to lower the dose and talk to her neurologist. You have taken Paxlovid previously with the carbamazepine so it is not unreasonable to do so again. We did discuss the risks and benefits of Paxlovid. And in particular its potential interactions with these medications. We did check her labs today including COVID test and metabolic panel to evaluate and make sure that your kidney function is appropriate for taking Paxlovid.Please reach out to your primary care provider as well as your neurologist and advise them of your COVID-19 status, the fact that you are taking the lower dose of Paxlovid and that you have made a change to your carbamazepine medication. Please make sure you seek re-evaluation if you have new orWorsening symptoms. I hope you feel better soon. *If you do not have a primary care provider please contact the [facility] Resource line at [phone]. They will ask some questions about your medical history and help get you set up with a doctor in the community. *Return to Emergency Department if you should have any new, worsening or concerning symptoms, such as [fever greater than 101 F, shaking chills, worsening pain, persistent vomiting or other bothersome symptoms] Prescriptions: New nirmatrelvir-ritonavir 150-100 mg tablets,dose pack See Rx Instructions .ROUTE .COMPLEX Qty: 20 0RF Rx Instructions: orally per package directions No Action latanoprost [Xalatan] 0.005 % drops 1 drp ophthalmic (eye) BEDTIME Qty: 0 aspirin 81 MG tablet,delayed release (DR/EC) 81 mg PO DAILY Qty: 0 chlorthalidone 25 mg tablet 12.5 mg PO DAILY Qty: 45 3RF Hold Instructions: Trial of cessation levothyroxine 112 mcg tablet 112 mcg PO DAILY Qty: 90 1RF Hold Instructions: Reduce to 5x/week until labs carbamazepine 100 mg capsule, ER multiphase 12 hr 100 mg PO DAILY Rx Instructions: take two capsules in the morning epinephrine [EpiPen 2-Yair] 0.3 mg/0.3 mL auto-injector 0.3 mg IM ONCE Qty: 2 1RF Rx Instructions: as a single dose; may repeat once cetirizine 10 mg tablet 10 mg PO DAILY montelukast 10 mg tablet 10 mg PO DAILY dorzolamide-timolol 22.3-6.8 mg/mL drops 1 drp EYE-RIGHT BID brimonidine 0.2 % drops 1 drp EYE-RIGHT BID Patient Comments: INSTILL 1 DROP INTO THE RIGHT EYE TWICE DAILY atorvastatin 80 mg tablet 80 mg PO DAILY amlodipine 5 mg tablet 5 mg PO DAILY cholecalciferol (vitamin D3) PO mecobalamin (vitamin B12) PO lisinopril 20 mg tablet 30 mg PO BID metoprolol succinate 25 mg tablet extended release 24 hr 12.5 mg PO DAILY tamsulosin 0.4 mg capsule 0.4 mg PO BEDTIME Qty: 90 3RF Referrals: Britta Campa DO [Primary Care Provider] - Stand Alone Forms: Patient Portal/API ED Sign-out <Suzy Nunez MD - Last Filed: 04/09/24 22:34> Cosign ED Attending Costerryature Attestation: I did not see this patient. I was available all times for consultation.
[2024-04-09 19:23] VITALS: BP 135/76; PULSE 89; RESP 18; O2SAT 98
== END 2024-04-09 19:27 | disposition home or self-care (01) ==
PROVIDERS: Emergency Provider Student in an Organized Health Care Education/Training Program; Family Provider Student in an Organized Health Care Education/Training Program; PCP Family Medicine
DX: U07.1 COVID-19 (principal)
CPT/HCPCS: 80053; 87635; 99281; 99283

== ENCOUNTER → 2024-04-19 16:04 | Outpatient (CLI) | payer MEDICARE, OTHER, SELFPAY ==
[2024-04-19 17:25] LABS: Prostate Specific Antigen 3.15 ng/mL (0.10-4.00)
== END ==
PROVIDERS: Family Provider Student in an Organized Health Care Education/Training Program; PCP Family Medicine; Referring Provider Specialist; Visit Provider Specialist
DX: N40.1 Benign prostatic hyperplasia with lower urinary tract symptoms (principal); N13.8 Other obstructive and reflux uropathy
CPT/HCPCS: 36415; 84153

== ENCOUNTER 2024-08-20 17:38 | Emergency (ER) | payer MEDICARE, OTHER, SELFPAY ==
[2024-08-20 17:41] VITALS: BP 143/70; PULSE 68; RESP 19; TEMP 36.3; O2SAT 97; BMI 23.6
--- NOTE | 2024-08-20 17:58 | DI.RAD.S_ITS ---
PROCEDURE: XR FINGER RT MIN 2V INDICATIONS: Right thumb laceration TECHNIQUE: AP hand, 2 views of the 1st finger(s) acquired. COMPARISON: None. FINDINGS: Bones: No acute displaced fracture or dislocation. Mild background degenerative changes. Soft tissues: First digit soft tissue injury. No radiopaque foreign body. IMPRESSION: No displaced fracture or dislocation. If there is high concern for occult injury, consider repeat radiography or cross-sectional imaging. First digit soft tissue injury. Dictated by: Gulshan Araiza M.D. on 08/20/2024 at 18:24 Approved by: Gulshan Araiza M.D. on 08/20/2024 at 18:25
--- NOTE | 2024-08-20 18:21 | PC.NURSE ---
Patient had tetanus update in 2021 according to notes from provider [facility] from previous thumb lac.
--- NOTE | 2024-08-20 18:34 | ED.WOUNDLAC ---
HPI - Wound/Laceration <René Carson PA-C - Last Filed: 08/23/24 10:42> General Chief Complaint: Wound/Laceration Stated Complaint: Finger laceration with power tool Time Seen by Provider: 08/20/24 18:04 Source: patient and family Mode of arrival: Family Vehicle History of Present Illness HPI narrative: This is an 79 y/o male presenting to emergency department due to R thumb injury. Was using a powersaw when he cut off the pad of his R thumb. Not on blood thinners, takes daily baby aspirin. Tetanus is UTD. Related Data Home Medications Medication Instructions Recorded Confirmed latanoprost 0.005 % eye drops 1 drp ophthalmic (eye) BEDTIME ##0 04/29/13 08/26/24 (Xalatan) aspirin 81 mg tablet,delayed 81 mg PO DAILY ##0 04/29/17 08/26/24 release metoprolol succinate 25 mg 12.5 mg PO DAILY 06/03/19 08/26/24 tablet,extended release 24 hr carbamazepine 100 mg 100 mg PO DAILY 07/01/22 08/26/24 capsule,extended release [id number] amlodipine 5 mg tablet 5 mg PO DAILY 01/28/23 08/26/24 atorvastatin 80 mg tablet 80 mg PO DAILY 01/28/23 08/26/24 brimonidine 0.2 % eye drops 1 drp EYE-RIGHT BID 01/28/23 08/26/24 cholecalciferol (vitamin D3) PO 01/28/23 08/26/24 dorzolamide 22.3 mg-timolol 6.8 1 drp EYE-RIGHT BID 01/28/23 08/26/24 mg/mL eye drops mecobalamin (vitamin B12) PO 01/28/23 08/26/24 lisinopril 20 mg tablet 30 mg PO BID 07/16/23 08/26/24 cetirizine 10 mg tablet 10 mg PO DAILY 01/23/24 08/26/24 montelukast 10 mg tablet 10 mg PO DAILY 01/23/24 08/26/24 Previous Rx's Medication Instructions Recorded epinephrine 0.3 mg/0.3 mL 0.3 mg (0.3 mL) IM ONCE #2 ea 06/24/24 injection, auto-injector (EpiPen 2-Yair) chlorthalidone 25 mg tablet 12.5 mg (1/2 x 25 mg) PO DAILY #45 07/05/24 tabs levothyroxine 112 mcg tablet 112 mcg PO DAILY #90 tabs 07/16/24 tamsulosin 0.4 mg capsule 0.8 mg (2 x 0.4 mg) PO DAILY #120 07/22/24 caps cephalexin 500 mg capsule 500 mg PO QID #28 caps 08/20/24 oxycodone 5 mg capsule 5 mg PO BID PRN pain #10 caps 08/20/24 Allergies Allergy/AdvReac Type Severity Reaction Status Date / Time venom-wasp Allergy Severe Anaphylaxis Verified 08/26/24 14:44 Patient History <René Carson PA-C - Last Filed: 08/23/24 10:42> Medical History BPH w urinary obs/LUTS Impacted cerumen, right ear COVID-19 Cervical spine arthritis Spondylolisthesis, lumbar region Environmental allergies Dystrophic nail Obstructive sleep apnea Trigeminal neuralgia PVD (peripheral vascular disease) 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 Social History household members: spouse Smoking Status: Former smoker Smoking Status: Never smoker Exam <René Carson PA-C - Last Filed: 08/23/24 10:42> Narrative Exam Narrative: Extremity: R thumb avulsion injury affecting the pad of the R thumb. Minimal oozing bleeding. No difficulty flexing or extending at the IP joint. No foreign bodies. Initial Vital Signs Initial Vital Signs: Vital Signs Temperature 97.4 F L 08/20/24 17:41 Pulse Rate 68 08/20/24 17:41 Respiratory Rate 19 08/20/24 17:41 Blood Pressure 143/70 H 08/20/24 17:41 Pulse Oximetry 97 08/20/24 17:41 Oxygen Delivery Method Room Air 08/20/24 17:41 <Suzy Diaz DO - Last Filed: 09/05/24 23:51> Initial Vital Signs Initial Vital Signs: Vital Signs Temperature 97.4 F L 08/20/24 17:41 Pulse Rate 68 08/20/24 17:41 Respiratory Rate 19 08/20/24 17:41 Blood Pressure 143/70 H 08/20/24 17:41 Pulse Oximetry 97 08/20/24 17:41 Oxygen Delivery Method Room Air 08/20/24 17:41 Course <René Carson PA-C - Last Filed: 08/23/24 10:42> Orders Ordered: Discontinued Medications Diphtheria/Tetanus/Acell Pertussis (Tet,Diph,Pertuss(Acell),Vac/Pf 0.5 Ml Syringe) 0.5 ml IM .ONCE ONE Stop: 08/20/24 18:17 Last Admin: 08/20/24 18:20 Dose: Not Given Documented By: DAMARIS Vital Signs Vital signs: Vital Signs - 8 hr 08/20/24 17:41 Temperature 97.4 F L Pulse Rate 68 Respiratory Rate 19 Blood Pressure 143/70 H Pulse Oximetry 97 Oxygen Delivery Method Room Air <Suzy Diaz DO - Last Filed: 09/05/24 23:51> Orders Ordered: Discontinued Medications Diphtheria/Tetanus/Acell Pertussis (Tet,Diph,Pertuss(Acell),Vac/Pf 0.5 Ml Syringe) 0.5 ml IM .ONCE ONE Stop: 08/20/24 18:17 Last Admin: 08/20/24 18:20 Dose: Not Given Documented By: DAMARIS Vital Signs Vital signs: Vital Signs - 8 hr 08/20/24 17:41 Temperature 97.4 F L Pulse Rate 68 Respiratory Rate 19 Blood Pressure 143/70 H Pulse Oximetry 97 Oxygen Delivery Method Room Air MDM - Wound/Laceration <René Carson PA-C - Last Filed: 08/23/24 10:42> Imaging Data Extremity x-ray #1: Radiologist's Impression: Close Finger X-Ray (Signed) Gulshan Araiza - 08/20/24 DI Result 07/06/24 Chest X-Ray (Signed) Adilson Woo - 05/26/23 Echocardiogram Ultrasound (Signed) Sapphire Swann - 05/22/23 Chest X-Ray (Signed) Wojciech Garciael - 08/21/22 Renal Ultrasound (Signed) Pablo Helmsw - 07/09/22 Hip X-Ray (Signed) KedarJarred - 04/26/22 Chest X-Ray (Signed) Axel Dominique - 04/24/22 Lumbar Spine MRI (Signed) Khanh Covington - 04/05/20 Thyroid Ultrasound (Signed) Axel Dominique - 11/24/19 Bone Densitometry 10/08/19 DEXA Result 10/08/19 Echocardiogram Ultrasound (Signed) Bonifacio Higginbotham - 10/07/18 Myocardial Perfusion Scan Nuc Med (Signed) Go Gamino - 10/06/18 DI Result 09/21/18 DI Result 09/21/18 Launch?[place] [address] XRay Report Signed Patient: Raul Pond MR#: [id number] : 1945 Acct:[id number] Age/Sex: 79 / M Date of Service: 08/20/24 Loc: ED Accession Number: [id number] Procedure: XR finger RT min 2V Ordering Provider: Suzy Diaz D.O. PROCEDURE: XR FINGER RT MIN 2V INDICATIONS: Right thumb laceration TECHNIQUE: AP hand, 2 views of the 1st finger(s) acquired. COMPARISON: None. FINDINGS: Bones: No acute displaced fracture or dislocation. Mild background degenerative changes. Soft tissues: First digit soft tissue injury. No radiopaque foreign body. IMPRESSION: No displaced fracture or dislocation. If there is high concern for occult injury, consider repeat radiography or cross-sectional imaging. First digit soft tissue injury. Dictated by: Gulshan Araiza M.D. on 08/20/2024 at 18:24 Approved by: Gulshan Araiza M.D. on 08/20/2024 at 18:25 [facility] Narrative Medical decision making narrative: ED course: 79 y/o male w/ avulsion finger injury. No deeper lacerations to repair. Tetanus was UTD. XR show no FB or fracture. Wound was bandaged and pt discharged CC: Finger injury Complicating co-morbidities: None Data collected from: Previous notes Medical records reviewed: No pertinent hx Differential considered, but not limited to: Laceration, fx, FB Exam documented above, pertinent findings include: No deeper lacerations Lab Test results independently reviewed as above. Pertinent findings: None obtained Imaging studies independently reviewed: No FB or fx Scores Used: None MIPS Elements: None Consultations: None Treatments: Bandage Re-evaluations: None Discussion: Discussed plan with the patient was comfortable with the plan Diagnosis: Finger avulsion injury Disposition: see below, along with detailed discharge instructions that have been reviewed with patient as well as indications for ED re-evaluation and additional outpatient follow up Discharge Plan Departure Patient Disposition: Home Clinical Impression: Avulsion of skin Activity Restrictions/Additional Instructions: Thank you for coming to the [facility] Emergency Department today. As we discussed the antibiotics prescribed in the event that you do notice some redness were purulent drainage coming from the wound. I do not recommend you start taking them currently but only of UC these worsening symptoms. I recommended use Tylenol as needed for the pain but you may useThe oxycodone prescribed very sparingly if needed. . Please return to the emergency department if you develop any Redness spreading up the finger or hand, or any other concerning signs or symptoms. I hope you feel better soon. Please follow up with your primary care provider within a week if your symptoms continue. If you do not have a primary care provider please contact the [facility] Resource line at [phone]. They will ask some questions about your medical history and help you get set up with a provider in the community. Prescriptions: New cephalexin 500 mg capsule 500 mg PO QID Qty: 28 0RF oxycodone 5 mg capsule 5 mg PO BID PRN (Reason: pain) Qty: 10 0RF No Action latanoprost [Xalatan] 0.005 % drops 1 drp ophthalmic (eye) BEDTIME Qty: 0 aspirin 81 MG tablet,delayed release (DR/EC) 81 mg PO DAILY Qty: 0 epinephrine [EpiPen 2-Yair] 0.3 mg/0.3 mL auto-injector 0.3 mg IM ONCE Qty: 2 1RF Rx Instructions: as a single dose; may repeat once chlorthalidone 25 mg tablet 12.5 mg PO DAILY Qty: 45 3RF Hold Instructions: Trial of cessation levothyroxine 112 mcg tablet 112 mcg PO DAILY Qty: 90 1RF Hold Instructions: Reduce to 5x/week until labs carbamazepine 100 mg capsule, ER multiphase 12 hr 100 mg PO DAILY Rx Instructions: take two capsules in the morning cetirizine 10 mg tablet 10 mg PO DAILY montelukast 10 mg tablet 10 mg PO DAILY dorzolamide-timolol 22.3-6.8 mg/mL drops 1 drp EYE-RIGHT BID brimonidine 0.2 % drops 1 drp EYE-RIGHT BID Patient Comments: INSTILL 1 DROP INTO THE RIGHT EYE TWICE DAILY atorvastatin 80 mg tablet 80 mg PO DAILY amlodipine 5 mg tablet 5 mg PO DAILY cholecalciferol (vitamin D3) PO mecobalamin (vitamin B12) PO lisinopril 20 mg tablet 30 mg PO BID metoprolol succinate 25 mg tablet extended release 24 hr 12.5 mg PO DAILY tamsulosin 0.4 mg capsule 0.8 mg PO DAILY Qty: 120 0RF Referrals: Britta Campa DO [Primary Care Provider] - Stand Alone Forms: Patient Portal/API/Survey ED Sign-out <Suzy Diaz DO - Last Filed: 09/05/24 23:51> Cosign ED Attending Cosignature Attestation: I was immediately available in the department for consultation.
[2024-08-20 18:58] VITALS: BP 120/67; PULSE 63; RESP 16; O2SAT 98
== END 2024-08-20 19:00 | disposition home or self-care (01) ==
PROVIDERS: Emergency Provider Physician Assistant Medical; Family Provider Student in an Organized Health Care Education/Training Program; PCP Family Medicine
DX: S61.001A Unspecified open wound of right thumb without damage to nail, initial encounter (principal); W27.0XXA Contact with workbench tool, initial encounter
CPT/HCPCS: 73140; 99283

== ENCOUNTER → 2024-09-17 09:23 | Outpatient (CLI) | payer MEDICARE, OTHER, SELFPAY | PROVIDERS: Family Provider Student in an Organized Health Care Education/Training Program; PCP Family Medicine; Referring Provider Student in an Organized Health Care Education/Training Program; Visit Provider Physician Assistant | DX: S61.011A Laceration without foreign body of right thumb without damage to nail, initial encounter (principal); L98.8 Other specified disorders of the skin and subcutaneous tissue; R60.0 Localized edema; M79.644 Pain in right finger(s); I10 Essential (primary) hypertension; E78.5 Hyperlipidemia, unspecified; I25.10 Atherosclerotic heart disease of native coronary artery without angina pectoris; G50.0 Trigeminal neuralgia | CPT/HCPCS: 11042; 99203; 99213 ==

== ENCOUNTER → 2024-09-24 09:49 | Outpatient (CLI) | payer MEDICARE, OTHER, SELFPAY | PROVIDERS: Family Provider Student in an Organized Health Care Education/Training Program; PCP Family Medicine; Referring Provider Student in an Organized Health Care Education/Training Program; Visit Provider Surgery | DX: S61.011A Laceration without foreign body of right thumb without damage to nail, initial encounter (principal); L98.8 Other specified disorders of the skin and subcutaneous tissue; R60.0 Localized edema; M79.641 Pain in right hand; I73.9 Peripheral vascular disease, unspecified | CPT/HCPCS: 11042; 99213 ==

== ENCOUNTER → 2024-10-01 09:38 | Outpatient (CLI) | payer MEDICARE, OTHER, SELFPAY | PROVIDERS: Family Provider Student in an Organized Health Care Education/Training Program; PCP Family Medicine; Referring Provider Student in an Organized Health Care Education/Training Program; Visit Provider Physician Assistant | DX: S61.011A Laceration without foreign body of right thumb without damage to nail, initial encounter (principal); R60.0 Localized edema; M79.641 Pain in right hand; G50.0 Trigeminal neuralgia; I10 Essential (primary) hypertension; I25.10 Atherosclerotic heart disease of native coronary artery without angina pectoris | CPT/HCPCS: 11042; 99213 ==

== ENCOUNTER → 2024-10-05 08:57 | Outpatient (CLI) | payer MEDICARE, OTHER, SELFPAY | LOC: WC 08:59 | PROVIDERS: Family Provider Student in an Organized Health Care Education/Training Program; PCP Family Medicine; Referring Provider Student in an Organized Health Care Education/Training Program; Visit Provider Surgery | DX: S61.011A Laceration without foreign body of right thumb without damage to nail, initial encounter (principal); R60.0 Localized edema | CPT/HCPCS: 99213 ==

== ENCOUNTER → 2024-10-08 10:25 | Outpatient (CLI) | payer MEDICARE, OTHER, SELFPAY | PROVIDERS: Family Provider Student in an Organized Health Care Education/Training Program; PCP Family Medicine; Referring Provider Student in an Organized Health Care Education/Training Program; Visit Provider Physician Assistant | DX: S61.001A Unspecified open wound of right thumb without damage to nail, initial encounter (principal); R23.4 Changes in skin texture; I10 Essential (primary) hypertension; I73.9 Peripheral vascular disease, unspecified | CPT/HCPCS: 11042; 99213 ==

== ENCOUNTER → 2024-10-11 07:03 | Outpatient (CLI) | payer MEDICARE, OTHER, SELFPAY ==
[2024-10-11 07:44] LABS: Add Manual Diff / Slide Review NO; Basophils Absolute Auto 100 /uL (0-100); Basophils Percent Auto 1.1 % (0-2); Eosinophils Absolute Auto 400 /uL (0-450); Eosinophils Percent Auto 5.5 % (2-4); Hematocrit 41.4 % (41-53); Hemoglobin 13.9 g/dL (13.5-17.5); Lymphocytes Absolute Auto 1600 /uL (1100-4500); Lymphocytes Percent Auto 25.6 % (25-40); Mean Corpuscular HGB Conc 33.6 % (30-36); Mean Corpuscular Hemoglobin 32.8 PG (26-34); Mean Corpuscular Volume 97.6 fL (80-100); Monocytes Absolute Auto 500 /uL (0-900); Monocytes Percent Auto 7.6 % (3-14); Neutrophils Absolute Auto 3900 /uL (1500-7000); Neutrophils Percent Auto 60.2 % (50-75); Platelet Count 183 X10^3/uL (150-400); Red Blood Cell Count 4.24 X10^6/uL (4.5-5.9); Red Cell Distribution Width 13.7 % (11.6-14.8); White Blood Cell Count 6.4 X10^3/uL (4.5-11.0)
[2024-10-11 08:11] LABS: Alanine Aminotransferase 26 IU/L (<50); Albumin 4.1 g/dL (3.5-5.0); Albumin Globulin Ratio 1.7 (1.0-2.8); Alkaline Phosphatase 68 U/L (38-126); Aspartate Aminotransferase 32 IU/L (17-59); Bilirubin Total 0.6 mg/dL (0.2-1.3); Blood Urea Nitrogen 31 mg/dL (9-20); Calcium 9.5 mg/dL (8.4-10.2); Carbon Dioxide 27 mmol/L (22-32); Chloride 104 mmol/L (98-107); Cholesterol 136 mg/dL (140-199); Estimated Glomerular Filt Rate 53 mL/min (>60); Globulin 2.4 g/dL (1.7-4.1); Glucose 97 mg/dL (80-110); HDL Cholesterol 40 mg/dL (40-60); HEMOLYSIS < 15 (0-50); LDL Cholesterol Calculated 70 mg/dL (<100); Potassium 4.2 mmol/L (3.4-5.1); Sodium 138 mmol/L (137-145); Total Protein 6.5 g/dL (6.3-8.2); Triglycerides 130 mg/dL (35-150)
[2024-10-11 08:39] LABS: Thyroid Stimulating Hormone 1.04 uIU/mL (0.47-4.68)
== END ==
PROVIDERS: Family Provider Student in an Organized Health Care Education/Training Program; PCP Family Medicine; Referring Provider Psychiatry & Neurology Neurology; Visit Provider Internal Medicine Cardiovascular Disease
DX: Z79.899 Other long term (current) drug therapy (principal); E78.5 Hyperlipidemia, unspecified
CPT/HCPCS: 36415; 80053; 80061; 84443; 85025

== ENCOUNTER → 2024-10-15 14:07 | Outpatient (CLI) | payer MEDICARE, OTHER, SELFPAY | LOC: WC 14:09 | PROVIDERS: Family Provider Student in an Organized Health Care Education/Training Program; PCP Family Medicine; Referring Provider Student in an Organized Health Care Education/Training Program; Visit Provider Physician Assistant | DX: S61.011D Laceration without foreign body of right thumb without damage to nail, subsequent encounter (principal) | CPT/HCPCS: 99212; 99213 ==

== ENCOUNTER → 2024-10-25 15:17 | Outpatient (CLI) | payer MEDICARE, OTHER, SELFPAY | PROVIDERS: Family Provider Student in an Organized Health Care Education/Training Program; PCP Family Medicine; Referring Provider Student in an Organized Health Care Education/Training Program; Visit Provider Surgery | DX: S61.011A Laceration without foreign body of right thumb without damage to nail, initial encounter (principal) | CPT/HCPCS: 99213 ==

== ENCOUNTER → 2024-10-29 12:54 | Outpatient (CLI) | payer MEDICARE, OTHER, SELFPAY ==
[2024-10-29 14:28] LABS: Albumin 4.5 g/dL (3.5-5.0); BUN Creatinine Ratio 23.1 (6-22); Blood Urea Nitrogen 36 mg/dL (9-20); Calcium 9.2 mg/dL (8.4-10.2); Carbon Dioxide 26 mmol/L (22-32); Chloride 102 mmol/L (98-107); Estimated Glomerular Filt Rate 45 mL/min (>60); Glucose 104 mg/dL (80-110); HEMOLYSIS < 15 (0-50); Phosphorous 3.7 mg/dL (2.3-3.7); Potassium 4.1 mmol/L (3.4-5.1); Sodium 139 mmol/L (137-145)
== END ==
PROVIDERS: Family Provider Student in an Organized Health Care Education/Training Program; PCP Family Medicine; Referring Provider Family Medicine; Visit Provider Family Medicine
DX: Z90.5 Acquired absence of kidney (principal); E78.2 Mixed hyperlipidemia; I25.10 Atherosclerotic heart disease of native coronary artery without angina pectoris; N18.30 Chronic kidney disease, stage 3 unspecified; I77.9 Disorder of arteries and arterioles, unspecified; I72.2 Aneurysm of renal artery
CPT/HCPCS: 36415; 80069

== ENCOUNTER → 2024-11-01 09:58 | Outpatient (CLI) | payer MEDICARE, OTHER, SELFPAY ==
--- NOTE | 2024-11-01 09:59 | DI.US.S_ITS ---
PROCEDURE: US CAROTID DOPPLER BI INDICATIONS: follow-up prior US, hx of carotid artery disease TECHNIQUE: Color and pulse Doppler interrogation was performed of both carotid systems, with image documentation and velocity measurements. COMPARISON: None. FINDINGS: Stenosis calculations are based on SRU (Society of Radiologists in Ultrasound) criteria. Right side: Brachial blood pressure: 103/61 mm Hg. Common carotid artery peak systolic velocity: 63 cm/sec. Internal carotid artery peak systolic velocity: 73 cm/sec. Internal carotid artery end diastolic velocity: 26 cm/sec. External carotid artery peak systolic velocity: 68 cm/sec. ICA/CCA peak systolic ratio: 1.2 . Hull scale imaging description: Mild plaque at the bifurcation Percent internal carotid artery stenosis: Less than 50% . Vertebral artery: Flow direction is antegrade. Left side: Brachial blood pressure: 98/55 mm Hg. Common carotid artery peak systolic velocity: 64 cm/sec. Internal carotid artery peak systolic velocity: 87 cm/sec. Internal carotid artery end diastolic velocity: 30 cm/sec. External carotid artery peak systolic velocity: 76 cm/sec. ICA/CCA peak systolic ratio: 1.4 . Hull scale imaging description: Mild plaque at the bifurcation Percent internal carotid artery stenosis: Less than 50% . Vertebral artery: Flow direction is antegrade. IMPRESSION: 1. In the right carotid artery, there is less than 50% stenosis based on peak systolic velocity criteria. 2. In the left carotid artery, there is less than 50% stenosis based on peak systolic velocity criteria. 3. Antegrade vertebral arteries. Dictated by: Daylin Murry M.D. on 11/01/2024 at 16:10 Approved by: Daylin Murry M.D. on 11/01/2024 at 16:13
== END ==
PROVIDERS: Family Provider Student in an Organized Health Care Education/Training Program; PCP Family Medicine; Referring Provider Family Medicine; Visit Provider Family Medicine
DX: I65.23 Occlusion and stenosis of bilateral carotid arteries (principal); N18.30 Chronic kidney disease, stage 3 unspecified; I72.2 Aneurysm of renal artery; E78.2 Mixed hyperlipidemia; I25.10 Atherosclerotic heart disease of native coronary artery without angina pectoris; I77.9 Disorder of arteries and arterioles, unspecified; Z90.5 Acquired absence of kidney
CPT/HCPCS: 93880

== ENCOUNTER → 2024-11-05 09:18 | Outpatient (CLI) | payer MEDICARE, OTHER, SELFPAY ==
--- NOTE | 2024-11-05 | OV.WND_ITS ---
PROGRESS NOTE DETAILS PATIENT NAME: DARBY ZHANG DATE: PATIENT NUMBER: [id number] CLINICIAN: MAGO ESPINOZA R.N. PATIENT DATE OF : 1945 PHYSICIAN / BEAD FLIPPER: CLINTON WU PA-C PATIENT SUBJECTIVE CHIEF COMPLAINT THIS INFORMATION WAS OBTAINED FROM THE PATIENT. IT'S STILL VERY TENDER. GENERAL NOTES SURVEILLANCE VISIT FOR RIGHT THUMB. ALLERGIES VENOM-WASP (SEVERITY: SEVERE, REACTION: ANAPHYLAXIS) HPI THIS INFORMATION WAS OBTAINED FROM THE PATIENT. LOCATION: RIGHT THUMB DURATION: 08/20/24 CONTEXT: LACERATION THE PATIENT IS AN 79-YEAR-OLD MALE WITH HYPERTENSION AND CAD WHO RETURNS TODAY FOR SURVEILLANCE OF LACERATION TO DISTAL RIGHT THUMB. THE PATIENT HAD PREVIOUSLY BEEN RECEIVING DRESSING CHANGES WITH ADAPTIC AND HYDROFERA BLUE. SINCE LAST VISIT HE HAS BEEN COVERING THE AREA WITH A PROTECTOR PAD. HE DENIES HAVING ANY REDNESS, SWELLING, OR FEVER. THE PATIENT REPORTS A GOOD APPETITE AND DENIES HAVING ANY OTHER CHANGES IN HIS OVERALL HEALTH. PREVIOUS X-RAY SHOWED NO EVIDENCE FOR FRACTURE OR BONE INJURY. ON EXAM TODAY THE WOUND IS HEALED. OBJECTIVE VITALS HEIGHT/LENGTH: 70 IN (177.8 CM), WEIGHT: 174.11 LBS (79.14 KGS), BMI: 25, TEMPERATURE: 97.4 ?F (36.33 ?C), PULSE: 56 BPM, RESPIRATORY RATE: 16 BREATHS/MIN, BLOOD PRESSURE: 122/75 MMHG, PULSE OXIMETRY: 100 %. PHYSICAL EXAM CONSTITUTIONAL: GENERALIZED WEAKNESS. IN NO APPARENT DISTRESS. GOOD ATTENTION TO HYGIENE AND BODY HABITS. ALERT AND ORIENTED X 3. WELL NOURISHED. VITAL SIGNS REVIEWED AND NOTED. BLOOD PRESSURE NORMAL. PULSE RATE AND RHYTHM REGULAR. AFEBRILE. WEIGHT WNL. WELL DEVELOPED, WELL NOURISHED, AND IN NO ACUTE DISTRESS. ALERT AND ORIENTED X3. AMBULATES AND IS ABLE TO CHANGE POSITION WITHOUT ASSISTANCE. ALERT AND ORIENTED X 3. RESPIRATORY: EVEN RESPIRATIONS WITHOUT USE OF ACCESSORY MUSCLES. NO INTERCOASTAL RETRACTIONS NOTED. EVEN AND NON LABORED RESPIRATION. CARDIOVASCULAR: DARBY ZHANG [id number] 1945 SEE LOWER EXTREMITY ASSESSMENT WHEN APPLICABLE. THERE IS NO PERIPHERAL EDEMA, CYANOSIS OR PALLOR. EXTREMITIES ARE WARM AND WELL PERFUSED. CAPILLARY REFILL IS LESS THAN 2 SECONDS. INTEGUMENTARY (HAIR, SKIN): SEE WOUND DESCRIPTION. NEUROLOGICAL: SENSITIVE TO TOUCH. PSYCHIATRIC: ORIENTATION TO TIME, PLACE AND PERSON: NORMAL AFFECT WITH NORMAL THOUGHT PATTERN. MOOD AND AFFECT: NORMAL AFFECT WITH NORMAL THOUGHT PATTERN. WOUND ASSESSMENT(S) WOUND #2 FINGER - THUMB IS A NO WOUND AND HAS RECEIVED AN OUTCOME OF HEALED - NO NEW WOUND(S). THE PERIWOUND SKIN TEXTURE IS NORMAL. THE PERIWOUND SKIN MOISTURE IS NORMAL. THE PERIWOUND SKIN COLOR IS NORMAL. ASSESSMENT ACTIVE PROBLEMS ICD-10 (ENCOUNTER DIAGNOSIS) S61.011D - LACERATION WITHOUT FOREIGN BODY OF RIGHT THUMB WITHOUT DAMAGE TO NAIL, SUBSEQUENT ENCOUNTER PLAN WOUND ORDERS: WOUND #2 FINGER - THUMB DRESSING ORDERS APPLY DRESSING(S) AND SECURE WITH: - NO DRESSING REQUIRED, WOUND IS HEALED. MAY COVER IF THIS HELPS WITH THE SENSITIVITY. DRESSING CHANGE FREQUENCY OTHER ORDER: - NEEDED. ADDITIONAL ORDERS: FOLLOW-UP APPOINTMENTS DISCHARGE FROM OUTPATIENT SERVICES. SCRIBING ATTESTATION I ATTEST, THE NURSE, THAT I SCRIBED THESE ORDERS FOR THE WOUND CARE PROVIDER. PROVIDER REVIEW AND ATTESTATION: REVIEWED HOSPITAL RECORDS. DISCUSSED THE PLAN OF CARE @ BEDSIDE WITH - THE PATIENT I AGREE AND ATTEST TO THE ABOVE INFORMATION PROVIDED FROM OTHER LICENSED PROFESSIONALS. HEALED F/U PRN ELECTRONIC SIGNATURE(S) SIGNED BY: DATE: CLINTON WU PA-C 11/05/2024 14:32:23 (PT) ENTERED BY: CLINTON WU PA-C ON 11/05/2024 14:32:14 (PT) DARBY ZHANG [id number] 1945 DARBY ZHANG [id number] 1945
== END ==
PROVIDERS: Family Provider Student in an Organized Health Care Education/Training Program; PCP Family Medicine; Referring Provider Family Medicine; Visit Provider Physician Assistant
DX: S61.011D Laceration without foreign body of right thumb without damage to nail, subsequent encounter (principal)
CPT/HCPCS: 99212

== ENCOUNTER → 2024-11-18 06:42 | Outpatient (CLI) | payer MEDICARE, OTHER, SELFPAY ==
--- NOTE | 2024-11-18 06:44 | DI.US.S_ITS ---
PROCEDURE: US RENAL COMPLETE INDICATIONS: Evaluate and tx TECHNIQUE: Real-time scanning was performed of the kidneys and bladder, with image documentation. COMPARISON: [facility], , RENAL COMPLETE, 07/09/2022, 14:58. FINDINGS: Kidneys: Left nephrectomy. Right kidney measures 13.4 cm. Cortex 1.7 cm. No hydronephrosis. No solid renal mass. 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 Bladder: Pre-void bladder volume is 52 mL. Post-void residual is 0 mL. Pre-void images demonstrate no intraluminal masses or stones. Ureteral jets are not seen. Miscellaneous: No free pelvic fluid. IMPRESSION: 1. No hydronephrosis. 2. 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 Per report stable to the decreased in size compared to 2017. 3. No postvoid residual. Dictated by: Jono Gomez M.D. on 11/18/2024 at 16:56 Approved by: Jono Gomez M.D. on 11/18/2024 at 17:01
== END ==
PROVIDERS: PCP Family Medicine; Referring Provider Family Medicine; Visit Provider Family Medicine
DX: I72.2 Aneurysm of renal artery (principal); N18.31 Chronic kidney disease, stage 3a; Z90.5 Acquired absence of kidney
CPT/HCPCS: 76770

== ENCOUNTER 2024-12-04 08:20 | Emergency (ER) | payer MEDICARE, OTHER, SELFPAY ==
--- NOTE | 2024-12-04 08:24 | ED_ITS ---
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 Patient I had a significant anaphylactic reaction to insect sting requiring multiple doses of epinephrine, epi drip and ultimately was transferred to [facility] and in the ICU for 2 days. Since then he has had additional sting did not EpiPen at home tolerated well. Patient presents today states he was stung by a yellow jacket was sitting at a table reached underneath to open up the umbrella, had a sting. Patient states it was in his 2nd finger he has not had any redness swelling or other changes to his hand. Patient states he has not had any symptoms but did administer epinephrine to himself. This was about 730 this morning. He has been instructed to call 911 he did EMS presented monitored him gave him the choice to presents via EMS versus by private auto. Patient's self presents states he has no symptoms no fevers, no diaphoresis. He was not had any chest pain or shortness of breath, no nausea or vomiting or diarrhea no rash or hives, no swelling of lips tongue or airway. Patient denies any symptoms. Has been an little over an hours since he administered his EpiPen. He also took Benadryl 50mg this morning at home aft erwards. He has been following with an animal pathology teacher and getting monthly shots for desensitization. Related Data Home Medications Medication Instructions Recorded Confirmed latanoprost 0.005 % eye drops 1 drp ophthalmic (eye) BEDTIME ##0 04/29/13 11/23/24 (Xalatan) aspirin 81 mg tablet,delayed 81 mg PO DAILY ##0 04/29/17 11/23/24 release metoprolol succinate 25 mg 12.5 mg PO DAILY 06/03/19 11/23/24 tablet,extended release 24 hr carbamazepine 100 mg 100 mg PO DAILY 07/01/22 11/23/24 capsule,extended release [id number] atorvastatin 80 mg tablet 80 mg PO DAILY 01/28/23 11/23/24 brimonidine 0.2 % eye drops 1 drp EYE-RIGHT BID 01/28/23 11/23/24 dorzolamide 22.3 mg-timolol 6.8 1 drp EYE-RIGHT BID 01/28/23 11/23/24 mg/mL eye drops cholecalciferol (vitamin D3) 1 tab PO DAILY 10/15/24 11/23/24 mecobalamin (vitamin B12) 1 tab PO DAILY 10/15/24 11/23/24 montelukast 10 mg tablet 10 mg PO DAILY PRN 10/15/24 11/23/24 lisinopril 20 mg tablet 10 mg PO BID 11/05/24 11/23/24 Previous Rx's Medication Instructions Recorded epinephrine 0.3 mg/0.3 mL 0.3 mg (0.3 mL) IM ONCE #2 ea 06/24/24 injection, auto-injector (EpiPen 2-Yair) chlorthalidone 25 mg tablet 12.5 mg (1/2 x 25 mg) PO DAILY #45 07/05/24 tabs levothyroxine 112 mcg tablet 112 mcg PO DAILY #90 tabs 07/16/24 tamsulosin 0.4 mg capsule 0.8 mg (2 x 0.4 mg) PO DAILY #180 09/14/24 caps epinephrine 0.3 mg/0.3 mL 0.3 ml IM Q5-15M PRN anaphylaxis 12/04/24 injection, auto-injector (EpiPen #2 ea 2-Yair) Allergies Allergy/AdvReac Type Severity Reaction Status Date / Time venom-wasp Allergy Severe Anaphylaxis Verified 11/23/24 12:46 Review of Systems Review of Systems ROS Unobtainable: All systems reviewed & are unremarkable except as noted in HPI and below Patient History Medical History 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) Mild carotid artery disease (04/15/14) COVID-19 Allergic reaction to wasp sting BPH w urinary obs/LUTS Impacted cerumen, right ear COVID-19 Cervical spine arthritis Spondylolisthesis, lumbar region Environmental allergies Dystrophic nail Obstructive sleep apnea Trigeminal neuralgia PVD (peripheral vascular disease) Acquired hypothyroidism (08/21/16) Coronary artery disease Mixed hyperlipidemia (01/27/13) Essential hypertension Surgical History History of lumbar laminectomy for spinal cord decompression History of arthroplasty of right knee (2014) History of nephrectomy Status post coronary artery bypass graft (2012) Family History Son Multiple sclerosis Mother No problems noted. Social History household members: spouse Smoking Status: Former smoker Smoking Status: Former smoker Exam Narrative Exam Narrative: GEN: well nourished, well appearing male, alert and oriented x 3, patient appears to be in no acute distress distress. HEENT: Atraumatic, pupils are equal round reactive to light, extraocular movements are intact, nares are clear, there is no conjunctival pallor. Throat is clear without any exudates, erythema, tonsillar enlargement or uvular deviation, no swelling of lips, tongue or airway HEART: Regular rate and rhythm without murmur, clicks, rubs. LUNGS:Lungs clear to auscultation, no wheezes, rales, crackles, chest moves symmetrically ABD:bowel sounds normal, soft, non-tender, no guarding, rebound, rigidity, no masses noted, no hepatosplenomegaly MSCL: full range of motion, normal gait NEURO:CN 2-12 intact, sensation normal SKIN: No rash, erythema or other skin changes noted. Initial Vital Signs Initial Vital Signs: Vital Signs Temperature 98.3 F 12/04/24 08:26 Pulse Rate 59 L 12/04/24 08:26 Respiratory Rate 15 12/04/24 08:26 Blood Pressure 131/61 12/04/24 08:26 Pulse Oximetry 99 12/04/24 08:26 Oxygen Delivery Method Room Air 12/04/24 08:26 Course Vital Signs Vital signs: Vital Signs - 8 hr 12/04/24 08:26 Temperature 98.3 F Pulse Rate 59 L Respiratory Rate 15 Blood Pressure 131/61 Pulse Oximetry 99 Oxygen Delivery Method Room Air Medical Decision Making [facility] Narrative Medical decision making narrative: 79-year-old male known significant reaction to wasp stings patient self administered epinephrine although was asymptomatic at that time also had Benadryl at home. Since then has not had any additional symptoms was evaluated by EMS and presents a little over an hour after staying in administration. Patient continues to be asymptomatic we will continue to monitor. Recheck 0933 patient continues to be asymptomatic, he is requesting to leave. It's 2 hours since initial epipen injection. Discharge Plan Departure Patient Disposition: Home Clinical Impression: Bite or sting by insect Instructions: DI for Anaphylaxis Activity Restrictions/Additional Instructions: Follow up with your cloth beamer continue with your current care plan. Let them know that she did have insect bite or sting and how you tolerated that. Prescription for refill for your EpiPen was sent to [facility] in [place]. You can take Benadryl 25-50 mg (1-2 tablets) [id number] every 6 hours as needed. Please return if you have any symptoms or other new or concerning changes. Prescriptions: New epinephrine [EpiPen 2-Yair] 0.3 mg/0.3 mL auto-injector 0.3 ml IM Q5-15M PRN (Reason: anaphylaxis) Qty: 2 0RF Rx Instructions: do not exceed 3 doses per episode No Action latanoprost [Xalatan] 0.005 % drops 1 drp ophthalmic (eye) BEDTIME Qty: 0 aspirin 81 MG tablet,delayed release (DR/EC) 81 mg PO DAILY Qty: 0 epinephrine [EpiPen 2-Yair] 0.3 mg/0.3 mL auto-injector 0.3 mg IM ONCE Qty: 2 1RF Rx Instructions: as a single dose; may repeat once chlorthalidone 25 mg tablet 12.5 mg PO DAILY Qty: 45 3RF Hold Instructions: Trial of cessation levothyroxine 112 mcg tablet 112 mcg PO DAILY Qty: 90 1RF Hold Instructions: Reduce to 5x/week until labs lisinopril 20 mg tablet 10 mg PO BID carbamazepine 100 mg capsule, ER multiphase 12 hr 100 mg PO DAILY Rx Instructions: take two capsules in the morning montelukast 10 mg tablet 10 mg PO DAILY PRN dorzolamide-timolol 22.3-6.8 mg/mL drops 1 drp EYE-RIGHT BID brimonidine 0.2 % drops 1 drp EYE-RIGHT BID Patient Comments: INSTILL 1 DROP INTO THE RIGHT EYE TWICE DAILY atorvastatin 80 mg tablet 80 mg PO DAILY cholecalciferol (vitamin D3) 1 tab PO DAILY mecobalamin (vitamin B12) 1 tab PO DAILY metoprolol succinate 25 mg tablet extended release 24 hr 12.5 mg PO DAILY tamsulosin 0.4 mg capsule 0.8 mg PO DAILY Qty: 180 3RF Referrals: Britta Campa DO [Primary Care Provider] - Stand Alone Forms: Patient Portal/API/Survey
[2024-12-04 08:26] VITALS: BP 131/61; PULSE 59; RESP 15; TEMP 36.8; O2SAT 99; BMI 23.6
[2024-12-04 09:40] VITALS: BP 105/69; PULSE 52; O2SAT 97
== END 2024-12-04 09:40 | disposition home or self-care (01) ==
PROVIDERS: Emergency Provider Emergency Medicine; PCP Family Medicine
DX: T63.461A Toxic effect of venom of wasps, accidental (unintentional), initial encounter (principal)
CPT/HCPCS: 99281

== ENCOUNTER → 2024-12-31 09:43 | Outpatient (CLI) | payer MEDICARE, OTHER, SELFPAY ==
[2024-12-31 10:41] LABS: BUN Creatinine Ratio 26.4 (6-22); Blood Urea Nitrogen 28 mg/dL (9-20); Calcium 9.4 mg/dL (8.4-10.2); Carbon Dioxide 25 mmol/L (22-32); Chloride 107 mmol/L (98-107); Estimated Glomerular Filt Rate > 60 mL/min (>60); Glucose 90 mg/dL (70-99); HEMOLYSIS < 15 (0-50); Potassium 4.2 mmol/L (3.4-5.1); Sodium 139 mmol/L (137-145)
[2024-12-31 11:06] LABS: Appearance Urine UA CLEAR; Bilirubin Urine UA NEGATIVE (NEGATIVE); Color Urine UA YELLOW; Glucose Urine UA NEGATIVE (Negative); Ketones Urine UA NEGATIVE (NEGATIVE); Leukocyte Esterase Urine UA NEGATIVE (NEGATIVE); Nitrite Urine UA NEGATIVE (Negative); Occult Blood Urine UA NEGATIVE (Negative); Protein Urine UA NEGATIVE (Negative); Specific Gravity Urine UA 1.025 (1.000-1.035); Urobilinogen Urine UA 0.2 E.U./dL (0.2)
[2024-12-31 11:12] LABS: Urine Volume 10mL (spun)
[2024-12-31 11:13] LABS: Bacteria Urine None Seen; Culture Indicated Urine Cult Not Indicated; RBC Urine None Seen (0-5/HPF); Squamous Epithelial Cell Urine None Seen (0-5/HPF); WBC Urine None Seen (0-5/HPF)
[2024-12-31 11:24] LABS: Creatinine Urine Random 131.47 mg/dL
[2024-12-31 11:26] LABS: Protein (Total) Urine Random < 5 mg/dL (0-12)
== END ==
LOC: LAB 09:47
PROVIDERS: PCP Family Medicine
DX: N17.9 Acute kidney failure, unspecified (principal); N18.9 Chronic kidney disease, unspecified
CPT/HCPCS: 36415; 80048; 81001; 82043; 82570; 84156

== ENCOUNTER → 2025-01-28 17:16 | Outpatient (CLI) | payer MEDICARE, OTHER, SELFPAY ==
[2025-01-28 18:35] LABS: BUN Creatinine Ratio 23.8 (6-22); Blood Urea Nitrogen 25 mg/dL (9-20); Calcium 9.2 mg/dL (8.4-10.2); Carbon Dioxide 24 mmol/L (22-32); Chloride 103 mmol/L (98-107); Estimated Glomerular Filt Rate > 60 mL/min (>60); Glucose 144 mg/dL (70-99); HEMOLYSIS < 15 (0-50); Potassium 3.8 mmol/L (3.4-5.1); Sodium 138 mmol/L (137-145)
[2025-01-28 19:33] LABS: Vitamin D 25 Hydroxy (D3) 49.4 ng/mL (30.0-100.0)
== END ==
PROVIDERS: PCP Family Medicine; Referring Provider Family Medicine; Visit Provider Family Medicine
DX: E55.9 Vitamin D deficiency, unspecified (principal); I10 Essential (primary) hypertension; I25.810 Atherosclerosis of coronary artery bypass graft(s) without angina pectoris
CPT/HCPCS: 36415; 80048; 82306; 83970

== ENCOUNTER → 2025-02-05 10:11 | Outpatient (CLI) | payer MEDICARE, OTHER, SELFPAY ==
[2025-02-06 10:36] LABS: Parathyroid Hormone Int 49 pg/mL (15-65)
== END ==
PROVIDERS: PCP Family Medicine; Referring Provider Family Medicine; Visit Provider Student in an Organized Health Care Education/Training Program
DX: E03.9 Hypothyroidism, unspecified (principal)
CPT/HCPCS: 83970

== ENCOUNTER → 2025-05-23 06:59 | Outpatient (CLI) | payer MEDICARE, OTHER, SELFPAY ==
[2025-05-23 08:00] LABS: Blood Urea Nitrogen 35 mg/dL (9-20); Calcium 8.9 mg/dL (8.4-10.2); Carbon Dioxide 25 mmol/L (22-32); Chloride 104 mmol/L (98-107); Estimated Glomerular Filt Rate > 60 mL/min (>60); Glucose 94 mg/dL (70-99); HEMOLYSIS 43 (0-50); Potassium 4.0 mmol/L (3.4-5.1); Sodium 138 mmol/L (137-145)
== END ==
PROVIDERS: PCP Family Medicine; Referring Provider Family Medicine; Visit Provider Internal Medicine Cardiovascular Disease
DX: I10 Essential (primary) hypertension (principal); I25.810 Atherosclerosis of coronary artery bypass graft(s) without angina pectoris
CPT/HCPCS: 36415; 80048

== ENCOUNTER → 2025-05-31 17:54 | Outpatient (CLI) | payer MEDICARE, OTHER, SELFPAY ==
[2025-05-31 18:06] LABS: Add Manual Diff / Slide Review NO; Hematocrit 40.5 % (41-53); Hemoglobin 13.8 g/dL (13.5-17.5); Lymphocytes Absolute Auto 1900 /uL (1100-4500); Mean Corpuscular HGB Conc 34.1 % (30-36); Mean Corpuscular Hemoglobin 32.9 PG (26-34); Mean Corpuscular Volume 96.7 fL (80-100); Platelet Count 232 X10^3/uL (150-400)
[2025-05-31 18:46] LABS: Alanine Aminotransferase 21 IU/L (<50); Albumin 4.3 g/dL (3.5-5.0); Albumin Globulin Ratio 1.7 (1.0-2.8); Alkaline Phosphatase 121 U/L (38-126); Blood Urea Nitrogen 37 mg/dL (9-20); Calcium 9.2 mg/dL (8.4-10.2); Carbon Dioxide 21 mmol/L (22-32); Chloride 106 mmol/L (98-107); Estimated Glomerular Filt Rate 58 mL/min (>60); Globulin 2.6 g/dL (1.7-4.1); Glucose 103 mg/dL (70-99); HEMOLYSIS < 15 (0-50); Potassium 3.6 mmol/L (3.4-5.1); Sodium 138 mmol/L (137-145); Total Protein 6.9 g/dL (6.3-8.2)
== END ==
PROVIDERS: PCP Family Medicine; Referring Provider Psychiatry & Neurology Neurology; Visit Provider Psychiatry & Neurology Neurology
DX: Z79.899 Other long term (current) drug therapy (principal)
CPT/HCPCS: 36415; 80053; 85025